=== PATIENT | female | born 2000 | race Caucasian/White ===

== ENCOUNTER 2024-08-27 19:47 | Emergency (ER) | payer BC, SELFPAY ==
[2024-08-27 19:48] VITALS: BP 118/74; PULSE 67; RESP 16; TEMP 36.6; O2SAT 98
--- NOTE | 2024-08-27 20:32 | EDS_ITS ---
HPI History of Present Illness Chief Complaint: Nausea/Vomiting PFSH PFSH Home Medications ?Medication ?Instructions ?Recorded ?Last Taken ?Type prochlorperazine maleate 10 mg 10 mg PO Q8H PRN nausea and 08/23/24 Unknown Rx tablet (Compazine) vomiting #90 tabs ondansetron 4 mg disintegrating 4 mg PO Q8H PRN PRN Nausea #10 tabs 08/27/24 Unknown Rx tablet Allergy/AdvReac Type Severity Reaction Status Date / Time No Known Allergies Allergy Verified 08/27/24 19:48 Social History Smoking Status: Never smoker EXAM Physical Exam Const Vital Signs: 08/27/24 19:48 08/27/24 23:41 Temperature 98 F 98 F Temperature Source Oral Pulse Rate 67 70 Respiratory Rate 16 16 Blood Pressure 118/74 125/77 H Blood Pressure Mean 88 93 Pulse Ox 98 99 Oxygen Delivery Method Room Air [facility] MDM Narrative Medical decision making narrative: HISTORY OF PRESENT ILLNESS: 24-year-old female presents with nausea vomiting for 3 weeks. The patient states she is 9 weeks . Notes she was told by her OB to present to the ED for IV fluids. Notes 4 episodes of non-bloody non-bilious vomitus today. No history abdominal surgeries. No she takes Phenergan at home but has not alleviated her symptoms. REVIEW OF SYSTEMS: Pertinent positives: Nausea vomiting Pertinent negatives: Vaginal bleeding, lower abdominal pain, vaginal discharge, passing tissue, PHYSICAL EXAM: Nursing triage notes reviewed, Vital signs reviewed Constitutional: please see mdm HENT: MMM Eyes: Pupils equal round and reactive to light, Extraocular muscles intact Neck: No stridor, no JVD, full neck ROM Lungs: Clear to auscultation, No wheezing or rales. No increased work of breathing, no conversational dyspnea, no accessory muscle use, no nasal flaring. No respiratory distress noted Heart: Regular rate and rhythm, No murmurs, No rubs and No gallops, 2+ distal pulses (radial, femoral, posterior tibial) in all extremities Abdomen: Soft, there is no tenderness, rigidity, rebound or guarding, no obvious peritoneal signs, no palpable pulsatile abdominal masses, no auscultated abdominal bruit : No CVAT Extremities: No edema Neuro: No new focal neurological deficits, cranial nerves II through XII intact, 5/5 strength in all present extremities. Intact sensation to light touch in all present extremities, 2+ reflexes bilateral patella tendons. Skin: No rash or lesions noted MEDICAL DECISION MAKING: Chief Complaint: Nausea vomiting External records reviewed: Reviewed prior imaging, problems, allergies, current medications Factors affecting care: first trimester Social determinants of health: History obtained from others: none Consults: none MDM Narrative: The patient was initially hemodynamically stable, afebrile and nontoxic- appearing. Abdominal exam is benign. I considered the following differential diagnosis: Ectopic , loss, dehydration, electrolyte disturbance I obtained a broad lab workup. I initially assessed the patient 1 L normal saline given 4 mg of Zofran. ALL IMAGES (IF OBTAINED) HAVE BEEN PERSONALLY REVIEWED AND INTERPRETED BY MYSELF. EKG with normal sinus rhythm at a rate of 65, normal axis, no intervals, QTc 438, no STEMI Urine without evidence of UTI or asymptomatic bacteria will send for culture to assure there is no sign of any symptomatic bacteria need for antibiotics. CMP without evidence of acute kidney injury, significant electrolyte abnormality, anion gap to suggest end organ hypo-perfusion, no evidence of metabolic acidosis with a normal bicarbonate, no evidence of hepatobiliary obstructive pathology. CBC without leukocytosis, severe anemia, no thrombocytopenia. Repeat abdominal exam remained benign. Given lack of abdominal pain, benign abdominal exam I do not suspect patient had ectopic . She had no vaginal bleeding discharge passage of tissue, leakage of fluid. Not suspect is having loss or miscarriage. There is no signs of significant dehydration or labs. Patient was able tolerate p.o. She is appropriate discharge home. The patient and/or family, caregivers express understanding. The patient and/or family, caregivers agrees with the plan. Shared decision making: I will have a discussion with the patient and or visitors regarding risk/benefi ts of further testing or admission. They will be made aware of of the risk/benefits inherent in this decision they will be given the opportunity to voice understanding. Total critical care time today provided was at least 0 minutes. This excludes separately billable procedures. Critical care time (if documented) is secondary to the patient having high probability of clinically significant/life threatening deterioration in the patient's condition which required my urgent intervention. Impression: 1. Nausea & vomiting 2. 1st trimester Dispo: Discharge home This note was generated with [employer] dictation software. It may contain incorrect words, spelling, and punctuation that were not noted in review of the chart prior to signing. Lab Data Labs: Laboratory Results - last 24 hr 08/27/24 08/27/24 20:43 21:23 WBC 9.6 RBC 4.10 L Hgb 12.1 Hct 35.8 L MCV 87.3 MCH 29.5 MCHC 33.8 RDW Std Deviation 39.5 RDW Coeff of Edilma 12.4 Plt Count 153 MPV 13.1 H Sodium 139 Potassium 3.6 Chloride 104 Carbon Dioxide 29.0 Anion Gap 6 BUN 9 Creatinine 0.52 L Est GFR (MDRD) Af Amer 186 Est GFR (MDRD) Non-Af 154 BUN/Creatinine Ratio 17.2 Glucose 91 Calcium 8.9 Total Bilirubin 0.30 AST 11 L ALT 16 Alkaline Phosphatase 60 Total Protein 7.0 Albumin 3.6 Globulin 3.4 Albumin/Globulin Ratio 1.1 Lipase 36 Urine Color Yellow Urine Clarity Sl. Cloudy Urine pH 7.0 Ur Specific [place] 1.010 Urine Protein 15 H Urine Glucose (UA) Normal Urine Ketones Negative Urine Occult Blood Negative Urine Nitrite Negative Urine Bilirubin Negative Urine Urobilinogen Normal Ur Leukocyte Esterase 25 H Urine RBC 0 SEEN Urine WBC 0-5 SEEN Ur Squamous Epith Cells 0-5 SEEN Amorphous Sediment 3+ Urine Bacteria 0 SEEN Urine Mucus 0 SEEN Discharge Plan Triage Chief Complaint: Nausea/Vomiting ED Provider: Ivan Abrams Dx/Rx/DC Orders Instructions: ED , ED Vomiting (Adult) Prescriptions: New ondansetron 4 mg tablet,disintegrating 4 mg PO Q8H PRN PRN (Reason: Nausea) Qty: 10 0RF No Action prochlorperazine maleate [Compazine] 10 mg tablet 10 mg PO Q8H PRN (Reason: nausea and vomiting) Qty: 90 3RF Primary Care Provider: Yuliana Loya Referrals: Yuliana Loya, [facility] [Primary Care Provider] - Activity Restrictions/Additional Instructions: Thank you for trusting us with your care today! Please take Tylenol (2 pills, 650 mg), ibuprofen (2 pills, 400 mg) every 6 hours as needed for pain and fever control. Please take Zofran as needed for nausea vomiting control. Zofran is safe to take with Zoloft as long as you are taking Zofran as prescribed at the appropriate doses and not for prolonged amount of time Please return to the emergency department if your symptoms change or worsen. Specifically develop vomiting that is not controlled by Zofran. Develop fever, elevated heart rate, muscle spasms. Please follow with your primary care physician for further outpatient evaluation and management. Print Language: Sammarinese Disposition Disposition: Home, Self Care Discharge Date/Time: 08/27/24 23:43
--- NOTE | 2024-08-27 21:10 | ED.RN ---
NO OLD EKG
[2024-08-27] MEDS: Ondansetron 4 MG/2 ML Vial IV (21:19)
[2024-08-27] MEDS: 0.9% Normal Saline (1000mL) 1,000 ML 1000 ML IV (21:19)
[2024-08-27 21:30] LABS: Bacteria 0 SEEN /hpf (None Seen); Color, Urine Yellow (Yellow); Glucose, Dipstick Normal (Normal); Ketone-Dipstick Negative (Negative); Leukocyte Esterase-Dipstick 25 /ul (Negative); Mucous, Urine 0 SEEN /hpf (<or=2+); Nitrite-Dipstick Negative (Negative); Occult Blood-Urine Negative /ul (Negative); Protein-Dipstick 15 mg/dl (Negative); Red Blood Cells-Urine 0 SEEN /hpf (0-5); Urine Bilirubin Dipstick Negative (Negative); Urine Clarity Sl. Cloudy (Clear); Urine Urobilinogen Normal (Normal)
[2024-08-27 21:33] LABS: Hematocrit 35.8 % (37-47); Hemoglobin 12.1 g/dL (12.0-15.0); Mean Corp Hgb Conc 33.8 g/dL (32-36); Mean Corpuscular Hgb 29.5 pg (27.0-32.0); Mean Corpuscular Volume 87.3 fL (81-99); Mean Platelet Vol. 13.1 fl (6.2-12.0); Platelet Count 153 K/mm3 (150-450); RBC Distribution Width CV 12.4 % (11.6-14.6); RBC Distribution Width SD 39.5 fl (35.1-43.9); White Blood Count 9.6 K/mm3 (4.4-11.0)
[2024-08-27 21:49] LABS: Amorphous Sediment 3+; Squamous Epithelial Cells - UA 0-5 SEEN /hpf (5-10); White Blood Cells 0-5 SEEN /hpf (0-5)
[2024-08-27 21:57] LABS: ALB/GLOB Ratio 1.1 RATIO (0.9-2.4); AST(SGOT) 11 U/L (15-37); Alanine Aminotransfer ALT/SGPT 16 U/L (13-56); Albumin, Serum 3.6 g/dL (3.2-5.0); Alkaline Phosphatase 60 U/L (45-117); Anion Gap 6 (5-15); BUN 9 mg/dL (7-18); BUN/Creat Ratio 17.2 RATIO (10-20); Calcium,Total 8.9 mg/dL (8.5-10.1); Chloride 104 mmol/L (98-107); Creatinine, Serum 0.52 mg/dL (0.55-1.02); EST Glomerular Filtration Rate 154 mL/min (>60); Est Glom Filt Rate - Afr Amer 186 mL/min (>60); Globulin 3.4 g/dL (2.2-4.2); Glucose 91 mg/dL (74-106); Lipase 36 U/L (13-75); Potassium 3.6 mmol/L (3.5-5.1); Sodium Level 139 mmol/L (136-145)
--- NOTE | 2024-08-27 22:31 | ED.RN ---
Patient given a cup of water to PO challenge.
[2024-08-27 23:41] VITALS: BP 125/77; PULSE 70; RESP 16; TEMP 36.6; O2SAT 99
== END 2024-08-27 23:43 | disposition home or self-care (01) ==
PROVIDERS: Emergency Provider Emergency Medicine; PCP Nurse Practitioner Family; Visit Provider Emergency Medicine
DX: O21.9 Vomiting of pregnancy, unspecified (principal); Z3A.00 Weeks of gestation of pregnancy not specified
CPT/HCPCS: 80053; 81001; 83690; 85027; 87086; 93005; 96361; 96374; 99283; A4216; J2405

== ENCOUNTER → 2024-09-09 | Outpatient (CLI) | payer BC, SELFPAY ==
[2024-09-09 11:16] LABS: Absolute Lymphocyte Count 1.49 X10^3/uL (0.83-4.51); Absolute Neutrophil Count 7.4 X10^3/uL (2.0-7.7); Basophil# 0.02 X10^3/uL; Basophil% 0.2 % (0-1); Eosinophil# 0.14 X10^3/uL; Eosinophils% 1.5 % (0-5); Hematocrit 40.7 % (37-47); Hemoglobin 13.3 g/dL (12.0-15.0); Lymphocyte # 1.49 X10^3/ul (0.83-4.51); Lymphocyte % 15.6 % (19-41); Mean Corp Hgb Conc 32.7 g/dL (32-36); Mean Corpuscular Hgb 28.8 pg (27.0-32.0); Mean Corpuscular Volume 88.1 fL (81-99); Mean Platelet Vol. 12.9 fl (6.2-12.0); Monocyte# 0.47 X10^3/uL; Monocyte% 4.9 % (0-10); NRBC Flagged by Analyzer 0 % (0-5); Neutrophil % 77.5 % (47-70); Platelet Count 183 K/mm3 (150-450); RBC Distribution Width CV 12.8 % (11.6-14.6); RBC Distribution Width SD 41.2 fl (35.1-43.9); Red Blood Count 4.62 M/mm3 (4.2-5.4); White Blood Count 9.6 K/mm3 (4.4-11.0)
[2024-09-09 11:59] LABS: Hepatitis B Surface Antigen Non-Reactive (Nonreactive); Hepatitis C Antibody Non-Reactive (Nonreactive); Rubella IgG Reactive (Nonreactive); Syphilis Antibodies Non-reactive
[2024-09-11 04:06] LABS: Chlamydia By Nucleic Acid AMP Negative (Negative); Gonococcus By Nucleic Acid AMP Negative (Negative)
[2024-09-14 13:49] LABS: HPV Reflexed? NOT INDICATED
[2024-09-14 22:08] LABS: HIV - WCH Non-Reactive (Nonreactive)
== END | disposition home or self-care (01) ==
LOC: BWCLAB 09:39
PROVIDERS: PCP Nurse Practitioner Family; Referring Provider Advanced Practice Midwife; Visit Provider Advanced Practice Midwife
DX: O09.90 Supervision of high risk pregnancy, unspecified, unspecified trimester (principal); Z3A.00 Weeks of gestation of pregnancy not specified
CPT/HCPCS: 36415; 85025; 86703; 86762; 86780; 86803; 86850; 86900; 86901; 87086; 87340; 87491; 87591; 88175; G0145

== ENCOUNTER → 2025-01-07 | Outpatient (CLI) | payer BC, SELFPAY ==
[2025-01-07 12:10] LABS: Absolute Lymphocyte Count 1.52 X10^3/uL (0.83-4.51); Absolute Neutrophil Count 9.6 X10^3/uL (2.0-7.7); Basophil# 0.04 X10^3/uL; Basophil% 0.3 % (0-1); Eosinophil# 0.18 X10^3/uL; Eosinophils% 1.5 % (0-5); Hematocrit 31.5 % (37-47); Hemoglobin 10.1 g/dL (12.0-15.0); Lymphocyte # 1.52 X10^3/ul (0.83-4.51); Lymphocyte % 12.4 % (19-41); Mean Corp Hgb Conc 32.1 g/dL (32-36); Mean Corpuscular Hgb 28.6 pg (27.0-32.0); Mean Corpuscular Volume 89.2 fL (81-99); Mean Platelet Vol. 12.1 fl (6.2-12.0); Monocyte# 0.66 X10^3/uL; Monocyte% 5.4 % (0-10); NRBC Flagged by Analyzer 0 % (0-5); Neutrophil # 9.57 X10^3/uL (2.7-7.7); Neutrophil % 78.3 % (47-70); Platelet Count 160 K/mm3 (150-450); RBC Distribution Width CV 12.7 % (11.6-14.6); RBC Distribution Width SD 40.6 fl (35.1-43.9); Red Blood Count 3.53 M/mm3 (4.2-5.4); White Blood Count 12.2 K/mm3 (4.4-11.0)
[2025-01-07 13:22] LABS: Glucose Challenge Gest 1H 50g 103 mg/dL (70-140); HIV Nonreactive (Nonreactive); Syphilis Antibodies Nonreactive (Nonreactive)
== END | disposition home or self-care (01) ==
PROVIDERS: Obstetrics & Gynecology; PCP Nurse Practitioner Family; Referring Provider Obstetrics & Gynecology; Visit Provider Obstetrics & Gynecology
DX: O09.90 Supervision of high risk pregnancy, unspecified, unspecified trimester (principal); Z13.1 Encounter for screening for diabetes mellitus; Z3A.00 Weeks of gestation of pregnancy not specified
CPT/HCPCS: 36415; 82950; 85025; 86703; 86780

== ENCOUNTER → 2025-02-11 | Outpatient (CLI) | payer BC, SELFPAY ==
--- NOTE | 2025-02-11 12:04 | US_ITS ---
PROCEDURE: OB LIMITED WITH BIOMETRICS 02/11/2025 REASON FOR EXAM: GROWTH AT 32 WEEKS TECHNIQUE: High resolution obstetric ultrasound performed using a 2D transducer. Standard views obtained, including biometry, anatomy survey, and Doppler studies. COMPARISON: None FINDINGS Number: 1 Position: Vertex Placental Position: Posterior Placental Abnormalities: No evidence of previa. DIMENSIONS: Biparietal Diameter: 8.6 cm: 34 weeks and 5 days: 91st percentile/ Head Circumference: 31.12 cm: 34 weeks and 6 days: 69 percentile/ Abdominal Circumference: 31.04 cm: 35 weeks and 0 days: 96 percentile/ Femur Length: 5.74 cm: 30 weeks and 1 day: 12th percentile/ ESTIMATED WEIGHT: 2245 g plus/-337 g ESTIMATED WEIGHT PERCENTILE (24+ weeks): 70 ESTIMATED GESTATIONAL AGE: Baseline: 32 weeks and 5 days By Ultrasound: 34 weeks and 0 days ESTIMATED DATE OF DELIVERY: Baseline: April 03, 2025 By Ultrasound: March 25, 2024 BIOPHYSICAL ASSESSMENT: Amniotic Fluid Volume: 6 cm Amniotic Fluid Index: 13.8 (8-24 cm normal range) Cardiac Motion: 171 beats per minute (average) Trunk and Limb Motion: Present. MATERNAL ANATOMY: Adnexa: Neither maternal ovary is successfully identified. US/OB Limited With Biometrics IMPRESSION: Single live intrauterine gestation with a mean gestational age of 34 weeks. Reading Location: [id number]
--- OUTSIDE RECORDS SUMMARY | 2025-02-11 19:10 | XMS RPT_ITS | CCD ---
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 History Migraine headache Surgical History [place] teeth extracted Family History Grandfather Diabetes Maternal Mother Cancer Basal cell skin cancer Father Cancer Basal cell Skin cancer Aunt Cancer Maternal- Skin Melanoma Social History adopted: No household members: spouse current occupational status: employed current occupation: [employer] pets and animals: Yes (Avoid Litterbox) pets and animals: cat(s) history of recent travel: No sexually active: Yes Smoking Status: Never smoker alcohol intake: current alcohol intake frequency: a few times a month details: Not while substance use type: does not use well-balanced diet: daily or most days caffeine: No eating out: 1-3 times/week during the past year weight has: remained stable what type of physical activity do you participate in: none osiris/anabaptist: Buddhist seatbelt use: always do you feel safe at home: Yes additional social history: Xavier History 1 Elective abortions Hx Para 0 Spontaneous abortions Hx # Term Pregnancies Ectopic pregnancies Hx # Pregnancies Multiple births # of living children HPI 27 wk ob/ glucose Details: GINO MICHELE is a 24 year old who presents for routine OB visit. OB Visit BLUE Calculator Estimated Delivery Date Method Current WG Current Estimate 04/03/25 LMP (Certain) 27w 5d Other Estimates 04/01/25 Ultrasound #1 28w 0d Expected Delivery Route/Plan Labor Preferences- CB/BF classes: [] labor support person: [] labor intervention preferences: [] pain management options preferred: [] cut cord/dad catch: [] : [] PP control planned: [] discussed possible routes of delivery and associated risks: [] special requests: [] Specific Issue/Plans Covid status: [] Flu vaccine: [] Tdap vaccine: [] Rhogam: [] LARC form signed: [] Problem list reviewed and updated with the most current plan of care details and appropriate orders placed. Relevant counseling for the gestational age provided. Continue routine care and follow up unless otherwise noted in visit notes/problem list details Initial Weight: 143 lb Date -???-???-???-???-?? ?-???-???-???-???-? ??-???-???- EGA Weight BP Urine Prot -???-???-???-???-?? ?-???-???-???-???-? ??-???-???- Glucose FHR FuHt Pres Dilation -???-???-???-???-?? ?-???-???-???-???-? ??-???-???- Effaced St Visit Note 09/09/24 -???-???-???-???-?? ?-???-???-???-???-? ??-???-???- 10w 4d 143 lb (+0 oz) 127/83 -???-???-???-???-?? ?-???-???-???-???-? ??-???-???- 169 -???-???-???-???-?? ?-???-???-???-???-? ??-???-???- KW- CRL cons with dates. declines NIPT. Anatomy US ordered 10/07/24 -???-???-???-???-?? ?-???-???-???-???-? ??-???-???- 14w 4d 153 lb 2 oz (+10 lb 2 oz) 120/73 Negative -???-???-???-???-?? ?-???-???-???-???-? ??-???-???- Negative 145 -???-???-???-???-?? ?-???-???-???-???-? ??-???-???- JV- still so me nausea. trying reglan. will also try buspar for anxiety. anatomy scan ordered. 11/05/24 -???-???-???-???-?? ?-???-???-???-???-? ??-???-???- 18w 5d 164 lb (+21 lb) 134/81 Negative -???-???-???-???-?? ?- (more content not included)... Normal [facility] Platelet countOrdered By: Khris Chaney on 01-07-2025 Platelets (Bld) [#/Vol] 160 10*3/uL 150-450 [facility] RBC Auto (Bld) [#/Vol]Ordere d By: Rufina Chaney on 01-07-2025 RBC (Bld) [#/Vol] 3.53 10*6/uL Low 4.2-5.4 [facility] Syphilis Antibodieson 2024 Syphilis Abs Non-Reactive Normal Nonreactive [facility] Comment on above: Performed By: #### M 100.2200 #### [facility] [place], [address] White blood cell (WBC) count Ordered By: Rufina Chaney on 01-07-2025 WBC (Bld) [#/Vol] 12.2 10*3/uL High 4.4-11.0 [facility] Laboratory - Chemistry and C hemistry - challengeOrdered By: Rufina Chaney on 12-03-2024 Glucose Ql (U) Negative [facility] - UrinalysisOrder ed By: Rufina Chaney on 12-03-2024 Protein Ql (U) Negative [facility] Boiler Tester Office Visit Reporton 12-03-2024 Boiler Tester Office Visit Report [facility] [address], [address] [place] [address] OFFICE VISIT Date of Service: 12/03/24 MR#: [id number] Acct: [id number] Name: GINO MICHELE Rep #: [id number] : 2000 Provider: Dr. Rufina Dowd DO Age/Sex: 24/F Location: [facility] [place] Status: Signed Intake Vital Signs 09/09/24 09:07 11/05/24 11:42 12/03/24 10:15 12/03/24 10:16 Height 5 ft 5 in 5 ft 5 in 5 ft 5 in 5 ft 5 in Weight: 171 lb 6 oz BMI 28.5 BP 120/77 Intake Visit Reasons: 22 wk ob Progress Man Required: No Is patient in pain?: No Allergies No Known Allergies Allergy (Verified 12/03/24 10:14) Medications ???Medication ???Instructions ???Recorded ???Confirmed ???Type multivitamin no.47-iron fum 27 cap PO 09/06/24 12/03/24 History mg-folate no.1 1 mg-dha 300 mg capsule (PNV-DHA) buspirone 15 mg tablet 15 mg PO TID PRN anxiety #30 tabs 10/07/24 12/03/24 Rx metoclopramide HCl 10 mg tablet 10 mg PO QAC #60 tabs 10/07/2412/24 Rx (Reglan) sertraline 50 mg tablet (Zoloft) 150 mg PO QDAY 10/07/24 12/03/24 H istory ondansetron 4 mg disintegrating 4 mg PO Q8H PRN PRN Nausea #30 tab s 10/15/24 12/03/24 Rx tablet ondansetron HCl 4 mg tablet 4 mg PO Q6H PRN nausea and 5 04/04/25 Rx vomiting #60 tabs Last Menstrual Period: 06/27/24 Zika: Zika virus screening: Negative : No PFSH PFSH Medical History Migraine headache Surgical History [place] teeth extracted Family History Grandfather Diabetes Maternal Mother Cancer Basal cell skin cancer Father Cancer Basal cell Skin cancer Aunt Cancer Maternal- Skin Melanoma Social History adopted: No household members: spouse current occupational status: employed current occupation: [employer] pets and animals: Yes (Avoid Litterbox) pets and animals: cat(s) history of recent travel: No sexually active: Yes Smoking Status: Never smoker alcohol intake: current alcohol intake frequency: a few times a month details: Not while substance use type: does not use well-balanced diet: daily or most days caffeine: No eating out: 1-3 times/week during the past year weight has: remained stable what type of physical activity do you participate in: none osiris/anabaptist: Buddhist seatbelt use: always do you feel safe at home: Yes additional social history: Xavier History 1 Elective abortions Hx Para 0 Spontaneous abortions Hx # Term Pregnancies Ectopic pregnancies Hx # Pregnancies Multiple births # of living children HPI 22 wk ob Details: GINO MICHELE is a 24 year old who presents for routine OB visit. OB Visit BLUE Calculator Estimated Delivery Date Method Current WG Current Estimate 04/03/25 LMP (Certain) 22w 5d Other Estimates 04/01/25 Ultrasound #1 23w 0d Expected Delivery Route/Plan Labor Preferences- CB/BF classes: [] labor support person: [] labor intervention preferences: [] pain management options preferred: [] cut cord/dad catch: [] : [] PP control planned: [] discussed possible routes of delivery and associated risks: [] special requests: [] Specific Issue/Plans Covid status: [] Flu vaccine: [] Tdap vaccine: [] Rhogam: [] LARC form signed: [] Problem list reviewed and updated with the most current plan of care details and appropriate orders placed. Relevant counseling for the gestational age provided. Continue routine care and follow up unless otherwise noted in visit notes/problem list details Initial Weight: 143 lb Date -???-???-???-???-?? ?-???-???-???-???-? ??-???-???- EGA Weight BP Urine Prot -???-???-???-???-?? ?-???-???-???-???-? ??-???-???- Glucose FHR FuHt Pres Dilation -???-???-???-???-?? ?-???-???-???-???-? ??-???-???- Effaced St Visit Note 09/09/24 -???-???-???-???-?? ?-???-???-???-???-? ??-???-???- 10w 4d 143 lb (+0 oz) 127/83 -???-???-???-???-?? ?-???-???-???-???-? ??-???-???- 169 -???-???-???-???-?? ?-???-???-???-???-? ??-???-???- KW- CRL cons with dates. declines NIPT. Anatomy US ordered 10/07/24 -???-???-???-???-?? ?-???-???-???-???-? ??-???-???- 14w 4d 153 lb 2 oz (+10 lb 2 oz) 120/73 Negative -???-???-???-???-?? ?-???-???-???-???-? ??-???-???- Negative 145 -???-???-???-???-?? ?-???-???-???-???-? ??-???-???- JV- still so me nausea. trying reglan. will also try buspar for anxiety. anatomy scan ordered. 11/05/24 -???-???-???-???-?? ?-???-???-???-???-? ??-???-???- 18w 5d 164 (more content not included)... Normal [facility] - Chemistry and C hemistry - challengeOrdered By: Autumn Jacome on 11-05-2024 Glucose Ql (U) Negative [facility] - UrinalysisOrder ed By: Autumn Jacome on 11-05-2024 Protein Ql (U) Negative [facility] Boiler Tester Office Visit Reporton 11-05-2024 Boiler Tester Office Visit Report [facility]'s [address], [address] [place] [address] OFFICE VISIT Date of Service: 11/05/24 MR#: [id number] Acct: [id number] Name: GINO MICHELE Rep #: [id number] : 2000 Provider: JOSE Santos ams Age/Sex: 24/F Location: [facility] [place] Status: Signed Intake Vital Signs 09/09/24 09:07 10/07/24 11:35 11/05/24 11:42 Height 5 ft 5 in 5 ft 5 in 5 ft 5 in Weight: 164 lb BMI 27.3 BP 134/81 H Intake Visit Reasons: 18 wk ob Chief Complaint: 18wk OB Is patient in pain?: No Allergies No Known Allergies Allergy (Verified 11/05/24 11:39) Medications ???Medication ???Instructions ???Recorded ???Confirmed ???Type multivitamin no.47-iron fum 27 cap PO 09/06/24 11/05/24 History mg-folate no.1 1 mg-dha 300 mg capsule (PNV-DHA) buspirone 15 mg tablet 15 mg PO TID PRN anxiety #30 tabs 10/07/24 11/05/24 Rx metoclopramide HCl 10 mg tablet 10 mg PO QAC #60 tabs 10/07/2403/25 Rx (Reglan) sertraline 50 mg tablet (Zoloft) 150 mg PO QDAY 10/07/24 11/05/24 H istory ondansetron 4 mg disintegrating 4 mg PO Q8H PRN PRN Nausea #30 tab s 10/15/24 11/05/24 Rx tablet ondansetron HCl 4 mg tablet 4 mg PO Q6H PRN nausea and 5 11/05/24 Rx vomiting #60 tabs Last Menstrual Period: 06/27/24 : No PFSH PFSH Medical History Migraine headache Surgical History [place] teeth extracted Family History Grandfather Diabetes Maternal Mother Cancer Basal cell skin cancer Father Cancer Basal cell Skin cancer Aunt Cancer Maternal- Skin Melanoma Social History adopted: No household members: spouse current occupational status: employed current occupation: [employer] pets and animals: Yes (Avoid Litterbox) pets and animals: cat(s) history of recent travel: No sexually active: Yes Smoking Status: Never smoker alcohol intake: current alcohol intake frequency: a few times a month details: Not while substance use type: does not use well-balanced diet: daily or most days caffeine: No eating out: 1-3 times/week during the past year weight has: remained stable what type of physical activity do you participate in: none osiris/anabaptist: Buddhist seatbelt use: always do you feel safe at home: Yes additional social history: Xavier History 1 Elective abortions Hx Para 0 Spontaneous abortions Hx # Term Pregnancies Ectopic pregnancies Hx # Pregnancies Multiple births # of living children HPI 18 wk ob Details: GINO MICHELE is a 24 year old who presents for routine OB visit. OB Visit BLUE Calculator Estimated Delivery Date Method Current WG Current Estimate 04/03/25 LMP (Certain) 18w 5d Other Estimates 04/01/25 Ultrasound #1 19w 0d Expected Delivery Route/Plan Labor Preferences- CB/BF classes: [] labor support person: [] labor intervention preferences: [] pain management options preferred: [] cut cord/dad catch: [] : [] PP control planned: [] discussed possible routes of delivery and associated risks: [] special requests: [] Specific Issue/Plans Covid status: [] Flu vaccine: [] Tdap vaccine: [] Rhogam: [] LARC form signed: [] Problem list reviewed and updated with the most current plan of care details and appropriate orders placed. Relevant counseling for the gestational age provided. Continue routine care and follow up unless otherwise noted in visit notes/problem list details Initial Weight: 143 lb Date -???-???-???-???-?? ?-???-???-???-???-? ??-???-???- EGA Weight BP Urine Prot -???-???-???-???-?? ?-???-???-???-???-? ??-???-???- Glucose FHR FuHt Pres Dilation -???-???-???-???-?? ?-???-???-???-???-? ??-???-???- Effaced St Visit Note 09/09/24 -???-???-???-???-?? ?-???-???-???-???-? ??-???-???- 10w 4d 143 lb (+0 oz) 127/83 -???-???-???-???-?? ?-???-???-???-???-? ??-???-???- 169 -???-???-???-???-?? ?-???-???-???-???-? ??-???-???- KW- CRL cons with dates. declines NIPT. Anatomy US ordered 10/07/24 -???-???-???-???-?? ?-???-???-???-???-? ??-???-???- 14w 4d 153 lb 2 oz (+10 lb 2 oz) 120/73 Negative -???-???-???-???-?? ?-???-???-???-???-? ??-???-???- Negative 145 -???-???-???-???-?? ?-???-???-???-???-? ??-???-???- JV- still so me nausea. trying reglan. will also try buspar for anxiety. anatomy scan ordered. 11/05/24 -???-???-???-???-?? ?-???-???-???-???-? ??-???-???- 18w 5d 164 lb (+21 lb) 134/81 Negative -???-???-???-???-?? ?-???-???-???-???-? ??-???-???- Negative 165 (more content not included)... Normal [facility] - Chemistry and C hemistry - challengeOrdered By: Rufina Chaney on 10-07-2024 Glucose Ql (U) Negative [facility] - UrinalysisOrder ed By: Rufina Chaney on 10-07-2024 Protein Ql (U) Negative [facility] Boiler Tester Office Visit Reporton 10-07-2024 Boiler Tester Office Visit Report [facility]'[address], [address] [place] [address] OFFICE VISIT Date of Service: 10/07/24 MR#: [id number] Acct: [id number] Name: GINO MICHELE Rep #: [id number] : 2000 Provider: Dr. Rufina Dowd, Age/Sex: 24/F Location[place] [facility] [place] Status: Signed Intake Vital Signs 08/27/24 19:48 09/09/24 09:07 10/07/24 11:33 10/07/24 11:35 Height 5 ft 5 in 5 ft 5 in 5 ft 5 in 5 ft 5 in Weight: 153 lb 2 oz BMI 25.4 BP 120/73 Intake Visit Reasons: 14 wk OB Progress Man Required: No Is patient in pain?: No Allergies No Known Allergies Allergy (Verified 10/07/24 11:33) Medications ???Medication ???Instructions ???Recorded ???Confirmed ???Type multivitamin no.47-iron fum 27 cap PO 09/06/24 10/07/24 History mg-folate no.1 1 mg-dha 300 mg capsule (PNV-DHA) ondansetron 4 mg disintegrating 4 mg PO Q8H PRN PRN Nausea #30 tab s 09/13/24 10/07/24 Rx tablet buspirone 15 mg tablet 15 mg PO TID PRN anxiety #30 tabs 10/07/24 10/07/24 Rx metoclopramide HCl 10 mg tablet 10 mg PO QAC #60 tabs 10/07/2402/23 Rx (Reglan) sertraline 50 mg tablet (Zoloft) 150 mg PO QDAY 10/07/24 10/07/24 H istory Last Menstrual Period: 06/27/24 Zika: Zika virus screening: Negative : No PFSH PFSH Medical History Migraine headache Surgical History [place] teeth extracted Family History Grandfather Diabetes Maternal Mother Cancer Basal cell skin cancer Father Cancer Basal cell Skin cancer Aunt Cancer Maternal- Skin Melanoma Social History adopted: No household members: spouse current occupational status: employed current occupation: [employer] pets and animals: Yes (Avoid Litterbox) pets and animals: cat(s) history of recent travel: No sexually active: Yes Smoking Status: Never smoker alcohol intake: current alcohol intake frequency: a few times a month details: Not while substance use type: does not use well-balanced diet: daily or most days caffeine: No eating out: 1-3 times/week during the past year weight has: remained stable what type of physical activity do you participate in: none osiris/anabaptist: Buddhist seatbelt use: always do you feel safe at home: Yes additional social history: Xavier History 1 Elective abortions Hx Para 0 Spontaneous abortions Hx # Term Pregnancies Ectopic pregnancies Hx # Pregnancies Multiple births # of living children HPI 14 wk OB Details: GINO MICHELE is a 24 year old who presents for routine OB visit. OB Visit BLUE Calculator Estimated Delivery Date Method Current WG Current Estimate 04/03/25 LMP (Certain) 14w 4d Other Estimates 04/01/25 Ultrasound #1 14w 6d Expected Delivery Route/Plan Labor Preferences- CB/BF classes: [] labor support person: [] labor intervention preferences: [] pain management options preferred: [] cut cord/dad catch: [] : [] PP control planned: [] discussed possible routes of delivery and associated risks: [] special requests: [] Specific Issue/Plans Covid status: [] Flu vaccine: [] Tdap vaccine: [] Rhogam: [] LARC form signed: [] Problem list reviewed and updated with the most current plan of care details and appropriate orders placed. Relevant counseling for the gestational age provided. Continue routine care and follow up unless otherwise noted in visit notes/problem list details Initial Weight: 143 lb Date -???-???-???-???-?? ?-???-???-???-???-? ??-???-???- EGA Weight BP Urine Prot -???-???-???-???-?? ?-???-???-???-???-? ??-???-???- Glucose FHR FuHt Pres Dilation -???-???-???-???-?? ?-???-???-???-???-? ??-???-???- Effaced St Visit Note 09/09/24 -???-???-???-???-?? ?-???-???-???-???-? ??-???-???- 10w 4d 143 lb (+0 oz) 127/83 -???-???-???-???-?? ?-???-???-???-???-? ??-???-???- 169 -???-???-???-???-?? ?-???-???-???-???-? ??-???-???- KW- CRL cons with dates. declines NIPT. Anatomy US ordered 10/07/24 -???-???-???-???-?? ?-???-???-???-???-? ??-???-???- 14w 4d 153 lb 2 oz (+10 lb 2 oz) 120/73 Negative -???-???-???-???-?? ?-???-???-???-???-? ??-???-???- Negative 145 -???-???-???-???-?? ?-???-???-???-???-? ??-???-???- JV- still so me nausea. trying reglan. will also try buspar for anxiety. anatomy scan ordered. ACOG First Trimester First Trimester: Discussed Second Trimester Second Trimester: Signs and Symptoms of Labor, Selecting a care provide (more content not included)... Normal [facility] HIV - WCHon 09-14-2024 HIV Non-Reactive Normal Nonreactive [facility] Comment on above: Order Comment: Reaso n for Exam: Performed By: #### M 100.2200 #### [facility] [address] [place], [address] PAP I-G w/rfx hrHPV-Aptimaon 09-14-2024 ADEQ Comment Normal . [facility] Comment on above: Order Comment: Speci men Comment: [id number] Specimen Comment: Source.............Cervix Specimen Comment: No. of containers..01 ThinPrep Vial Result Comment: Sati sfactory for evaluation. Endocervical and/or squamous metaplastic cells (endocervical component) are present. Performed By: #### M 100.2200, L7400.0353, L7000.1800 #### [facility] [address] [place], [place], [id number] COMM . Normal . [facility] Comment on above: Order Comment: Speci men Comment: [id number] Specimen Comment: Source.............Cervix Specimen Comment: No. of containers..01 ThinPrep Vial Performed By: #### M 100.2200, L7400.0353, L7000.1800 #### [facility] [address] [place], [place], [id number] COMMENT Comment Normal . [facility] Comment on above: Order Comment: Speci men Comment: [id number] Specimen Comment: Source.............Cervix Specimen Comment: No. of containers..01 ThinPrep Vial Result Comment: This liquid based ThinPrep(R) pap test was screened with the use of an image guided system. Performed By: #### M 100.2200, L7400.0353, L7000.1800 #### [facility] [address] [place], [place], [id number] DIAG Comment Normal . [facility] Comment on above: Order Comment: Speci men Comment: [id number] Specimen Comment: Source.............Cervix Specimen Comment: No. of containers..01 ThinPrep Vial Result Comment: NEGA TIVE FOR INTRAEPITHELIAL LESION OR MALIGNANCY. Performed By: #### M 100.2200, L7400.0353, L7000.1800 #### [facility] [address] [place], [place], [id number] HPV RFLX Comment Normal . [facility] Comment on above: Order Comment: Speci men Comment: [id number] Specimen Comment: Source.............Cervix Specimen Comment: No. of containers..01 ThinPrep Vial Result Comment: The HPV DNA reflex criteria were not met with this specimen result therefore, no HPV testing was performed. Performed at: [address] [id number] Marketing/Sales Person: Rachell Lowe MD, Phone: [phone] Performed By: #### M 100.2200, L7400.0353, L7000.1800 #### [facility] [address] [place], [place], [id number] PAPSMR Comment Normal . [facility] Comment on above: Order Comment: Speci men Comment: [id number] Specimen Comment: Source.............Cervix Specimen Comment: No. of containers..01 ThinPrep Vial Result Comment: The Pap smear is a screening test designed to aid in the detection of premalignant and malignant conditions of the uterine cervix. It is not a diagnostic procedure and should not be used as the sole means of detecting cervical cancer. Both false-positive and false-negative reports do occur. Performed By: #### M 100.2200, L7400.0353, L7000.1800 #### [facility] [address] [place], [place], [id number] PERFORM Comment Normal . [facility] Comment on above: Order Comment: Speci men Comment: [id number] Specimen Comment: Source.............Cervix Specimen Comment: No. of containers..01 ThinPrep Vial Result Comment: Bang Reese Spinning Lathe Operator Automatic (ASCP) Performed By: #### M 100.2200, L7400.0353, L7000.1800 #### [facility] [facility] [address] [place], [address] Chlamydia/GC MICKEY aptimaon CHLAMY,NUC ACID Negative Normal Negative [facility] Comment on above: Performed By: #### M 100.2200, L7400.0353, L7000.1800 #### [facility] [address] [place], [address] GC BY NUC ACID Negative Normal Negative [facility] Comment on above: Result Comment: Perf ormed at: =G - [facility] [address] [id number] Marketing/Sales Person: Rachell Lowe MD, Phone: [phone] Performed By: #### M 100.2200, L7400.0353, L7000.1800 #### [facility] [address] [place], [address] Urine Cultureon 09-10-2024 URC Culture exhibits no growth. Normal [facility] Comment on above: Performed By: #### M 100.2200, L7400.0353, L7000.1800 #### [facility] [address] [place], [address] CBC W/Diff, Automatedon Absolute Lymph 1.49 X10 3/uL Normal 0.83-4.51 [facility] Comment on above: Performed By: #### L 3890.6300, L509.4005, L509.8000, L3890.6100, L3890.6005, BTS, L100.0100 #### [facility] [address] [place], [address] Absolute Neut 7.4 X10 3/uL Normal 2.0-7.7 [facility] Comment on above: Performed By: #### L 3890.6300, L509.4005, L509.8000, L3890.6100, L3890.6005, BTS, L100.0100 #### [facility] [address] [place], [address] Basophils/100 WBC (Bld) 0.2 % Normal 0-1 [facility] Comment on above: Performed By: #### L 3890.6300, L509.4005, L509.8000, L3890.6100, L3890.6005, BTS, L100.0100 #### [facility] [address] [place], [address] Eosinophils/100 WBC (Bld) 1.5 % Normal 0-5 [facility] Comment on above: Performed By: #### L 3890.6300, L509.4005, L509.8000, L3890.6100, L3890.6005, BTS, L100.0100 #### [facility] [address] [place], [address] Erythrocyte distribution width (RBC) [Ratio] 12.8 % Normal 11.6-14.6 [facility] Comment on above: Performed By: #### L 3890.6300, L509.4005, L509.8000, L3890.6100, L3890.6005, BTS, L100.0100 #### [facility] [address] [place], [address] Hematocrit (Bld) [Volume fraction] 40.7 % Normal 37-47 [facility] Comment on above: Performed By: #### L 3890.6300, L509.4005, L509.8000, L3890.6100, L3890.6005, BTS, L100.0100 #### [facility] [address] [place], [address] Hemoglobin (Bld) [Mass/Vol] 13.3 g/dL Normal 12.0-15.0 [facility] Comment on above: Performed By: #### L 3890.6300, L509.4005, L509.8000, L3890.6100, L3890.6005, BTS, L100.0100 #### [facility] [address] [place], [address] IG% 0.300 Normal 0.0-0.9 [facility] Comment on above: Result Comment: IG% - Immature Granulocytes (promyelocytes, myelocytes and metamyelocytes) > 1% indicates that a LEFT SHIFT is Present. Performed By: #### L 3890.6300, L509.4005, L509.8000, L3890.6100, L3890.6005, BTS, L100.0100 #### [facility] [address] [place], [address] Lymphocytes/100 WBC (Bld) 15.6 % Low 19-41 [facility] Comment on above: Performed By: #### L 3890.6300, L509.4005, L509.8000, L3890.6100, L3890.6005, BTS, L100.0100 #### [facility] [address] [place], [address] MCH (RBC) [Entitic mass] 28.8 pg Normal 27.0-32.0 [facility] Comment on above: Performed By: #### L 3890.6300, L509.4005, L509.8000, L3890.6100, L3890.6005, BTS, L100.0100 #### [facility] [address] [place], [address] MCHC (RBC) [Mass/Vol] 32.7 g/dL Normal 32-36 [facility] Comment on above: Performed By: #### L 3890.6300, L509.4005, L509.8000, L3890.6100, L3890.6005, BTS, L100.0100 #### [facility] [address] [place], [address] MCV (RBC) [Entitic vol] 88.1 fL Normal 81-99 [facility] Comment on above: Performed By: #### L 3890.6300, L509.4005, L509.8000, L3890.6100, L3890.6005, BTS, L100.0100 #### [facility] [address] [place], [address] Monocytes/100 WBC (Bld) 4.9 % Normal 0-10 [facility] Comment on above: Performed By: #### L 3890.6300, L509.4005, L509.8000, L3890.6100, L3890.6005, BTS, L100.0100 #### [facility] [address] [place], [address] Neutrophils/100 WBC (Bld) 77.5 % High 47-70 [facility] Comment on above: Performed By: #### L 3890.6300, L509.4005, L509.8000, L3890.6100, L3890.6005, BTS, L100.0100 #### [facility] [address] [place], [address] Nucleated RBC (Bld) [#/Vol] 0 10*3/uL Normal 0-5 [facility] Comment on above: Performed By: #### L 3890.6300, L509.4005, L509.8000, L3890.6100, L3890.6005, BTS, L100.0100 #### [facility] [address] [place], [address] Platelet mean volume (Bld) [Entitic vol] 12.9 fL High 6.2-12.0 [facility] Comment on above: Performed By: #### L 3890.6300, L509.4005, L509.8000, L3890.6100, L3890.6005, BTS, L100.0100 #### [facility] [address] [place], [address] Platelets (Bld) [#/Vol] 183 10*3/uL Normal 150-450 [facility] Comment on above: Performed By: #### L 3890.6300, L509.4005, L509.8000, L3890.6100, L3890.6005, BTS, L100.0100 #### [facility] [address] [place], [address] RBC (Bld) [#/Vol] 4.62 10*6/uL Normal 4.2-5.4 [facility] Comment on above: Performed By: #### L 3890.6300, L509.4005, L509.8000, L3890.6100, L3890.6005, BTS, L100.0100 #### [facility] [address] [place], [address] RDW SD 41.2 fl Normal 35.1-43.9 [facility] Comment on above: Performed By: #### L 3890.6300, L509.4005, L509.8000, L3890.6100, L3890.6005, BTS, L100.0100 #### [facility] [address] [place], [address] WBC (Bld) [#/Vol] 9.6 10*3/uL Normal 4.4-11.0 [facility] Comment on above: Performed By: #### L 3890.6300, L509.4005, L509.8000, L3890.6100, L3890.6005, BTS, L100.0100 #### [facility] [address] [place], [address] Hepatitis B Surface Antigeno n 09-09-2024 HEP B Surf Ag Non-Reactive Normal Nonreactive [facility] Comment on above: Order Comment: Reaso n for Exam: Performed By: #### M 100.2200 #### [facility] [address] [place], [address] Hepatitis C Antibodyon 09-09 Hepatitis C AB Non-Reactive Normal Nonreactive [facility] Comment on above: Order Comment: Reaso n for Exam: Result Comment: Non Reactive: < 0.8 Equivocal: >/= 0.8 to < 1.0 Reactive: >/= 1.0 The [facility] requires that a reactive/equivocal HCV antibody result be sent out for confirmation. HCV Quant by PCR testing. Performed By: #### M 100.2200 #### [facility] [address] [place], [address] L509.8000on 09-09-2024 Syphilis Abs Non-Reactive Normal [facility] Comment on above: Order Comment: Reaso n for Exam: Performed By: #### M 100.2200 #### [facility] [address] [facility] [address] [place], [place], [address] Boiler Tester Office Visit Reporton 09-09-2024 Boiler Tester Office Visit Report [facility] [address], [address] [place] [address] OFFICE VISIT Date of Service: 09/09/24 MR#: [id number] Acct: [id number] Name: GINO BAE Rep #: [id number] : 2000 Provider: JOSE Santos ams Age/Sex: 24/F Location: [facility] Status: Signed Intake Vital Signs 08/27/24 19:48 09/09/24 09:00 09/09/24 09:07 Height 5 ft 5 in 5 ft 5 in 5 ft 5 in Weight: 143 lb BMI 23.8 BP 127/83 H Intake Visit Reasons: LMP:06/27 BLUE:04/03 Progress Man Required: No Is patient in pain?: No Allergies No Known Allergies Allergy (Verified 09/09/24 09:00) Medications ???Medication ???Instructions ???Recorded ???Confirmed ???Type ondansetron 4 mg disintegrating 4 mg PO Q8H PRN PRN Nausea #10 tabs 08/27/24 09/09/24 Rx tablet multivitamin no.47-iron fum 27 cap PO 09/06/24 09/06/24 History mg-folate no.1 1 mg-dha 300 mg capsule (PNV-DHA) sertraline 50 mg tablet (Zoloft) 50 mg PO QDAY 09/06/24 09/06/24 History Last Menstrual Period: 06/27/24 Zika: Zika virus screening: Negative : Yes Have you fallen in the past year?: No PFSH PFSH Medical History Migraine headache Surgical History [place] teeth extracted Family History Grandfather Diabetes Maternal Mother Cancer Basal cell skin cancer Father Cancer Basal cell Skin cancer Aunt Cancer Maternal- Skin Melanoma Social History adopted: No household members: spouse current occupational status: employed current occupation: [employer] pets and animals: Yes (Avoid Litterbox) pets and animals: cat(s) history of recent travel: No sexually active: Yes Smoking Status: Never smoker alcohol intake: current alcohol intake frequency: a few times a month details: Not while substance use type: does not use well-balanced diet: daily or most days caffeine: No eating out: 1-3 times/week during the past year weight has: remained stable what type of physical activity do you participate in: none osiris/anabaptist: Buddhist seatbelt use: always do you feel safe at home: Yes additional social history: Xavier History 1 Elective abortions Hx Para 0 Spontaneous abortions Hx # Term Pregnancies Ectopic pregnancies Hx # Pregnancies Multiple births # of living children HPI LMP:06/27 BLUE:04/03 Details: GINO BAE is a 24 year old who presents for New OB visit. OB Visit BLUE Calculator Estimated Delivery Date Method Current WG Current Estimate 04/03/25 LMP (Certain) 10w 4d Other Estimates 04/01/25 Ultrasound #1 10w 6d Comments: HIV: Urine Culture: Sequential Screen: NIPT Screen: Estimated Due Date: 04/03/25 Expected Delivery Route/Plan Labor Preferences- CB/BF classes: [] labor support person: [] labor intervention preferences: [] pain management options preferred: [] cut cord/dad catch: [] : [] PP control planned: [] discussed possible routes of delivery and associated risks: [] special requests: [] Specific Issue/Plans Covid status: [] Flu vaccine: [] Tdap vaccine: [] Rhogam: [] LARC form signed: [] Problem list reviewed and updated with the most current plan of care details and appropriate orders placed. Relevant counseling for the gestational age provided. Continue routine care and follow up unless otherwise noted in visit notes/problem list details Initial Weight: 143 lb Date -???-???-???-???-?? ?-???-???-???-???-? ??-???-???- EGA Weight BP Urine Prot -???-???-???-???-?? ?-???-???-???-???-? ??-???-???- Glucose FHR FuHt Pres Dilation -???-???-???-???-?? ?-???-???-???-???-? ??-???-???- Effaced St Visit Note 09/09/24 -???-???-???-???-?? ?-???-???-???-???-? ??-???-???- 10w 4d 143 lb (+0 oz) 127/83 -???-???-???-???-?? ?-???-???-???-???-? ??-???-???- 169 -???-???-???-???-?? ?-???-???-???-???-? ??-???-???- KW- CRL cons with dates. declines NIPT. Anatomy US ordered Menstrual History Last Menstrual Period: 06/27/24 Reported LMP: definite Normal amount/duration: Yes Frequency in days: 27 On hormonal BC at conception: No hCG+: 08/01/24 Antepartum Record Genetic Screening: Congenital Heart Defect: Other, Neural Tube Defect: Other, Hemoglobinopathy Or Carrier: Other, Cystic Fibrosis: Other, Chromosome Abnormality: Other, Kaushik-Sachs: Other, Hemophilia: Other, Intellectual Disability/Autism: Other, Recurrent Loss/Stillbirth: Other, Other Structural Defect: Other, Other Genetic Disease: Other a (more content not included)... Normal [facility] Rubella IgGon 09-09-2024 Rubella IgG Reactive Normal Nonreactive [facility] Comment on above: Order Comment: Reaso n for Exam: Result Comment: Anti body Results Interpretation of Immune Status Non Reactive Presumed Non-Immune Equivocal Equivocal Reactive Presumed Immune Performed By: #### L 3890.6300, L509.4005, L509.8000, L3890.6100, L3890.6005, BTS, L100.0100 #### [facility] [address] [place], [address] Type AND Screenon 09-09-2024 Ab SCREEN GEL Negative Normal [facility] Comment on above: Order Comment: PN Performed By: #### M 100.2200 #### [facility] [address] [place], [address] Urine Cultureon 08-29-2024 URC Culture exhibits no growth. Normal [facility] Comment on above: Performed By: #### M 100.2200 #### [facility] [address] [place], [address] CBC-Complete Blood Cnt No Di ffon 08-27-2024 Erythrocyte distribution width (RBC) [Ratio] 12.4 % Normal 11.6-14.6 [facility] Comment on above: Performed By: #### L 500.4050, L100.0500, L501.2450 #### [facility] [address] [place], [address] Hematocrit (Bld) [Volume fraction] 35.8 % Low 37-47 [facility] Comment on above: Performed By: #### L 500.4050, L100.0500, L501.2450 #### [facility] [address] [place], [address] Hemoglobin (Bld) [Mass/Vol] 12.1 g/dL Normal 12.0-15.0 [facility] Comment on above: Performed By: #### L 500.4050, L100.0500, L501.2450 #### [facility] [address] [place], [address] MCH (RBC) [Entitic mass] 29.5 pg Normal 27.0-32.0 [facility] Comment on above: Performed By: #### L 500.4050, L100.0500, L501.2450 #### [facility] [address] [place], [address] MCHC (RBC) [Mass/Vol] 33.8 g/dL Normal 32-36 [facility] Comment on above: Performed By: #### L 500.4050, L100.0500, L501.2450 #### [facility] [address] [place], [address] MCV (RBC) [Entitic vol] 87.3 fL Normal 81-99 [facility] Comment on above: Performed By: #### L 500.4050, L100.0500, L501.2450 #### [facility] [address] [place], [address] Platelet mean volume (Bld) [Entitic vol] 13.1 fL High 6.2-12.0 [facility] Comment on above: Performed By: #### L 500.4050, L100.0500, L501.2450 #### [facility] [address] [place], [address] Platelets (Bld) [#/Vol] 153 10*3/uL Normal 150-450 [facility] Comment on above: Performed By: #### L 500.4050, L100.0500, L501.2450 #### [facility] [address] [place], [address] RBC (Bld) [#/Vol] 4.10 10*6/uL Low 4.2-5.4 [facility] Comment on above: Performed By: #### L 500.4050, L100.0500, L501.2450 #### [facility] [address] [place], [address] RDW SD 39.5 fl Normal 35.1-43.9 [facility] Comment on above: Performed By: #### L 500.4050, L100.0500, L501.2450 #### [facility] [address] [place], [address] WBC (Bld) [#/Vol] 9.6 10*3/uL Normal 4.4-11.0 [facility] Comment on above: Performed By: #### L 500.4050, L100.0500, L501.2450 #### [facility] [address] [place], [address] Comprehensive Metabolic Prof [facility] 08-27-2024 Albumin [Mass/Vol] 3.6 g/dL Normal 3.2-5.0 [facility] Comment on above: Performed By: #### L 500.4050, L100.0500, L501.2450 #### [facility] [address] [place], [address] Albumin/Globulin [Mass ratio] 1.1 {ratio} Normal 0.9-2.4 [facility] Comment on above: Performed By: #### L 500.4050, L100.0500, L501.2450 #### [facility] [address] [place], [address] ALK P 60 U/L Normal 45-117 [facility] Comment on above: Performed By: #### L 500.4050, L100.0500, L501.2450 #### [facility] [address] [place], [address] ALT [Catalytic activity/Vol] 16 U/L Normal 13-56 [facility] Comment on above: Performed By: #### L 500.4050, L100.0500, L501.2450 #### [facility] [address] [place], [address] AST [Catalytic activity/Vol] 11 U/L Low 15-37 [facility] Comment on above: Performed By: #### L 500.4050, L100.0500, L501.2450 #### [facility] [address] [place], [address] Bilirubin [Mass/Vol] 0.30 mg/dL Normal 0.20-1.00 [facility] Comment on above: Result Comment: For patients on eltrombopag therapy, use of Dimension [place] TBIL is not recommended. Performed By: #### L 500.4050, L100.0500, L501.2450 #### [facility] [address] [place], [address] BUN/CRE 17.2 RATIO Normal 10-20 [facility] Comment on above: Performed By: #### L 500.4050, L100.0500, L501.2450 #### [facility] [address] [place], [address] CA,Total 8.9 mg/dL Normal 8.5-10.1 [facility] Comment on above: Performed By: #### L 500.4050, L100.0500, L501.2450 #### [facility] [address] [place], [address] Chloride [Moles/Vol] 104 mmol/L Normal 98-107 [facility] Comment on above: Performed By: #### L 500.4050, L100.0500, L501.2450 #### [facility] [address] [place], [address] CO2 [Moles/Vol] 29.0 mmol/L Normal 21.0-32.0 [facility] Comment on above: Performed By: #### L 500.4050, L100.0500, L501.2450 #### [facility] [address] [place], [address] Creatinine [Mass/Vol] 0.52 mg/dL Low 0.55-1.02 [facility] Comment on above: Result Comment: The validity of the calculated GFR GFRAA in patients over 70 years has not been determined. Clinical correlation is essential. Performed By: #### L 500.4050, L100.0500, L501.2450 #### [facility] [address] [place], [address] EST GFR - AA 186 mL/min Normal >60 [facility] Comment on above: Result Comment: Afri can [place] GFR Calc Performed By: #### L 500.4050, L100.0500, L501.2450 #### [facility] [address] [place], [address] GAP 6 Normal 5-15 [facility] Comment on above: Performed By: #### L 500.4050, L100.0500, L501.2450 #### [facility] [address] [place], [address] GFR/1.73 sq M.predicted among non-blacks MDRD (S/P/Bld) [Vol rate/Area] 154 mL/min/{1.73_m2} Normal >60 [facility] Comment on above: Result Comment: Non- GFR Calc Performed By: #### L 500.4050, L100.0500, L501.2450 #### [facility] [address] [place], [address] Globulin (S) [Mass/Vol] 3.4 g/dL Normal 2.2-4.2 [facility] Comment on above: Performed By: #### L 500.4050, L100.0500, L501.2450 #### [facility] [address] [place], [address] Glucose [Mass/Vol] 91 mg/dL Normal 74-106 [facility] Comment on above: Performed By: #### L 500.4050, L100.0500, L501.2450 #### [facility] [address] [place], [address] Potassium [Moles/Vol] 3.6 mmol/L Normal 3.5-5.1 [facility] Comment on above: Performed By: #### L 500.4050, L100.0500, L501.2450 #### [facility] [address] [place], [address] Sodium [Moles/Vol] 139 mmol/L Normal 136-145 [facility] Comment on above: Performed By: #### L 500.4050, L100.0500, L501.2450 #### [facility] [address] [place], [address] T PROT 7.0 g/dL Normal 6.4-8.2 [facility] Comment on above: Performed By: #### L 500.4050, L100.0500, L501.2450 #### [facility] [address] [place], [address] Urea nitrogen [Mass/Vol] 9 mg/dL Normal 7-18 [facility] Comment on above: Performed By: #### L 500.4050, L100.0500, L501.2450 #### [facility] [address] [place], [address] Emergency Department Summary on 08-27-2024 Emergency Department Summary [facility] Medical Records Department [address] [place] [address] Emergency Department Summary 08/27/24 MR#: [id number] Acct: [id number] Name: GINO BAE Rep #: [id number] : 2000 24 From: Ivan Abrams DO PCP: OLGA Montilla Status:DEP ER Location: ED HPI History of Present Illness Chief Complaint: Nausea/Vomiting PFSH PFSH Home Medications ???Medication ???Instructions ???Recorded ???Last Taken ???Type prochlorperazine maleate 10 mg 10 mg PO Q8H PRN nausea and 08/23/24 Unknown Rx tablet (Compazine) vomiting #90 tabs ondansetron 4 mg disintegrating 4 mg PO Q8H PRN PRN Nausea #10 tabs 08/27/24 Unknown Rx tablet Allergy/AdvReac Type Severity Reaction Status Date / Time No Known Allergies Allergy Verified 08/27/24 19:48 Social History Smoking Status: Never smoker EXAM Physical Exam Const Vital Signs: 08/27/24 19:48 08/27/24 23:41 Temperature 98 F 98 F Temperature Source Oral Pulse Rate 67 70 Respiratory Rate 16 16 Blood Pressure 118/74 125/77 H Blood Pressure Mean 88 93 Pulse Ox 98 99 Oxygen Delivery Method Room Air MDM MDM MDM Narrative Medical decision making narrative: HISTORY OF PRESENT ILLNESS: 24-year-old female presents with nausea vomiting for 3 weeks. The patient states she is 9 weeks . Notes she was told by her OB to present to the ED for IV fluids. Notes 4 episodes of non-bloody non-bilious vomitus today. No history abdominal surgeries. No she takes Phenergan at home but has not alleviated her symptoms. REVIEW OF SYSTEMS: Pertinent positives: Nausea vomiting Pertinent negatives: Vaginal bleeding, lower abdominal pain, vaginal discharge, passing tissue, PHYSICAL EXAM: Nursing triage notes reviewed, Vital signs reviewed Constitutional: please see mdm HENT: MMM Eyes: Pupils equal round and reactive to light, Extraocular muscles intact Neck: No stridor, no JVD, full neck ROM Lungs: Clear to auscultation, No wheezing or rales. No increased work of breathing, no conversational dyspnea, no accessory muscle use, no nasal flaring. No respiratory distress noted Heart: Regular rate and rhythm, No murmurs, No rubs and No gallops, 2+ distal pulses (radial, femoral, posterior tibial) in all extremities Abdomen: Soft, there is no tenderness, rigidity, rebound or guarding, no obvious peritoneal signs, no palpable pulsatile abdominal masses, no auscultated abdominal bruit : No CVAT Extremities: No edema Neuro: No new focal neurological deficits, cranial nerves II through XII intact, 5/5 strength in all present extremities. Intact sensation to light touch in all present extremities, 2+ reflexes bilateral patella tendons. Skin: No rash or lesions noted MEDICAL DECISION MAKING: Chief Complaint: Nausea vomiting External records reviewed: Reviewed prior imaging, problems, allergies, current medications Factors affecting care: first trimester Social determinants of health: History obtained from others: none Consults: none [facility] Narrative: The patient was initially hemodynamically stable, afebrile and nontoxic-appearing. Abdominal exam is benign. I considered the following differential diagnosis: Ectopic , loss, dehydration, electrolyte disturbance I obtained a broad lab workup. I initially assessed the patient 1 L normal saline given 4 mg of Zofran. ALL IMAGES (IF OBTAINED) HAVE BEEN PERSONALLY REVIEWED AND INTERPRETED BY MYSELF. EKG with normal sinus rhythm at a rate of 65, normal axis, no intervals, QTc 438, no STEMI Urine without evidence of UTI or asymptomatic bacteria will send for culture to assure there is no sign of any symptomatic bacteria need for antibiotics. CMP without evidence of acute kidney injury, significant electrolyte abnormality, anion gap to suggest end organ hypo-perfusion, no evidence of metabolic acidosis with a normal bicarbonate, no evidence of hepatobiliary obstructive pathology. CBC without leukocytosis, severe anemia, no thrombocytopenia. Repeat abdominal exam remained benign. Given lack of abdominal pain, benign abdominal exam I do not suspect patient had ectopic . She had no vaginal bleeding discharge passage of tissue, leakage of fluid. Not suspect is having loss or miscarriage. There is no signs of significant dehydration or labs. Patient was able tolerate p.o. She is appropriate discharge home. The patient and/or family, caregivers express understanding. The patient and/or family, caregivers agrees with the plan. Shared decision making: I will have a discussion with the patient and or visitors regarding risk/benefits of further testing or admission. They will be made aware of of the risk/benefits inherent in this decision they tawanda (more content not included)... Normal [facility] Lipaseon 08-27-2024 Lipase [Catalytic activity/Vol] 36 U/L Normal 13-75 [facility] Comment on above: Result Comment: Susan stock note: LIPASE revised reference range effective 22. New Lipase methodology. Expected to produce lower values than the previous assay method. NEW Reference Range: 13 - 75 U/L Performed By: #### L 500.4050, L100.0500, L501.2450 #### [facility] [address] [place], [address] Urinalysis, Completeon 08-27 AMORPHOUS 3+ Normal [facility] Comment on above: Order Comment: CLEAN CATCH Performed By: #### M 100.2200 #### [facility] [address] [place], [address] EPI,SQUAMOUS 0-5 SEEN Normal 5-10 [facility] Comment on above: Order Comment: CLEAN CATCH Performed By: #### M 100.2200 #### [facility] [address] [place], [address] WBC 0-5 SEEN Normal 0-5 [facility] Comment on above: Order Comment: CLEAN CATCH Performed By: #### M 100.2200 #### [facility] [address] [place], [address] BACTERIA 0 SEEN Normal None Seen [facility] Comment on above: Order Comment: CLEAN CATCH Performed By: #### M 100.2200 #### [facility] [address] [place], [address] Mucus Ql (Urine sed) 0 SEEN Normal [facility] Comment on above: Order Comment: CLEAN CATCH Performed By: #### M 100.2200 #### [facility] [address] [place], [address] RBC 0 SEEN Normal 0-5 [facility] Comment on above: Order Comment: CLEAN CATCH Performed By: #### M 100.2200 #### [facility] [address] [place], [address] POCT UA Automated manually r esultedon 07-13-2024 Appearance (U) Clear Clear [facility] Work Phone: [phone] Glucose Test strip (U) [Mass/Vol] Negative NEGATIVE mg/dl [facility] Work Phone: [phone] Hemoglobin Ql (U) Negative NEGATIVE [facility] Work Phone: [phone] Interpretation and review of laboratory results Normal [facility] Work Phone: [phone] Leukocyte esterase Test strip Ql (U) Negative NEGATIVE [facility] Work Phone: [phone] Nitrite Ql (U) Negative NEGATIVE [facility] Work Phone: [phone] pH (U) 7.0 [pH] No Reference Range Established [facility] Work Phone: [phone] POC Bilirubin, Urine Negative NEGATIVE Univ [facility] Work Phone: [phone] POC Color, Urine Yellow Straw, [place] ow, Light-Yellow [facility] Work Phone: [phone] POC Ketones, Urine Negative NEGATIVE mg/dl Un [facility] Work Phone: [phone] POC Protein, Urine Negative NEGATIVE, 30 (1+) mg/dl [facility] Work Phone: [phone] POC Specific [place], Urine 1.020 1.005 - 1.035 [facility] Work Phone: [phone] POC Urobilinogen, Urine 0.2 0.2, 1.0 EU/ DL [facility] Work Phone: [phone] [facility] Work Phone: CULTURE URINEon 01-03-2024 Bacteria identified Cx Nom (U) NO PATHOGENS GROWN AFTER 1 DAY NO PATHOGENS GROWN AFTER 2 DAYS Normal [facility] Comment on above: Performed By: #### 6 30-4, UAR #### [facility] [address] [place] [address] Director Occupational - [employer] [id number] CBC W Auto Differential pane l (Bld)on 01-01-2024 Basophils (Bld) [#/Vol] 0.05 10*3/uL Normal <=0.70 [facility] Comment on above: Performed By: #### 5 7021-8 #### [place] [address] [place] [address] Director Occupational - [employer] [id number] Basophils/100 WBC (Bld) 0.6 % Normal <=2.0 [facility] Comment on above: Performed By: #### 5 7021-8 #### [place] [address] [place] [address] Director Occupational - [employer] [id number] Eosinophils (Bld) [#/Vol] 0.51 10*3/uL Normal <=0.70 [facility] Comment on above: Performed By: #### 5 7021-8 #### [facility] [address] [place] [address] Director Occupational - [employer] [id number] Eosinophils/100 WBC (Bld) 6.2 % Normal <=10.0 [facility] Comment on above: Performed By: #### 5 7021-8 #### [facility] [address] [place] [address] Director Occupational - [employer] [id number] Erythrocyte distribution width (RBC) [Entitic vol] 38.9 fL Normal 36.4-46.3 [facility] Comment on above: Performed By: #### 5 7021-8 #### [place] [address] [place] [address] Director Occupational - [employer] [id number] Hematocrit (Bld) [Volume fraction] 39.2 % Normal 37.0-47.0 [facility] Comment on above: Performed By: #### 5 7021-8 #### [facility] [address] [place] [address] Director Occupational - [employer] [id number] Hemoglobin (Bld) [Mass/Vol] 13.6 g/dL Normal 12.0-16.0 [facility] Comment on above: Performed By: #### 5 7021-8 #### [place] [address] [place] [address] Director Occupational - [employer] [id number] Immature granulocytes (Bld) [#/Vol] 0.03 10*3/uL Normal <=0.10 [facility] Comment on above: Performed By: #### 5 7021-8 #### [place] [address] [place] [address] Director Occupational - [employer] [id number] Immature granulocytes/100 WBC (Bld) 0.40 % Normal <=1.50 [facility] Comment on above: Performed By: #### 5 7021-8 #### [place] [address] [place] [address] Director Occupational - [employer] [id number] Lymphocytes (Bld) [#/Vol] 2.48 10*3/uL Normal 1.20-3.40 [facility] Comment on above: Performed By: #### 5 7021-8 #### [place] [address] [place] [address] Director Occupational - [employer] [id number] Lymphocytes/100 WBC (Bld) 30.1 % Normal 20.0-40.0 [facility] Comment on above: Performed By: #### 5 7021-8 #### [place] [address] [place] [address] Director Occupational - [employer] [id number] MCH (RBC) [Entitic mass] 29.9 pg Normal 27.0-31.0 [facility] Comment on above: Performed By: #### 5 7021-8 #### [place] [address] [facility] [place] [address] Director Occupational - [employer] [id number] MCHC (RBC) [Mass/Vol] 34.7 g/dL Normal 32.0-36.0 [facility] Comment on above: Performed By: #### 5 7021-8 #### [address] [place] [address] Director Occupational - [employer] [id number] MCV (RBC) [Entitic vol] 86.2 fL Normal 80.0-100.0 [facility] Comment on above: Performed By: #### 5 7021-8 #### [address] [place] [address] Director Occupational - [employer] CLIA [id number] Monocytes (Bld) [#/Vol] 0.55 10*3/uL Normal 0.10-0.60 [facility] Comment on above: Performed By: #### 5 7021-8 #### [address] [place] [address] Director Occupational - [employer] CLIA [id number] Monocytes/100 WBC (Bld) 6.7 % Normal <=8.0 [facility] Comment on above: Performed By: #### 5 7021-8 #### [place] [address] Director Occupational - [employer] CLIA [id number] Neutrophils (Bld) [#/Vol] 4.62 10*3/uL Normal 1.40-6.50 [facility] Comment on above: Performed By: #### 5 7021-8 #### [address] [place] [address] Director Occupational - [employer] CLIA [id number] Neutrophils/100 WBC (Bld) 56.0 % Normal 50.0-70.0 [facility] Comment on above: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 pleased to do so. Sincerely, Juancarlos Wilkinson, DO Neurology Resident for Chanel Pradhan [facility] Staff, Pediatric Neurology [facility] STAFF PHYSICIAN NOTE OF PERSONAL INVOLVEMENT IN CARE I have reviewed and edited the consult note obtained and documented by the fellow and I personally participated in the tong components and examination of this patient. I have discussed the case and management of Gino' care with Gino, her mother, and the resident. Larry Tomlinson These final recommendations will be communicated back to the requesting physician by way of shared medical record or letter to the requesting physician by [place] mail. C: Family, PCP Normal [facility] Vital Signs Date Time Vital Sign Value Performing Clinician Adilia pacheco 02-10-2025 08:47-0400 Body height 165.1 cm Yuliana Gonzalez PYROGLAZER-C Work Phone: [facility] 02-10-2025 08:47-0400 Body mass index (BMI) [Ratio] 31.4 kg/m2 Yuliana Gonzalez PYROGLAZER-C Work Phone: [facility] 02-10-2025 08:47-0400 Body weight 85.78 kg Yuliana Gonzalez PYROGLAZER-C Work Phone: 7(218)491-367340 [place] [address] 02-10-2025 08:47-0400 Diastolic blood pressure 83 mm[Hg] Yuliana Gonzalez PYROGLAZER-C Work Phone: 3(438)707-024565 [place] [address] 02-10-2025 08:47-0400 Systolic blood pressure 115 mm[Hg] Yuliana Gonzalez PYROGLAZER-C Work Phone: 5(593)134-07[address] [place] [address] 01-26-2025 08:35-0400 Body height 165.1 cm Yuliana Gonzalez PYROGLAZER-C Work Phone: 3(521)378-488540 [place] [address] 01-26-2025 08:35-0400 Body mass index (BMI) [Ratio] 31.3 kg/m2 Yuliana Gonzalez PYROGLAZER-C Work Phone: 0(698)287-678640 [place] [address] 01-26-2025 08:35-0400 Body weight 85.38 kg Yuliana Gonzalez PYROGLAZER-C Work Phone: 8(021)387-160140 [place] [address] 01-26-2025 08:35-0400 Diastolic blood pressure 72 mm[Hg] Yuliana Gonzalez PYROGLAZER-C Work Phone: 8(413)643-981265 [place] [address] 01-26-2025 08:35-0400 Systolic blood pressure 126 mm[Hg] Yuliana Gonzalez PYROGLAZER-C Work Phone: 7(957)044-058540 [place] [address] 01-07-2025 10:18-0400 Body height 165.1 cm Yuliana Gonzalez PYROGLAZER-C Work Phone: 7(896)983-273865 [place] [address] 01-07-2025 10:18-0400 Body mass index (BMI) [Ratio] 30.2 kg/m2 Yuliana Gonzalez PYROGLAZER-C Work Phone: [facility] 01-07-2025 10:18-0400 Body weight 82.55 kg Yuliana Gonzalez PYROGLAZER-C Work Phone: [facility] 01-07-2025 10:18-0400 Diastolic blood pressure 81 mm[Hg] Yuliana Gonzalez PYROGLAZER-C Work Phone: [facility] 01-07-2025 10:18-0400 Systolic blood pressure 127 mm[Hg] Yuliana Gonzalez PYROGLAZER-C Work Phone: [facility] 12-03-2024 10:15-0400 Body mass index (BMI) [Ratio] 28.5 kg/m2 Yuliana Gonzalez PYROGLAZER-C Work Phone: [facility] 12-03-2024 10:15-0400 Body weight 77.73 kg Yuliana Gonzalez PYROGLAZER-C Work Phone: 2(351)184-247340 [place] [address] 12-03-2024 10:15-0400 Diastolic blood pressure 77 mm[Hg] Yuliana Gonzalez PYROGLAZER-C Work Phone: 2(274)407-165140 [place] [address] 12-03-2024 10:15-0400 Systolic blood pressure 120 mm[Hg] Yuliana Gonzalez PYROGLAZER-C Work Phone: [facility] 11-05-2024 11:42-0500 Body mass index (BMI) [Ratio] 27.3 kg/m2 Yuliana Gonzalez PYROGLAZER-C Work Phone: [facility] 11-05-2024 11:42-0500 Body weight 74.38 kg Yuliana Gonzalez PYROGLAZER-C Work Phone: 9(524)463-265640 [place] [address] 11-05-2024 11:42-0500 Diastolic blood pressure 81 mm[Hg] Yuliana Gonzalez PYROGLAZER-C Work Phone: [facility] 11-05-2024 11:42-0500 Systolic blood pressure 134 mm[Hg] Yuliana oGnzalez PYROGLAZER-C Work Phone: 1(151)450-074840 [place] [address] 10-07-2024 11:33-0500 Body mass index (BMI) [Ratio] 25.4 kg/m2 Yuliana Gonzalez PYROGLAZER-C Work Phone: 6(534)978-479765 [place] [address] 10-07-2024 11:33-0500 Body weight 69.45 kg Yuliana Gonzalez PYROGLAZER-C Work Phone: 4(649)142-239565 [place] [address] 10-07-2024 11:33-0500 Diastolic blood pressure 73 mm[Hg] Yuliana Gonzalez PYROGLAZER-C Work Phone: 4(849)040-821865 [place] [address] 10-07-2024 11:33-0500 Systolic blood pressure 120 mm[Hg] Yuliana Gonzalez PYROGLAZER-C Work Phone: 0(015)079-783565 [place] [address] 09-28-2024 07:45-0500 Body height 166.4 cm Yuliana Gonzalez DIGITAL PERFORMANCE ANALYST-EMAIL PRODUCER Work Phone: 7(471)116-477407 [place] [address] 09-28-2024 07:45-0500 Body mass index (BMI) [Ratio] 24.91 kg/m2 Yuliana Gonzalez DIGITAL PERFORMANCE ANALYST-EMAIL PRODUCER Work Phone: 6(051)773-844407 [place] [address] 09-28-2024 07:45-0500 Body weight 68.95 kg Yuliana Gonzalez DIGITAL PERFORMANCE ANALYST-EMAIL PRODUCER Work Phone: 2(864)903-595407 [place] [address] 09-28-2024 07:45-0500 Diastolic blood pressure 80 mm[Hg] Yuliana Gonzalez DIGITAL PERFORMANCE ANALYST-EMAIL PRODUCER Work Phone: 1(519)329-335907 [place] [address] 09-28-2024 07:45-0500 Heart rate 72 /min Yuliana Gonzalez DIGITAL PERFORMANCE ANALYST-EMAIL PRODUCER Work Phone: 6(356)924-200907 [place] [address] 09-28-2024 07:45-0500 Systolic blood pressure 138 mm[Hg] Yuliana Gonzalez DIGITAL PERFORMANCE ANALYST-EMAIL PRODUCER Work Phone: 4(866)369-948807 [place] [address] 07-13-2024 07:18-0500 Body height 166.4 cm Yuliana Gonzalez DIGITAL PERFORMANCE ANALYST-EMAIL PRODUCER Work Phone: 6(827)534-158607 [place] [address] 07-13-2024 07:18-0500 Body mass index (BMI) [Ratio] 23.02 kg/m2 Yuliana Gonzalez DIGITAL PERFORMANCE ANALYST-EMAIL PRODUCER Work Phone: [facility] 07-13-2024 07:18-0500 Body weight 63.73 kg Yulianaeber Gonzalez DIGITAL PERFORMANCE ANALYST-EMAIL PRODUCER Work Phone: [facility] 07-13-2024 07:18-0500 Diastolic blood pressure 80 mm[Hg] Yuliana Gonzalez DIGITAL PERFORMANCE ANALYST-EMAIL PRODUCER Work Phone: [facility] 07-13-2024 07:18-0500 Heart rate 82 /min Yuliana Gonzalez DIGITAL PERFORMANCE ANALYST-EMAIL PRODUCER Work Phone: [facility] 07-13-2024 07:18-0500 Systolic blood pressure 124 mm[Hg] Yuliana Vincenzo DIGITAL PERFORMANCE ANALYST-EMAIL PRODUCER Work Phone: [facility] Encounters Encounter Date Encounter Type Care Provider Facility Start: 02-10-2025 End: 02-10-2025 Patient encounter procedure Autumn MÁRQUEZ -[facility] Work Phone: Start: 02-10-2025 End: 02-10-2025 ambulatory Yuliana Gonzalez Facility:[facility] Start: 01-26-2025 End: 01-26-2025 Patient encounter procedure Kristen Parker PYROGLAZER-C -[facility] Work Phone: Start: 01-26-2025 End: 01-26-2025 ambulatory Yuliana Gonzalez PYROGLAZER-C Work Phone: [facility] Work Phone: Start: 01-07-2025 End: 01-07-2025 Patient encounter procedure Autumn Jacome CNM -[facility] Work Phone: Start: 01-07-2025 End: 01-07-2025 ambulatory Yuliana Gonzalez PYROGLAZER-C [facility] [place] Work Phone: Start: 01-07-2025 End: 01-07-2025 ambulatory Yuliana Gonzalez Facility:[facility] Start: 12-31-2024 ambulatory Yuliana Gonzalez Facility:[facility] Start: 12-03-2024 End: 12-03-[address] Rufina Weiss DO [facility] Work Phone: Start: 12-03-2024 End: 12-03-2024 ambulatory Yuliana Gonzalez Facility:[facility] Start: 11-09-2024 End: 11-09-2024 ambulatory JOSSELIN PETRA [facility] Start: 11-05-2024 End: 11-05-2024 Patient encounter procedure Autumn Jacome [facility] Work Phone: Start: 11-05-2024 End: 11-05-2024 ambulatory Yuliana Gonzalez Facility:[facility] Start: 10-07-2024 End: 10-07-[address] Rufina Weiss DO -[facility] Work Phone: Start: 10-07-2024 End: 10-07-2024 ambulatory Yuliana Gonzalez Facility:[facility] Start: 09-28-2024 End: 09-28-2024 Office outpatient visit 15 minutes Yuliana Gonzalez [employer]FORMANCE ANALYST-[employer]AIL [employer]UCER Work Phone: [facility] Comment on above: Persistent depressiv e disorder; Anxiety Start: 09-28-2024 End: 09-28-2024 ambulatory YULIANA Sophie [facility] Start: 09-09-2024 End: 09-09-2024 ambulatory Autumn Jacome Facility:[facility] Start: 09-09-2024 End: 09-09-2024 ambulatory Autumn Jacome Facility:[facility] [place] [facility] Start: 08-27-2024 End: 08-27-2024 Emergency department patient visit Yuliana Gonzalez Facility:[facility] [place] [facility] Start: 07-13-2024 End: 07-13-2024 Initial preventive medicine new pt age 18-39yrs Yuliana Gonzalez DIGITAL PERFORMANCE ANALYST-EMAIL PRODUCER Work Phone: [facility] Comment on above: Wellness examination (Primary Dx); Dysuria; Persistent depressive disorder; Migraine without aura and without status migrainosus, not intractable; Screening for lipid disorders; BMI 23.0-23.9, adult Start: 07-13-2024 End: 07-13-2024 Patient encounter status Yuliana Barrios Gonzalez D[employer]ITAL PERFORMANCE ANALYST-EMAIL PRODUCER Work Phone: [facility] Work Phone: Start: 07-13-2024 End: 07-13-2024 ambulatory YULIANA GONZALEZ [facility] Ambulatory Start: 07-13-2024 End: 07-13-2024 Encounter for general adult medical examination without abnormal findings YULIANA GONZALEZ [facility] Ambulatory Start: 01-01-2024 End: 01-01-2024 ambulatory BOAZ Abigail MARION HERNANDEZ Facility:[facility] Start: 02-13-2018 End: 02-14-2018 [facility] Procedures Date Procedure Procedure Detail Performing Clinician Start: 01-07-2025 Serologic test for syphilis Yuliana Gonzalez [employer] Work Phone: Start: 09-09-2024 Microscopic observat ion [Identifier] in Cervix by Cyto stain Yuliana Gonzalez D[employer]ITAL PERFORMANCE ANALYST-EMAIL PRODUCER Work Phone: Start: 07-13-2024 Urnls dip stick/tabl et rgnt auto w/o microscopy Yuliana Sophie Gonzalez DIGITAL PERFORMANCE ANALYST-EMAIL PRODUCER Work Phone: Plan of Treatment Date Care Activity Detail Author Start: 2076 RSV High Risk: (Elde rly (60+) or Population) (1 - 1-dose 75+ series) RSV High Risk: (Elderly (60+) or Population) (1 - 1-dose 75+ series) [facility] Start: 2051 Zoster Vaccines (1 of 2) Zoste r Vaccines (1 of 2) [facility] Start: 09-09-2027 Screening for malign ant neoplasm of cervix [facility] Start: 07-14-2025 Yearly Adult Physical Yearly Adult P hysical [facility] Start: 07-13-2024 End: 07-13-2025 CBC W Auto Differential panel - Blood CBC and Auto Differential Lab Routine Wellness examination Expected: 07/13/2024 (Approximate), Expires: 07/13/2025 [facility] Service Area Work Phone: Comment on above: Expected: 07/13/2024 (Approximate), Expires: 07/13/2025 Start: 07-13-2024 End: 07-13-2025 Comprehensive metabolic 2000 panel - Serum or Plasma Comprehensive Metabolic Panel Lab Routine Wellness examination Expected: 07/13/2024 (Approximate), Expires: 07/13/2025 [facility] Work Phone: Comment on above: Expected: 07/13/2024 (Approximate), Expires: 07/13/2025 Start: 07-13-2024 End: 07-13-2025 Lipid 1996 panel - Serum or Plasma Lipid Panel Lab Routine Screening for lipid disorders Wellness examination Expected: 07/13/2024 (Approximate), Expires: 07/13/2025 [facility] Work Phone: Comment on above: Expected: 07/13/2024 (Approximate), Expires: 07/13/2025 Start: 05-02-2024 COVID-19 Vaccine () COVID-19 Vaccine () [facility] Start: 05-02-2024 Influenza vaccination Influenza Vacc ine (#1) [facility] Start: 02-05-2024 DTaP/Tdap/Td Vaccine s (7 - Td or Tdap) DTaP/Tdap/Td Vaccines (7 - Td or Tdap) [facility] Start: 2022 Screening for malign ant neoplasm of cervix [facility] Start: 2019 Hepatitis C screening Hepatitis C [facility] Start: 2016 HPV Vaccines (1 - 3- dose series) HPV Vaccines (1 - 3-dose series) [facility] Start: 2001 HIV screening HIV Screening [facility] Start: 2001 Lipid panel Lipid Panel [facility] Ultrasound scan for growth [facility] [place] [facility] Immunizations Immunization Date Immunization Notes Care Provider Fa cility 02-10-2025 tetanus toxoid, redu gordon diphtheria toxoid, and acellular pertussis vaccine, adsorbed Yuliana Gonzalez P[employer]OG[employer]ER[employer]C Work Phone: [facility] [place] [facility] 01-14-2022 tuberculin skin test ; purified protein derivative solution, intradermal Yuliana Gonzalez DIGITAL PERFORMANCE ANALYST-EMAIL PRODUCER Work Phone: [facility] Work Phone: 05-31-2019 meningococcal B vacc ine, recombinant, OMV, adjuvanted Yulianaeber Gonzalez DIGITAL PERFORMANCE ANALYST-EMAIL PRODUCER Work Phone: [facility] Work Phone: 02-12-2019 meningococcal B vacc ine, recombinant, OMV, adjuvanted Yulianaeber Gonzalez DIGITAL PERFORMANCE ANALYST-EMAIL PRODUCER Work Phone: [facility] Work Phone: 02-12-2019 meningococcal polysaccharide (groups A, C, Y and W-135) diphtheria toxoid conjugate vaccine (MCV4P) Yuliana Gonzalez DIGITAL PERFORMANCE ANALYST-EMAIL PRODUCER Work Phone: [facility] Work Phone: 02-07-2017 hepatitis A vaccine, pediatric/adolescent dosage, 2 dose schedule Yuliana Gonzalez DIGITAL PERFORMANCE ANALYST-EMAIL PRODUCER Work Phone: [facility] Work Phone: 02-07-2017 typhoid capsular polysaccharide vaccine Yuliana Gonzalez DIGITAL PERFORMANCE ANALYST-EMAIL PRODUCER Work Phone: [facility] Work Phone: 03-01-2016 hepatitis A vaccine, pediatric/adolescent dosage, 2 dose schedule Yuliana Gonzalez DIGITAL PERFORMANCE ANALYST-EMAIL PRODUCER Work Phone: [facility] Work Phone: 03-01-2016 typhoid capsular polysaccharide vaccine Yuliana Gonzalez DIGITAL PERFORMANCE ANALYST-EMAIL PRODUCER Work Phone: [facility] Work Phone: 04-27-2015 pneumococcal polysaccharide vaccine, 23 valent Yulianaeber Gonzalez DIGITAL PERFORMANCE ANALYST-EMAIL PRODUCER Work Phone: [facility] Work Phone: 02-04-2014 meningococcal polysaccharide (groups A, C, Y and W-135) diphtheria toxoid conjugate vaccine (MCV4P) Yuliana Gonzalez [employer]MANCE [employer]NALY[employer] Work Phone: [facility] Work Phone: 02-04-2014 tetanus toxoid, redu gordon diphtheria toxoid, and acellular pertussis vaccine, adsorbed Yuliana Gonzalez DIGITAL PERFORMANCE ANALYST-EMAIL PRODUCER Work Phone: [facility] Work Phone: 08-31-2008 varicella virus vaccine Jamar Gonzalez DIGITAL PERFORMANCE ANALYST-EMAIL PRODUCER Work Phone: [facility] Work Phone: 11-01-2005 diphtheria, tetanus toxoids and acellular pertussis vaccine Yuliana Gonzalez DIGITAL PERFORMANCE ANALYST-EMAIL PRODUCER Work Phone: [facility] Work Phone: 11-01-2005 measles, mumps and rubella virus vaccine Yuliana Gonzalez DIGITAL PERFORMANCE ANALYST-EMAIL PRODUCER Work Phone: [facility] Work Phone: 11-01-2005 poliovirus vaccine, inactivated Yuliana Gonzalez DIGITAL PERFORMANCE ANALYST-EMAIL PRODUCER Work Phone: [facility] Work Phone: 11-19-2002 diphtheria, tetanus toxoids and acellular pertussis vaccine Yuliana Gonzalez DIGITAL PERFORMANCE ANALYST-EMAIL PRODUCER Work Phone: [facility] Work Phone: 08-23-2002 measles, mumps and rubella virus vaccine Yuliana Gonzalez DIGITAL PERFORMANCE ANALYST-EMAIL PRODUCER Work Phone: [facility] Work Phone: 05-24-2002 haemophilus influenz ae type b vaccine, PRP-T conjugate Yuliana Gonzalez DIGITAL PERFORMANCE ANALYST-EMAIL PRODUCER Work Phone: [facility] Work Phone: 05-24-2002 hepatitis B vaccine, pediatric or pediatric/adolescent dosage Yuliana Gonzalez DIGITAL PERFORMANCE ANALYST-EMAIL PRODUCER Work Phone: [facility] Work Phone: 05-24-2002 varicella virus vaccine Jamar Gonzalez DIGITAL PERFORMANCE ANALYST-EMAIL PRODUCER Work Phone: [facility] Work Phone: 03-01-2002 haemophilus influenz ae type b vaccine, PRP-T conjugate Yuliana Gonzalez DIGITAL PERFORMANCE ANALYST-EMAIL PRODUCER Work Phone: [facility] Work Phone: 03-01-2002 poliovirus vaccine, inactivated Yuliana Gonzalez DIGITAL PERFORMANCE ANALYST-EMAIL PRODUCER Work Phone: [facility] Work Phone: 2001 diphtheria, tetanus toxoids and acellular pertussis vaccine Yuliana Gonzalez DIGITAL PERFORMANCE ANALYST-EMAIL PRODUCER Work Phone: [facility] Work Phone: 2001 pneumococcal conjuga te vaccine, 7 valent Yuliana Gonzalez DIGITAL PERFORMANCE ANALYST-EMAIL PRODUCER Work Phone: [facility] Work Phone: 2001 diphtheria, tetanus toxoids and acellular pertussis vaccine Yuliana Gonzalez DIGITAL PERFORMANCE ANALYST-EMAIL PRODUCER Work Phone: [facility] Work Phone: 2001 haemophilus influenz ae type b vaccine, PRP-T conjugate Yuliana Goznalez DIGITAL PERFORMANCE ANALYST-EMAIL PRODUCER Work Phone: [facility] Work Phone: 2001 pneumococcal conjuga te vaccine, 7 valent Yuliana Gonzalez DIGITAL PERFORMANCE ANALYST-EMAIL PRODUCER Work Phone: [facility] Work Phone: 2001 poliovirus vaccine, inactivated Yuliana Gonzalez DIGITAL PERFORMANCE ANALYST-EMAIL PRODUCER Work Phone: [facility] Work Phone: 2001 diphtheria, tetanus toxoids and acellular pertussis vaccine Yuliana Gonzalez DIGITAL PERFORMANCE ANALYST-EMAIL PRODUCER Work Phone: [facility] Work Phone: 2001 haemophilus influenz ae type b vaccine, PRP-T conjugate Yuliana Gonzalez DIGITAL PERFORMANCE ANALYST-EMAIL PRODUCER Work Phone: [facility] Work Phone: 2001 hepatitis B vaccine, pediatric or pediatric/adolescent dosage Yuliana Gonzalez DIGITAL PERFORMANCE ANALYST-EMAIL PRODUCER Work Phone: [facility] Work Phone: 2001 pneumococcal conjuga te vaccine, 7 valent Yuliana Gonzalez DIGITAL PERFORMANCE ANALYST-EMAIL PRODUCER Work Phone: [facility] Work Phone: 2001 poliovirus vaccine, inactivated Yuliana Gonzalez DIGITAL PERFORMANCE ANALYST-EMAIL PRODUCER Work Phone: [facility] Work Phone: 2001 hepatitis B vaccine, pediatric or pediatric/adolescent dosage Yuliana Gonzalez DIGITAL PERFORMANCE ANALYST-EMAIL PRODUCER Work Phone: [facility] Work Phone: Payers Date Payer Category Payer Self-pay 2023 [facility] [id number] 2001 Unknown [id number] 2001 Unknown [id number] 2001 Unknown [id number] 2001 Unknown [id number] 1959 Unknown [id number] 1959 Unknown [id number] Unknown [id number] Unknown [id number] Unknown [id number] Unknown [id number] Unknown [id number] Unknown [id number] Unknown [id number] Unknown [id number] Unknown [id number] Unknown [id number] Unknown [id number] Social History Date Type Detail Facility Start: 07-13-2024 End: 09-06-2024 Tobacco smoking status NHIS Never smoked tobacco [facility] Work Phone: Start: 07-13-2024 Tobacco use and exposure Smokeless tobacco non-user [facility] Work Phone: Start: 07-13-2024 End: 09-28-2024 Alcoholic beverage intake Current drinker of alcohol (finding) [facility] Work Phone: Start: 07-13-2024 End: 09-28-2024 History of Social function [facility] Work Phone: Start: 07-13-2024 End: 09-28-2024 Tobacco use panel [facility] Work Phone: Start: 07-13-2024 Alcohol Comment social [facility] Work Phone: Start: 2001 Sex assigned at Not on file [facility] Work Phone: Start: 07-03-2024 End: 09-28-2024 Exposure to SARS-CoV-2 (event) Not sure [facility] Start: 2001 Sex Assigned At Female W [facility] Clinical Notes 07-13-2024 to 02-10-2025 Note Date & Type Note Facility 02-10-2025 Progress note [facility] 11-05-2024 Evaluation note Diagnosis Onset Date Resolution Anxiety acute November 05 11:39am Depression acute November 05 11:39am acute November 05 11:39am Supervision of high-risk acute November 05, 2024 11:39am Anxiety acute December 03 10:11am Circumvallate placenta acute Ap 2024 10:11am Depression acute December 03 10:11am acute December 03 10:11am Supervision of high-risk acute December 03, 2024 10:11am Anxiety acute January 07, 2025 10:04am Circumvallate placenta acute Ma y 2024 10:04am Depression acute January 07, 2025 10:04am acute January 07, 2025 10:04am Supervision of high-risk acute January 07, 2025 10:04am [facility] [place] [facility] Work Phone: 1([phone] 873-604603-07-2025 Evaluation note* Diagnosis Onset Date Resolution Status Admit Date Anxiety acute November 05 11:39am Depression acute November 05 11:39am acute November 05 11:39am Supervision of high-risk acute November 05, 2024 11:39am Anxiety acute December 03 10:11am Circumvallate placenta acute Ap ril 2024 10:11am Depression acute December 03 10:11am acute December 03 10:11am Supervision of high-risk acute December 03, 2024 10:11am Anxiety acute January 07, 2025 10:04am Circumvallate placenta acute Ma y 2024 10:04am Depression acute January 07, 2025 10:04am acute January 07, 2025 10:04am Supervision of high-risk acute January 07, 2025 10 :04am Anemia in preg-unspec acute January 26, 2025 8:33am Anxiety acute January 26, 2025 8:33am Circumvallate placenta acute Ma y 2024 8:33am Depression acute January 26, 2025 8:33am acute January 26, 2025 8:33am Supervision of high-risk acute January 26, 2025 8 :33am [facility] Work Phone: 1(349) 336-735703-07-2025 Evaluation note* Diagnosis Onset Date Resolution Status Admit Date Anxiety acute November 05 11:39am Depression acute November 05 11:39am acute November 05 11:39am Supervision of high-risk acute November 05, 2024 11:39am Anxiety acute December 03 10:11am Circumvallate placenta acute Ap 2024 10:11am Depression acute December 03 10:11am acute December 03 10:11am Supervision of high-risk acute December 03, 2024 10:11am Anxiety acute January 07, 2025 10:04am Circumvallate placenta acute Ma y 2024 10:04am Depression acute January 07, 2025 10:04am acute January 07, 2025 10:04am Supervision of high-risk acute January 07, 2025 10 :04am Anemia in preg-unspec acute January 26, 2025 8:33am Anxiety acute January 26, 2025 8:33am Circumvallate placenta acute Ma y 2024 8:33am Depression acute January 26, 2025 8:33am acute January 26, 2025 8:33am Supervision of high-risk acute January 26, 2025 8 :33am Anemia in preg-unspec acute Jan 8:46am Anxiety acute February 10 8:46am Circumvallate placenta acute Ju 2024 8:46am Depression acute February 10 8:46am acute February 10 8:46am Supervision of high-risk acute February 10, 2025 8:46am [facility] Work Phone: 1([phone] 325-605801-28-2025 Evaluation + Plan note* Assessment & Plan Note - KAREL Phillips - 09/28/2024 7:59 AM ESTAssociated Problem(s): Persistent depressive disorder Increase zoloft 150 mg daily [facility] Work Phone: 1([phone]) 438-649101-28-2025 Evaluation + Plan note* Assessment & Plan Note - KAREL Phillips - 09/28/2024 7:59 AM ESTAssociated Problem(s): Anxiety Increase zoloft 150 mg daily [facility] Work Phone: 1(145) 722-724101-28-2025 Miscellaneous Notes* Assessment & Plan Note - KAREL Phillips - 09/28/2024 7:59 AM ESTAssociated Problem(s): Persistent depressive disorder Increase zoloft 150 mg daily * Assessment & Plan Note - KAREL Phillips - 09/28/2024 7:59 AM EST Associated Problem(s): Anxiety Increase zoloft 150 mg daily [facility]: 1(732) 832-249601-28-2025 History of Present illness Narrative* Jojo Vela CMA - 09/28/2024 7:40 AM EST 13 weeks * KAREL Phillips - 09/28/2024 7:40 AM EST Subjective Patient ID: Gino Michele is a 24 y.o. female who presents for Medication Problem. HPI Gino returns to discuss increasing her zoloft. She is currently 13 weeks . Sees [facility] in [place]. Anxiety/depression: has been on zoloft and was working well, but feels that she is having a hard time right now and would like to increase her dose. Review of Systems Constitutional: Negative for fatigue. Respiratory: Negative for chest tightness and shortness of breath. Cardiovascular: Negative for chest pain, palpitations and leg swelling. Gastrointestinal: Positive for nausea (due to ). Negative for abdominal pain, blood in stool, constipation, diarrhea and vomiting. Genitourinary: Negative for dysuria. Musculoskeletal: Negative for arthralgias and myalgias. Skin: Negative for color change. Neurological: Negative for dizziness, light-headedness and headaches. Psychiatric/Behavioral: Positive for dysphoric mood. The patient is nervous/anxious. Objective BP 138/80 Pulse 72 Ht 1.664 m (5' 5.5) Wt 68.9 kg (152 lb) BMI 24.91 kg/m Physical Exam Vitals and nursing note reviewed. Constitutional: Appearance: Normal appearance. HENT: Head: Normocephalic and atraumatic. Cardiovascular: Rate and Rhythm: Normal rate. Pulses: Normal pulses. Pulmonary: Effort: Pulmonary effort is normal. Skin: General: Skin is warm and dry. Neurological: General: No focal deficit present. Mental Status: She is alert and oriented to person, place, and time. Psychiatric: Mood and Affect: Mood normal. Behavior: Behavior normal. Thought Content: Thought content normal. Judgment: Judgment normal. Assessment/Plan Problem List Items Addressed This Visit ICD-10-CM Anxiety F41.9 Increase zoloft 150 mg daily Relevant Medications sertraline (Zoloft) 100 mg tablet Persistent depressive disorder F34.1 Increase zoloft 150 mg daily Relevant Medications sertraline (Zoloft) 100 mg tablet Follow up as needed. We discussed talking to her OB regarding starting buspirone for anxiety as needed. She has an appt next week with them, so she will talk to them and let us know if they are okay with this medication. For any new medications that were prescribed today, the patient was educated about their indications for use, administration, frequency and potential side effects of the medication. [facility] Work Phone: 1(464) 708-897311-12-2024 Evaluation + Plan note* Assessment & Plan Note - KAREL Phillips - 07/13/2024 8:05 AM ESTAssociated Problem(s): Migraine without aura and without status migrainosus, not intractable Rizatriptan 10 mg as needed for migraine stable [facility] Work Phone: 1([phone]) 104-496211-12-2024 Miscellaneous Notes* Assessment & Plan Note - KAREL Phillips - 07/13/2024 8:05 AM ESTAssociated Problem(s): Migraine without aura and without status migrainosus, not intractable Rizatriptan 10 mg as needed for migraine stable * Assessment & Plan Note - KAREL Phillips - 07/13/2024 8:04 AM EST Associated Problem(s): Anxiety Doing well on sertraline 100 mg daily * Assessment & Plan Note - KAREL Phillips - 07/13/2024 8:04 AM EST Associated Problem(s): Persistent depressive disorder Currently on sertraline 100 mg daily stable * Result Encounter Note - KAREL Phillips - 07/13/2024 7:20 AM EST Let her know her urine did not show any signs of an infection and did not have any blood in it thistime. [facility] Work Phone: 1([phone]) 665-688811-12-2024 Evaluation + Plan note* Assessment & Plan Note - KAREL Phillips - 07/13/2024 8:04 AM ESTAssociated Problem(s): Anxiety Doing well on sertraline 100 mg daily [facility] Work Phone: 1([phone]) 148-167711-12-2024 Evaluation + Plan note* Assessment & Plan Note - KAREL Phillips - 07/13/2024 8:04 AM ESTAssociated Problem(s): Persistent depressive disorder Currently on sertraline 100 mg daily stable [facility] Work Phone: 1([phone]) 966-773511-12-2024 History of Present illness Narrative* Jojo Vela CMA - 07/13/2024 7:20 AM EST Est Care with problems with ? Kidney stone * KAREL Phillips - 07/13/2024 7:20 AM EST Subjective Patient ID: Gino Bae is a 24 y.o. female who presents for Establish Care. HPI NPV Gino here to establish care/well visit. Has history of migraines, depression/anxiety, kidney stones. 2 weeks ago, bloody urine, hard to urinate, back pain. [facility]. Was treated for LUTS (Macrobid). Has history of kidney stones. Left side flank pain. Previous a year or two ago. Is still having some symptoms, with one night last week-feeling like she still had to urinate but then went away by morning. Migraines: gets them once a week, rizatriptan usually will help with them. Has tried daily medication but she states, knows my triggers and is trying to avoid coffee. Depression/Anxiety: doing well on sertraline. Review of Systems Constitutional: Negative for fatigue. HENT: Negative. Respiratory: Negative for chest tightness and shortness of breath. Cardiovascular: Negative for chest pain, palpitations and leg swelling. Gastrointestinal: Negative for abdominal pain, blood in stool, constipation, diarrhea, nausea and vomiting. Genitourinary: Positive for dysuria. Negative for difficulty urinating, flank pain, frequency, hematuria and urgency. Musculoskeletal: Negative for arthralgias and myalgias. Skin: Negative for color change. Neurological: Negative for dizziness, light-headedness and headaches. Hematological: Negative. Psychiatric/Behavioral: Negative. Objective BP 124/80 Pulse 82 Ht 1.664 m (5' 5.5) Wt 63.7 kg (140 lb 8 oz) BMI 23.02 kg/m Physical Exam Vitals and nursing note reviewed. Constitutional: Appearance: Normal appearance. HENT: Head: Normocephalic and atraumatic. Cardiovascular: Rate and Rhythm: Normal rate and regular rhythm. Pulses: Normal pulses. Heart sounds: Normal heart sounds. Pulmonary: Effort: Pulmonary effort is normal. Breath sounds: Normal breath sounds. Abdominal: General: Bowel sounds are normal. Palpations: Abdomen is soft. Skin: General: Skin is warm and dry. Neurological: General: No focal deficit present. Mental Status: She is alert and oriented to person, place, and time. Psychiatric: Mood and Affect: Mood normal. Behavior: Behavior normal. Thought Content: Thought content normal. Judgment: Judgment normal. Assessment/Plan Problem List Items Addressed This Visit ICD-10-CM Migraine without aura and without status migrainosus, not intractable G43.009 Rizatriptan 10 mg as needed for migraine stable Persistent depressive disorder F34.1 Currently on sertraline 100 mg daily stable BMI 23.0-23.9, adult Z68.23 Other Visit Diagnoses Codes Wellness examination - Primary Z00.00 Relevant Orders CBC and Auto Differential Comprehensive Metabolic Panel Lipid Panel Dysuria R30.0 POCT ua may consider KUB-if hematuria present Relevant Orders POCT UA Automated manually resulted (Completed) Screening for lipid disorders Z13.220 Relevant Orders Lipid Panel Will check for urine today. Follow up in 1 year for wellness exam. For any new medications that were prescribed today, the patient was educated about their indications for use, administration, frequency and potential side effects of the medication. [facility] Phone: 1(424) 869-996511-12-2024 Progress note* Result Encounter Note - KAREL Phillips - 07/13/2024 7:20 AM EST Let her know her urine did not show any signs of an infection and did not have any blood in it thistime. [facility] Work Phone: Evaluation note* Diagnosis Wellness examination- Primary Dysuria Persistent depressive disorder Migraine without aura and without status migrainosus, not intractable Screening for lipid disorders BMI 23.0-23.9, adult documented in this encounter [facility] Work Phone: Evaluation note* Diagnosis Wellness examination- Primary Dysuria Persistent depressive disorder Migraine without aura and without status migrainosus, not intractable Screening for lipid disorders BMI 23.0-23.9, adult Persistent depressive disorder Anxiety Anxiety state, unspecified documented in this encounter [facility] Work Phone: Progress note Author Autumn Jacome [facility] Note Date/Time February 10, 2025 9:11 am [facility] [address], [address] [place] [address] OFFICE VISIT Date of Service: 02/10/25 MR#: [id number] Acct: [id number] Name: GINO MICHELE Rep #: [id number] : 2000 Provider: JOSE Jacome Age/Sex: 24/F Location: [facility] Status: Signed Intake Vital Signs 09/09/24 09:07 01/26/25 08:35 02/10/25 08:47 Height 5 ft 5 in 5 ft 5 in 5 ft 5 in Weight: 189 lb 2 oz BMI 31.4 BP 115/83 H Intake Visit Reasons: 32 wk ob Progress Man Required: No Is patient in pain?: No Allergies No Known Allergies Allergy (Verified 02/10/25 08:48) Medications ?Medication ?Instructions ?Recorded ?Confirmed ?Type multivitamin no.47-iron fum 27 cap PO 09/06/24 5 History mg-folate no.1 1 mg-dha 300 mg capsule (PNV-DHA) buspirone 15 mg tablet 15 mg PO TID PRN anxiety #30 tabs 10/07/24 02/10/25 Rx metoclopramide HCl 10 mg tablet 10 mg PO QAC #60 tabs 10/07/24 02/10/25 Rx (Reglan) sertraline 50 mg tablet (Zoloft) 150 mg PO QDAY 02/10/25 History ondansetron 4 mg disintegrating 4 mg PO Q8H PRN PRN Na usea #30 tabs 10/15/24 02/10/25 Rx tablet ondansetron HCl 4 mg tablet 4 mg PO Q6H PRN nausea and 10/28/24 02/10/25 Rx vomiting #60 tabs ferrous gluconate 240 mg (27 mg 240 mg PO QDAY #30 tab s 01/07/25 02/10/25 Rx iron) tablet Last Menstrual Period: 06/27/24 Zika: Zika virus screening: Negative : No PFSH PFSH Medical History Migraine headache Surgical History [place] teeth extracted Family History Grandfather Diabetes Maternal Mother Cancer Basal cell skin cancer Father Cancer Basal cell Skin cancer Aunt Cancer Maternal- Skin Melanoma Social History adopted: No household members: spouse current occupational status: employed current occupation: [employer] pets and animals: Yes (Avoid Litterbox) pets and animals: cat(s) history of recent travel: No sexually active: Yes Smoking Status: Never smoker alcohol intake: current alcohol intake frequency: a few times a month details: Not while substance use type: does not use well-balanced diet: daily or most days caffeine: No eating out: 1-3 times/week during the past year weight has: remained stable what type of physical activity do you participate in: none osiris/anabaptist: Buddhist seatbelt use: always do you feel safe at home: Yes additional social history: Xavier History 1 Elective abortions Hx Para 0 Spontaneous abortions Hx # Term Pregnancies Ectopic pregnancies Hx # Pregnancies Multiple births # of living children HPI 32 wk ob Details: GINO MICHELE is a 24 year old who presents for routine OB visit. OB Visit BLUE Calculator Estimated Delivery Date Method Current WG Current Estimate 04/03/25 LMP (Certain) 32w 4d Other Estimates 04/01/25 Ultrasound #1 32w 6d Expected Delivery Route/Plan Labor Preferences- CB/BF classes: yes labor support person: Alice labor intervention preferences: [] pain management options preferred: epidural cut cord/dad catch: no : yes PP control planned: discussed discussed possible routes of delivery and associated risks: [] special requests: [] Specific Issue/Plans Covid status: [] Flu vaccine: [] Tdap vaccine: Rhogam: NA LARC form signed: yes Problem list reviewed and updated with the most current plan of care details and appropriate orders placed. Relevant counseling for the gestational age provided. Continue routine care and follow up unless otherwise noted in visit notes/problem list details Initial Weight: 143 lb Date -?-?-?-?-?-?-?-?-?-?-?-?- EGA Weight BP Urine Prot -?-?-?-?-?-?-?-?-?-?-?-?- Glucose FHR FuHt Pres Dilation -?-?-?-?-?-?-?-?-?-?-?-?- Effaced St Visit Note 09/09/24 -?-?-?-?-?-?-?-?-?-?-?-?- 10w 4d 143 lb (+0 oz) 127/83 -?-?-?-?-?-?-?-?-?-?-?-?- 169 -?-?-?-?-?-?-?-?-?-?-?-?- KW- CRL cons wit h dates. declines NIPT. Anatomy US ordered 10/07/24 -?-?-?-?-?-?--?-?-?-?-?-?- 14w 4d 153 lb 2 oz (+10 lb 2 oz) 120/73 Negative -?-?-?-?-?-?-?-?-?-?-?-?- Negative 145 -?-?-?-?-?-?-?-?-?-?-?-?- JV- still some n ausea. trying reglan. will also try buspar for anxiety. anatomy scan ordered. 11/05/24 -?-?-?-?-?-?-?-?-?-?-?-?- 18w 5d 164 lb (+21 lb) 134/81 Negative -?-?-?-?-?-?-?-?-?-?-?-?- Negative 165 -?-?-?-?-?-?-?-?-?-?-?-?- KW- no vb/crampi ng. +flutters. Having a BOY! nausea is getting better. 11/09 US scheduled. magnesium for restless legs. 12/03/24 -?-?-?-?-?-?-?-?-?-?-?-?- 22w 5d 171 lb 6 oz (+28 lb 6 oz) 120/77 Negative -?-?-?-?-?-?-?-?-?-?-?-?- Negative 164 -?-?-?-?-?-?-?-?-?-?-?-?- JV- discussed ci rcumvellate placenta. no other complaints. RTO in 4 weeks. 01/07/25 -?-?-?-?-?-?-?-?-?-?-?-?- 27w 5d 182 lb (+39 lb) 127/81 Negative -?-?-?-?-?-?-?-?-?-?-?-?- Negative 155 28 -?-?-?-?-?-?-?-?-?-?-?-?- KW- no vb/lof/ct x. good fm. good fm. signed up for CBE classes-28 week labs today-chiropractor for low back pain. LARC today. possible tdap next week. 01/26/25 -?-?-?-?-?-?-?-?-?-?-?-?- 30w 3d 188 lb 4 oz (+45 lb 4 oz) 126/72 Negative -?-?-?-?-?-?-?-?-?-?-?-?- Negative 145 31 -?-?-?-?-?-?-?-?-?-?-?-?- MH-No Vb, LOF. G ood FM. Resp congestion, meds reviewed. Wants tdap next visit. 02/10/25 -?-?-?-?-?-?-?-?-?-?-?-?- 32w 4d 189 lb 2 oz (+46 lb 2 oz) 115/83 Negative -?-?-?-?-?-?-?-?-?-?-?-?- Negative 160 33 -?-?-?-?-?-?-?-?-?-?-?-?- KW- no vb/lof/ct x. good fm. restless leg sx- starting magnesium and discussed compression hose. growth scan tomorrow. Baby shower this weekend. ACOG First Trimester First Trimester: Discussed Second Trimester Second Trimester: Signs and Symptoms of Labor, Selecting a care provider, Reproductive Life Planning & Contreception, Care Planning and Depression/Anxiety; Discussed Tobacco Cessation and Discussed Intimate Partner Violence Third Trimester Third Trimester: Pain Management Plans, Labor support person(s), Immediate Larc, Circumcision preference, Signs and Symptoms of Preeclampsia, Feeding No , Education and Family Medical Leave or Disability Forms; Discussed Tobacco Cessation and Discussed Intimate Partner Violence ROS Const Reports system reviewed and no additional complaints, except as documented Eyes Reports system reviewed and no additional complaints, except as documented ENT Reports system reviewed and no additional complaints, except as documented Card Reports system reviewed and no additional complaints, except as documented Resp Reports system reviewed and no additional complaints, except as documented GI Reports system reviewed and no additional complaints, except as documented, Denies nausea and Denies vomiting Reports system reviewed and no additional complaints, except as documented Musc Reports system reviewed and no additional complaints, except as documented Skin/Breast Reports system reviewed and no additional complaints, except as documented Neuro Yes system reviewed and no additional complaints, except as documented Psych Reports system reviewed and no additional complaints, except as documented Endo Reports system reviewed and no additional complaints, except as documented [place]/Lymph Reports system reviewed and no additional complaints, except as documented Aller/Immun Reports system reviewed and no additional complaints, except as documented Exam Const General: cooperative, healthy appearing and no acute distress Orientation: alert, awake and oriented x3 Neck Neck: normal visual inspection and full ROM Resp Effort & Inspection: normal respiratory effort, able to speak in complete sentences and symmetric chest movement GI Inspection: normal to inspection Palpation: soft and other Other: gravid Skin General: no rashes or lesions noted Neuro General: patient alert, patient awake and patient oriented x3 Cognition: normal cognition Speech: speech normal Gait: normal gait Motor: muscle tone normal throughout Extrem General: normal to inspection and full ROM Psych Appearance: grossly normal Mental Status: mental status grossly normal Mood: congruent mood Affect: normal affect Speech and Movement: speech and movement normal Attitude: cooperative Thought Process: normal Thought Content: normal Judgment: judgment good Results POC Urinalysis 2 Dip (Clinic) Office Urine Glucose Negative Last Edit by Kristen Quiros on 02/10/25 08:56 Office Urine Protein Negative Last Edit by Kristen Quiros on 02/10/25 08:56 Immunizations Boostrix Tdap 2.5 Lf unit-8 mcg-5 Lf/0.5 mL intramuscular syringe Performing Provider: Autumn Jacome CNM Performing Location: [facility] Administered by: Kristen Quiros on 02/10/25 08:57 Dose Route Admin Location Dispensed Lot Number Expiration Date NDC Box Brander 0.5 mL IM Right Deltoid 0.5 mL [id number] 01/29/26 [id number] [employer] VIS Given Date VIS Provided VIS Publication Date 02/10/25 Single Vaccine 24 Eligibility Eligibility Date Funding Source Not Applicable Coding Level of Care Code OB Routine Diagnoses Anemia during in third trimester O99.013 Trimester: third trimester Circumvallate placenta in third trimester O43.113 Trimester: third trimester Supervision of high risk in third trimester O09.93 Trimester: third trimester 32 weeks gestation of Z3A.32 Weeks of gestation: 32 weeks Depression, unspecified depression type F32.A Depression Type: unspecified Anxiety F41.9 Assessment and Plan Assessment and Plan (1) Anemia in preg-unspec: Status: Acute Qualifiers: Trimester: third trimester Qualified Code(s): O99.013 - Anemia complicating , third trimester Comment: FE (2) Circumvallate placenta: Status: Acute Qualifiers: Trimester: third trimester Qualified Code(s): O43.113 - Circumvallate placenta, third trimester Comment: growth at 32 weeks: 02/11: (3) Supervision of high-risk : Status: Acute Qualifiers: Trimester: third trimester Qualified Code(s): O09.93 - Supervision of high risk , unspecified, third trimester Comment: PRR, , BLUE 04/03/25 Robinson George, Xavier (4) : Status: Acute Qualifiers: Weeks of gestation: 32 weeks Qualified Code(s): Z3A.32 - 32 weeks gestation of Comment: undecided about NIPT, nl anatomy (5) Depression: Status: Acute Qualifiers: Depression Type: unspecified Qualified Code(s): F32.A - Depression, unspecified Comment: sertraline/stable (6) Anxiety: Status: Acute Comment: stable Orders: Orders POC Urinalysis 2 Dip (Clinic) Today Tdap Immunization Today Z23 - Encounter for immunization Plan Details Additional Comments: ACOG trimester education reviewed and updated. see problem list details for updated plan management information and see below for orders placed at this visit. GA appropriate handout given. 02/10/25 0900 <Electronically signed by Autumn fernandez CNM> Date _ Autumn Jacome CNM Cosigner Signature: Date (if applicable) CC: ~ [facility] Work Phone: Reason for referral (narrative)No reason for referral information [facility] Work Phone: Summary Purpose Family History Relationship Condition Age at Onset Recorded Date/T adrian grandfather Diabetes mellitus Unknown mother Malignant neoplasm Unknown father Malignant neoplasm Unknown aunt Malignant neoplasm Unknown Advance Directives No Advanced Directives Records FoundNo Advanced Directives Records FoundNo Advanced Directives Records FoundNo Advanced Directives Records FoundNo Advanced Directives Records FoundNo Advanced Directives Records FoundNo Advanced Directives Records Found Chief Complaint and Reason for Visit Chief Complaint Admit Date 14 wk OB October 07, 2024 1 1:31am 18 wk ob November 05, 2024 11:3 9am 22 wk ob December 03, 2024 10:1 1am 27 wk ob/ glucose January 07, 2025 10:04a m Reason for Visit Admit Date Anxiety November 05, 2024 11:3 9am Depression November 05, 2024 11:3 9am November 05, 2024 11:3 9am Supervision of high-risk November 05, 2024 11:39am Anxiety December 03, 2024 10:1 1am Circumvallate placenta December 03, 2024 1 0:11am Depression December 03, 2024 10:1 1am December 03, 2024 10:1 1am Supervision of high-risk December 03, 2024 10:11am Anxiety January 07, 2025 10:04a m Circumvallate placenta January 07, 2025 10: 04am Depression January 07, 2025 10:04a m January 07, 2025 10:04a m Supervision of high-risk January 072024 10:04am Chief Complaint Admit Date 14 wk OB October 07, 2024 1 1:31am 18 wk ob November 05, 2024 11:3 9am 22 wk ob December 03, 2024 10:1 1am 27 wk ob/ glucose January 07, 2025 10:04a m 30 wk ob January 26, 2025 8:33a m Reason for Visit Admit Date Anxiety November 05, 2024 11:3 9am Depression November 05, 2024 11:3 9am November 05, 2024 11:3 9am Supervision of high-risk November 05, 2024 11:39am Anxiety December 03, 2024 10:1 1am Circumvallate placenta December 03, 2024 1 0:11am Depression December 03, 2024 10:1 1am December 03, 2024 10:1 1am Supervision of high-risk December 03, 2024 10:11am Anxiety January 07, 2025 10:04a m Circumvallate placenta January 07, 2025 10: 04am Depression January 07, 2025 10:04a m January 07, 2025 10:04a m Supervision of high-risk January 072024 10:04am Anemia in preg-unspec January 26, 2025 8:3 3am Anxiety January 26, 2025 8:33a m Circumvallate placenta January 26, 2025 8: 33am Depression January 26, 2025 8:33a m January 26, 2025 8:33a m Supervision of high-risk December [id number] 8:33am Chief Complaint Admit Date 18 wk ob November 05, 2024 11:3 9am 22 wk ob December 03, 2024 10:1 1am 27 wk ob/ glucose January 07, 2025 10:04a m 30 wk ob January 26, 2025 8:33a m 32 wk ob February 10, 2025 8:46 am Reason for Visit Admit Date Anxiety November 05, 2024 11:3 9am Depression November 05, 2024 11:3 9am November 05, 2024 11:3 9am Supervision of high-risk November 05, 2024 11:39am Anxiety December 03, 2024 10:1 1am Circumvallate placenta December 03, 2024 1 0:11am Depression December 03, 2024 10:1 1am December 03, 2024 10:1 1am Supervision of high-risk December 03, 2024 10:11am Anxiety January 07, 2025 10:04a m Circumvallate placenta January 07, 2025 10: 04am Depression January 07, 2025 10:04a m January 07, 2025 10:04a m Supervision of high-risk January 072024 10:04am Anemia in preg-unspec January 26, 2025 8:3 3am Anxiety January 26, 2025 8:33a m Circumvallate placenta January 26, 2025 8: 33am Depression January 26, 2025 8:33a m January 26, 2025 8:33a m Supervision of high-risk December [id number] 8:33am Anemia in preg-unspec February 10, 2025 8: 46am Anxiety February 10, 2025 8:46 am Circumvallate placenta February 10, 2025 8 :46am Depression February 10, 2025 8:46 am February 10, 2025 8:46 am Supervision of high-risk February 10, 2025 8:46am Additional Source Comments INFORMATION SOURCE (unrecogn ized section and content) DATE CREATED AUTHOR 03/09/2018 [facility] DATE CREATED AUTHOR AUTHOR'S ORGANIZ ATION 10/20/2019 [facility] DATE CREATED AUTHOR AUTHOR'S ORGANIZ ATION 09/01/2020 [facility] DATE CREATED AUTHOR AUTHOR'S ORGANIZ ATION 01/30/2024 [facility] DATE CREATED AUTHOR AUTHOR'S ORGANIZ ATION 11/12/2024 [facility] DATE CREATED AUTHOR AUTHOR'S ORGANIZ ATION 12/13/2024 [facility] DATE CREATED AUTHOR AUTHOR'S ORGANIZ ATION 02/03/2025 [facility] Reason for Visit (unrecogniz ed section and content) Reason Comments Establish Care Reason Comments Medication Problem Care Teams (unrecognized sec tion and content) Facility Maintenance Worker Relationship Specialty Start Date End Date Yuliana Gonzalez APRN-EMAIL PRODUCER [address] [facility] [place] [address] PCP - General Family Medicine 07/13/24 Facility Maintenance Worker Relationship Specialty Start Date End Date Yuliana Gonzalez APRN-EMAIL PRODUCER [address] [place] [address] PCP - General Family Medicine 07/13/24 Team Status: Active Member Role Status Dates OLGA Montilla Primary Care Provider Active Team Status: Inactive Member Role Status Dates OLGA Montilla Primary Care Provider Active Start: October 07, 2024 End: October 07, 2024 OLGA Montilla Referring Provider Active Sta rt: October 07, 2024 End: October 07, 2024 Dr. Rufina Weiss DO Attending Provider Activ e Start: October 07, 2024 End: October 07, 2024 Team Status: Inactive Member Role Status Rodrigo Gonzalez PYROGLAZER-C Primary Care Provider Active Start: November 05, 2024 End: November 05, 2024 Yuliana Gonzalez PYROGLAZER-C Referring Provider Active Sta rt: November 05, 2024 End: November 05, 2024 Autumn Jacome CNM Attending Provider Active S tart: November 05, 2024 End: November 05, 2024 Team Status: Inactive Member Role Status Rodrigo Gonzalez PYROGLAZER-C Primary Care Provider Active Start: December 03, 2024 End: December 03, 2024 Yuliana Gonzalez PYROGLAZER-C Referring Provider Active Sta rt: December 03, 2024 End: December 03, 2024 Dr. Rufina Weiss DO Attending Provider Activ e Start: December 03, 2024 End: December 03, 2024 Team Status: Inactive Member Role Status Rodrigo Gonzalez PYROGLAZER-C Primary Care Provider Active Start: January 07, 2025 End: January 07, 2025 Yuliana Gonzalez PYROGLAZER-C Referring Provider Active Sta rt: January 07, 2025 End: January 07, 2025 Autumn Jacome CNM Attending Provider Active S tart: January 07, 2025 End: January 07, 2025 Team Status: Inactive Member Role Status Rodrigo Gonzalez PYROGLAZER-C Primary Care Provider Active Start: January 07, 2025 End: January 07, 2025 Dr. Marissa Aquino MD Attending Provider Active Start: January 07, 2025 End: January 07, 2025 Dr. Marissa Aquino MD Referring Provider Active Start: January 07, 2025 End: January 07, 2025 Team Status: Inactive Member Role Status Rodrigo Gonzalez PYROGLAZER-C Primary Care Provider Active Start: January 26, 2025 End: January 26, 2025 Yuliana Gonzalez PYROGLAZER-C Referring Provider Active Sta rt: January 26, 2025 End: January 26, 2025 Kristen Parker NP, PYROGLAZER-C Attending Provider Active Start: January 26, 2025 End: January 26, 2025 Team Status: Inactive Member Role Status Rodrigo Gonzalez PYROGLAZER-C Primary Care Provider Active Start: February 10, 2025 End: February 10, 2025 OLGA Montilla Referring Provider Active Sta rt: February 10, 2025 End: February 10, 2025 Autumn Jacome CNM Attending Provider Active S tart: February 10, 2025 End: February 10, 2025 Goals (unrecognized section and content) Goals may be documented in a n alternate sectionGoals may be documented in an alternate sectionGoals may be documented in an alternate section FOR RECORDS PERTAINING TO PATIENTS WHO ARE OR HAVE BEEN ENROLLED IN A CHEMICAL DEPENDENCY/SUBSTANCEABUSE PROGRAM, SOME INFORMATION MAY BE OMITTED. This clinical summary was aggregated from multiple sources. Caution should be exercised in using it in the provision of clinical care. This summary normalizes information from multiple sources, and as a consequence, information in this document may materially change the coding, format and clinical context of patient data. In addition, data may be omitted in some cases. CLINICAL DECISIONS SHOULD BE BASED ON THE PRIMARY CLINICAL RECORDS. [facility] [employer] [facility]. provides no warranty or guarantee of the accuracy or completeness of information in this document.
== END | disposition home or self-care (01) ==
PROVIDERS: PCP Nurse Practitioner Family; Referring Provider Advanced Practice Midwife; Visit Provider Advanced Practice Midwife
DX: O43.113 Circumvallate placenta, third trimester (principal); Z3A.32 32 weeks gestation of pregnancy
CPT/HCPCS: 76816

== ENCOUNTER → 2025-02-15 | Outpatient (CLI) | payer BC, SELFPAY ==
[2025-02-15 12:24] LABS: Glucose Challenge Gest 1H 50g 110 mg/dL (70-140)
== END | disposition home or self-care (01) ==
LOC: BWCLAB 09:33
PROVIDERS: PCP Nurse Practitioner Family; Referring Provider Advanced Practice Midwife; Visit Provider Advanced Practice Midwife
DX: O09.93 Supervision of high risk pregnancy, unspecified, third trimester (principal); Z3A.00 Weeks of gestation of pregnancy not specified
CPT/HCPCS: 36415; 82950

== ENCOUNTER → 2025-03-10 | Outpatient (CLI) | payer BC, SELFPAY | END | disposition home or self-care (01) | LOC: LABSPEC 16:40 | PROVIDERS: PCP Nurse Practitioner Family; Visit Provider Obstetrics & Gynecology | DX: O09.93 Supervision of high risk pregnancy, unspecified, third trimester (principal); Z3A.00 Weeks of gestation of pregnancy not specified | CPT/HCPCS: 87081 ==

== ENCOUNTER → 2025-03-22 | Outpatient (CLI) | payer BC, SELFPAY ==
--- NOTE | 2025-03-22 15:39 | US_ITS ---
PROCEDURE: OB LIMITED WITH BIOMETRICS 03/22/2025 REASON FOR EXAM: UTERINE SIZE DATE DISCREPANCY TECHNIQUE: OB LIMITED WITH BIOMETRICS COMPARISON: 02/11/2025. FINDINGS Single live intrauterine . Cephalic presentation. 160 beats per minute. Amniotic fluid index of 12.0. Posterior located placenta without evidence of previa. Placental grade 3. BPD: 37 weeks 1 day. 44%. OFD: 12.0 cm. 97%. HC: 40 weeks 2 days. 79%. AC: 40 weeks 2 days. 98% FL: 35 weeks 5 days. 5%. Estimated weight of 3603 g +/-540 g. 76%. Estimated age by ultrasound: 38 weeks 3 days. age by LMP: 38 weeks 2 days. No visualized adnexal abnormalities. US/OB Limited With Biometrics IMPRESSION: Single live intrauterine . See biometry above. Reading Location: [id number]
== END | disposition home or self-care (01) ==
LOC: US 15:38
PROVIDERS: PCP Nurse Practitioner Family; Referring Provider Obstetrics & Gynecology; Visit Provider Obstetrics & Gynecology
DX: O26.843 Uterine size-date discrepancy, third trimester (principal); Z3A.00 Weeks of gestation of pregnancy not specified
CPT/HCPCS: 76816

== ENCOUNTER 2025-03-27 13:33 | Inpatient (IN) | payer BC, SELFPAY ==
[2025-03-27] VITALS (48 sets, daily range): BP systolic 104–162; BP diastolic 56–82; PULSE 70–125; RESP 16–18; TEMP 36.1–37.2; O2SAT 90–99; BMI 32.6
--- OUTSIDE RECORDS SUMMARY | 2025-03-27 08:52 | XMS RPT_ITS | CCD ---
Author Organization [facility] CliniSyut Care Team Providers Care [employer] Supervisor Name Role Phone FERNANDO BELTRAN Unavailable Unavailabl FERNANDO Heath Unavailable Unavailabl e AA NO PCP, NO PCP Unavailable Unavailable BOAZ SCHULTZ DO Consulting Unavailable LUIS CAMEJO, [phone] THUAN Granados Admitting Unavailable LUIS CAMEJO, [phone] THUAN Granados Attending Unavailable RON PALAFOX Primary Care Unavailable BOAZ SCHULTZ DO Consulting Unavailable MARYANN CAMEJO, NATHEN Padilla Consulting Unavaila kory WOLF MD, NATHEN Padilla Consulting Unavaila RON Oliver Consulting Unavailable LUIS CAMEJO, DR THUAN Granados Consulting Unavaila kory SMITH MD, DR THUAN Granados Consulting Unavaila kory Gonzalez RAILWAY TRACTION LINE WORKER-KAREL, Yuliana Brarios Primary Care Provider [phone] Vincenzo RAILWAY TRACTION LINE WORKER-BELLOWS FILLER, Yuliana Barrios Primary Care Provider JOSSELIN LAMBERT Primary Care Unavailable CLEO GUZMAN Attending Unavailable AUTUMN JACOME Referring Unavailable YULIANA GONZALEZ Attending Unavailable YULIANA GONZALEZ Primary Care Unavailable YULIANA GONZALEZ Attending Unavailable YULIANA GONZALEZ Primary Care Unavailable Vincenzo SEAT BUILDER-C, Yuliana Primary Care Provider Vincenzo SEAT BUILDER-CYuliana Referring Provider Dr. Rufina Weiss DO Attending Provider Autumn Jacome CNM Attending Provider Dr. Marissa Aquino MD Attending Provider Dr. Marissa Aquino MD Referring Provider Keith SEAT BUILDER-CKristen Attending Provider Vincenzo SEAT BUILDER-CYuliana Primary Care Provider Gonzalez SEAT BUILDER-C, Yuliana Referring Provider [phone] Rufina Weiss DO Attending Provider Autumn Jacome CNM Referring Provider [phone] Gonzalez SEAT BUILDER-C, Yuliana Primary Care Provider Gonzalez SEAT BUILDER-C, Yuliana Referring Provider Autumn Jacome CNM Attending Provider Rufina Weiss Attending Unavailabl e Gonzalez, Yuliana Primary Care Unavailable Gonzalez, Yuliana Referring Unavailable Vande VeldeRufina Attending Unavailabl e Gonzalez, Yuliana Primary Care Unavailable Gonzalez, Yuliana Referring Unavailable Vande VeldeRufina Attending Unavailabl e Gonzalez, Yuliana Primary Care Unavailable Gonzalez, Yuliana Referring Unavailable Gonzalez, Yuliana Primary Care Unavailable Gonzalez, Yuliana Referring Unavailable Autumn Jacome Attending Unavailable Gonzalez, Yuliana Referring Unavailable Autumn Jacome Attending Unavailable Gonzalez, Yuliana Primary Care Unavailable Marissa Aquino Attending Unavailable Gonzalez, Yuliana Referring Unavailable Gonzalez, Yuliana Primary Care Unavailable Gonzalez, Yuliana Primary Care Unavailable Gonzalez, Yuliana Referring Unavailable Autumn Jacome Attending Unavailable Lore Portillo Attending Unavailable Gonzalez, Yuliana Referring Unavailable Gonzalez, Yuliana Primary Care Unavailable Gonzalez, Yuliana Primary Care Unavailable Autumn Jacome Referring Unavailable Autumn Jacome Attending Unavailable Autumn Jacome Attending Unavailable Autumn Jacome Referring Unavailable Gonzalez, Yuliana Primary Care Unavailable Vande VelRufina wu Attending Unavailabl e Gonzalez, Yuliana Primary Care Unavailable Vande Velde, Rufina Attending Unavailabl e Gnozalez, Yuliana Primary Care Unavailable Gonzalez, Yuliana Referring Unavailable Marissa Aquino Referring Unavailable Gonzalez, Yuliana Primary Care Unavailable Marissa Aquino Attending Unavailable Ivan Abrams Attending Unavailable Gonzalez, Yuliana Primary Care Unavailable Gonzalez, Yuliana Primary Care Unavailable Marissa Aquino Referring Unavailable Marissa Aquino Attending Unavailable Autumn Jacome Attending Unavailable Autumn Jacome Referring Unavailable Gonzalez, Yuliana Primary Care Unavailable Autumn Jacome Attending Unavailable Gonzalez, Yuliana Referring Unavailable Gonzalez, Yuliana Primary Care Unavailable Gonzalez, Yuliana Referring Unavailable Gonzalez, Yuliana Primary Care Unavailable Kristen Parker Attending Unavailable Autumn Jacome Attending Unavailable Gonzalez, Yuliana Referring Unavailable Gonzalez, Yuliana Primary Care Unavailable Gonzalez, Yuliana Primary Care Unavailable Gonzalez, Yuliana Referring Unavailable Marcanthony, Marissa Attending Unavailable Medications Current Medications Medication Drug Class(es) Dates Sig (Normalized) Sig (Original) busPIRone hydrochloride 15 mg oral tablet (10 sources) Start: 10-07-2024 take 1 tablet by mouth three times daily as needed for anxiety Buspirone 15 mg tablet Active 15 mg PO THREE TIMES A DAY as needed for anxiety 30 October 07, 2024 1:00am ferrous gluconate 240 mg oral tablet (10 sources) Start: 01-07-2025 take 1 tablet by mouth once daily Ferrous Gluconate 240 mg (27 mg iron) tablet Active 240 mg PO daily 30 January 07, 2025 12:00am metoclopramide 10 mg oral tablet (10 sources) Dopamine-2 Receptor Antagonist Start: 10-07-2024 take 1 tablet by mouth 30 minutes before mealtime Metoclopramide Hcl (Reglan) 10 mg tablet Active 10 mg PO before meals 60 October 07, 2024 1:00am administer 30 minutes before meals Multivit 28-Jvyb-Drqcys 1-Dha (Pnv-Dha) 27 mg iron-1 mg -300 mg capsule (10 sources) Start: 09-06-2024 Multivit 53-Ajgn-Fjkwfa 1-Dha (Pnv-Dha) 27 mg iron-1 mg -300 mg capsule Active NMA PO September 06, 2024 1:00am ondansetron 4 mg oral tablet (20 sources) Serotonin-3 Receptor Antagonist Start: 10-28-2024 take 1 tablet by mouth every six hours as needed for nausea and vomiting Ondansetron Hcl 4 mg tablet Active 4 mg PO EVERY 6 HOURS as needed for nausea and vomiting 60 October 28, 2024 1:00am Start: 08-27-2024 End: 10-15-2024 take 1 tablet by mouth every eight hours as needed for nausea Ondansetron 4 mg tablet,disintegrating Discontinued 4 mg PO EVERY 8 HOURS NEEDED as needed for Nausea 30 September 13, 2024 11:26am October 15, 2024 [...] daily. Active sertraline 50 mg oral tablet (20 sources) Serotonin Reuptake Inhibitor Start: take 3 [...] Sig (Original) prochlorperazine 10 mg oral tablet (10 sources) Phenothiazine Start: 08-23-2024 End: 09-06-2024 take 1 tablet by mouth every eight hours as needed for nausea and vomiting Prochlorperazine Maleate (Compazine) 10 mg tablet Discontinued 10 mg PO Q8H as needed for nausea and vomiting 90 3 August 23, 2024 1:00am September 06, 2024 [...] without status migrainosus] Onset: 02-03-2018 07-13-2024 Chronic Immunizations and screening for infectious disease (1 source) Encounter for immunization; Translations: [Encounter for immunization] Onset: 02-10-2025 Episodic Mood disorders (20 sources) Dysthymic disorder; Translations: [Dysthymic disorder] Onset: 07-13-2024 07-13-2024 Chronic Comment on above: sertraline sertraline/stable Mood disorders (1 source) Mood disorders; Translations: [Depression, unspecified] Onset: 03-25-2025 Open wounds of extremities (2 sources) Laceration without foreign body of right index finger without damage to nail, initial encounter; Translations: [LAC W/O FB RT IF W/O DMG NAIL INIT] Onset: 03-05-2018 Episodic Other complications of (20 sources) Anemia of ; Translations: [Anemia complicating , unspecified trimester] 01-26-2025 Chronic Comment on above: FE Other complications of (1 source) Anemia complicating , third trimester; Translations: [Anemia complicating , third trimester] Onset: 03-25-2025 Chronic Other complications of (20 sources) High risk ; Translations: [Supervision of high risk , unspecified, unspecified trimester] 09-15-2024 Episodic Comment on above: PRR, , BULE 5, Xavier PRR, , BLUE 04/03/ 5 Boy Doris, Xavier Other complications of (20 sources) Placenta circumvallata; Translations: [Circumvallate placenta, unspecified trimester] 11-10-2024 Episodic Comment on above: growth at 32 weeks growth at 32 weeks: 02/11: Other complications of (5 sources) Uterine size for dates discrepancy; Translations: [Uterine size-date discrepancy, third trimester] 03-18-2025 Episodic Other complications of (1 source) Circumvallate placenta, third trimester; Translations: [Circumvallate placenta, third trimester] Onset: 03-25-2025 Episodic Other complications of (1 source) Supervision of high risk , unspecified, third trimester; Translations: [Supervision of high risk , unspecified, third trimester] Onset: 03-25-2025 Episodic Other complications of (2 sources) Uterine size-date discrepancy, third trimester; Translations: [Uterine size-date discrepancy, third trimester] Onset: 03-22-2025 Episodic Other complications of (1 source) Supervision of high risk , unspecified, unspecified trimester; Translations: [Supervision of high risk , unspecified, unspecified trimester] Onset: 01-11-2025 Episodic Other complications of (1 source) Circumvallate placenta, unspecified trimester; Translations: [Circumvallate placenta, unspecified trimester] Onset: 01-07-2025 Episodic Residual codes; unclassified (3 sources) Body mass index 20-24 - normal; Translations: [Body mass index (BMI) 23.0-23.9, adult] Onset: 07-13-2024 07-13-2024 Episodic Residual codes; unclassified (1 source) 38 weeks gestation of ; Translations: [38 weeks gestation of ] Onset: 03-25-2025 Episodic Residual codes; unclassified (1 source) 37 weeks gestation of ; Translations: [37 weeks gestation of ] Onset: 03-18-2025 Episodic Residual codes; unclassified (1 source) 36 weeks gestation of ; Translations: [36 weeks gestation of ] Onset: 03-10-2025 Episodic Residual codes; unclassified (1 source) 34 weeks gestation of ; Translations: [34 weeks gestation of ] Onset: 02-24-2025 Episodic Residual codes; unclassified (1 source) 32 weeks gestation of ; Translations: [32 weeks gestation of ] Onset: 02-10-2025 Episodic Residual codes; unclassified (1 source) 27 weeks gestation of ; Translations: [27 weeks gestation of ] Onset: 01-07-2025 Episodic Past or Other Problems Problem Classification [...] with vomiting, unspecified] Onset: 09-22-2024 Episodic Other and delivery including normal (20 sources) ; Translations: [Encounter for supervision of normal , unspecified, unspecified trimester] Onset: 09-09-2024 01-07-2025 Episodic Comment on above: undecided about NIPT , nl anatomy Neg GBS. undecided a bout NIPT, nl anatomy Other screening for suspected conditions (not mental [...] index (BMI) 23.0-23.9, adult] Onset: 07-13-2024 Episodic Residual codes; unclassified (1 source) 18 weeks gestation of ; Translations: [18 weeks gestation of ] Onset: 11-05-2024 Episodic Unclassified (2 sources) Onset: 07-13-2024 Resolved: 09-28-2024 07-13-2024 Results Test Name Value Interpretation Reference Range Facility Scraper Loader Operator Office Visit Reporton 03-25-2025 Scraper Loader Operator Office Visit Report [facility] [address], [address] [place] [address] OFFICE VISIT Date of Service: 03/25/25 MR#: [id number] Acct: [id number] Name: GINO MICHELE Rep #: [id number] : 2000 Provider: JOSE Santos ams Age/Sex: 24/F Location: [facility] Status: Signed Intake Vital Signs 02/10/25 08:47 03/18/25 09:31 03/25/25 10:08 Height 5 ft 5 in 5 ft 5 in 5 ft 5 in Weight: 196 lb 8 oz BMI 32.7 BP 123/67 H Intake Visit Reasons: 38 wk ob Chief Complaint: 38 Week OB Environmental Consultant Required: No Is patient in pain?: No Allergies No Known Allergies Allergy (Verified 03/25/25 10:10) Medications ???Medication ???Instructions ???Recorded ???Confirmed ???Type multivitamin no.47-iron fum 27 cap PO 09/06/24 03/25/25 History mg-folate no.1 1 mg-dha 300 mg capsule (PNV-DHA) buspirone 15 mg tablet 15 mg PO TID PRN anxiety #30 tabs 10/07/24 03/25/25 Rx metoclopramide HCl 10 mg tablet 10 mg PO QAC #60 tabs 10/07/24 Rx (Reglan) sertraline 50 mg tablet (Zoloft) 150 mg PO QDAY 10/07/24 03/25/25 H istory ondansetron 4 mg disintegrating 4 mg PO Q8H PRN PRN Nausea #30 tab s 10/15/24 03/25/25 Rx tablet ondansetron HCl 4 mg tablet 4 mg PO Q6H PRN nausea and 5 03/25/25 Rx vomiting #60 tabs ferrous gluconate 240 mg (27 mg 240 mg PO QDAY #30 tabs 01/07/25 0 03/25/25 Rx iron) tablet Last Menstrual Period: 06/27/24 Zika: Zika virus screening: Negative : No PFSH PFSH Medical History Migraine headache Surgical History Ethel teeth extracted Family History Grandfather Diabetes Maternal Mother Cancer Basal cell skin cancer Father Cancer Basal cell Skin cancer Aunt Cancer Maternal- Skin Melanoma Social History adopted: No household members: spouse current occupational status: employed 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 OB Visit BLUE Calculator Estimated Delivery Date Method Current WG Current Estimate 04/03/25 LMP (Certain) 38w 5d Other Estimates 04/01/25 Ultrasound #1 39w 0d Expected Delivery Route/Plan Labor Preferences- CB/BF classes: yes labor support person: Alice labor intervention preferences: [] pain management options preferred: epidural cut cord/dad catch: no : yes PP control planned: discussed discussed possible routes of delivery and associated risks: [] special requests: [] Specific Issue/Plans Covid status: [] Flu vaccine: [] Tdap vaccine: Rhogam: NA LARC form signed: yes movement and labor precautions reviewed. Problem list reviewed and updated with the [...] ??-???-???- Negative 145 -???-???-???-???-?? ?-???-???-???-???-? ??-???-???- JV- stil (more content not included)... Normal [facility] OB Limited With Biometricson 03-22-2025 OB Limited With Biometrics [facility] [address] [place], [place] [address] OB Limited With Biometrics MR#: [id number] Acct: [id number] Name: GINO MICHELE Rep #: [id number] : 2000 F 24 From: Boaz Blackwood MD PCP: OLGA Montilla Status: REG CLI Study: OB Limited With Biometrics Date of Exam: 03/22 Exam# [id number] Ordering Dr: Marissa Aquino PROCEDURE: OB LIMITED WITH BIOMETRICS 03/22/2025 REASON FOR EXAM: UTERINE SIZE DATE DISCREPANCY TECHNIQUE: OB LIMITED WITH BIOMETRICS COMPARISON: 02/11/2025. FINDINGS Single live intrauterine . Cephalic presentation. 160 beats per minute. Amniotic fluid index of 12.0. Posterior located placenta without evidence of previa. Placental grade 3. BPD: 37 weeks 1 day. 44%. OFD: 12.0 cm. 97%. HC: 40 weeks 2 days. 79%. AC: 40 weeks 2 days. 98% FL: 35 weeks 5 days. 5%. Estimated weight of 3603 g +/-540 g. 76%. Estimated age by ultrasound: 38 weeks 3 days. age by LMP: 38 weeks 2 days. No visualized adnexal abnormalities. US/OB Limited With Biometrics IMPRESSION: Single live intrauterine . See biometry above. Reading Location: [id number] CC: SEAT BUILDER-C Yuliana Gonzalez; Dr. Marissa Aquino MD Second Grade Teacher: Signed Normal [facility] Scraper Loader Operator Office Visit Reporton 03-18-2025 Scraper Loader Operator Office Visit Report [facility]'s [address], [address] [place] [id number] OFFICE VISIT Date of Service: 03/18/25 MR#: [id number] Acct: [id number] Name: GINO MICHELE Rep #: [id number] : 2000 Provider: Dr. Marissa mendenhall MD Age/Sex: 24/F Location: [facility] Status: Signed Intake Vital Signs 02/10/25 08:47 03/10/25 15:34 03/18/25 09:31 Height 5 ft 5 in 5 ft 5 in 5 ft 5 in Weight: 195 lb BMI 32.4 BP 139/83 H Intake Visit Reasons: 37 wk ob Environmental Consultant Required: No Is patient in pain?: No Allergies No Known Allergies Allergy (Verified 03/18/25 09:32) Medications ???Medication ???Instructions ???Recorded ???Confirmed ???Type multivitamin no.47-iron fum 27 cap PO 09/06/24 03/18/25 History mg-folate no.1 1 mg-dha 300 mg capsule (PNV-DHA) buspirone 15 mg tablet 15 mg PO TID PRN anxiety #30 tabs 10/07/24 03/18/25 Rx metoclopramide HCl 10 mg tablet 10 mg PO QAC #60 tabs 10/07/24 Rx (Reglan) sertraline 50 mg tablet (Zoloft) 150 mg PO QDAY 10/07/24 03/18/25 H istory ondansetron 4 mg disintegrating 4 mg PO Q8H PRN PRN Nausea #30 tab s 10/15/24 03/18/25 Rx tablet ondansetron HCl 4 mg tablet 4 mg PO Q6H PRN nausea and 5 03/18/25 Rx vomiting #60 tabs ferrous gluconate 240 mg (27 mg 240 mg PO QDAY #30 tabs 01/07/25 0 03/18/25 Rx iron) tablet Last Menstrual Period: 06/27/24 Zika: Zika virus screening: Negative : No PFSH PFSH Medical History Migraine headache Surgical History Ethel teeth extracted Family History Grandfather Diabetes Maternal Mother Cancer Basal cell skin cancer Father Cancer Basal cell Skin cancer Aunt Cancer Maternal- Skin Melanoma Social History adopted: No household members: spouse current occupational status: employed 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 OB Visit BLUE Calculator Estimated Delivery Date Method Current WG Current Estimate 04/03/25 LMP (Certain) 37w 5d Other Estimates 04/01/25 Ultrasound #1 38w 0d Expected Delivery Route/Plan Labor Preferences- CB/BF classes: yes labor support person: Alice labor intervention preferences: [] pain management options preferred: epidural cut cord/dad catch: no : yes PP control planned: discussed discussed possible routes of delivery and associated risks: [] special requests: [] Specific Issue/Plans Covid status: [] Flu vaccine: [] Tdap vaccine: Rhogam: NA LARC form signed: yes movement and labor precautions reviewed. Problem list reviewed and updated with the [...] still so me nausea. trying reglan. will a (more content not included)... Normal [facility] Rule out Beta Strep (Grp. B) on 03-14-2025 LAILA Group B Beta Streptococcus is not isolated. Normal [facility] Comment on above: Performed By: #### M [phone] ####[facility] [id number] [place], [address] Laboratory - Chemistry and C hemistry - challengeOrdered By: Rufina Chaney on 03-10-2025 Glucose Ql (U) Negative [facility] Laboratory - UrinalysisOrder ed By: Rufina Chaney on 03-10-2025 Protein Ql (U) Negative [facility] Scraper Loader Operator Office Visit Reporton 03-10-2025 Scraper Loader Operator Office Visit Report [facility]'s [address], [address] [place] [address] OFFICE VISIT Date of Service: 03/10/25 MR#: [id number] Acct: [id number] Name: LENYGINOBERNY ESPITIA Rep #: [id number] : 2000 Provider: Dr. Rufina Dowd DO Age/Sex: 24/F Location: [facility] Status: Signed Intake Vital Signs 01/07/25 10:18 02/24/25 08:59 03/10/25 15:34 Height 5 ft 5 in 5 ft 5 in 5 ft 5 in Weight: 195 lb 4 oz BMI 32.5 BP 138/82 H Intake Visit Reasons: 36 wk ob Environmental Consultant Required: No Is patient in pain?: No Allergies No Known Allergies Allergy (Verified 03/10/25 15:33) Medications ???Medication ???Instructions ???Recorded ???Confirmed ???Type multivitamin no.47-iron fum 27 cap PO 09/06/24 03/10/25 History mg-folate no.1 1 mg-dha 300 mg capsule (PNV-DHA) buspirone 15 mg tablet 15 mg PO TID PRN anxiety #30 tabs 10/07/24 03/10/25 Rx metoclopramide HCl 10 mg tablet 10 mg PO QAC #60 tabs 10/07/2406/25 Rx (Reglan) sertraline 50 mg tablet (Zoloft) 150 mg PO QDAY 10/07/24 03/10/25 H istory ondansetron 4 mg disintegrating 4 mg PO Q8H PRN PRN Nausea #30 tab s 10/15/24 03/10/25 Rx tablet ondansetron HCl 4 mg tablet 4 mg PO Q6H PRN nausea and 5 03/10/25 Rx vomiting #60 tabs ferrous gluconate 240 mg (27 mg 240 mg PO QDAY #30 tabs 01/07/25 0 03/10/25 Rx iron) tablet Last Menstrual Period: 06/27/24 Zika: Zika virus screening: Negative : No PFSH PFSH Medical History Migraine headache Surgical History Ethel teeth extracted Family History Grandfather Diabetes Maternal Mother Cancer Basal cell skin cancer Father Cancer Basal cell Skin cancer Aunt Cancer Maternal- Skin Melanoma Social History adopted: No household members: spouse current occupational status: employed 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 OB Visit BLUE Calculator Estimated Delivery Date Method Current WG Current Estimate 04/03/25 LMP (Certain) 36w 4d Other Estimates 04/01/25 Ultrasound #1 36w 6d Expected Delivery Route/Plan Labor Preferences- CB/BF [...] also try buspar for anxiety. anatomy scan o (more content not included)... Normal [facility] Screening beta-hemolytic Str eptococcus cultureOrdered By: Rufina Chaney on 03-10-2025 Beta-hemolytic Streptococcus culture Group B Beta Streptococcus is not isolated. [facility] Laboratory - Chemistry and C hemistry - challengeOrdered By: Marissa Aquino on 02-24-2025 Glucose Ql (U) Negative [facility] Laboratory - UrinalysisOrder ed By: Marissa Aquino on 02-24-2025 Protein Ql (U) Negative [facility] Scraper Loader Operator Office Visit Reporton 02-24-2025 Scraper Loader Operator Office Visit Report [facility] [address], [address] [place] [address] OFFICE VISIT Date of Service: 02/24/25 MR#: [id number] Acct: [id number] Name: GINO MICHELE Rep #: [id number] : 2000 Provider: Dr. Marissa mendenhall MD Age/Sex: 24/F Location: [facility] Status: Signed Intake Vital Signs 09/09/24 09:07 02/10/25 08:47 02/24/25 08:59 02/24/25 08:59 Height 5 ft 5 in 5 ft 5 in 5 ft 5 in 5 ft 5 in Weight: 189 lb 4 oz BMI 31.4 BP 103/69 Intake Visit Reasons: 34 wk ob Environmental Consultant Required: No Is patient in pain?: No Allergies No Known Allergies Allergy (Verified 02/24/25 08:59) Medications ???Medication ???Instructions ???Recorded ???Confirmed ???Type multivitamin no.47-iron fum 27 cap PO 09/06/24 02/24/25 History mg-folate no.1 1 mg-dha 300 mg capsule (PNV-DHA) buspirone 15 mg tablet 15 mg PO TID PRN anxiety #30 tabs 10/07/24 02/24/25 Rx metoclopramide HCl 10 mg tablet 10 mg PO QAC #60 tabs 10/07/24 Rx (Reglan) sertraline 50 mg tablet (Zoloft) 150 mg PO QDAY 10/07/24 02/24/25 H istory ondansetron 4 mg disintegrating 4 mg PO Q8H PRN PRN Nausea #30 tab s 10/15/24 02/24/25 Rx tablet ondansetron HCl 4 mg tablet 4 mg PO Q6H PRN nausea and 5 02/24/25 Rx vomiting #60 tabs ferrous gluconate 240 mg (27 mg 240 mg PO QDAY #30 tabs 01/07/25 0 02/24/25 Rx iron) tablet Last Menstrual Period: 06/27/24 Zika: Zika virus screening: Negative : No PFSH PFSH Medical History Migraine headache Surgical History Ethel teeth extracted Family History Grandfather Diabetes Maternal Mother Cancer Basal cell skin cancer Father Cancer Basal cell Skin cancer Aunt Cancer Maternal- Skin Melanoma Social History adopted: No household members: spouse current occupational status: employed 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 OB Visit BLUE Calculator Estimated Delivery Date Method Current WG Current Estimate 04/03/25 LMP (Certain) 34w 4d Other Estimates 04/01/25 Ultrasound #1 34w 6d Expected Delivery Route/Plan Labor Preferences- CB/BF [...] me nausea. trying reglan. will also try bus (more content not included)... Normal [facility] Glucose Challenge Gest 1H 50 shayy 02-15-2025 GLU GEST 50g 1H 110 mg/dL Normal 70-140 [facility] Comment on above: Performed By: #### L 501.0250 #### [facility] [address] [place], [address] Glucose measurement at 2 larry rs post-dose gestational glucose tolerance testOrdered By: Autumn Jacome on 02-15-2025 Glucose [Mass/Vol] 110 mg/dL 70-140 [facility] OB Limited With Biometricson 02-11-2025 OB Limited With Biometrics [facility] Services [address] [place], [place] [address] OB Limited With Biometrics MR#: [id number] Acct: [id number] Name: GINO MICHELE Rep #: [id number] : 2000 F 24 From: David del rio MD PCP: GILLIAN MontillaC Status: REG CLI Study: OB Limited With Biometrics Date of Exam: 02/11 Exam# [id number] Ordering Dr: Autumn Jacome CNM PROCEDURE: OB LIMITED WITH BIOMETRICS 02/11/2025 REASON FOR EXAM: GROWTH AT 32 WEEKS TECHNIQUE: High resolution obstetric ultrasound performed using a 2D transducer. Standard views obtained, including biometry, anatomy survey, and Doppler studies. COMPARISON: None FINDINGS Number: 1 Position: Vertex Placental Position: Posterior Placental Abnormalities: No evidence of previa. DIMENSIONS: Biparietal Diameter: 8.6 cm: 34 weeks and 5 days: 91st percentile/ Head Circumference: 31.12 cm: 34 weeks and 6 days: 69 percentile/ Abdominal Circumference: 31.04 cm: 35 weeks and 0 days: 96 percentile/ Femur Length: 5.74 cm: 30 weeks and 1 day: 12th percentile/ ESTIMATED WEIGHT: 2245 g plus/-337 g ESTIMATED WEIGHT PERCENTILE (24+ weeks): 70 ESTIMATED GESTATIONAL AGE: Baseline: 32 weeks and 5 days By Ultrasound: 34 weeks and 0 days ESTIMATED DATE OF DELIVERY: Baseline: April 03, 2025 By Ultrasound: March 25, 2024 BIOPHYSICAL ASSESSMENT: Amniotic Fluid Volume: 6 cm Amniotic Fluid Index: 13.8 (8-24 cm normal range) Cardiac Motion: 171 beats per minute (average) Trunk and Limb Motion: Present. MATERNAL ANATOMY: Adnexa: Neither maternal ovary is successfully identified. US/OB Limited With Biometrics IMPRESSION: Single live intrauterine gestation with a mean gestational age of 34 weeks. 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: Signed Normal [facility] - Chemistry and C hemistry - challengeOrdered By: Autumn Jacome on 02-10-2025 Glucose Ql (U) Negative [facility] - UrinalysisOrder ed By: Autumn Jacome on 02-10-2025 Protein Ql (U) Negative [facility] Scraper Loader Operator Office Visit Reporton 02-10-2025 Scraper Loader Operator Office Visit Report [facility]'s [address], [address] [place] [address] OFFICE VISIT Date of Service: 02/10/25 MR#: [id number] Acct: [id number] Name: GINO MICHELE Rep #: [id number] : 2000 Provider: JOSE Santos ams Age/Sex: 24/F Location: [facility] Status: Signed Intake Vital Signs 09/09/24 09:07 01/26/25 08:35 02/10/25 08:47 Height 5 ft 5 in 5 ft 5 in 5 ft 5 in Weight: 189 lb 2 oz BMI 31.4 BP 115/83 H Intake Visit Reasons: 32 wk ob Environmental Consultant Required: No Is patient in pain?: No Allergies No Known Allergies Allergy (Verified 02/10/25 08:48) Medications ???Medication ???Instructions ???Recorded ???Confirmed ???Type multivitamin no.47-iron fum 27 cap PO 09/06/24 02/10/25 History mg-folate no.1 1 mg-dha 300 mg capsule (PNV-DHA) buspirone 15 mg tablet 15 mg PO TID PRN anxiety #30 tabs 10/07/24 02/10/25 Rx metoclopramide HCl 10 mg tablet 10 mg PO QAC #60 tabs 10/07/2408/25 Rx (Reglan) sertraline 50 mg tablet (Zoloft) 150 mg PO QDAY 10/07/24 02/10/25 H istory ondansetron 4 mg disintegrating 4 mg PO Q8H PRN PRN Nausea #30 tab s 10/15/24 02/10/25 Rx tablet ondansetron HCl 4 mg tablet 4 mg PO Q6H PRN nausea and 5 02/10/25 Rx vomiting #60 tabs ferrous gluconate 240 mg (27 mg 240 mg PO QDAY #30 tabs 01/07/25 0 02/10/25 Rx iron) tablet Last Menstrual Period: 06/27/24 Zika: Zika virus screening: Negative : No PFSH PFSH Medical History Migraine headache Surgical History Ethel teeth extracted Family History Grandfather Diabetes Maternal Mother Cancer Basal cell skin cancer Father Cancer Basal cell Skin cancer Aunt Cancer Maternal- Skin Melanoma Social History adopted: No household members: spouse current occupational status: employed 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 anatomy scan ordered. (more content not included)... Normal [facility] - Chemistry and C hemistry - challengeOrdered By: Kristen Parker on 01-26-2025 Glucose Ql (U) Negative [facility] - UrinalysisOrder ed By: Kristen Parker on 01-26-2025 Protein Ql (U) Negative [facility] Scraper Loader Operator Office Visit Reporton 01-26-2025 Scraper Loader Operator Office Visit Report [facility]'s [address], [address] [place] [address] OFFICE VISIT Date of Service: 01/26/25 MR#: [id number] Acct: [id number] Name: GINO MICHELE Rep #: [id number] : 2000 Provider: OLGA rodriguez Age/Sex: 24/F Location: [facility] Status: Signed Intake Vital Signs 09/09/24 09:07 01/07/25 10:18 01/26/25 08:35 Height 5 ft 5 in 5 ft 5 in 5 ft 5 in Weight: 188 lb 4 oz BMI 31.3 BP 126/72 H Intake Visit Reasons: 30 wk ob Chief Complaint: 30 Week OB Environmental Consultant Required: No Is patient in pain?: No [...] mg tablet (Zoloft) 150 mg PO QDAY 02/06/25 05/28/25 H istory ondansetron 4 mg disintegrating 4 [...] PFSH Medical History Migraine headache Surgical History Ethel teeth extracted Family History Grandfather Diabetes Maternal Mother Cancer Basal cell skin cancer Father Cancer Basal cell Skin cancer Aunt Cancer Maternal- Skin Melanoma Social History adopted: No household members: spouse current occupational status: employed 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 Normal [facility] Absolute lymphocyte countOrd ered By: Rufina Ritu on 01-07-2025 Lymphocytes Auto (Unsp spec) [#/Vol] 1.52 10*3/uL 0.83-4.51 [facility] Absolute neutrophil countOrd ered By: Rufina Chaney on 01-07-2025 Neutrophils (Bld) [#/Vol] 9.6 10*3/uL High 2.0-7.7 [facility] Automated lymphocyte count a s percentage of total leukocytesOrdered By: Rufina Chaney on 01-07-2025 Lymphocytes/100 WBC Auto (Unsp spec) 12.4 % Low 19-41 [facility] Basophil percentageOrdered B y: Rufina Ritu on 01-07-2025 Basophils/100 WBC (Bld) 0.3 % 0-1 [facility] CBC W/Diff, Automatedon Absolute Lymph 1.52 X10 3/uL Normal 0.83-4.51 [facility] Comment on above: Performed By: #### L 100.0100, L509.8002, L501.0250, L3890.6006 ####[facility] [address] [place], [address] Absolute Neut 9.6 X10 3/uL High 2.0-7.7 [facility] Comment on above: Performed By: #### L 100.0100, L509.8002, L501.0250, L3890.6006 ####[facility] [address] [place], [address] Basophils/100 WBC (Bld) 0.3 % Normal 0-1 [facility] Comment on above: Performed By: #### L 100.0100, L509.8002, L501.0250, L3890.6006 ####[facility] [address] [place], [address] Eosinophils/100 WBC (Bld) 1.5 % Normal 0-5 [facility] Comment on above: Performed By: #### L 100.0100, L509.8002, L501.0250, L3890.6006 ####[facility] [address] [place], [address] Erythrocyte distribution width (RBC) [Ratio] 12.7 % Normal 11.6-14.6 [facility] Comment on above: Performed By: #### L 100.0100, L509.8002, L501.0250, L3890.6006 ####[facility] [address] [place], [address] Hematocrit (Bld) [Volume fraction] 31.5 % Low 37-47 [facility] Comment on above: Performed By: #### L 100.0100, L509.8002, L501.0250, L3890.6006 ####[facility] [address] [place], [address] Hemoglobin (Bld) [Mass/Vol] 10.1 g/dL Low 12.0-15.0 [facility] Comment on above: Performed By: #### L 100.0100, L509.8002, L501.0250, L3890.6006 ####[facility] [address] [place], [address] IG% 2.100 High 0.0-0.9 [facility] Comment on above: Result Comment: IG% - Immature Granulocytes (promyelocytes, myelocytes and metamyelocytes) > 1% indicates that a LEFT SHIFT is Present. Performed By: #### L 100.0100, L509.8002, L501.0250, L3890.6006 ####[facility] [address] [place], [address] Lymphocytes/100 WBC (Bld) 12.4 % Low 19-41 [facility] Comment on above: Performed By: #### L 100.0100, L509.8002, L501.0250, L3890.6006 ####[facility] [address] [place], [address] MCH (RBC) [Entitic mass] 28.6 pg Normal 27.0-32.0 [facility] Comment on above: Performed By: #### L 100.0100, L509.8002, L501.0250, L3890.6006 ####[facility] [address] [place], [address] MCHC (RBC) [Mass/Vol] 32.1 g/dL Normal 32-36 [facility] Comment on above: Performed By: #### L 100.0100, L509.8002, L501.0250, L3890.6006 ####[facility] [address] [place], [address] MCV (RBC) [Entitic vol] 89.2 fL Normal 81-99 [facility] Comment on above: Performed By: #### L 100.0100, L509.8002, L501.0250, L3890.6006 ####[facility] [address] [place], [address] Monocytes/100 WBC (Bld) 5.4 % Normal 0-10 [facility] Comment on above: Performed By: #### L 100.0100, L509.8002, L501.0250, L3890.6006 ####[facility] [address] [place], [address] Neutrophils/100 WBC (Bld) 78.3 % High 47-70 [facility] Comment on above: Performed By: #### L 100.0100, L509.8002, L501.0250, L3890.6006 ####[facility] [address] [place], [address] Nucleated RBC (Bld) [#/Vol] 0 10*3/uL Normal 0-5 [facility] Comment on above: Performed By: #### L 100.0100, L509.8002, L501.0250, L3890.6006 ####[facility] [address] [place], [address] Platelet mean volume (Bld) [Entitic vol] 12.1 fL High 6.2-12.0 [facility] Comment on above: Performed By: #### L 100.0100, L509.8002, L501.0250, L3890.6006 ####[facility] [address] [place], [address] Platelets (Bld) [#/Vol] 160 10*3/uL Normal 150-450 [facility] Comment on above: Performed By: #### L 100.0100, L509.8002, L501.0250, L3890.6006 ####[facility] [address] [place], [address] RBC (Bld) [#/Vol] 3.53 10*6/uL Low 4.2-5.4 [facility] Comment on above: Performed By: #### L 100.0100, L509.8002, L501.0250, L3890.6006 ####[facility] [address] [place], [address] RDW SD 40.6 fl Normal 35.1-43.9 [facility] Comment on above: Performed By: #### L 100.0100, L509.8002, L501.0250, L3890.6006 ####[facility] [address] [place], [address] WBC (Bld) [#/Vol] 12.2 10*3/uL High 4.4-11.0 [facility] Comment on above: Performed By: #### L 100.0100, L509.8002, L501.0250, L3890.6006 ####[facility] [address] [place], [address] Eosinophil percentageOrdered By: Rufina Chaney on 01-07-2025 Eosinophils/100 WBC (Bld) 1.5 % 0-5 [facility] Erythrocyte distribution wid th ratioOrdered By: Rufina Chaney on 01-07-2025 Erythrocyte distribution width (RBC) [Ratio] 12.7 % 11.6-14.6 [facility] Erythrocyte distribution wid th standard deviationOrdered By: Rufina Chaney on 01-07-2025 Erythrocyte distribution width (RBC) [Ratio] 40.6 fl 35.1-43.9 [facility] Glucose Challenge Gest 1H 50 shayy 01-07-2025 GLU GEST 50g 1H 103 mg/dL Normal 70-140 [facility] Comment on above: Performed By: #### L 100.0100, L509.8002, L501.0250, L3890.6006 ####[facility] [address] [place], [address] Glucose measurement at 2 larry rs post-dose gestational glucose tolerance testOrdered By: Rufina Chaney on 01-07-2025 Glucose [Mass/Vol] 103 mg/dL 70-140 [facility] HIVon 01-07-2025 HIV Non-Reactive Normal Nonreactive [facility] Comment on above: Result Comment: Non- Reactive Reactive Repeatedly reactive samples must be confirmed according to CDC recommended confirmatory algorithms. The subresults for either HIVAG or AHIV can be used as an aid in the selection of the confirmation algorithm for reactive samples. Send out specimens with Reactive results to [facility] for confirmation. Order the HIV antibody detection and differentiation: lc#[id number] Performed By: #### L 100.0100, L509.8002, L501.0250, L3890.6006 ####[facility] [address] [place], [address] Hematocrit Auto (Bld) [Volum e fraction]Ordered By: Rufina Chaney on 01-07-2025 Hematocrit (Bld) [Volume fraction] 31.5 % Low 37-47 [facility] Hemoglobin measurementOrdere d By: Rufina Chaney on 01-07-2025 Hemoglobin (Bld) [Mass/Vol] 10.1 g/dL Low 12.0-15.0 [facility] Immature granulocytes/100 WB C Auto (Bld)Ordered By: Rufina Chaney on 01-07-2025 Immature granulocytes/100 WBC (Bld) 2.100 % High 0.0-0.9 [facility] Comment on above: IG% - Immature Granu locytes (promyelocytes, myelocytes and metamyelocytes) > 1% indicates that a LEFT SHIFT is Present. Laboratory - Chemistry and C hemistry - challengeOrdered By: Autumn Jacome on 01-07-2025 Glucose Ql (U) Negative [facility] - UrinalysisOrder ed By: Autumn Jacome on 01-07-2025 Protein Ql (U) Negative [facility] MCV (mean corpuscular volume ) determinationOrdered By: Rufina Chaney on 01-07-2025 MCV (RBC) [Entitic vol] 89.2 fL 81-99 [facility] Mean corpuscular hemoglobin (MCH) determinationOrdered By: Rufina Chaney on 01-07-2025 MCH (RBC) [Entitic mass] 28.6 pg 27.0-32.0 [facility] Mean corpuscular hemoglobin concentration (MCHC) determinationOrdered By: Rufina Chaney on 01-07-2025 MCHC (RBC) [Mass/Vol] 32.1 g/dL 32-36 [facility] Mean platelet volume determi nationOrdered By: Rufina Ritu on 01-07-2025 Platelet mean volume (Bld) [Entitic vol] 12.1 fL High 6.2-12.0 [facility] Monocyte percentageOrdered B y: Rufina Ritu on 01-07-2025 Monocytes/100 WBC (Bld) 5.4 % 0-10 [facility] Neutrophil percentageOrdered By: Rufina Ritu on 01-07-2025 Neutrophils/100 WBC (Bld) 78.3 % High 47-70 [facility] No Panel InformationOrdered By: Rufina Ritu on 01-07-2025 HIV (1&2) Antibody Non-Reactive Nonreactive [facility] Comment on above: Non-ReactiveReactive Repeatedly reactive samples must be confirmed according to CDC recommended confirmatory algorithms. The subresults for either HIVAG or AHIV can be used as an aid in the selection of the confirmation algorithm for reactive samples.Send out specimens with Reactive results to [facility] for confirmation.Order the HIV antibody detection and differentiation: #[id number] Nucleated red blood cell per centageOrdered By: Rufina Ritu on 01-07-2025 Nucleated RBC/100 WBC (Bld) [Ratio] 0 % 0-5 [facility] Scraper Loader Operator Office Visit Reporton 01-07-2025 Scraper Loader Operator Office Visit Report [facility] [address], [address] [place] [address] OFFICE VISIT Date of Service: 01/07/25 MR#: [id number] Acct: [id number] Name: GINO MICHELE Rep #: [id number] : 2000 Provider: JOSE Santos ams Age/Sex: 24/F Location: [facility] Status: Signed Intake Vital Signs 12/03/24 10:16 01/07/25 10:18 01/07/25 10:18 Height 5 ft 5 in 5 ft 5 in 5 ft 5 in Weight: 182 lb BMI 30.2 BP 127/81 H Intake Visit Reasons: 27 wk ob/ glucose Chief Complaint: 27wk OB Environmental Consultant Required: No Is patient in pain?: No [...] PFSH Medical History Migraine headache Surgical History Ethel teeth extracted Family History Grandfather Diabetes Maternal Mother Cancer Basal cell skin cancer Father Cancer Basal cell Skin cancer Aunt Cancer Maternal- Skin Melanoma Social History adopted: No household members: spouse current occupational status: employed 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 ?- (more content not included)... Normal [facility] Platelet countOrdered By: Khris Chaney on 01-07-2025 Platelets (Bld) [#/Vol] 160 10*3/uL 150-450 [facility] RBC Auto (Bld) [#/Vol]Ordere d By: Rufina Chaney on 01-07-2025 RBC (Bld) [#/Vol] 3.53 10*6/uL Low 4.2-5.4 [facility] Syphilis Antibodieson 2024 Syphilis Abs Non-Reactive Normal Nonreactive [facility] Comment on above: Performed By: #### L 100.0100, L509.8002, L501.0250, L3890.6006 ####[facility] [address] [place], [address] White blood cell (WBC) count Ordered By: Rufina Chaney on 01-07-2025 WBC (Bld) [#/Vol] 12.2 10*3/uL High 4.4-11.0 [facility] Laboratory - Chemistry and C hemistry - challengeOrdered By: Rufina Chaney on 12-03-2024 Glucose Ql (U) Negative [facility] - UrinalysisOrder ed By: Rufina Chaney on 12-03-2024 Protein Ql (U) Negative [facility] Scraper Loader Operator Office Visit Reporton 12-03-2024 Scraper Loader Operator Office Visit Report [facility]'s [address], [address] [place] [address] OFFICE VISIT Date of Service: 12/03/24 MR#: [id number] Acct: [id number] Name: GINO MICHELE Rep #: [id number] : 2000 Provider: Dr. Rufina Dowd DO Age/Sex: 24/F Location: [facility] Status: Signed Intake Vital Signs 09/09/24 09:07 11/05/24 11:42 12/03/24 10:15 12/03/24 10:16 Height 5 ft 5 in 5 ft 5 in 5 ft 5 in 5 ft 5 in Weight: 171 lb 6 oz BMI 28.5 BP 120/77 Intake Visit Reasons: 22 wk ob Environmental Consultant Required: No Is patient in pain?: No [...] mg PO Q6H PRN nausea and 5 12/03/24 Rx vomiting #60 tabs Last Menstrual Period: 06/27/24 Zika: Zika virus screening: Negative : No PFSH PFSH Medical History Migraine headache Surgical History Ethel teeth extracted Family History Grandfather Diabetes Maternal Mother Cancer Basal cell skin cancer Father Cancer Basal cell Skin cancer Aunt Cancer Maternal- Skin Melanoma Social History adopted: No household members: spouse current occupational status: employed 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 Normal [facility] - Chemistry and C hemistry - challengeOrdered By: Autumn Jacome on 11-05-2024 Glucose Ql (U) Negative [facility] - UrinalysisOrder ed By: Autumn Jacome on 11-05-2024 Protein Ql (U) Negative [facility] Scraper Loader Operator Office Visit Reporton 11-05-2024 Scraper Loader Operator Office Visit Report [facility]'s [address], [address] [place] [address] OFFICE VISIT Date of Service: 11/05/24 MR#: [id number] Acct: [id number] Name: GINO MICHELE Rep #: [id number] : 2000 Provider: JOSE Santos ams Age/Sex: 24/F [place] 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 Normal [facility] - Chemistry and C hemistry - challengeOrdered By: Rufina Chaney on 10-07-2024 Glucose Ql (U) Negative [facility] - UrinalysisOrder ed By: Rufina Chaney on 10-07-2024 Protein Ql (U) Negative [facility] Scraper Loader Operator Office Visit Reporton 10-07-2024 Scraper Loader Operator Office Visit Report [facility]'s [address], [address] [place] [address] OFFICE VISIT Date of Service: 10/07/24 MR#: [id number] Acct: [id number] Name: GINO MICHELE Rep #: [id number] : 2000 Provider: Dr. Rufina Dowd DO Age/Sex: 24/F Location: [facility] Status: Signed Intake Vital Signs 08/27/24 19:48 09/09/24 09:07 10/07/24 11:33 10/07/24 11:35 Height 5 ft 5 in 5 ft 5 in 5 ft 5 in 5 ft 5 in Weight: 153 lb 2 oz BMI 25.4 BP 120/73 Intake Visit Reasons: 14 wk OB Environmental Consultant Required: No Is patient in pain?: No [...] PFSH Medical History Migraine headache Surgical History Ethel teeth extracted Family History Grandfather Diabetes Maternal Mother Cancer Basal cell skin cancer Father Cancer Basal cell Skin cancer Aunt Cancer Maternal- Skin Melanoma Social History adopted: No household members: spouse current occupational status: employed 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 trying reglan. will also try lit for anxiety. anatomy scan ordered. ACOG First Trimester First Trimester: Discussed Second Trimester Second Trimester: Signs and Symptoms of Labor, Selecting a care provide (more content not included)... Normal [facility] HIV - WCHon 09-14-2024 HIV Non-Reactive Normal Nonreactive [facility] Comment on above: Order Comment: Reaso n for Exam: Performed By: #### L 3890.6300, L509.4005, L509.8000, L3890.6100, L3890.6005, BTS, L100.0100 ####[facility] [address] [place], [place], [id number] PAP I-G w/rfx hrHPV-Aptimaon 09-14-2024 ADEQ Comment Normal . [facility] Comment on above: Order Comment: Speci men Comment: [id number] Specimen Comment: Source.............Cervix Specimen Comment: No. of containers..01 ThinPrep Vial Result Comment: Sati sfactory for evaluation. Endocervical and/or squamous metaplastic cells (endocervical component) are present. Performed By: #### M 100.2200, L7400.0353, L7000.1800 #### [facility] [address] [place], [place], [id number] COMM . Normal . [facility] Comment on above: Order Comment: Speci men Comment: [id number] Specimen Comment: Source.............Cervix Specimen Comment: No. of containers..01 ThinPrep Vial Performed By: #### M 100.2200, L7400.0353, L7000.1800 #### [facility] [address] [place], [address] COMMENT Comment Normal . [facility] Comment on above: Order Comment: Speci men Comment: [id number] Specimen Comment: Source.............Cervix Specimen Comment: No. of containers..01 ThinPrep Vial Result Comment: This liquid based ThinPrep(R) pap test was screened with the use of an image guided system. Performed By: #### M 100.2200, L7400.0353, L7000.1800 #### [facility] [address] [place], [place], [address] DIAG Comment Normal . [facility] Comment on above: Order Comment: Speci men Comment: [id number] Specimen Comment: Source.............Cervix Specimen Comment: No. of containers..01 ThinPrep Vial Result Comment: NEGA TIVE FOR INTRAEPITHELIAL LESION OR MALIGNANCY. Performed By: #### M 100.2200, L7400.0353, L7000.1800 #### [facility] [address] [place], [place], [address] HPV RFLX Comment Normal . [facility] Comment on above: Order Comment: Speci men Comment: [id number] Specimen Comment: Source.............Cervix Specimen Comment: No. of containers..01 ThinPrep Vial Result Comment: The HPV DNA reflex criteria were not met with this specimen result therefore, no HPV testing was performed. Performed at: [address] [id number] Software Quality Tester: Rachell Lowe MD, Phone: [phone] Performed By: #### M 100.2200, L7400.0353, L7000.1800 #### [facility] [address] [place], [place], [address] PAPSMR Comment Normal . [facility] Comment on above: Order Comment: Speci men Comment: [id number] Specimen Comment: Source.............Cervix Specimen Comment: No. of [...] By: #### M 100.2200, L7400.0353, L7000.1800 #### [facility] [address] [place], [address] PERFORM Comment Normal . [facility] Comment on above: Order Comment: Speci men Comment: [id number] Specimen Comment: Source.............Cervix Specimen Comment: No. of containers..01 ThinPrep Vial Result Comment: Bang Reese, Glove Wrapper (ASCP) Performed By: #### M 100.2200, L7400.0353, L7000.1800 #### [facility] [address] [place], [address] Chlamydia/GC MICKEY aptimaon CHLAMY,NUC ACID Negative Normal Negative [facility] Comment on above: Performed By: #### M 100.2200, L7400.0353, L7000.1800 #### [facility] [address] [place], [address] GC BY NUC ACID Negative Normal Negative [facility] Comment on above: Result Comment: Perf ormed at: =G - [facility] [address] [id number] Software Quality Tester: Rachell Lowe MD, Phone: [phone] Performed By: #### M 100.2200, L7400.0353, L7000.1800 #### [facility] [address] [place], [address] Urine Cultureon 09-10-2024 URC Culture exhibits no growth. Normal [facility] Comment on above: Performed By: #### M 100.2200, L7400.0353, L7000.1800 #### [facility] [address] [place], [address] CBC W/Diff, Automatedon 01-0 9-2025 Absolute Lymph 1.49 X10 3/uL Normal 0.83-4.51 [facility] Comment on above: Performed By: #### L 3890.6300, L509.4005, L509.8000, L3890.6100, L3890.6005, BTS, L100.0100 ####[facility] [address] [place], [address] Absolute Neut 7.4 X10 3/uL Normal 2.0-7.7 [facility] Comment on above: Performed By: #### L 3890.6300, L509.4005, L509.8000, L3890.6100, L3890.6005, BTS, L100.0100 ####[facility] [address] [place], [address] Basophils/100 WBC (Bld) 0.2 % Normal 0-1 [facility] Comment on above: Performed By: #### L 3890.6300, L509.4005, L509.8000, L3890.6100, L3890.6005, BTS, L100.0100 ####[facility] [address] [place], [address] Eosinophils/100 WBC (Bld) 1.5 % Normal 0-5 [facility] Comment on above: Performed By: #### L 3890.6300, L509.4005, L509.8000, L3890.6100, L3890.6005, BTS, L100.0100 ####[facility] [address] [place], [address] Erythrocyte distribution width (RBC) [Ratio] 12.8 % Normal 11.6-14.6 [facility] Comment on above: Performed By: #### L 3890.6300, L509.4005, L509.8000, L3890.6100, L3890.6005, BTS, L100.0100 ####[facility] [address] [place], [address] Hematocrit (Bld) [Volume fraction] 40.7 % Normal 37-47 [facility] Comment on above: Performed By: #### L 3890.6300, L509.4005, L509.8000, L3890.6100, L3890.6005, BTS, L100.0100 ####[facility] [address] [place], [address] Hemoglobin (Bld) [Mass/Vol] 13.3 g/dL Normal 12.0-15.0 [facility] Comment on above: Performed By: #### L 3890.6300, L509.4005, L509.8000, L3890.6100, L3890.6005, BTS, L100.0100 ####[facility] [address] [place], [address] IG% 0.300 Normal 0.0-0.9 [facility] Comment on above: Result Comment: IG% - Immature Granulocytes (promyelocytes, myelocytes and metamyelocytes) > 1% indicates that a LEFT SHIFT is Present. Performed By: #### L 3890.6300, L509.4005, L509.8000, L3890.6100, L3890.6005, BTS, L100.0100 ####[facility] [address] [place], [address] Lymphocytes/100 WBC (Bld) 15.6 % Low 19-41 [facility] Comment on above: Performed By: #### L 3890.6300, L509.4005, L509.8000, L3890.6100, L3890.6005, BTS, L100.0100 ####[facility] [address] [place], [address] MCH (RBC) [Entitic mass] 28.8 pg Normal 27.0-32.0 [facility] Comment on above: Performed By: #### L 3890.6300, L509.4005, L509.8000, L3890.6100, L3890.6005, BTS, L100.0100 ####[facility] [address] [place], [address] MCHC (RBC) [Mass/Vol] 32.7 g/dL Normal 32-36 [facility] Comment on above: Performed By: #### L 3890.6300, L509.4005, L509.8000, L3890.6100, L3890.6005, BTS, L100.0100 ####[facility] [address] [place], [address] MCV (RBC) [Entitic vol] 88.1 fL Normal 81-99 [facility] Comment on above: Performed By: #### L 3890.6300, L509.4005, L509.8000, L3890.6100, L3890.6005, BTS, L100.0100 ####[facility] [address] [place], [address] Monocytes/100 WBC (Bld) 4.9 % Normal 0-10 [facility] Comment on above: Performed By: #### L 3890.6300, L509.4005, L509.8000, L3890.6100, L3890.6005, BTS, L100.0100 ####[facility] [address] [place], [address] Neutrophils/100 WBC (Bld) 77.5 % High 47-70 [facility] Comment on above: Performed By: #### L 3890.6300, L509.4005, L509.8000, L3890.6100, L3890.6005, BTS, L100.0100 ####[facility] [address] [place], [address] Nucleated RBC (Bld) [#/Vol] 0 10*3/uL Normal 0-5 [facility] Comment on above: Performed By: #### L 3890.6300, L509.4005, L509.8000, L3890.6100, L3890.6005, BTS, L100.0100 ####[facility] [address] [place], [address] Platelet mean volume (Bld) [Entitic vol] 12.9 fL High 6.2-12.0 [facility] Comment on above: Performed By: #### L 3890.6300, L509.4005, L509.8000, L3890.6100, L3890.6005, BTS, L100.0100 ####[facility] [address] [place], [address] Platelets (Bld) [#/Vol] 183 10*3/uL Normal 150-450 [facility] Comment on above: Performed By: #### L 3890.6300, L509.4005, L509.8000, L3890.6100, L3890.6005, BTS, L100.0100 ####[facility] [address] [place], [address] RBC (Bld) [#/Vol] 4.62 10*6/uL Normal 4.2-5.4 [facility] Comment on above: Performed By: #### L 3890.6300, L509.4005, L509.8000, L3890.6100, L3890.6005, BTS, L100.0100 ####[facility] [address] [place], [address] RDW SD 41.2 fl Normal 35.1-43.9 [facility] Comment on above: Performed By: #### L 3890.6300, L509.4005, L509.8000, L3890.6100, L3890.6005, BTS, L100.0100 ####[facility] [address] [place], [place], [address] WBC (Bld) [#/Vol] 9.6 10*3/uL Normal 4.4-11.0 [facility] Comment on above: Performed By: #### L 3890.6300, L509.4005, L509.8000, L3890.6100, L3890.6005, BTS, L100.0100 ####[facility] [address] [place], [place], [address] Hepatitis B Surface Antigeno n 09-09-2024 HEP B Surf Ag Non-Reactive Normal Nonreactive [facility] Comment on above: Order Comment: Reaso n for Exam: Performed By: #### L 3890.6300, L509.4005, L509.8000, L3890.6100, L3890.6005, BTS, L100.0100 ####[facility] [address] [place], [place], [address] Hepatitis C Antibodyon 09-09 Hepatitis C AB Non-Reactive Normal Nonreactive [facility] Comment on above: Order Comment: Reaso n for Exam: Result Comment: Non Reactive: < 0.8 Equivocal: >/= 0.8 to < 1.0 Reactive: >/= 1.0 The CDC requires that a reactive/equivocal HCV antibody result be sent out for confirmation. HCV Quant by PCR testing. Performed By: #### L 3890.6300, L509.4005, L509.8000, L3890.6100, L3890.6005, BTS, L100.0100 ####[facility] [address] 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 [facility] [address], [address] [place] [address] OFFICE VISIT Date of Service: 09/09/24 MR#: [id number] Acct: [id number] Name: GINO BAE Rep #: [id number] : 2000 Provider: JOSE Santos ams Age/Sex: 24/F Location: [facility] Status: Signed Intake Vital Signs 08/27/24 19:48 09/09/24 09:00 09/09/24 09:07 Height 5 ft 5 in 5 ft 5 in 5 ft 5 in Weight: 143 lb BMI 23.8 BP 127/83 H Intake Visit Reasons: LMP:06/27 BLUE:04/03 Environmental Consultant Required: No Is patient in pain?: No [...] PFSH Medical History Migraine headache Surgical History Ethel teeth extracted Family History Grandfather Diabetes Maternal Mother Cancer Basal cell skin cancer Father Cancer Basal cell Skin cancer Aunt Cancer Maternal- Skin Melanoma Social History adopted: No household members: spouse current occupational status: employed 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 Normal [facility] Rubella IgGon 09-09-2024 Rubella IgG Reactive Normal Nonreactive [facility] Comment on above: Order Comment: Reaso n for Exam: Result Comment: Anti body Results Interpretation of Immune Status Non Reactive Presumed Non-Immune Equivocal Equivocal Reactive Presumed Immune Performed By: #### L 8790.4460, L509.4005, L509.8000, L3890.6100, L3890.6005, BTS, L100.0100 ####[facility] [address] [place], [address] Type AND Screenon 09-09-2024 Ab SCREEN GEL Negative Normal [facility] Comment on above: Order Comment: PN Performed By: #### L 3890.6300, L509.4005, L509.8000, L3890.6100, L3890.6005, BTS, L100.0100 ####[facility] [address] [place], [address] Urine Cultureon 08-29-2024 URC Culture exhibits no growth. Normal [facility] Comment on above: Performed By: #### M 100.2200 #### [facility] [address] [place], [address] CBC-Complete Blood Cnt No Di ffon 08-27-2024 Erythrocyte distribution width (RBC) [Ratio] 12.4 % Normal 11.6-14.6 [facility] Comment on above: Performed By: #### L 500.4050, L100.0500, L501.2450 ####[facility] [address] [place], [address] Hematocrit (Bld) [Volume fraction] 35.8 % Low 37-47 [facility] Comment on above: Performed By: #### L 500.4050, L100.0500, L501.2450 ####[facility] [address] [place], [address] Hemoglobin (Bld) [Mass/Vol] 12.1 g/dL Normal 12.0-15.0 [facility] Comment on above: Performed By: #### L 500.4050, L100.0500, L501.2450 ####[facility] [address] [place], [address] MCH (RBC) [Entitic mass] 29.5 pg Normal 27.0-32.0 [facility] Comment on above: Performed By: #### L 500.4050, L100.0500, L501.2450 ####[facility] [address] [place], [address] MCHC (RBC) [Mass/Vol] 33.8 g/dL Normal 32-36 [facility] Comment on above: Performed By: #### L 500.4050, L100.0500, L501.2450 ####[facility] [address] [place], [address] MCV (RBC) [Entitic vol] 87.3 fL Normal 81-99 [facility] Comment on above: Performed By: #### L 500.4050, L100.0500, L501.2450 ####[facility] [address] [place], [address] Platelet mean volume (Bld) [Entitic vol] 13.1 fL High 6.2-12.0 [facility] Comment on above: Performed By: #### L 500.4050, L100.0500, L501.2450 ####[facility] [address] [place], [address] Platelets (Bld) [#/Vol] 153 10*3/uL Normal 150-450 [facility] Comment on above: Performed By: #### L 500.4050, L100.0500, L501.2450 ####[facility] [address] [place], [address] RBC (Bld) [#/Vol] 4.10 10*6/uL Low 4.2-5.4 [facility] Comment on above: Performed By: #### L 500.4050, L100.0500, L501.2450 ####[facility] [address] [place], [address] RDW SD 39.5 fl Normal 35.1-43.9 [facility] Comment on above: Performed By: #### L 500.4050, L100.0500, L501.2450 ####[facility] [address] [place], [address] WBC (Bld) [#/Vol] 9.6 10*3/uL Normal 4.4-11.0 [facility] Comment on above: Performed By: #### L 500.4050, L100.0500, L501.2450 ####[facility] [address] [place], [address] Comprehensive Metabolic [facility] 08-27-2024 Albumin [Mass/Vol] 3.6 g/dL Normal 3.2-5.0 [facility] Comment on above: Performed By: #### L 500.4050, L100.0500, L501.2450 ####[facility] [address] [place], [address] Albumin/Globulin [Mass ratio] 1.1 {ratio} Normal 0.9-2.4 [facility] Comment on above: Performed By: #### L 500.4050, L100.0500, L501.2450 ####[facility] [address] [place], [address] ALK P 60 U/L Normal 45-117 [facility] Comment on above: Performed By: #### L 500.4050, L100.0500, L501.2450 ####[facility] [address] [place], [address] ALT [Catalytic activity/Vol] 16 U/L Normal 13-56 [facility] Comment on above: Performed By: #### L 500.4050, L100.0500, L501.2450 ####[facility] [address], [address] AST [Catalytic activity/Vol] 11 U/L Low 15-37 [facility] Comment on above: Performed By: #### L 500.4050, L100.0500, L501.2450 ####[facility] [address] [place], [address] Bilirubin [Mass/Vol] 0.30 mg/dL Normal 0.20-1.00 [facility] Comment on above: Result Comment: For patients on eltrombopag therapy, use of Dimension [place] TBIL is not recommended. Performed By: #### L 500.4050, L100.0500, L501.2450 ####[facility] [address] [place], [address] BUN/CRE 17.2 RATIO Normal 10-20 [facility] Comment on above: Performed By: #### L 500.4050, L100.0500, L501.2450 ####[facility] [address] [place], [address] CA,Total 8.9 mg/dL Normal 8.5-10.1 [facility] Comment on above: Performed By: #### L 500.4050, L100.0500, L501.2450 ####[facility] [address] [place], [address] Chloride [Moles/Vol] 104 mmol/L Normal 98-107 [facility] Comment on above: Performed By: #### L 500.4050, L100.0500, L501.2450 ####[facility] [address] [place], [address] CO2 [Moles/Vol] 29.0 mmol/L Normal 21.0-32.0 [facility] Comment on above: Performed By: #### L 500.4050, L100.0500, L501.2450 ####[facility] [address] [place], [address] Creatinine [Mass/Vol] 0.52 mg/dL Low 0.55-1.02 [facility] Comment on above: Result Comment: The validity of the calculated GFR GFRAA in patients over 70 years has not been determined. Clinical correlation is essential. Performed By: #### L 500.4050, L100.0500, L501.2450 ####[facility] [address] [place], [address] EST GFR - AA 186 mL/min Normal >60 [facility] Comment on above: Result Comment: Afri can Irish GFR Calc Performed By: #### L 500.4050, L100.0500, L501.2450 ####[facility] [address] [place], [address] GAP 6 Normal 5-15 [facility] Comment on above: Performed By: #### L 500.4050, L100.0500, L501.2450 ####[facility] [address] [place], [address] GFR/1.73 sq M.predicted among non-blacks MDRD (S/P/Bld) [Vol rate/Area] 154 mL/min/{1.73_m2} Normal >60 [facility] Comment on above: Result Comment: Non- GFR Calc Performed By: #### L 500.4050, L100.0500, L501.2450 ####[facility] [address] [place], [address] Globulin (S) [Mass/Vol] 3.4 g/dL Normal 2.2-4.2 [facility] Comment on above: Performed By: #### L 500.4050, L100.0500, L501.2450 ####[facility] [address] [place], [address] Glucose [Mass/Vol] 91 mg/dL Normal 74-106 [facility] Comment on above: Performed By: #### L 500.4050, L100.0500, L501.2450 ####[facility] [address] [place], [address] Potassium [Moles/Vol] 3.6 mmol/L Normal 3.5-5.1 [facility] Comment on above: Performed By: #### L 500.4050, L100.0500, L501.2450 ####[facility] [address] [place], [address] Sodium [Moles/Vol] 139 mmol/L Normal 136-145 [facility] Comment on above: Performed By: #### L 500.4050, L100.0500, L501.2450 ####[facility] [address] [place], [address] T PROT 7.0 g/dL Normal 6.4-8.2 [facility] Comment on above: Performed By: #### L 500.4050, L100.0500, L501.2450 ####[facility] [address] [place], [address] Urea nitrogen [Mass/Vol] 9 mg/dL Normal 7-18 [facility] Comment on above: Performed By: #### L 500.4050, L100.0500, L501.2450 ####[facility] [address] [place], [address] Emergency Department Summary on 08-27-2024 Emergency Department Summary [facility] Medical Records Department [address] [place] [address] Emergency Department Summary 08/27/24 MR#: [id number] Acct: [id number] Name: GINO BAE Rep #: [id number] : 2000 24 From: Ivan Abrams DO [...] History obtained from others: none Consults: none [facility] Narrative: The patient was initially hemodynamically [...] they tawanda (more content not included)... Normal [facility] Lipaseon 08-27-2024 Lipase [Catalytic activity/Vol] 36 U/L Normal 13-75 [facility] Comment on above: Result Comment: Susan stock note: LIPASE revised reference range effective 22. New Lipase methodology. Expected to produce lower values than the previous assay method. NEW Reference Range: 13 - 75 U/L Performed By: #### L 500.4050, L100.0500, L501.2450 ####[facility] [address] [place], [address] Urinalysis, Completeon 08-27 AMORPHOUS 3+ Normal [facility] Comment on above: Order Comment: CLEAN CATCH Performed By: #### L 400.0001 #### [facility] [address] [place], [address] EPI,SQUAMOUS 0-5 SEEN Normal 5-10 [facility] Comment on above: Order Comment: CLEAN CATCH Performed By: #### L 400.0001 #### [facility] [address] [place], [address] WBC 0-5 SEEN Normal 0-5 [facility] Comment on above: Order Comment: CLEAN CATCH Performed By: #### L 400.0001 #### [facility] [address] [place], [address] BACTERIA 0 SEEN Normal None Seen [facility] Comment on above: Order Comment: CLEAN CATCH Performed By: #### L 400.0001 #### [facility] [address] [place], [address] Mucus Ql (Urine sed) 0 SEEN Normal [facility] Comment on above: Order Comment: CLEAN CATCH Performed By: #### L 400.0001 #### [facility] [address] [place], [address] RBC 0 SEEN Normal 0-5 [facility] Comment on above: Order Comment: CLEAN CATCH Performed By: #### L 400.0001 #### [facility] [address] [place], [address] POCT UA Automated manually r esultedon 07-13-2024 Appearance (U) Clear Clear [facility] Work Phone: Glucose Test strip (U) [Mass/Vol] Negative NEGATIVE mg/dl [facility] Work Phone: Hemoglobin Ql (U) Negative NEGATIVE [facility] Work Phone: [phone] Interpretation and review of laboratory results Normal [facility] Work Phone: [phone] Leukocyte esterase Test strip Ql (U) Negative NEGATIVE [facility] Work Phone: [phone] Nitrite Ql (U) Negative NEGATIVE [facility] Work Phone: [phone] pH (U) 7.0 [pH] No Reference Range Established [facility] Work Phone: [phone] POC Bilirubin, Urine Negative NEGATIVE [facility] Work Phone: [phone] POC Color, Urine Yellow Straw, [place] ow, Light-Yellow [facility] Work Phone: [phone] POC Ketones, Urine Negative NEGATIVE mg/dl [facility] Work Phone: [phone] POC Protein, Urine Negative NEGATIVE, 30 (1+) mg/dl [facility] Work Phone: [phone] POC Specific [place], Urine 1.020 1.005 - 1.035 [facility] Work Phone: [phone] POC Urobilinogen, Urine 0.2 0.2, 1.0 EU/ DL [facility] Work Phone: [phone] [facility] Work Phone: [phone] CULTURE URINEon 01-03-2024 Bacteria identified Cx Nom (U) NO PATHOGENS GROWN AFTER 1 DAY NO PATHOGENS GROWN AFTER 2 DAYS Normal [facility] Comment on above: Performed By: #### 6 30-4, UAR #### [facility] [address] [place] [address] Academic Interventionist - Pippa BRANDT [id number] CBC W Auto Differential pane l (Bld)on 01-01-2024 Basophils (Bld) [#/Vol] 0.05 10*3/uL Normal <=0.70 [facility] Comment on above: Performed By: #### 5 7021-8 #### [facility] [address] [place] [address] Academic Interventionist - Pippa QUIÑONESIA [id number] Basophils/100 WBC (Bld) 0.6 % Normal <=2.0 [facility] Comment on above: Performed By: #### 5 7021-8 #### [place] [address] [place] [address] Academic Interventionist - Pippa QUIÑONESIA [id number] Eosinophils (Bld) [#/Vol] 0.51 10*3/uL Normal <=0.70 [facility] Comment on above: Performed By: #### 5 7021-8 #### [place] [address] [place] [address] Academic Interventionist - Pippa QUIÑONESIA [id number] Eosinophils/100 WBC (Bld) 6.2 % Normal <=10.0 [facility] Comment on above: Performed By: #### 5 7021-8 #### [address] [place] [address] Academic Interventionist - Pippa Nowak CLIA [id number] Erythrocyte distribution width (RBC) [Entitic vol] 38.9 fL Normal 36.4-46.3 [facility] Comment on above: Performed By: #### 5 7021-8 #### [address] [facility] [place] [address] Academic Interventionist - Pippa QUIÑONESIA [id number] Hematocrit (Bld) [Volume fraction] 39.2 % Normal 37.0-47.0 [facility] Comment on above: Performed By: #### 5 7021-8 #### [address] [place] [address] Academic Interventionist - Pippa QUIÑONESIA [id number] Hemoglobin (Bld) [Mass/Vol] 13.6 g/dL Normal 12.0-16.0 [facility] Comment on above: Performed By: #### 5 7021-8 #### [address] [place] [address] Academic Interventionist - Pippa Nowak CLIA [id number] Immature granulocytes (Bld) [#/Vol] 0.03 10*3/uL Normal <=0.10 [facility] Comment on above: Performed By: #### 5 7021-8 #### [address] [place] [address] Academic Interventionist - Pippa QUIÑONESIA [id number] Immature granulocytes/100 WBC (Bld) 0.40 % Normal <=1.50 [facility] Comment on above: Performed By: #### 5 7021-8 #### [address] [place] [address] Academic Interventionist - Pippa QUIÑONESIA [id number] Lymphocytes (Bld) [#/Vol] 2.48 10*3/uL Normal 1.20-3.40 [facility] Comment on above: Performed By: #### 5 7021-8 #### [address] [place] [address] Academic Interventionist - Pippa Nowak CLIA [id number] Lymphocytes/100 WBC (Bld) 30.1 % Normal 20.0-40.0 [facility] Comment on above: Performed By: #### 5 7021-8 #### [address] [place] [address] Academic Interventionist - Pippa QUIÑONESIA [id number] MCH (RBC) [Entitic mass] 29.9 pg Normal 27.0-31.0 [facility] Comment on above: Performed By: #### 5 7021-8 #### [address] [place] [address] Academic Interventionist - Pippa Nowak CLIA [id number] MCHC (RBC) [Mass/Vol] 34.7 g/dL Normal 32.0-36.0 [facility] Comment on above: Performed By: #### 5 7021-8 #### [address] [place] [address] Academic Interventionist - Pippa Nowak CLIA [id number] MCV (RBC) [Entitic vol] 86.2 fL Normal 80.0-100.0 [facility] Comment on above: Performed By: #### 5 7021-8 #### [place] [address] [place] [address] Academic Interventionist - Pippa Nowak CLIA [id number] Monocytes (Bld) [#/Vol] 0.55 10*3/uL Normal 0.10-0.60 [facility] Comment on above: Performed By: #### 5 7021-8 #### [place] [address] [place] [address] Academic Interventionist - Pippa Nowak CLIA [id number] Monocytes/100 WBC (Bld) 6.7 % Normal <=8.0 [facility] Comment on above: Performed By: #### 5 7021-8 #### [place] [address] [place] [address] Academic Interventionist - Pippa Nowak CLIA [id number] Neutrophils (Bld) [#/Vol] 4.62 10*3/uL Normal 1.40-6.50 [facility] Comment on above: Performed By: #### 5 7021-8 #### [place] [address] [place] [address] Academic Interventionist - Pippa QUIÑONESIA [id number] Neutrophils/100 WBC (Bld) 56.0 % Normal 50.0-70.0 [facility] Comment on above: Performed By: #### 5 7021-8 #### [address] [place] [address] Academic Interventionist - Pippa Nowak CLIA [id number] Nucleated RBC (Bld) [#/Vol] 0.00 10*3/uL Normal <=0.10 [facility] Comment on above: Performed By: #### 5 7021-8 #### [address] Director - Pippa Nowak CLIA [id number] Platelet mean volume (Bld) [Entitic vol] 12.9 fL Normal 9.0-13.0 [facility] Comment on above: Performed By: #### 5 7021-8 #### [place] [place] [address] Academic Interventionist - Pippa QUIÑONESIA [id number] Platelets (Bld) [#/Vol] 169 10*3/uL Normal 130-400 [facility] Comment on above: Performed By: #### 5 7021-8 #### [address] [place] [address] Academic Interventionist - Pippa QUIÑONESIA [id number] RBC (Bld) [#/Vol] 4.55 10*6/uL Normal 4.00-6.30 [facility] Comment on above: Performed By: #### 5 7021-8 #### [address] [place] [address] Academic Interventionist - Pippa Rickettsrell ISHMAELIA [id number] WBC (Bld) [#/Vol] 8.24 10*3/uL Normal 4.80-10.80 [facility] Comment on above: Performed By: #### 5 7021-8 #### [address] [place] [address] Academic Interventionist - Pippa Rickettsrell ISHMAELIA [id number] CT ABDOMEN AND PELVIS WITH C [facility] 01-01-2024 CT ABDOMEN AND PELVIS WITH CONTRAST [...] just above the left ureterovesical junction. Normal [facility] Comprehensive metabolic 2000 panelon 01-01-2024 Albumin [Mass/Vol] 4.1 g/dL Normal 3.4-5.0 [facility] Comment on above: Performed By: #### L IPASE, , #### [facility] [address] [place] [address] Academic Interventionist - Pippa Nowakaarti BRANDT [id number] ALP [Catalytic activity/Vol] 82 U/L Normal 50-136 [facility] Comment on above: Performed By: #### L IPASE, , #### [facility] [address] [place] [address] Academic Interventionist - Pippa BRANDT [id number] ALT [Catalytic activity/Vol] 17 U/L Normal 14-59 [facility] Comment on above: Performed By: #### L IPASE, , #### [facility] [address] [place] [address] Academic Interventionist - Pippa BRANDT [id number] Anion gap [Moles/Vol] 4.0 mmol/L Normal <=15.0 [facility] Comment on above: Performed By: #### L IPASE, , #### [facility] [address] [place] [address] Academic Interventionist - Pippa BRANDT [id number] AST [Catalytic activity/Vol] 12 U/L Low 15-37 [facility] Comment on above: Performed By: #### L IPASE, , #### [facility] [address] [place] [address] Academic Interventionist - Pippa BRANDT [id number] Bilirubin [Mass/Vol] 0.4 mg/dL Normal 0.2-1.0 [facility] Comment on above: Performed By: #### L IPASE, , #### [place] [address] [facility]. [place] [address] Academic Interventionist - Pippa BRANDT [id number] Calcium [Mass/Vol] 9.3 mg/dL Normal 8.5-10.1 [facility] Comment on above: Performed By: #### L IPA, , #### [facility] [address] [place] [address] Academic Interventionist - Pippa BRANDT [id number] Chloride [Moles/Vol] 108 mmol/L High 98-107 [facility] Comment on above: Performed By: #### L IPASE, , #### [facility] [address] [place] [address] Academic Interventionist - Pippa BRANDT [id number] CO2 [Moles/Vol] 28 mmol/L Normal 21-32 [facility] Comment on above: Performed By: #### L IPASE, , #### [facility] [address] [place] [address] Academic Interventionist - Pippa BRANDT [id number] Creatinine [Mass/Vol] 0.82 mg/dL Normal 0.51-0.95 [facility] Comment on above: Performed By: #### L AYAN, , #### [facility] [address] [place] [address] Academic Interventionist - Pippa BRANDT [id number] GFR/1.73 sq M.predicted MDRD (S/P/Bld) [Vol rate/Area] mL/min/{1.73_m2} Normal >=59 [facility] Comment on above: Performed By: #### L AYAN, , #### [facility] [address] [place] [address] Academic Interventionist - Pippa BRANDT [id number] Glucose [Mass/Vol] 121 mg/dL High 74-106 [facility] Comment on above: Performed By: #### L AYAN, , #### [facility] [address] [place] [address] Academic Interventionist - Pippa BRANDT [id number] HGFR GLOMERULAR FILTRATION RATE INTERPRETATION~The eGFR is [...] months, with or without kidney damage.~ Normal [facility] Comment on above: Performed By: #### L AYAN, , #### [facility] [address] [place] [address] Academic Interventionist - Pippa BRANDT [id number] Potassium [Moles/Vol] 4.3 mmol/L Normal 3.5-5.1 [facility] Comment on above: Performed By: #### L IPASE, , #### [facility] [address] [place] [address] Academic Interventionist - Pippa QUIÑONESIA [id number] Protein [Mass/Vol] 7.0 g/dL Normal 6.4-8.2 [facility] Comment on above: Performed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 15:34-0400 Body height 165.1 cm Yuliana Gonzalez SEAT BUILDER-C Work Phone: 6(584)875-720471 [place] [address] 03-10-2025 15:34-0400 Body mass index (BMI) [Ratio] 32.5 kg/m2 Yuliana Gonzalez SEAT BUILDER-C Work Phone: 8(407)387-525971 [place] [address] 03-10-2025 15:34-0400 Body weight 88.56 kg Yuliana Gonzalez SEAT BUILDER-C Work Phone: 6(605)978-348271 [place] [address] 03-10-2025 15:34-0400 Diastolic blood pressure 82 mm[Hg] Yuliana Gonzalez SEAT BUILDER-C Work Phone: 1(695)785-470271 [place] [address] 03-10-2025 15:34-0400 Systolic blood pressure 138 mm[Hg] Yuliana Gonzalez SEAT BUILDER-C Work Phone: 5(160)863-449671 [place] [address] 02-24-2025 08:59-0400 Body height 165.1 cm Yuliana Gonzalez SEAT BUILDER-C Work Phone: 7(103)400-975271 [place] [address] 02-24-2025 08:59-0400 Body mass index (BMI) [Ratio] 31.4 kg/m2 Yuliana Gonzalez SEAT BUILDER-C Work Phone: [facility] 02-24-2025 08:59-0400 Body weight 85.84 kg Yuliana Gonzalez SEAT BUILDER-C Work Phone: [facility] 02-24-2025 08:59-0400 Diastolic blood pressure 69 mm[Hg] Yuliana Gonzalez SEAT BUILDER-C Work Phone: [facility] 02-24-2025 08:59-0400 Systolic blood pressure 103 mm[Hg] Yuliana Gonzalez SEAT BUILDER-C Work Phone: [facility] 02-10-2025 08:47-0400 Body height 165.1 cm Yuliana Gonzalez SEAT BUILDER-C Work Phone: 9(099)581-972171 [place] [address] 02-10-2025 08:47-0400 Body mass index (BMI) [Ratio] 31.4 kg/m2 Yuliana Gonzalez SEAT BUILDER-C Work Phone: 6(543)956-518871 [place] [address] 02-10-2025 08:47-0400 Body weight 85.78 kg Yuliana Gonzalez SEAT BUILDER-C Work Phone: [facility] 02-10-2025 08:47-0400 Diastolic blood pressure 83 mm[Hg] Yuliana Gonzalez SEAT BUILDER-C Work Phone: [facility] 02-10-2025 08:47-0400 Systolic blood pressure 115 mm[Hg] Yuliana Gonzalez SEAT BUILDER-C Work Phone: [facility] 01-26-2025 08:35-0400 Body height 165.1 cm Yuliana Gonzalez SEAT BUILDER-C Work Phone: [facility] 01-26-2025 08:35-0400 Body mass index (BMI) [Ratio] 31.3 kg/m2 Yuliana Gonzalez SEAT BUILDER-C Work Phone: [facility] 01-26-2025 08:35-0400 Body weight 85.38 kg Yuliana Gonzalez SEAT BUILDER-C Work Phone: [facility] 01-26-2025 08:35-0400 Diastolic blood pressure 72 mm[Hg] Yuliana Gonzalez SEAT BUILDER-C Work Phone: [facility] 01-26-2025 08:35-0400 Systolic blood pressure 126 mm[Hg] Yuliana Gonzalez SEAT BUILDER-C Work Phone: 8(250)799-925371 [place] [address] 01-07-2025 10:18-0400 Body height 165.1 cm Yuliana Gonzalez SEAT BUILDER-C Work Phone: 4(355)003-079371 [place] [address] 01-07-2025 10:18-0400 Body mass index (BMI) [Ratio] 30.2 kg/m2 Yuliana Gonzalez SEAT BUILDER-C Work Phone: 8(226)663-723546 [place] [address] 01-07-2025 10:18-0400 Body weight 82.55 kg Yuliana Gonzalez SEAT BUILDER-C Work Phone: 4(975)906-877971 [place] [address] 01-07-2025 10:18-0400 Diastolic blood pressure 81 mm[Hg] Yuliana Gonzalez SEAT BUILDER-C Work Phone: 7(542)666-326671 [place] [address] 01-07-2025 10:18-0400 Systolic blood pressure 127 mm[Hg] Yuliana Gonzalez SEAT BUILDER-C Work Phone: 5(807)634-202971 [place] [address] 12-03-2024 10:15-0400 Body mass index (BMI) [Ratio] 28.5 kg/m2 Yuliana Gonzalez SEAT BUILDER-C Work Phone: 3(228)074-769771 [place] [address] 12-03-2024 10:15-0400 Body weight 77.73 kg Yuliana Gonzalez SEAT BUILDER-C Work Phone: 4(487)015-658671 [place] [address] 12-03-2024 10:15-0400 Diastolic blood pressure 77 mm[Hg] Yuliana Gonzalez SEAT BUILDER-C Work Phone: 1(664)336-894671 [place] [address] 12-03-2024 10:15-0400 Systolic blood pressure 120 mm[Hg] Yuliana Gonzalez SEAT BUILDER-C Work Phone: 3(698)689-163571 [place] [address] 11-05-2024 11:42-0500 Body mass index (BMI) [Ratio] 27.3 kg/m2 Yuliana Gonzalez SEAT BUILDER-C Work Phone: 4(672)833-892871 [place] [address] 11-05-2024 11:42-0500 Body weight 74.38 kg Yuliana Gonzalez SEAT BUILDER-C Work Phone: 2(569)692-506171 [place] [address] 11-05-2024 11:42-0500 Diastolic blood pressure 81 mm[Hg] Yuliana Gonzalez SEAT BUILDER-C Work Phone: 7(412)850-492346 [place] [address] 11-05-2024 11:42-0500 Systolic blood pressure 134 mm[Hg] Yuliana Gonzalez SEAT BUILDER-C Work Phone: 3(015)847-734346 [place] [address] 10-07-2024 11:33-0500 Body mass index (BMI) [Ratio] 25.4 kg/m2 Yuliana Gonzalez SEAT BUILDER-C Work Phone: 5(235)144-147246 [place] [address] 10-07-2024 11:33-0500 Body weight 69.45 kg Yuliana Gonzalez SEAT BUILDER-C Work Phone: 6(797)332-078846 [place] [address] 10-07-2024 11:33-0500 Diastolic blood pressure 73 mm[Hg] Yuliana Gonzalez SEAT BUILDER-C Work Phone: 1(785)311-661646 [place] [address] 10-07-2024 11:33-0500 Systolic blood pressure 120 mm[Hg] Yuliana Gonzalez SEAT BUILDER-C Work Phone: 7(618)475-890346 [place] [address] 09-28-2024 07:45-0500 Body height 166.4 cm Yuliana Gonzalez [employer] WORKER-BELLOWS FILLER Work Phone: 9(594)621-834007 [place] [address] 09-28-2024 07:45-0500 Body mass index (BMI) [Ratio] 24.91 kg/m2 Yuliana Gonzalez [employer] TRA[employer] WORKER-BELLOWS FILLER Work Phone: 3(793)364-692607 [place] [address] 09-28-2024 07:45-0500 Body weight 68.95 kg Yuliana Gonzalez [employer] TRACTION LINE WORKER-BELLOWS FILLER Work Phone: 6(008)948-465107 [place] [address] 09-28-2024 07:45-0500 Diastolic blood pressure 80 mm[Hg] Yuliana Gonzalez [employer] TRACTION LINE WORKER-BELLOWS FILLER Work Phone: [facility] 09-28-2024 07:45-0500 Heart rate 72 /min Yuliana Gonzalez [employer] TRA[employer] WORKER-BELLOWS FILLER Work Phone: [facility] 09-28-2024 07:45-0500 Systolic blood pressure 138 mm[Hg] Yuliana Gonzalez [employer] TRACTION LINE WORKER-BELLOWS FILLER Work Phone: [facility] 07-13-2024 07:18-0500 Body height 166.4 cm Yuliana Gonzalez [employer] TRA[employer] LINE WORKER-BELLOWS FILLER Work Phone: [facility] 07-13-2024 07:18-0500 Body mass index (BMI) [Ratio] 23.02 kg/m2 Yuliana Gonzalez [employer] WORKER-BELLOWS FILLER Work Phone: [facility] 07-13-2024 07:18-0500 Body weight 63.73 kg Yuliana Gonzalez [employer] TRA[employer] WORKER-BELLOWS FILLER Work Phone: [facility] 07-13-2024 07:18-0500 Diastolic blood pressure 80 mm[Hg] Yuliana Gonzalez [employer] TRA[employer] LINE WORKER-BELLOWS FILLER Work Phone: [facility] 07-13-2024 07:18-0500 Heart rate 82 /min Yuliana Gonzalez [employer] TRA[employer] LINE WORKER-BELLOWS FILLER Work Phone: [facility] 07-13-2024 07:18-0500 Systolic blood pressure 124 mm[Hg] Yuliana Gonzalez RA[employer] TRA[employer] LINE WORKER-BELLOWS FILLER Work Phone: [facility] Encounters Encounter Date Encounter Type Care Provider Facility Start: 04-01-2025 ambulatory Rufina Weiss Fa cility:[facility] Start: 03-25-2025 End: 03-25-2025 Patient encounter procedure Autumn MÁRQUEZ -[facility] Work Phone: Start: 03-25-2025 End: 03-25-2025 ambulatory Yuliana Gonzalez SEAT BUILDER-C Work Phone: -[facility] Start: 03-22-[address] Marissa Aquino MD -Ultrasound [facility] Work Phone: Start: 03-22-2025 ambulatory Yuliana Gonzalez Facility:[facility] Start: 03-18-2025 End: 03-18-[address] Marissa Aquino MD -[facility] Work Phone: Start: 03-18-2025 End: 03-18-2025 ambulatory Yuliana Gonzalez SEAT BUILDER-C Work Phone: [facility] Start: 03-10-2025 End: 03-10-2025 ambulatory Yuliana Gonzalez SEAT BUILDER-C Work Phone: -Laboratory Specimen Start: 03-10-2025 End: 03-10-[address] Rufina Weiss DO -Laboratory Specimen Work Phone: Start: 03-10-2025 End: 03-10-[address] Rufina Weiss DO -[facility] Work Phone: Start: 03-10-2025 End: 03-10-2025 ambulatory Yuliana Gonzalez SEAT BUILDER-C Work Phone: [facility] Start: 03-10-2025 End: 03-10-2025 ambulatory Rufina Weiss Facility:[facility] Start: 02-24-2025 End: 02-24-[address] Marissa Aquino MD -[facility] Work Phone: Start: 02-24-2025 End: 02-24-2025 ambulatory Yuliana Gonzalez SEAT BUILDER-C Work Phone: [facility] Work Phone: Start: 02-15-2025 End: 02-15-2025 ambulatory Yuliana Gonzalez SEAT BUILDER-C Work Phone: [facility] Work Phone: Start: 02-15-2025 End: 02-15-2025 Patient encounter procedure Autumn Jacome CNM -Lab [facility] Start: 02-15-2025 End: 02-15-2025 ambulatory Autumn Jacome Facility:[facility] Start: 02-11-2025 End: 02-11-2025 ambulatory Yuliana Gonzalez SEAT BUILDER-C Work Phone: [facility] Work Phone: Start: 02-11-2025 End: 02-11-2025 Patient encounter procedure Autumn Jacome CNM -[facility] Work Phone: Start: 02-10-2025 End: 02-11-2025 ambulatory Yuliana Gonzalez SEAT BUILDER-C Work Phone: [facility] Work Phone: Start: 02-10-2025 End: 02-10-2025 Patient encounter procedure Autumn Jacome CN -[facility] Work Phone: Start: 01-26-2025 End: 01-26-2025 Patient encounter procedure Kristen Parker SEAT BUILDER-C -[facility] Work Phone: Start: 01-26-2025 End: 01-26-2025 ambulatory Yuliana Gonzalez SEAT BUILDER-C Work Phone: [facility] Work Phone: Start: 01-07-2025 End: 01-07-2025 Patient encounter procedure Autumn Jacome CN -[facility] Work Phone: Start: 01-07-2025 End: 01-07-2025 ambulatory Yuliana Gonzalez SEAT BUILDER-C Work Phone: [facility] Work Phone: Start: 01-07-2025 End: 01-07-2025 ambulatory Marissa Kenia Facility:[facility] Start: 12-31-2024 ambulatory Lore Staley y:[facility] Start: 12-03-2024 End: 12-03-[address] Rufina Weiss DO -[facility] Work Phone: Start: 12-03-2024 End: 12-03-2024 ambulatory Rufina Weiss Facility:[facility] Start: 11-09-2024 End: 11-09-2024 ambulatory JOSSELIN LAMBERT [facility] Start: 11-05-2024 End: 11-05-2024 Patient encounter procedure Autumn Jacome CNM -[facility] Work Phone: Start: 11-05-2024 End: 11-05-2024 ambulatory Yuliana Gonzalez Facility:[facility] Start: 10-07-2024 End: 10-07-[address] Rufina Weiss DO -[facility] Work Phone: Start: 10-07-2024 End: 10-07-2024 ambulatory Rufina Weiss Facility:[facility] Start: 09-28-2024 End: 09-28-2024 Office outpatient visit 15 minutes Yuliana Sophie Vincenzo RAILWAY TRACTION LINE WORKER-BELLOWS FILLER Work Phone: [facility] Comment on above: Persistent depressiv e disorder; Anxiety Start: 09-28-2024 End: 09-28-2024 ambulatory [facility] Ambulatory Start: 09-09-2024 End: 09-09-2024 ambulatory Yuliana Smyrna Facility:[facility] Start: 09-09-2024 End: 09-09-2024 ambulatory [facility] Facility:[facility] Start: 08-27-2024 End: 08-27-2024 Emergency department patient visit Ivan Abrams Facility:[facility] Start: 07-13-2024 End: 07-13-2024 Initial preventive medicine new pt age 18-39yrs Yuliana Gonzalez RAILWAY TRACTION LINE WORKER-BELLOWS FILLER Work Phone: [facility] Comment on above: Wellness examination (Primary Dx); Dysuria; Persistent depressive disorder; Migraine without aura and without status migrainosus, not intractable; Screening for lipid disorders; BMI 23.0-23.9, adult Start: 07-13-2024 End: 07-13-2024 Patient encounter status Yuliana Sophie Vincenzo RAILWAY TRACTION LINE WORKER-BELLOWS FILLER Work Phone: [facility] Work Phone: Start: 07-13-2024 End: 07-13-2024 ambulatory [facility] Ambulatory Start: 07-13-2024 End: 07-13-2024 Encounter for general adult medical examination without abnormal findings YULIANA GONZALEZ [facility] Ambulatory Start: 01-01-2024 End: 01-01-2024 ambulatory BOAZ SCHULTZ Facility:[facility] Start: 02-13-2018 End: 02-14-2018 [facility] Procedures Date Procedure Procedure Detail Performing Clinician Start: 03-22-2025 Ultrasound scan for growth Yuliana Gonzalez SEAT BUILDER-C Work Phone: Start: 03-10-2025 Beta-hemolytic Streptococcus culture Yuliana Gonzalez SEAT BUILDER-C Work Phone: Start: 02-11-2025 Ultrasound scan for growth Yuliana Gonzalez SEAT BUILDER-C Work Phone: Start: 01-07-2025 Serologic test for syphilis Yuliana Gonzalez SEAT BUILDER-C Work Phone: Start: 09-09-2024 Microscopic observat ion [Identifier] in Cervix by Cyto stain Yuliana Gonzalez RAILWAY TRACTION LINE WORKER-BELLOWS FILLER Work Phone: Start: 07-13-2024 Urnls dip stick/tabl et rgnt auto w/o microscopy Yuliana Gonzalez RAILWAY TRACTION LINE WORKER-BELLOWS FILLER Work Phone: Plan of Treatment Date Care Activity Detail Author Start: 2076 RSV High Risk: (Elde rly (60+) or Population) (1 - 1-dose 75+ series) RSV High Risk: (Elderly (60+) or Population) (1 - 1-dose 75+ series) [facility] Start: 2051 Zoster Vaccines (1 of 2) Zoste r Vaccines (1 of 2) [facility] Start: 09-09-2027 Screening for malign ant neoplasm of cervix [facility] Start: 07-14-2025 Yearly Adult Physical Yearly Adult P hysical [facility] Start: 07-13-2024 End: 07-13-2025 CBC W Auto Differential panel - Blood CBC and Auto Differential Lab Routine Wellness examination Expected: 07/13/2024 (Approximate), Expires: 07/13/2025 [facility] Service Area Work Phone: Comment on above: Expected: 07/13/2024 (Approximate), Expires: 07/13/2025 Start: 07-13-2024 End: 07-13-2025 Comprehensive metabolic 2000 panel - Serum or Plasma Comprehensive Metabolic Panel Lab Routine Wellness examination Expected: 07/13/2024 (Approximate), Expires: 07/13/2025 [facility] Work Phone: Comment on above: Expected: 07/13/2024 (Approximate), Expires: 07/13/2025 Start: 07-13-2024 End: 07-13-2025 Lipid 1996 panel - Serum or Plasma Lipid Panel Lab Routine Screening for lipid disorders Wellness examination Expected: 07/13/2024 (Approximate), Expires: 07/13/2025 [facility] Work Phone: Comment on above: Expected: 07/13/2024 (Approximate), Expires: 07/13/2025 Start: 05-02-2024 COVID-19 Vaccine ( season) COVID-19 Vaccine ( season) [facility] Start: 05-02-2024 Influenza vaccination Influenza Vacc ine (#1) [facility] Start: 02-05-2024 DTaP/Tdap/Td Vaccine s (7 - Td or Tdap) DTaP/Tdap/Td Vaccines (7 - Td or Tdap) [facility] Start: 2022 Screening for malign ant neoplasm of cervix [facility] Start: 2019 Hepatitis C screening Hepatitis C [facility] Start: 2016 HPV Vaccines (1 - 3- dose series) HPV Vaccines (1 - 3-dose series) [facility] Start: 2001 HIV screening HIV Screening [facility] Start: 2001 Lipid panel Lipid Panel [facility] Streptococcus agalac tiae [Presence] in Unspecified specimen by Organism specific culture [facility] Ultrasound scan for growth [facility] Ultrasound scan for growth [facility] Immunizations Immunization Date Immunization Notes Care Provider Abilio lira 02-10-2025 tetanus toxoid, redu gordon diphtheria toxoid, and acellular pertussis vaccine, adsorbed Yuliana Gonzalez SEAT BUILDER-C Work Phone: [facility] 01-14-2022 tuberculin skin test ; purified protein derivative solution, intradermal Yuliana Gonzalez RAILWAY TRACTION LINE WORKER-BELLOWS FILLER Work Phone: [facility] Work Phone: 05-31-2019 meningococcal B vacc ine, recombinant, OMV, adjuvanted Yuliana Gonzalez RAILWAY TRACTION LINE WORKER-BELLOWS FILLER Work Phone: [facility] Work Phone: 02-12-2019 meningococcal B vacc ine, recombinant, OMV, adjuvanted Yuliana Gonzalez RAILWAY TRACTION LINE WORKER-BELLOWS FILLER Work Phone: [facility] Work Phone: 02-12-2019 meningococcal polysaccharide (groups A, C, Y and W-135) diphtheria toxoid conjugate vaccine (MCV4P) Yuliana Gonzalez RAILWAY TRACTION LINE WORKER-BELLOWS FILLER Work Phone: [facility] Work Phone: 02-07-2017 hepatitis A vaccine, pediatric/adolescent dosage, 2 dose schedule Yuliana Gonzalez APRN-BELLOWS FILLER Work Phone: [facility] Work Phone: 02-07-2017 typhoid capsular polysaccharide vaccine Yuliana Gonzalez RAILWAY TRACTION LINE WORKER-BELLOWS FILLER Work Phone: [facility] Work Phone: 03-01-2016 hepatitis A vaccine, pediatric/adolescent dosage, 2 dose schedule Yuliana Gonzalez RAILWAY TRACTION LINE WORKER-BELLOWS FILLER Work Phone: [facility] Work Phone: 03-01-2016 typhoid capsular polysaccharide vaccine Yuliana Gonzalez RAILWAY TRACTION LINE WORKER-BELLOWS FILLER Work Phone: [facility] Work Phone: 04-27-2015 pneumococcal polysaccharide vaccine, 23 valent Yuliana Gonzalez RAILWAY TRACTION LINE WORKER-BELLOWS FILLER Work Phone: [facility] Work Phone: 02-04-2014 meningococcal polysaccharide (groups A, C, Y and W-135) diphtheria toxoid conjugate vaccine (MCV4P) Yuliana Gonzalez RAILWAY TRACTION LINE WORKER-[facility] Work Phone: [facility] Work Phone: 02-04-2014 tetanus toxoid, redu gordon diphtheria toxoid, and acellular pertussis vaccine, adsorbed Yuliana Gonzalez RAILWAY TRACTION LINE WORKER-[facility] Work Phone: [facility] Work Phone: 08-31-2008 varicella virus vaccine Jamar villar Gonzalez RAILWAY TRACTION LINE WORKER-[facility] Work Phone: [facility] Work Phone: 11-01-2005 diphtheria, tetanus toxoids and acellular pertussis vaccine Yuliana Gonzlaez RAILWAY TRACTION LINE WORKER-[facility] Work Phone: [facility] Work Phone: 11-01-2005 measles, mumps and rubella virus vaccine Yuliana Gonzalez RAILWAY TRACTION LINE WORKER-[facility] Work Phone: [facility] Work Phone: 11-01-2005 poliovirus vaccine, inactivated Yuliana Gonzalez RAILWAY TRACTION LINE WORKER-[facility] Work Phone: [facility] Work Phone: 11-19-2002 diphtheria, tetanus toxoids and acellular pertussis vaccine Yuliana Gonzalez RAILWAY TRACTION LINE WORKER-[facility] Work Phone: [facility] Work Phone: 08-23-2002 measles, mumps and rubella virus vaccine Yuliana Gonzalez RAILWAY TRACTION LINE WORKER-[facility] Work Phone: [facility] Work Phone: 05-24-2002 haemophilus influenz ae type b vaccine, PRP-T conjugate Yuliana Gonzalez RAILWAY TRACTION LINE WORKER-[facility] Work Phone: [facility] Work Phone: 05-24-2002 hepatitis B vaccine, pediatric or pediatric/adolescent dosage Yuliana Gonzalez RAILWAY TRACTION LINE WORKER-[employer]LLOWS FILLER Work Phone: [facility] Work Phone: 05-24-2002 varicella virus vaccine Jamar Gonzalez RAILWAY TRACTION LINE WORKER-[employer]LL[employer] FILLER Work Phone: [facility] Work Phone: 03-01-2002 haemophilus influenz ae type b vaccine, PRP-T conjugate Yuliana Gonzalez RAILWAY TRACTION LINE WORKER-[employer]LL[employer] F[employer]ER Work Phone: [facility] Work Phone: 03-01-2002 poliovirus vaccine, inactivated Yuliana Gonzalez RAILWAY TRACTION LINE WORKER-[employer]LL[employer] F[employer]ER Work Phone: [facility] Work Phone: 2001 diphtheria, tetanus toxoids and acellular pertussis vaccine Yuliana Gonzalez RAILWAY TRACTION LINE WORKER-[employer]LL[employer] F[employer]ER Work Phone: [facility] Work Phone: 2001 pneumococcal conjuga te vaccine, 7 valent Yuliana Gonzalez RAILWAY TRACTION LINE WORKER-[employer]LL[employer] FILLER Work Phone: [facility] Work Phone: 2001 diphtheria, tetanus toxoids and acellular pertussis vaccine Yuliana Gonzalez RAILWAY TRACTION LINE WORKER-[employer]LL[employer] F[employer]ER Work Phone: [facility] Work Phone: 2001 haemophilus influenz ae type b vaccine, PRP-T conjugate Yuliana Gonzalez RAILWAY TRACTION LINE WORKER-BELLOWS FILLER Work Phone: [facility] Work Phone: 2001 pneumococcal conjuga te vaccine, 7 valent Yuliana Gonzalez RAILWAY TRACTION LINE WORKER-BELLOWS FILLER Work Phone: [facility] Work Phone: 2001 poliovirus vaccine, inactivated Yuliana Gonzalez RAILWAY TRACTION LINE WORKER-[employer]LLOWS FILLER Work Phone: [facility] Work Phone: 2001 diphtheria, tetanus toxoids and acellular pertussis vaccine Yuliana Gonzalez RAILWAY TRACTION LINE WORKER-BELLOWS FILLER Work Phone: [facility] Work Phone: 2001 haemophilus influenz ae type b vaccine, PRP-T conjugate Yuliana Gonzalez RAILWAY TRACTION LINE WORKER-BELLOWS FILLER Work Phone: [facility] Work Phone: 2001 hepatitis B vaccine, pediatric or pediatric/adolescent dosage Yuliana Gonzalez RAILWAY TRACTION LINE WORKER-BELLOWS FILLER Work Phone: [facility] Work Phone: 2001 pneumococcal conjuga te vaccine, 7 valent Yuliana Gonzalez RAILWAY TRACTION LINE WORKER-BELLOWS FILLER Work Phone: [facility] Work Phone: 2001 poliovirus vaccine, inactivated Yuliana Gonzalez RAILWAY TRACTION LINE WORKER-BELLOWS FILLER Work Phone: [facility] Work Phone: 2001 hepatitis B vaccine, pediatric or pediatric/adolescent dosage Yuliana Gonzalez RAILWAY TRACTION LINE WORKER-BELLOWS FILLER Work Phone: [facility] Work Phone: Payers Date Payer Category Payer Self-pay 2023 [facility] [id number] 2001 Unknown [id number] 2001 Unknown [id number] 2001 Unknown [id number] 2001 Unknown [id number] 1959 Unknown [id number] 1959 Unknown [id number] Unknown [id number] Unknown [id number] Unknown [id number] 2..[id number] Unknown [id number] .[id number] Unknown [id number] .840.1.403942.3.579.2.462 Unknown [id number] 2.840.1.164950.3.579.2.462 Unknown [id number] 2.840.1.675064.3.579.2.462 Unknown [id number] 2.840.1.040368.3.579.2.462 Unknown [id number] .840.1.156205.3.579.2.462 Unknown [id number] .840.1.652497.3.579.2.462 Unknown [id number] .840.1.611346.3.579.2.462 Unknown [id number] .840.1.356876.3.579.2.462 Unknown [id number] Unknown [id number] .840.1.828320.3.579.2.462 Unknown [id number] .840.1.030948.3.579.2.462 Unknown [id number] 2.840.1.887619.3.579.2.462 Unknown [id number] 2.840.1.693384.3.579.2.462 Unknown [id number] 2.840.1.012119.3.579.2.462 Unknown [id number] [id number] Unknown [id number] [id number] Social History Date Type Detail Facility Start: 07-13-2024 End: 09-06-2024 Tobacco smoking status NHIS Never smoked tobacco [facility] Work Phone: Start: 07-13-2024 Tobacco use and exposure Smokeless tobacco non-user [facility] Work Phone: Start: 07-13-2024 End: 09-28-2024 Alcoholic beverage intake Current drinker of alcohol (finding) [facility] Work Phone: Start: 07-13-2024 End: 09-28-2024 History of Social function [facility] Work Phone: Start: 07-13-2024 End: 09-28-2024 Tobacco use panel [facility] Work Phone: Start: 07-13-2024 Alcohol Comment social [facility] Work Phone: Start: 2001 Sex assigned at Not on file [facility] Work Phone: Start: 07-03-2024 End: 09-28-2024 Exposure to SARS-CoV-2 (event) Not sure [facility] Start: 2001 Sex Assigned At Female W [facility] Clinical Notes 07-13-2024 to 03-25-2025 Note Date & Type Note Facility 03-25-2025 Progress note [facility] 03-18-2025 Progress note [facility] 03-10-2025 Progress note [facility] 03-10-2025 Progress note Note Date/Time March 10, 2025 3:51pm [facility] [address] [place] [address], [address] [place] [address] OFFICE VISIT Date of Service: 03/10/25 MR#: [id number] Acct: [id number] Name: GINO MICHELE Rep #: [id number] : 2000 Provider: Dr. Rosalva Weiss DO Age/Sex: 24/F Location[place] [facility] Status: Signed Intake Vital Signs 01/07/25 10:18 02/24/25 08:59 03/10/25 15:34 Height 5 ft 5 in 5 ft 5 in 5 ft 5 in Weight: 195 lb 4 oz BMI 32.5 BP 138/82 H Intake Visit Reasons: 36 wk ob Environmental Consultant Required: No Is patient in pain?: No Allergies No Known Allergies Allergy (Verified 03/10/25 15:33) Medications ?Medication ?Instructions ?Recorded ?Confirmed ?Type multivitamin no.47-iron fum 27 cap PO 09/06/24 5 History mg-folate no.1 1 mg-dha 300 mg capsule (PNV-DHA) buspirone 15 mg tablet 15 mg PO TID PRN anxiety #30 tabs 10/07/24 03/10/25 Rx metoclopramide HCl 10 mg tablet 10 mg PO QAC #60 tabs 10/07/24 03/10/25 Rx (Reglan) sertraline 50 mg tablet (Zoloft) 150 mg PO QDAY 03/10/25 History ondansetron 4 mg disintegrating 4 mg PO Q8H PRN PRN Na usea #30 tabs 10/15/24 03/10/25 Rx tablet ondansetron HCl 4 mg tablet 4 mg PO Q6H PRN nausea and 10/28/24 03/10/25 Rx vomiting #60 tabs ferrous gluconate 240 mg (27 mg 240 mg PO QDAY #30 tab s 01/07/25 03/10/25 Rx iron) tablet Last Menstrual Period: 06/27/24 Zika: Zika virus screening: Negative : No PFSH PFSH Medical History Migraine headache Surgical History Ethel teeth extracted Family History Grandfather Diabetes Maternal Mother Cancer Basal cell skin cancer Father Cancer Basal cell Skin cancer Aunt Cancer Maternal- Skin Melanoma Social History adopted: No household members: spouse current occupational status: employed 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 OB Visit BLUE Calculator Estimated Delivery Date Method Current WG Current Estimate 04/03/25 LMP (Certain) 36w 4d Other Estimates 04/01/25 Ultrasound #1 36w 6d Expected Delivery Route/Plan Labor Preferences- CB/BF [...] dates. declines NIPT. Anatomy US ordered 10/07/24 -?-?-?-?-?-?-?-?-?-?-?-?- 14w 4d 153 lb 2 oz (+10 lb 2 oz) 120/73 Negative -?-?-?-?-?-?-?-?-?-?-?-?- Negative 145 -?-?-?-?-?-?-?-?-?--?-?-?- JV- still some n ausea. trying reglan. [...] growth scan tomorrow. Baby shower this weekend. 02/24/25 -?-?-?-?-?-?-?-?-?-?-?-?- 34w 4d 189 lb 4 oz (+46 lb 4 oz) 103/69 Negative -?-?-?-?-?-?-?-?-?-?-?-?- Negative 145 35 -?-?-?-?-?-?-?-?-?-?-?-?- SM- no vb lof go od fm n oreuglar ctx 03/10/25 -?-?-?-?-?-?-?-?-?-?-?-?- 36w 4d 195 lb 4 oz (+52 lb 4 oz) 138/82 Negative -?-?-?-?-?-?-?-?-?-?-?-?- Negative 168 37 Cephalic 1 -?-?-?-?-?-?-?-?-?-?-?-?- 30 -3 JV- gbs co llected, no lof ,vaginal bleeding, or dec fm. ACOG First Trimester First Trimester: Discussed Second Trimester Second Trimester: Signs and Symptoms of Labor, Selecting a care provider, Reproductive Life Planning & Contreception, Care Planning and Depression/Anxiety; Discussed Tobacco Cessation and Discussed Intimate Partner Violence Third Trimester Third Trimester: Pain Management Plans, Labor support person(s), Immediate Larc, Circumcision preference, Signs and Symptoms of Preeclampsia, Feeding No , [place] Education and Family Medical Leave or Disability Forms; Discussed Tobacco Cessation and Discussed Intimate Partner Violence Results POC Urinalysis 2 Dip (Clinic) Office Urine Glucose Negative Last Edit by Kristen Quiros on 03/10/25 15:40 Office Urine Protein Negative Last Edit by Kristen Quiros on 03/10/25 15:40 Coding Level of Care Code OB Routine Diagnoses Anemia during in third trimester O99.013 Trimester: third trimester Circumvallate placenta in third trimester O43.113 Trimester: third trimester Supervision of high risk in third trimester O09.93 Trimester: third trimester 36 weeks gestation of Z3A.36 Weeks of gestation: 36 weeks Depression, unspecified depression type F32.A Depression [...] third trimester Comment: PRR, , BLUE 04/03/25 Boy Doris, Xavier (4) : Status: Acute Qualifiers: Weeks of gestation: 36 weeks Qualified Code(s): Z3A.36 - 36 weeks gestation of Comment: undecided about NIPT, nl anatomy (5) Depression: Status: Acute Qualifiers: Depression Type: unspecified Qualified Code(s): F32.A - Depression, unspecified Comment: sertraline/stable (6) Anxiety: Status: Acute Comment: stable Orders: Orders POC Urinalysis 2 Dip (Clinic) Today Culture, Group B Streptococcus Today O09.93 - Supervision of high risk , unspecified, third trimester 03/10/25 7999 <Electronically signed by Rufina Watkins DO> Date _ Rufina Weiss DO [facility] Signature: Date (if applicable) CC: ~ [facility] Work Phone: 1(503) 413-432106-26-2025 Progress [facility] [address] [place] [address], [place] [phone] OFFICE VISIT Date of Service: 02/24/25 MR#: [id number] Acct: [id number] Name: GINO MICHELE Rep #: [id number] : 2000 Provider: Dr. Arias Aquino MD Age/Sex: 24/F Location: [facility] [place] Status: Signed Intake Vital Signs 09/09/24 09:07 02/10/25 08:47 02/24/25 08:59 02/24/25 08:59 Height 5 ft 5 in 5 ft 5 in 5 ft 5 in 5 ft 5 in Weight: 189 lb 4 oz BMI 31.4 BP 103/69 Intake Visit Reasons: 34 wk ob Environmental Consultant Required: No Is patient in pain?: No Allergies No Known Allergies Allergy (Verified 02/24/25 08:59) Medications ?Medication ?Instructions ?Recorded ?Confirmed ?Type multivitamin no.47-iron fum 27 cap PO 09/06/24 5 History mg-folate no.1 1 mg-dha 300 mg capsule (PNV-DHA) buspirone 15 mg tablet 15 mg PO TID PRN anxiety #30 tabs 10/07/24 02/24/25 Rx metoclopramide HCl 10 mg tablet 10 mg PO QAC #60 tabs 10/07/24 02/24/25 Rx (Reglan) sertraline 50 mg tablet (Zoloft) 150 mg PO QDAY 02/24/25 History ondansetron 4 mg disintegrating 4 mg PO Q8H PRN PRN Na usea #30 tabs 10/15/24 02/24/25 Rx tablet ondansetron HCl 4 mg tablet 4 mg PO Q6H PRN nausea and 10/28/24 02/24/25 Rx vomiting #60 tabs ferrous gluconate 240 mg (27 mg 240 mg PO QDAY #30 tab s 01/07/25 02/24/25 Rx iron) tablet Last Menstrual Period: 06/27/24 Zika: Zika virus screening: Negative : No PFSH PFSH Medical History Migraine headache Surgical History Ethel teeth extracted Family History Grandfather Diabetes Maternal Mother Cancer Basal cell skin cancer Father Cancer Basal cell Skin cancer Aunt Cancer Maternal- Skin Melanoma Social History adopted: No household members: spouse current occupational status: employed 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 OB Visit BLUE Calculator Estimated Delivery Date Method Current WG Current Estimate 04/03/25 LMP (Certain) 34w 4d Other Estimates 04/01/25 Ultrasound #1 34w 6d Expected Delivery Route/Plan Labor Preferences- CB/BF [...] current plan of care details and appropriate ordersplaced. Relevant counseling for the gestational age provided. [...] dates. declines NIPT. Anatomy US ordered 10/07/24 -?-?-?-?-?-?-?-?-?-?-?-?- 14w 4d 153 lb 2 oz (+10 lb 2 oz) 120/73 Negative -?-?-?-?-?-?-?-?-?-?-?-?- Negative 145 -?-?-?-?-?-?-?-?-?-?-?-?- JV- still some n ausea. trying reglan. will also try buspar for anxiety. anatomy scan ordered. 11/05/24 -?-?-?-?-?--?-?-?-?-?-?-?- 18w 5d 164 lb (+21 lb) 134/81 [...] 5d 182 lb (+39 lb) 127/81 Negative -?-?-?-?-?-?-?-?-?--?-?-?- Negative 155 28 -?-?-?-?-?-?-?-?-?-?-?-?- KW- no vb/lof/ct x. good fm. good fm. signed up for CBE classes-28 week labs today-chiropractor for low back pain. LARC today. possible tdap next week. 01/26/25 -?-?-?-?-?-?-?-?-?-?-?-?- 30w 3d 188 lb 4 oz (+45 lb 4 oz) 126/72 Negative -?-?-?-?-?--?-?-?-?-?-?-?- Negative 145 31 -?-?-?-?-?-?-?-?-?-?-?-?- MH-No Vb, LOF. G ood FM. Resp congestion, meds reviewed. Wants tdap next visit. 02/10/25 -?-?-?-?-?-?-?-?-?-?-?-?- 32w 4d 189 lb 2 oz (+46 lb 2 oz) 115/83 Negative -?-?-?-?-?-?-?-?-?-?-?-?- Negative 160 33 -?-?-?--?-?-?-?-?-?-?-?-?- KW- no vb/lof/ct x. good fm. restless leg sx- starting magnesium and discussed compression hose. growth scan tomorrow. Baby shower this weekend. 02/24/25 -?-?-?-?-?-?-?-?-?-?-?-?- 34w 4d 189 lb 4 oz (+46 lb 4 oz) 103/69 Negative -?-?-?-?-?-?-?-?-?-?-?-?- Negative 145 35 -?-?-?-?-?-?--?-?-?-?-?-?- SM- no vb lof go od fm n oreuglar ctx ACOG First Trimester First Trimester: Discussed Second Trimester Second Trimester: Signs and Symptoms of Labor, Selecting a care provider, Reproductive Life Planning & Contreception, Care Planning and Depression/Anxiety; Discussed Tobacco Cessation and Discussed Intimate Partner Violence Third Trimester Third Trimester: Pain Management Plans, Labor support person(s), Immediate Larc, Circumcision preference, Signs and Symptoms of Preeclampsia, Infant Feeding No , [place] Education and Family Medical Leave or Disability Forms; Discussed Tobacco Cessation and Discussed Intimate Partner Violence Results POC Urinalysis 2 Dip (Clinic) Office Urine Glucose Negative Last Edit by Mare Dowd on 02/24/25 09: 17 Office Urine Protein Negative Last Edit by Mare Dowd on 02/24/25 09: 17 Coding Level of Care Code OB Routine Diagnoses Anemia during in third trimester O99.013 Trimester: third trimester Circumvallate placenta in third trimester O43.113 Trimester: third trimester Supervision of high risk in third trimester O09.93 Trimester: third trimester 34 weeks gestation of Z3A.34 Weeks of gestation: 34 weeks Depression, unspecified depression type F32.A Depression [...] : Status: Acute Qualifiers: Weeks of gestation: 34 weeks Qualified Code(s): Z3A.34 - 34 weeks gestation of Comment: undecided about NIPT, nl anatomy (5) Depression: Status: Acute Qualifiers: Depression Type: unspecified Qualified Code(s): F32.A - Depression, unspecified Comment: sertraline/stable (6) Anxiety: Status: Acute Comment: stable Orders: Orders POC Urinalysis 2 Dip (Clinic) Today 02/24/25 0922 gita CAMEJO> Date _ Marissa Aquino MD Cosigner Signature: Date (if applicable) CC: ~ [facility]06-13-2025 Radiology Diagnostic study note [facility] Imaging Services [address] [place] [address] OB Limited With Biometrics MR#: [id number] Acct: [id number] Name: GINO MICHELE Rep #: [id number] : 2000 F 24 From: Joshua Astorga MD PCP: OLGA Montilla Status: REG CLI Study:OB Limited With Biometrics Date of Exam : 02/11/25 Exam# [id number] Ordering Dr: Autumn Jacome CNM PROCEDURE: OB LIMITED WITH BIOMETRICS 02/11/2025 REASON FOR EXAM: GROWTH AT 32 WEEKS TECHNIQUE: High resolution obstetric ultrasound performed using a 2D transducer. Standard views obtained, including biometry, anatomy survey, and Doppler studies. COMPARISON: None FINDINGS Number: 1 Position: Vertex Placental Position: Posterior Placental Abnormalities: No evidence of previa. DIMENSIONS: Biparietal Diameter: 8.6 cm: 34 weeks and 5 days: 91st percentile/ Head Circumference: 31.12 cm: 34 weeks and 6 days: 69 percentile/ Abdominal Circumference: 31.04 cm: 35 weeks and 0 days: 96 percentile/ Femur Length: 5.74 cm: 30 weeks and 1 day: 12th percentile/ ESTIMATED WEIGHT: 2245 g plus/-337 g ESTIMATED WEIGHT PERCENTILE (24+ weeks): 70 ESTIMATED GESTATIONAL AGE: Baseline: 32 weeks and 5 days By Ultrasound: 34 weeks and 0 days ESTIMATED DATE OF DELIVERY: Baseline: April 03, 2025 By Ultrasound: March 25, 2024 BIOPHYSICAL ASSESSMENT: Amniotic Fluid Volume: 6 cm Amniotic Fluid Index: 13.8 (8-24 cm normal range) Cardiac Motion: 171 beats per minute (average) Trunk and Limb Motion: Present. MATERNAL ANATOMY: Adnexa: Neither maternal ovary is successfully identified. US/OB Limited With Biometrics IMPRESSION: Single live intrauterine gestation with a mean gestational age of 34 weeks. 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 [facility]06-12-2025 Progress [facility]'s [address], [address] [place] [address] OFFICE VISIT Date of Service: 02/10/25 MR#: [id number] Acct: [id number] Name: GINO MICHELE Rep #: [id number] : 2000 Provider: JOSE Jacome Age/Sex: 24/F Location: [facility] Status: Signed Intake Vital Signs 09/09/24 09:07 01/26/25 08:35 02/10/25 08:47 Height 5 ft 5 in 5 ft 5 in 5 ft 5 in Weight: 189 lb 2 oz BMI 31.4 BP 115/83 H Intake Visit Reasons: 32 wk ob Environmental Consultant Required: No Is patient in pain?: No [...] PFSH Medical History Migraine headache Surgical History Ethel teeth extracted Family History Grandfather Diabetes Maternal Mother Cancer Basal cell skin cancer Father Cancer Basal cell Skin cancer Aunt Cancer Maternal- Skin Melanoma Social History adopted: No household members: spouse current occupational status: employed 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 Relevant counseling for the gestational age provided. [...] Circumcision preference, Signs and Symptoms of Preeclampsia, Infant Feeding No , Education and Family Medical [...] Performing Provider: Autumn Jacome CNM Performing Location: [facility] Administered by: Kristen Quiros on 02/10/25 08:57 Dose Route Admin Location Dispensed Lot Number Expiration Date NDC Play Reader 0.5 mL IM Right Deltoid 0.5 mL [id number] 01/29/26 35130-882-95 [employer]PA[employer]UR VIS Given Date VIS Provided VIS [...] information and see below for orders placed atthis visit. [place] appropriate handout given. 02/10/25 0911 s CNM> Date _ Autumn Jacome CNM Cosigner Signature: Date (if applicable) CC: ~ [facility]04-04-2025 Evaluation note* Diagnosis Onset Date Resolution Status Admit Date Anxiety acute December 03 10:11am Circumvallate placenta acute Ap 2024 10:11am Depression acute December 03 10:11am acute December 03 10:11am Supervision of high-risk acute December 03, 2024 10:11am Anxiety acute January 07, 2025 10:04am Circumvallate placenta acute Ma 2024 10:04am Depression acute January 07, 2025 [...] February 10 8:46am Circumvallate placenta acute Ju ne 2024 8:46am Depression acute February 10 8:46am acute February 10 8:46am Supervision of high-risk acute February 10, 2025 8:46am Anemia in preg-unspec acute Jan 8:56am Anxiety acute February 24 8:56am Circumvallate placenta acute Ju ne 2024 8:56am Depression acute February 24 8:56am acute February 24 8:56am Supervision of high-risk acute February 24, 2025 8:56am Anemia in preg-unspec acute Mar y 2024 3:30pm Anxiety acute March 10 3:30pm Circumvallate placenta acute Ju ly 2024 3:30pm Depression acute March 10 3:30pm acute March 10 3:30pm Supervision of high-risk acute March 10, 2025 3:30pm [facility] Work Phone: 1(628) 324-756404-04-2025 Evaluation note* Diagnosis Onset Date Resolution Status Admit Date Anxiety acute December 03 10:11am Circumvallate placenta acute Ap 2024 10:11am Depression acute December 03 10:11am acute December 03 10:11am Supervision of high-risk acute December 03, 2024 10:11am Anxiety acute January 07, 2025 10:04am Circumvallate placenta acute Ma 2024 10:04am Depression acute January 07, 2025 [...] of high-risk acute February 10, 2025 8:46am Anemia in preg-unspec acute Jan 8:56am Anxiety acute February 24 8:56am Circumvallate placenta acute Ju ne 2024 8:56am Depression acute February 24 8:56am acute February 24 8:56am Supervision of high-risk acute February 24, 2025 8:56am Anemia in preg-unspec acute Mar 3:30pm Anxiety acute March 10 3:30pm Circumvallate placenta acute Ju ly 2024 3:30pm Depression acute March 10 3:30pm acute March 10 3:30pm Supervision of high-risk acute March 10, 2025 3:30pm Anemia in preg-unspec acute Mar 9:29am Anxiety acute March 18 9:29am Circumvallate placenta acute Ju ly 2024 9:29am Depression acute March 18 9:29am acute March 18 9:29am Supervision of high-risk acute March 18, 2025 9:29am Uterine size-date discrepanc y, third trimester acute March 18, 2025 9:29am [facility] Work Phone: 1(143) 646-504404-04-2025 Evaluation note* Diagnosis Onset Date Resolution Status Admit Date Anxiety acute December 03 10:11am Circumvallate placenta [...] of high-risk acute February 10, 2025 8:46am Anemia in preg-unspec acute Jan e 2024 8:56am Anxiety acute February 24 8:56am Circumvallate placenta acute Ju ne 2024 8:56am Depression acute February 24 8:56am acute February 24 8:56am Supervision of high-risk acute February 24, 2025 8:56am Anemia in preg-unspec acute Mar 3:30pm Anxiety acute March 10 3:30pm Circumvallate placenta acute 2024 3:30pm Depression acute March 10 3:30pm acute March 10 3:30pm Supervision of high-risk acute March 10, 2025 3:30pm Anemia in preg-unspec acute Mar 9:29am Anxiety acute March 18 9:29am Circumvallate placenta acute Ju ly 2024 9:29am Depression acute March 18 9:29am acute March 18 9:29am Supervision of high-risk acute March 18, 2025 9:29am Uterine size-date discrepanc y, third trimester acute March 18, 2025 9:29am Anemia in preg-unspec acute Mar 9:59am Anxiety acute March 25 9:59am Circumvallate placenta acute Ju ly 2024 9:59am Depression acute March 25 9:59am acute March 25 9:59am Supervision of high-risk acute March 25, 2025 9:59am Uterine size-date discrepanc y, third trimester acute March 25, 2025 9:59am [facility] Work Phone: 1([phone]) 298-146303-07-2025 Evaluation note* Diagnosis Onset Date Resolution Status [...] high-risk acute January 07, 2025 10 :04am [facility] Work Phone: 1(155) 537-446603-07-2025 Evaluation note* Diagnosis Onset Date Resolution Status [...] high-risk acute January 26, 2025 8 :33am [facility] Work Phone: 1(192) 445-714903-07-2025 Evaluation note* Diagnosis Onset Date Resolution Status [...] of high-risk acute February 10, 2025 8:[address]am [facility] Work Phone: 1(406) 487-170003-07-2025 Evaluation note* Diagnosis Onset Date Resolution Status [...] of high-risk acute February 10, 2025 8:46am Anemia in preg-unspec acute Jan 8:56am Anxiety acute February 24 8:56am Circumvallate placenta acute Ju ne 2024 8:56am Depression acute February 24 8:56am acute February 24 8:56am Supervision of high-risk acute February 24, 2025 8:56am [facility] Work Phone: 1(957) 475-873001-28-2025 Evaluation + Plan note* Assessment & Plan Note - KAREL Phililps - 09/28/2024 7:59 AM ESTAssociated Problem(s): Persistent depressive disorder Increase zoloft 150 mg daily [facility] Work Phone: 1([phone]) 628-773701-28-2025 Evaluation + Plan note* Assessment & Plan Note - KAREL Phillips - 09/28/2024 7:59 AM ESTAssociated Problem(s): Anxiety Increase zoloft 150 mg daily [facility] Work Phone: 1([phone] 345-161701-28-2025 Miscellaneous Notes* Assessment & Plan Note - KAREL Phillips - 09/28/2024 7:59 AM ESTAssociated Problem(s): Persistent depressive disorder Increase zoloft 150 mg daily * Assessment & Plan Note - KAREL Phillips - 09/28/2024 7:59 AM EST Associated Problem(s): Anxiety Increase zoloft 150 mg daily [facility] Phone: 1([phone] 170-504601-28-2025 History of Present illness Narrative* Jojo Vela CMA - 09/28/2024 7:40 AM EST 13 weeks * KAREL Phillips - 09/28/2024 7:40 AM EST Subjective Patient ID: Gino Michele is a 24 y.o. female who presents for Medication Problem. HPI Gino returns to discuss increasing her zoloft. She is currently 13 weeks . Sees howe in [place]. Anxiety/depression: has been on zoloft and was [...] effects of the medication. documented in this [facility] Work Phone: 1(138) 713-888211-12-2024 Evaluation + Plan note* Assessment & Plan Note - KAREL Phillips - 07/13/2024 8:05 AM ESTAssociated Problem(s): Migraine without aura and without status migrainosus, not intractable Rizatriptan 10 mg as needed for migraine stable [facility] Work Phone: 1([phone] 375-344811-12-2024 Miscellaneous Notes* Assessment & Plan Note - [...] blood in it thistime. [facility] Work Phone: 1([phone]) 106-216811-12-2024 Evaluation + Plan note* Assessment & Plan Note - KAREL Phillips - 07/13/2024 8:04 AM ESTAssociated Problem(s): Anxiety Doing well on sertraline 100 mg daily [facility] Work Phone: 1([phone]) 540-456711-12-2024 Evaluation + Plan note* Assessment & Plan Note - KAREL Phillips - 07/13/2024 8:04 AM ESTAssociated Problem(s): Persistent depressive disorder Currently on sertraline 100 mg daily stable [facility] Work Phone: 1([phone]) 957-189811-12-2024 History of Present illness Narrative* Jojo Vela [...] hard to urinate, back pain. Went to [facility] clinic. Was treated for LUTS (Macrobid). Has [...] effects of the medication. [facility] Work Phone: 1([phone]) 512-431511-12-2024 Progress note* Result Encounter Note - KAREL Phillips - 07/13/2024 7:20 AM EST Let her know her urine did not show any signs of an infection and did not have any blood in it thistime. [facility] Work Phone: Evaluation note* Diagnosis Wellness examination- Primary Dysuria Persistent depressive disorder Migraine without aura and without status migrainosus, not intractable Screening for lipid disorders BMI 23.0-23.9, adult documented in this encounter [facility] Work Phone: Evaluation note* Diagnosis Wellness examination- Primary Dysuria Persistent depressive disorder Migraine without aura and without status migrainosus, not intractable Screening for lipid disorders BMI 23.0-23.9, adult Persistent depressive disorder Anxiety Anxiety state, unspecified documented in this encounter [facility] Work Phone: Progress note Author Autumn Jacome [facility] Note Date/Time February 10, 2025 9:11 am [facility] [address], [address] [place] [address] OFFICE VISIT Date of Service: 02/10/25 MR#: [id number] Acct: [id number] Name: GINO MICHELE Rep #: [id number] : 2000 Provider: JOSE Jacome Age/Sex: 24/F Location: [facility] Status: Signed Intake Vital Signs 09/09/24 09:07 01/26/25 08:35 02/10/25 08:47 Height 5 ft 5 in 5 ft 5 in 5 ft 5 in Weight: 189 lb 2 oz BMI 31.4 BP 115/83 H Intake Visit Reasons: 32 wk ob Environmental Consultant Required: No Is patient in pain?: No [...] PFSH Medical History Migraine headache Surgical History Ethel teeth extracted Family History Grandfather Diabetes Maternal Mother Cancer Basal cell skin cancer Father Cancer Basal cell Skin cancer Aunt Cancer Maternal- Skin Melanoma Social History adopted: No household members: spouse current occupational status: employed 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 and animals: Yes (Avoid Litterbox) pets [...] physical activity do you participate in: none osiris/cheondoism: Mandaeism seatbelt use: always do you feel safe [...] Circumcision preference, Signs and Symptoms of Preeclampsia, Infant Feeding No , [place] Education and Family Medical Leave or Disability [...] Performing Provider: Autumn Jacome CNM Performing Location: [facility] Administered by: Kristen Quiros on 02/10/25 08:57 Dose Route Admin Location Dispensed Lot Number Expiration Date NDC Play Reader 0.5 mL IM Right Deltoid 0.5 mL [id number] 01/29/26 60128-254-87 [employer] VIS Given Date VIS Provided [...] at this visit. [place] appropriate handout given. 02/10/25910 <Electronically signed by Autumn fernandez CNM> Date _ Autumn Jacome CNM Cosigner Signature: Date (if applicable) CC: ~ [facility] Work Phone: Progress note Author Marissa Aquino [facility] Note Date/Time February 24, 2025 9:22 am [facility] [address] [place] [address], [address] [place] [address] OFFICE VISIT Date of Service: 02/24/25 MR#: [id number] Acct: [id number] Name: GINO MICHELE Rep #: [id number] : 2000 Provider: Dr. Arias Aquino MD Age/Sex: 24/F Location: [facility] Status: Signed Intake Vital Signs 09/09/24 09:07 02/10/25 08:47 02/24/25 08:59 02/24/25 08:59 Height 5 ft 5 in 5 ft 5 in 5 ft 5 in 5 ft 5 in Weight: 189 lb 4 oz BMI 31.4 BP 103/69 Intake Visit Reasons: 34 wk ob Environmental Consultant Required: No Is patient in pain?: No Allergies No Known Allergies Allergy (Verified 02/24/25 08:59) Medications ?Medication ?Instructions ?Recorded ?Confirmed ?Type multivitamin no.47-iron fum 27 cap PO 09/06/24 5 History mg-folate no.1 1 mg-dha 300 mg capsule (PNV-DHA) buspirone 15 mg tablet 15 mg PO TID PRN anxiety #30 tabs 10/07/24 02/24/25 Rx metoclopramide HCl 10 mg tablet 10 mg PO QAC #60 tabs 10/07/24 02/24/25 Rx (Reglan) sertraline 50 mg tablet (Zoloft) 150 mg PO QDAY 02/24/25 History ondansetron 4 mg disintegrating 4 mg PO Q8H PRN PRN Na usea #30 tabs 10/15/24 02/24/25 Rx tablet ondansetron HCl 4 mg tablet 4 mg PO Q6H PRN nausea and 10/28/24 02/24/25 Rx vomiting #60 tabs ferrous gluconate 240 mg (27 mg 240 mg PO QDAY #30 tab s 01/07/25 02/24/25 Rx iron) tablet Last Menstrual Period: 06/27/24 Zika: Zika virus screening: Negative : No PFSH PFSH Medical History Migraine headache Surgical History Ethel teeth extracted Family History Grandfather Diabetes Maternal Mother Cancer Basal cell skin cancer Father Cancer Basal cell Skin cancer Aunt Cancer Maternal- Skin Melanoma Social History adopted: No household members: spouse current occupational status: employed 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 OB Visit BLUE Calculator Estimated Delivery Date Method Current WG Current Estimate 04/03/25 LMP (Certain) 34w 4d Other Estimates 04/01/25 Ultrasound #1 34w 6d Expected Delivery Route/Plan Labor Preferences- CB/BF [...] dates. declines NIPT. Anatomy US ordered 10/07/24 -?-?-?-?-?-?-?-?-?-?-?-?- 14w 4d 153 lb 2 oz (+10 lb 2 oz) 120/73 Negative -?-?-?-?-?-?-?-?-?-?-?-?- Negative 145 -?-?-?-?-?-?-?-?-?-?-?-?- JV- still some n ausea. trying reglan. will also try buspar for anxiety. anatomy scan ordered. 11/05/24 -?-?-?-?-?--?-?-?-?-?-?-?- 18w 5d 164 lb (+21 lb) 134/81 [...] 5d 182 lb (+39 lb) 127/81 Negative -?-?-?-?-?-?-?-?-?--?-?-?- Negative 155 28 -?-?-?-?-?-?-?-?-?-?-?-?- KW- no vb/lof/ct x. good fm. good fm. signed up for CBE classes-28 week labs today-chiropractor for low back pain. LARC today. possible tdap next week. 01/26/25 -?-?-?-?-?-?-?-?-?-?-?-?- 30w 3d 188 lb 4 oz (+45 lb 4 oz) 126/72 Negative -?-?-?-?-?--?-?-?-?-?-?-?- Negative 145 31 -?-?-?-?-?-?-?-?-?-?-?-?- MH-No Vb, LOF. G ood FM. Resp congestion, meds reviewed. Wants tdap next visit. 02/10/25 -?-?-?-?-?-?-?-?-?-?-?-?- 32w 4d 189 lb 2 oz (+46 lb 2 oz) 115/83 Negative -?-?-?-?-?-?-?-?-?-?-?-?- Negative 160 33 -?-?-?--?-?-?-?-?-?-?-?-?- KW- no vb/lof/ct x. good fm. restless leg sx- starting magnesium and discussed compression hose. growth scan tomorrow. Baby shower this weekend. 02/24/25 -?-?-?-?-?-?-?-?-?-?-?-?- 34w 4d 189 lb 4 oz (+46 lb 4 oz) 103/69 Negative -?-?-?-?-?-?-?-?-?-?-?-?- Negative 145 35 -?-?-?-?-?-?--?-?-?-?-?-?- SM- no vb lof go od fm n oreuglar ctx ACOG First Trimester First Trimester: Discussed Second Trimester Second Trimester: Signs and Symptoms of Labor, Selecting a care provider, Reproductive Life Planning & Contreception, Care Planning and Depression/Anxiety; Discussed Tobacco Cessation and Discussed Intimate Partner Violence Third Trimester Third Trimester: Pain Management Plans, Labor support person(s), Immediate Larc, Circumcision preference, Signs and Symptoms of Preeclampsia, Feeding No , [place] Education and Family Medical Leave or Disability Forms; Discussed Tobacco Cessation and Discussed Intimate Partner Violence Results POC Urinalysis 2 Dip (Clinic) Office Urine Glucose Negative Last Edit by Mare Dowd on 02/24/25 09: 17 Office Urine Protein Negative Last Edit by Mare Dowd on 02/24/25 09: 17 Coding Level of Care Code OB Routine Diagnoses Anemia during in third trimester O99.013 Trimester: third trimester Circumvallate placenta in third trimester O43.113 Trimester: third trimester Supervision of high risk in third trimester O09.93 Trimester: third trimester 34 weeks gestation of Z3A.34 Weeks of gestation: 34 weeks Depression, unspecified depression type F32.A Depression [...] : Status: Acute Qualifiers: Weeks of gestation: 34 weeks Qualified Code(s): Z3A.34 - 34 weeks gestation of Comment: undecided about NIPT, nl anatomy (5) Depression: Status: Acute Qualifiers: Depression Type: unspecified Qualified Code(s): F32.A - Depression, unspecified Comment: sertraline/stable (6) Anxiety: Status: Acute Comment: stable Orders: Orders POC Urinalysis 2 Dip (Clinic) Today 06/26/25 0922 <Electronically signed by Marissa pelayo MD> Date _ Mraissa Aquino MD Cosigner Signature: Date (if applicable) CC: ~ [facility] Work Phone: Progress note Author Marissa Aquino [facility] Note Date/Time March 18, 2025 9:59 am [facility] [address], [address] [place] [address] OFFICE VISIT Date of Service: 03/18/25 MR#: [id number] Acct: [id number] Name: GINO MICHELE Rep #: [id number] : 2000 Provider: Dr. Arias Aquino MD Age/Sex: 24/F Location: [facility] Status: Signed Intake Vital Signs 02/10/25 08:47 03/10/25 15:34 03/18/25 09:31 Height 5 ft 5 in 5 ft 5 in 5 ft 5 in Weight: 195 lb BMI 32.4 BP 139/83 H Intake Visit Reasons: 37 wk ob Environmental Consultant Required: No Is patient in pain?: No Allergies No Known Allergies Allergy (Verified 03/18/25 09:32) Medications ?Medication ?Instructions ?Recorded ?Confirmed ?Type multivitamin no.47-iron fum 27 cap PO 09/06/24 5 History mg-folate no.1 1 mg-dha 300 mg capsule (PNV-DHA) buspirone 15 mg tablet 15 mg PO TID PRN anxiety #30 tabs 10/07/24 03/18/25 Rx metoclopramide HCl 10 mg tablet 10 mg PO QAC #60 tabs 10/07/24 03/18/25 Rx (Reglan) sertraline 50 mg tablet (Zoloft) 150 mg PO QDAY 03/18/25 History ondansetron 4 mg disintegrating 4 mg PO Q8H PRN PRN Na usea #30 tabs 10/15/24 03/18/25 Rx tablet ondansetron HCl 4 mg tablet 4 mg PO Q6H PRN nausea and 10/28/24 03/18/25 Rx vomiting #60 tabs ferrous gluconate 240 mg (27 mg 240 mg PO QDAY #30 tab s 01/07/25 03/18/25 Rx iron) tablet Last Menstrual Period: 06/27/24 Zika: Zika virus screening: Negative : No PFSH PFSH Medical History Migraine headache Surgical History Ethel teeth extracted Family History Grandfather Diabetes Maternal Mother Cancer Basal cell skin cancer Father Cancer Basal cell Skin cancer Aunt Cancer Maternal- Skin Melanoma Social History adopted: No household members: spouse current occupational status: employed 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 OB Visit BLUE Calculator Estimated Delivery Date Method Current WG Current Estimate 04/03/25 LMP (Certain) 37w 5d Other Estimates 04/01/25 Ultrasound #1 38w 0d Expected Delivery Route/Plan Labor Preferences- CB/BF classes: yes labor support person: Alice labor intervention preferences: [] pain management options preferred: epidural cut cord/dad catch: no : yes PP control planned: discussed discussed possible routes of delivery and associated risks: [] special requests: [] Specific Issue/Plans Covid status: [] Flu vaccine: [] Tdap vaccine: Rhogam: NA LARC form signed: yes movement and labor precautions reviewed. Problem list reviewed and updated with the [...] dates. declines NIPT. Anatomy US ordered 10/07/24 -?-?-?-?-?-?-?-?-?-?-?-?- 14w 4d 153 lb 2 oz (+10 [...] meds reviewed. Wants tdap next visit. 02/10/25 -?-?--?-?-?-?-?-?-?-?-?-?- 32w 4d 189 lb 2 oz (+46 lb 2 oz) 115/83 Negative -?-?-?-?-?-?-?-?-?-?-?-?- Negative 160 33 -?-?-?-?-?-?-?-?-?-?-?--?- KW- no vb/lof/ct x. good fm. restless leg sx- starting magnesium and discussed compression hose. growth scan tomorrow. Baby shower this weekend. 02/24/25 -?-?-?-?-?--?-?-?-?-?-?-?- 34w 4d 189 lb 4 oz (+46 lb 4 oz) 103/69 Negative -?-?-?-?-?-?-?-?-?-?-?-?- Negative 145 35 -?-?-?-?-?-?-?-?-?-?-?-?- SM- no vb lof go od fm n oreuglar ctx 03/10/25 -?-?-?-?-?-?-?-?-?-?-?-?- 36w 4d 195 lb 4 oz (+52 lb 4 oz) 138/82 Negative -?-?-?-?-?-?-?-?-?-?-?-?- Negative 168 37 Cephalic 1 -?-?-?-?-?-?-?-?-?-?-?-?- 30 -3 JV- gbs co llected, no lof ,vaginal bleeding, or dec fm. 03/18/25 -?-?-?-?-?-?-?-?-?-?-?-?- 37w 5d 195 lb (+52 lb) 139/83 -?-?-?-?-?-?-?-?-?-?-?-?- 150 41 Cephalic 1 -?-?-?-?-?-?-?-?-?-?-?-?- SM- no vb lof go od fm no regular ctx, occasional hilario and spots in vision but they always resolve ACOG First Trimester First Trimester: Discussed Second Trimester Second Trimester: Signs and Symptoms of Labor, Selecting a care provider, Reproductive Life Planning & Contreception, Care Planning and Depression/Anxiety; Discussed Tobacco Cessation and Discussed Intimate Partner Violence Third Trimester Third Trimester: Pain Management Plans, Labor support person(s), Immediate Larc, Circumcision preference, Signs and Symptoms of Preeclampsia, Infant Feeding No , [place] Education and Family Medical Leave or Disability Forms; Discussed Tobacco Cessation and Discussed Intimate Partner Violence Coding Level of Care Code OB Routine Diagnoses Anemia during in third trimester O99.013 Trimester: third trimester Circumvallate placenta in third trimester O43.113 Trimester: third trimester Supervision of high risk in third trimester O09.93 Trimester: third trimester 37 weeks gestation of Z3A.37 Weeks of gestation: 37 weeks Depression, unspecified depression type F32.A Depression Type: unspecified Anxiety F41.9 Uterine size-date discrepancy, third trimester O26.843 Assessment and Plan Assessment and Plan (1) [...] third trimester Comment: PRR, , BLUE 04/03/25 Boy Doris, Xavier (4) : Status: Acute Qualifiers: Weeks of gestation: 37 weeks Qualified Code(s): Z3A.37 - 37 weeks gestation of Comment: Neg GBS. undecided about NIPT, nl anatomy (5) Depression: Status: Acute Qualifiers: Depression Type: unspecified Qualified Code(s): F32.A - Depression, unspecified Comment: sertraline/stable (6) Anxiety: Status: Acute Comment: stable (7) Uterine size-date discrepancy, third trimester: Status: Acute Orders: Orders POC Urinalysis 2 Dip (Clinic) Today 03/18/25 0959 <Electronically signed by Marissa pelayo MD> Date _ aMrissa Banegasignmaxine Signature: Date (if applicable) CC: ~ [facility] Work Phone: Progress note Author Autumn Jacome [facility] Note Date/Time March 25, 2025 10:3 6am [facility]'[address], [address] [place] [address] OFFICE VISIT Date of Service: 03/25/25 MR#: [id number] Acct: [id number] Name: LENYGINOBERNY ESPITIA Rep #: [id number] : 2000 Provider: JOSE Jacome Age/Sex: 24/F Location: [facility] Status: Signed Intake Vital Signs 02/10/25 08:47 03/18/25 09:31 03/25/25 10:08 Height 5 ft 5 in 5 ft 5 in 5 ft 5 in Weight: 196 lb 8 oz BMI 32.7 BP 123/67 H Intake Visit Reasons: 38 wk ob Chief Complaint: 38 Week OB Environmental Consultant Required: No Is patient in pain?: No Allergies No Known Allergies Allergy (Verified 03/25/25 10:10) Medications ?Medication ?Instructions ?Recorded ?Confirmed ?Type multivitamin no.47-iron fum 27 cap PO 09/06/24 5 History mg-folate no.1 1 mg-dha 300 mg capsule (PNV-DHA) buspirone 15 mg tablet 15 mg PO TID PRN anxiety #30 tabs 10/07/24 03/25/25 Rx metoclopramide HCl 10 mg tablet 10 mg PO QAC #60 tabs 10/07/24 03/25/25 Rx (Reglan) sertraline 50 mg tablet (Zoloft) 150 mg PO QDAY 03/25/25 History ondansetron 4 mg disintegrating 4 mg PO Q8H PRN PRN Na usea #30 tabs 10/15/24 03/25/25 Rx tablet ondansetron HCl 4 mg tablet 4 mg PO Q6H PRN nausea and 10/28/24 03/25/25 Rx vomiting #60 tabs ferrous gluconate 240 mg (27 mg 240 mg PO QDAY #30 tab s 01/07/25 03/25/25 Rx iron) tablet Last Menstrual Period: 06/27/24 Zika: Zika virus screening: Negative : No PFSH PFSH Medical History Migraine headache Surgical History Ethel teeth extracted Family History Grandfather Diabetes Maternal Mother Cancer Basal cell skin cancer Father Cancer Basal cell Skin cancer Aunt Cancer Maternal- Skin Melanoma Social History adopted: No household members: spouse current occupational status: employed 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 OB Visit BLUE Calculator Estimated Delivery Date Method Current WG Current Estimate 04/03/25 LMP (Certain) 38w 5d Other Estimates 04/01/25 Ultrasound #1 39w 0d Expected Delivery Route/Plan Labor Preferences- CB/BF classes: yes labor support person: Alice labor intervention preferences: [] pain management options preferred: epidural cut cord/dad catch: no : yes PP control planned: discussed discussed possible routes of delivery and associated risks: [] special requests: [] Specific Issue/Plans Covid status: [] Flu vaccine: [] Tdap vaccine: Rhogam: NA LARC form signed: yes movement and labor precautions reviewed. Problem list reviewed and updated with the [...] dates. declines NIPT. Anatomy US ordered 10/07/24 -?-?-?-?-?-?-?-?-?-?-?-?- 14w 4d 153 lb 2 oz (+10 [...] 6 oz) 120/77 Negative -?-?-?-?-?-?-?-?-?-?-?-?- Negative 164 -?-?-?-?--?-?-?-?-?-?-?-?- JV- discussed ci rcumvellate placenta. no other [...] growth scan tomorrow. Baby shower this weekend. 02/24/25 -?-?-?-?-?-?-?-?-?-?-?-?- 34w 4d 189 lb 4 oz (+46 lb 4 oz) 103/69 Negative -?-?-?-?-?-?-?-?-?-?-?-?- Negative 145 35 -?-?-?-?-?-?-?-?-?-?-?-?- SM- no vb lof go od fm n oreuglar ctx 03/10/25 -?-?-?-?-?-?-?-?-?-?-?-?- 36w 4d 195 lb 4 oz (+52 lb 4 oz) 138/82 Negative -?-?-?-?-?-?-?-?-?-?-?-?- Negative 168 37 Cephalic 1 -?-?-?-?-?-?-?-?-?-?-?-?- 30 -3 JV- gbs co llected, no lof ,vaginal bleeding, or dec fm. 03/18/25 -?-?-?-?-?-?-?-?-?-?-?-?- 37w 5d 195 lb (+52 lb) 139/83 -?-?-?-?-?-?-?-?-?-?-?-?- 150 41 Cephalic 1 -?-?-?-?-?-?-?-?-?-?-?-?- SM- no vb lof go od fm no regular ctx, occasional hilario and spots in vision but they always resolve 03/25/25 -?-?-?-?-?-?-?-?-?-?-?-?- 38w 5d 196 lb 8 oz (+53 lb 8 oz) 123/67 Negative -?-?-?-?-?-?-?-?-?-?-?-?- Negative 140 41 Cephalic 2 -?-?-?-?-?-?-?-?-?-?-?-?- 70 -2 KW- no vb/ lof. no regular ctx. good fm. US reviewed. labor precautions. ACOG First Trimester First Trimester: Discussed Second Trimester Second Trimester: Signs and Symptoms of Labor, Selecting a care provider, Reproductive Life Planning & Contreception, Care Planning and Depression/Anxiety; Discussed Tobacco Cessation and Discussed Intimate Partner Violence Third Trimester Third Trimester: Pain Management Plans, Labor support person(s), Immediate Larc, Circumcision preference, Signs and Symptoms of Preeclampsia, Infant Feeding No , [place] Education and Family Medical Leave or Disability [...] Office Urine Glucose Negative Last Edit by Tia Vasquez on 03/25/25 10 :16 Office Urine Protein Negative Last Edit by Tia Vasquez on 03/25/25 10 :16 Coding Level of Care Code OB Routine Diagnoses 38 weeks gestation of Z3A.38 Weeks of gestation: 38 weeks Supervision of high risk in third trimester O09.93 Trimester: third trimester Anemia during in third trimester O99.013 Trimester: third trimester Uterine size-date discrepancy, third trimester O26.843 Depression, unspecified depression type F32.A Depression Type: unspecified Circumvallate placenta in third trimester O43.113 Trimester: third trimester Anxiety F41.9 Assessment and Plan Assessment and Plan (1) : Status: Acute Qualifiers: Weeks of gestation: 38 weeks Qualified Code(s): Z3A.38 - 38 weeks gestation of Comment: Neg GBS. undecided about NIPT, nl anatomy (2) Supervision of high-risk : Status: Acute Qualifiers: Trimester: third trimester Qualified Code(s): O09.93 - Supervision of high risk , unspecified, third trimester Comment: PRR, , BLUE 04/03/25 Robinson George, Xavier (3) Anemia in preg-unspec: Status: Acute Qualifiers: Trimester: third trimester Qualified Code(s): O99.013 - Anemia complicating , third trimester Comment: FE (4) Uterine size-date discrepancy, third trimester: Status: Acute (5) Depression: Status: Acute Qualifiers: Depression Type: unspecified Qualified Code(s): F32.A - Depression, unspecified Comment: sertraline/stable (6) Circumvallate placenta: Status: Acute Qualifiers: Trimester: third trimester Qualified Code(s): O43.113 - Circumvallate placenta, third trimester Comment: growth at 32 weeks: 02/11: (7) Anxiety: Status: Acute Comment: stable Orders: Orders POC Urinalysis 2 Dip (Clinic) Today Plan Details Additional Comments: ACOG trimester education reviewed and updated. see problem list details for updated plan management information and see below for orders placed at this visit. GA appropriate handout given. 03/25/25 1036 <Electronically signed by Autumn fernandez CNM> Date _ Autumn Jacome CNM Cosigner Signature: Date (if applicable) CC: ~ [facility] Work Phone: Reason for referral (narrative)No reason for referral information availableWPremier Health [facility] Work Phone: Summary Purpose Family History No Family History Records Found Relationship Condition Age at Onset Recorded Date/T [...] Supervision of high-risk February 10, 2025 8:46am Chief Complaint Admit Date 18 wk ob November 05, 2024 11:3 9am 22 wk ob December 03, 2024 10:1 1am 27 wk ob/ glucose January 07, 2025 10:04a m 30 wk ob January 26, 2025 8:33a m 32 wk ob February 10, 2025 8:46 am 32 WEEKS GROWTH February 11, 2025 11:5 9am Chief Complaint Admit Date 18 wk ob November 05, 2024 11:3 9am 22 wk ob December 03, 2024 10:1 1am 27 wk ob/ glucose January 07, 2025 10:04a m 30 wk ob January 26, 2025 8:33a m 32 wk ob February 10, 2025 8:46 am 32 WEEKS GROWTH February 11, 2025 11:5 9am 34 wk ob February 24, 2025 8:56 am Reason for Visit Admit Date Anxiety [...] Supervision of high-risk February 10, 2025 8:46am Anemia in preg-unspec February 24, 2025 8: 56am Anxiety February 24, 2025 8:56 am Circumvallate placenta February 24, 2025 8 :56am Depression February 24, 2025 8:56 am February 24, 2025 8:56 am Supervision of high-risk February 24, 2025 8:56am Chief Complaint Admit Date 22 wk ob December 03, 2024 10:1 1am 27 wk ob/ glucose January 07, 2025 10:04a m 30 wk ob January 26, 2025 8:33a m 32 wk ob February 10, 2025 8:46 am 32 WEEKS GROWTH February 11, 2025 11:5 9am 34 wk ob February 24, 2025 8:56 am 36 wk ob March 10, 2025 3:30 pm Reason for Visit Admit Date Anxiety December 03, 2024 10:1 1am Circumvallate [...] Supervision of high-risk February 10, 2025 8:46am Anemia in preg-unspec February 24, 2025 8: 56am Anxiety February 24, 2025 8:56 am Circumvallate placenta February 24, 2025 8 :56am Depression February 24, 2025 8:56 am February 24, 2025 8:56 am Supervision of high-risk February 24, 2025 8:56am Anemia in preg-unspec March 10, 2025 3: 30pm Anxiety March 10, 2025 3:30 pm Circumvallate placenta March 10, 2025 3 :30pm Depression March 10, 2025 3:30 pm March 10, 2025 3:30 pm Supervision of high-risk March 10, 2025 3:30pm Chief Complaint Admit Date 22 wk ob December 03, 2024 10:1 1am 27 wk ob/ glucose January 07, 2025 10:04a m 30 wk ob January 26, 2025 8:33a m 32 wk ob February 10, 2025 8:46 am 32 WEEKS GROWTH February 11, 2025 11:5 9am 34 wk ob February 24, 2025 8:56 am 36 wk ob March 10, 2025 3:30 pm 37 wk ob March 18, 2025 9:29 am Reason for Visit Admit Date Anxiety December 03, 2024 10:1 1am Circumvallate [...] Supervision of high-risk February 10, 2025 8:46am Anemia in preg-unspec February 24, 2025 8: 56am Anxiety February 24, 2025 8:56 am Circumvallate placenta February 24, 2025 8 :56am Depression February 24, 2025 8:56 am February 24, 2025 8:56 am Supervision of high-risk February 24, 2025 8:56am Anemia in preg-unspec March 10, 2025 3: 30pm Anxiety March 10, 2025 3:30 pm Circumvallate placenta March 10, 2025 3 :30pm Depression March 10, 2025 3:30 pm March 10, 2025 3:30 pm Supervision of high-risk March 10, 2025 3:30pm Anemia in preg-unspec March 18, 2025 9: 29am Anxiety March 18, 2025 9:29 am Circumvallate placenta March 18, 2025 9 :29am Depression March 18, 2025 9:29 am March 18, 2025 9:29 am Supervision of high-risk March 18, 2025 9:29am Uterine size-date discrepancy, third tri mester March 18, 2025 9:29am Chief Complaint Admit Date 22 wk ob December 03, 2024 10:1 1am 27 wk ob/ glucose January 07, 2025 10:04a m 30 wk ob January 26, 2025 8:33a m 32 wk ob February 10, 2025 8:46 am 32 WEEKS GROWTH February 11, 2025 11:5 9am 34 wk ob February 24, 2025 8:56 am 36 wk ob March 10, 2025 3:30 pm 37 wk ob March 18, 2025 9:29 am Uterine size-date discrepancy, third tri mester March 22, 2025 3:36pm 38 wk ob March 25, 2025 9:59 am Reason for Visit Admit Date Anxiety December 03, 2024 10:1 1am Circumvallate [...] Supervision of high-risk February 10, 2025 8:46am Anemia in preg-unspec February 24, 2025 8: 56am Anxiety February 24, 2025 8:56 am Circumvallate placenta February 24, 2025 8 :56am Depression February 24, 2025 8:56 am February 24, 2025 8:56 am Supervision of high-risk February 24, 2025 8:56am Anemia in preg-unspec March 10, 2025 3: 30pm Anxiety March 10, 2025 3:30 pm Circumvallate placenta March 10, 2025 3 :30pm Depression March 10, 2025 3:30 pm March 10, 2025 3:30 pm Supervision of high-risk March 10, 2025 3:30pm Anemia in preg-unspec March 18, 2025 9: 29am Anxiety March 18, 2025 9:29 am Circumvallate placenta March 18, 2025 9 :29am Depression March 18, 2025 9:29 am March 18, 2025 9:29 am Supervision of high-risk March 18, 2025 9:29am Uterine size-date discrepancy, third tri mester March 18, 2025 9:29am Anemia in preg-unspec March 25, 2025 9: 59am Anxiety March 25, 2025 9:59 am Circumvallate placenta March 25, 2025 9 :59am Depression March 25, 2025 9:59 am March 25, 2025 9:59 am Supervision of high-risk March 25, 2025 9:59am Uterine size-date discrepancy, third tri mester March 25, 2025 9:59am Additional Source Comments INFORMATION SOURCE (unrecogn ized section and content) DATE CREATED AUTHOR 03/09/2018 [facility] DATE CREATED AUTHOR AUTHOR'S ORGANIZ ATION 10/20/2019 [facility] DATE CREATED AUTHOR AUTHOR'S ORGANIZ ATION 09/01/2020 [facility] DATE CREATED AUTHOR AUTHOR'S ORGANIZ ATION 01/30/2024 [facility] DATE CREATED AUTHOR AUTHOR'S ORGANIZ ATION 11/12/2024 [facility] DATE CREATED AUTHOR AUTHOR'S ORGANIZ ATION 12/13/2024 [facility] DATE CREATED AUTHOR AUTHOR'S ORGANIZ ATION 03/26/2025 [facility] Reason for Visit (unrecogniz ed section and content) Reason Comments Establish Care Reason Comments Medication Problem Care Teams (unrecognized sec tion and content) [employer] Supervisor Relationship Specialty Start Date End Date Yuliana Gonzalez APRN-BELLOWS FILLER [address] 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 Rufina Weiss , Attending Provider Activ e Start: October 07, 2024 End: October 07, 2024 Team Status: Inactive Member Role Status OLGA Vela Primary Care Provider Active Start: November 05, 2024 End: November 05, 2024 OLGA Montilla Referring Provider Active Sta rt: November 05, 2024 End: November 05, 2024 Autumn Jacome CNM Attending Provider Active S tart: November 05, 2024 End: November 05, 2024 Team Status: Inactive Member Role Status OLGA Vela Primary Care Provider Active Start: December 03, 2024 End: December 03, 2024 OLGA Montilla Referring Provider Active Sta rt: December 03, 2024 End: December 03, 2024 Dr. Rufina Weiss , Attending Provider Activ e Start: December 03, 2024 End: December 03, 2024 Team Status: Inactive Member Role Status OLGA Vela Primary Care Provider Active Start: January 07, 2025 End: January 07, 2025 Yuliana Gonzalez NP-C Referring Provider Active Sta rt: January 07, 2025 End: January 07, 2025 Autumn Jacome CNM Attending Provider Active S tart: January 07, 2025 End: January 07, 2025 Team Status: Inactive Member Role Status Rodrigo Gonzalez SEAT BUILDER-C Primary Care Provider Active Start: January 07, 2025 End: January 07, 2025 Dr. Marissa Aquino MD Attending Provider Active Start: January 07, 2025 End: January 07, 2025 Dr. Marissa Aquino MD Referring Provider Active Start: January 07, 2025 End: January 07, 2025 Team Status: Inactive Member Role Status Rodrigo Gonzalez NP-C Primary Care Provider Active Start: January 26, 2025 End: January 26, 2025 Yuliana Gonzalez NP-C Referring Provider Active Sta rt: January 26, 2025 End: January 26, 2025 Kristen Parker NP SEAT BUILDER-C Attending Provider Active Start: January 26, 2025 End: January 26, 2025 Team Status: Inactive Member Role Status Rodrigo Gonzalez NP-C Primary Care Provider Active Start: February 10, 2025 End: February 10, 2025 GILLIAN MontillaC Referring Provider Active Sta rt: February 10, 2025 End: February 10, 2025 Autumn Jacome CNM Attending Provider Active S tart: February 10, 2025 End: February 10, 2025 Team Status: Inactive Member Role Status OLGA Vela Primary Care Provider Active Start: February 11, 2025 End: February 11, 2025 Autumn Jacome CNM Attending Provider Active S tart: February 11, 2025 End: February 11, 2025 Autumn Jacome CNM Referring Provider Active S tart: February 11, 2025 End: February 11, 2025 Team Status: Active Member Role Status GILLIAN VelaC Primary Care Provider Active Start: February 15, 2025 Autumn Jacome CNM Attending Provider Active S tart: February 15, 2025 Autumn Jacome CNM Referring Provider Active S tart: February 15, 2025 Team Status: Inactive Member Role Status GILLIAN VelaC Primary Care Provider Active Start: February 15, 2025 End: February 15, 2025 Autumn Jacome CNM Attending Provider Active S tart: February 15, 2025 End: February 15, 2025 Autumn Jacome CNM Referring Provider Active S tart: February 15, 2025 End: February 15, 2025 Team Status: Inactive Member Role Status Dates Yuliana Gonzalez NP-C Primary Care Provider Active Start: February 24, 2025 End: February 24, 2025 Yuliana Gonzalez NP-C Referring Provider Active Sta rt: February 24, 2025 End: February 24, 2025 Dr. Marissa Aquino MD Attending Provider Active Start: February 24, 2025 End: February 24, 2025 Team Status: Active Member Role/Relationship Status Dates GILLIAN MontillaC Primary Care Provider Active Team Status: Inactive Member Role/Relationship Status Rodrigo Gonzalez NP-C Primary Care Provider Active Start: December 03, 2024 End: December 03, 2024 GILLIAN MontillaC Referring Provider Active Sta rt: December 03, 2024 End: December 03, 2024 Dr. Rufina Weiss DO Attending Provider Activ e Start: December 03, 2024 End: December 03, 2024 Team Status: Inactive Member Role/Relationship Status Dates Yuliana Gonzalez NP-C Primary Care Provider Active Start: January 07, 2025 End: January 07, 2025 GILLIAN MontillaC Referring Provider Active Sta rt: January 07, 2025 End: January 07, 2025 Autumn Jacome CNM Attending Provider Active S tart: January 07, 2025 End: January 07, 2025 Team Status: Inactive Member Role/Relationship Status Rodrigo Gonzalez NP-C Primary Care Provider Active Start: January 07, 2025 End: January 07, 2025 Dr. Marissa Aquino MD Attending Provider Active Start: January 07, 2025 End: January 07, 2025 Dr. Marissa Aquino MD Referring Provider Active Start: January 07, 2025 End: January 07, 2025 Team Status: Inactive Member Role/Relationship Status GILLIAN VelaC Primary Care Provider Active Start: January 26, 2025 End: January 26, 2025 GILLIAN MontillaC Referring Provider Active Sta rt: January 26, 2025 End: January 26, 2025 Kristen Parker NP, SEAT BUILDER-C Attending Provider Active Start: January 26, 2025 End: January 26, 2025 Team Status: Inactive Member Role/Relationship Status Dates GILLIAN MontillaC Primary Care Provider Active Start: February 10, 2025 End: February 10, 2025 GILLIAN MontillaC Referring Provider Active Sta rt: February 10, 2025 End: February 10, 2025 Autumn Jacome CNM Attending Provider Active S tart: February 10, 2025 End: February 10, 2025 Team Status: Inactive Member Role/Relationship Status Dates GILLIAN MontillaC Primary Care Provider Active Start: February 11, 2025 End: February 11, 2025 Autumn Jacome CNM Attending Provider Active S tart: February 11, 2025 End: February 11, 2025 Autumn Jacome CNM Referring Provider Active S tart: February 11, 2025 End: February 11, 2025 Team Status: Inactive Member Role/Relationship Status Dates GILLIAN MontillaC Primary Care Provider Active Start: February 15, 2025 End: February 15, 2025 Autumn Jacome CNM Attending Provider Active S tart: February 15, 2025 End: February 15, 2025 Autumn Jacome CNM Referring Provider Active S tart: February 15, 2025 End: February 15, 2025 Team Status: Inactive Member Role/Relationship Status GILLIAN VelaC Primary Care Provider Active Start: February 24, 2025 End: February 24, 2025 GILLIAN MontillaC Referring Provider Active Sta rt: February 24, 2025 End: February 24, 2025 Dr. Marissa Aquino MD Attending Provider Active Start: February 24, 2025 End: February 24, 2025 Team Status: Inactive Member Role/Relationship Status Dates OLGA Montilla Primary Care Provider Active Start: March 10, 2025 End: March 10, 2025 GILLIAN MontillaC Referring Provider Active Sta rt: March 10, 2025 End: March 10, 2025 Dr. Rufina Weiss DO Attending Provider Activ e Start: March 10, 2025 End: March 10, 2025 Team Status: Inactive Member Role/Relationship Status OLGA Vela Primary Care Provider Active Start: March 10, 2025 End: March 10, 2025 Dr. Rufina Weiss DO Attending Provider Activ e Start: March 10, 2025 End: March 10, 2025 Team Status: Inactive Member Role/Relationship Status Dates OLGA Montilla Primary Care Provider Active Start: March 18, 2025 End: March 18, 2025 OLGA Montilla Referring Provider Active Sta rt: March 18, 2025 End: March 18, 2025 Dr. Marissa Aquino MD Attending Provider Active Start: March 18, 2025 End: March 18, 2025 Team Status: Active Member Role/Relationship Status Dates OLGA Montilla Primary Care Provider Active Start: March 22, 2025 Dr. Marissa Aquino MD Attending Provider Active Start: March 22, 2025 Dr. Marissa Aquino MD Referring Provider Active Start: March 22, 2025 Team Status: Inactive Member Role/Relationship Status Dates OLGA Montilla Primary Care Provider Active Start: March 25, 2025 End: March 25, 2025 OLGA Montilla Referring Provider Active Sta rt: March 25, 2025 End: March 25, 2025 Autumn Jacome CNM Attending Provider Active S tart: March 25, 2025 End: March 25, 2025 Goals (unrecognized section and content) Goals [...] BE BASED ON THE PRIMARY CLINICAL RECORDS. [facility] [employer] [facility]. provides no warranty or guarantee of the accuracy or completeness of information in this document.
--- OUTSIDE RECORDS SUMMARY | 2025-03-27 13:54 | XMS RPT_ITS | CCD ---
Author Organization [facility] CliniSyvt Care Team Providers Care Laser Beam Color Scanner Operator Name Role Phone FERNANDO BELTRAN Unavailable Unavailabl FERNANDO Heath Unavailable Unavailabl e AA NO PCP, NO PCP Unavailable Unavailable BOAZ SCHULTZ DO Consulting Unavailable LUIS CAMEJO, [phone] THUAN Granados Admitting Unavailable LUIS CAMEJO, ~[phone] THUAN Granados Attending Unavailable RON PALAFOX Primary Care Unavailable BOAZ SCHULTZ DO Consulting Unavailable MARYANN CAMEJO, NATHEN Padilla Consulting Unavaila kory WOLF MD, NATHEN Padilla Consulting Unavaila RON Oliver Consulting Unavailable LUIS CAMEJO, DR THUAN Granados Consulting Unavaila kory SMITH MD, DR THUAN Granados Consulting Unavaila kory Gonzalez CHROME POLISHER-KAREL, Yuliana Barrios Primary Care Provider Vincenzo CHROME POLISHER-STABLE CLEANER, Yuliana Barrios Primary Care Provider [phone] JOSSELIN LAMBERT Primary Care Unavailable CLEO GUZMAN Attending Unavailable AUTUMN JACOME Referring Unavailable YULIANA GONZALEZ Attending Unavailable YULIANA GONZALEZ Primary Care Unavailable YULIANA GONZALEZ Attending Unavailable YULIANA GONZALEZ Primary Care Unavailable Vincenzo HEARING THERAPY DIRECTOR-C, Yuliana Primary Care Provider [phone] Vincenzo HEARING THERAPY DIRECTOR-CYuliana Referring Provider Dr. Rufina Weiss DO Attending Provider Autumn Jacome CNM Attending Provider [phone] Dr. Marissa Aquino MD Attending Provider Dr. Marissa Aquino MD Referring Provider Keith HEARING THERAPY DIRECTOR-CKristen Attending Provider [phone] Vincenzo HEARING THERAPY DIRECTOR-CYuliana Primary Care Provider Gonzalez HEARING THERAPY DIRECTOR-C, Yuliana Referring Provider Dr. Rufina Weiss DO Attending Provider Autumn Jacome CNM Referring Provider Gonzalez HEARING THERAPY DIRECTOR-C, Yuliana Primary Care Provider Gonzalez HEARING THERAPY DIRECTOR-C, Yuliana Referring Provider [phone] Simone CNAkbar, Autumn Attending Provider Autumn Jacome [...] Attending Unavailable Gonzalez, Yuliana Referring Unavailable Gonzalez, Yluiana Primary Care Unavailable Gonzalez, Yuliana Primary Care [...] PO DAILY March 27, 2025 12:00am Multivit 00-Mtsx-Iottui 1-Dha (Pnv-Dha) 27 mg iron-1 mg -300 mg capsule (11 sources) Start: 09-06-2024 Multivit 01-Jkeg-Ghrqle 1-Dha (Pnv-Dha) 27 mg iron-1 mg -300 [...] Comment on above: PRR, , BLUE 5, aXvier PRR, , BLUE 5 Boy Doris, Xavier [...] Test Name Value Interpretation Reference Range Facility Specialist Wound Care Office Visit Reporton 03-25-2025 Specialist Wound Care Office Visit Report [facility] [address], [address] [place] [address] OFFICE VISIT Date of Service: 03/25/25 MR#: [id number] Acct: [id number] Name: GINO MICHELE Rep #: [id number] : 2000 Provider: JOSE Santos ams Age/Sex: 24/F [place] [facility] [place]: [place] Intake Vital Signs 02/10/25 08:47 03/18/25 09:31 03/25/25 10:08 Height 5 ft 5 in 5 ft 5 in 5 ft 5 in Weight: 196 lb 8 oz BMI 32.7 BP 123/67 H Intake Visit Reasons: 38 wk ob Chief Complaint: 38 Week OB Information Services Assistant Required: No Is patient in pain?: No [...] PFSH Medical History Migraine headache Surgical History [place] teeth extracted Family History Grandfather Diabetes Maternal Mother Cancer Basal cell skin cancer Father Cancer Basal cell Skin cancer Aunt Cancer Maternal- Skin Melanoma Social History adopted: No household members: spouse current occupational status: employed 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[facility] [employer] pets and animals: Yes (Avoid Litterbox) pets [...] physical activity do you participate in: none osiris/voodoo: Adventist seatbelt use: always do you feel safe [...] JV- stil (more content not included)... Normal [facility] OB Limited With Biometricson 03-22-2025 OB Limited With Biometrics [facility] Imaging Services [address] [place] [address] OB Limited With Biometrics MR#: [id number] Acct: [id number] Name: GINO MICHELE Rep #: [id number] : 2000 F 24 From: Boaz Blackwood MD PCP: OLGA Montilla Status: [facility] Study: OB Limited With Biometrics Date of Exam: 03/22 Exam# [id number] Ordering Dr: Marissa Aquino PROCEDURE: OB LIMITED [...] intrauterine . See biometry above. Reading Location: [id number] CC: OLGA Gonzalez; Dr. Marissa Aquino MD Sail Repair Person: Signed Normal [facility] Specialist Wound Care Office Visit Reporton 03-18-2025 Specialist Wound Care Office Visit Report [facility] [address], [address] [place] [address] OFFICE VISIT Date of Service: 03/18/25 MR#: [id number] Acct: [id number] Name: GINO MICHELE Rep #: [id number] : 2000 Provider: Dr. Marissa mendenhall MD Age/Sex: 24/F [place] [facility] [place]: Signed Intake Vital Signs 02/10/25 08:47 03/10/25 15:34 03/18/25 09:31 Height 5 ft 5 in 5 ft 5 in 5 ft 5 in Weight: 195 lb BMI 32.4 BP 139/83 H Intake Visit Reasons: 37 wk ob Information Services Assistant Required: No Is patient in pain?: No [...] PFSH Medical History Migraine headache Surgical History [place] teeth extracted Family History Grandfather Diabetes Maternal Mother Cancer Basal cell skin cancer Father Cancer Basal cell Skin cancer Aunt Cancer Maternal- Skin Melanoma Social History adopted: No household members: spouse current occupational status: employed 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 Normal [facility] Rule out Beta Strep (Grp. B) on 03-14-2025 LAILA Group B Beta Streptococcus is not isolated. Normal [facility] Comment on above: Performed By: #### M 100.3400 ####[facility] [address] [place], [address] Laboratory - Chemistry and C hemistry - challengeOrdered By: Rufina Chaney on 03-10-2025 Glucose Ql (U) Negative [facility] Laboratory - UrinalysisOrder ed By: Rufina Chaney on 03-10-2025 Protein Ql (U) Negative [facility] Specialist Wound Care Office Visit Reporton 03-10-2025 Specialist Wound Care Office Visit Report [facility], [address] [place] [address] OFFICE VISIT Date of Service: 03/10/25 MR#: [id number] Acct: [id number] Name: GINO MICHELE Rep #: [id number] : 2000 Provider: Dr. Rufina Dowd DO Age/Sex: 24/F [place] [facility] [place]: Signed Intake Vital Signs 01/07/25 10:18 02/24/25 08:59 03/10/25 15:34 Height 5 ft 5 in 5 ft 5 in 5 ft 5 in Weight: 195 lb 4 oz BMI 32.5 BP 138/82 H Intake Visit Reasons: 36 wk ob Information Services Assistant Required: No Is patient in pain?: No [...] PFSH Medical History Migraine headache Surgical History [place] teeth extracted Family History Grandfather Diabetes Maternal Mother Cancer Basal cell skin cancer Father Cancer Basal cell Skin cancer Aunt Cancer Maternal- Skin Melanoma Social History adopted: No household members: spouse current occupational status: employed 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 Normal [facility] Screening beta-hemolytic Str eptococcus cultureOrdered By: Rufina Chaney on 03-10-2025 Beta-hemolytic Streptococcus culture Group B Beta Streptococcus is not isolated. [facility] Laboratory - Chemistry and C hemistry - challengeOrdered By: Marissa Aquino on 02-24-2025 Glucose Ql (U) Negative [facility] Laboratory - UrinalysisOrder ed By: Marissa Aquino on 02-24-2025 Protein Ql (U) Negative [facility] Specialist Wound Care Office Visit Reporton 02-24-2025 Specialist Wound Care Office Visit Report [facility] [address], [address] [place] [address] OFFICE VISIT Date of Service: 02/24/25 MR#: [id number] Acct: [id number] Name: GINO MICHELE Rep #: [id number] : 2000 Provider: Dr. Marissa mendenhall MD Age/Sex: 24/F [place] [facility] [place]: Signed Intake Vital Signs 09/09/24 09:07 02/10/25 08:47 02/24/25 08:59 02/24/25 08:59 Height 5 ft 5 in 5 ft 5 in 5 ft 5 in 5 ft 5 in Weight: 189 lb 4 oz BMI 31.4 BP 103/69 Intake Visit Reasons: 34 wk ob Information Services Assistant Required: No Is patient in pain?: No [...] PFSH Medical History Migraine headache Surgical History [place] teeth extracted Family History Grandfather Diabetes Maternal Mother Cancer Basal cell skin cancer Father Cancer Basal cell Skin cancer Aunt Cancer Maternal- Skin Melanoma Social History adopted: No household members: spouse current occupational status: employed 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[facility] [employer] pets and animals: Yes (Avoid Litterbox) pets [...] physical activity do you participate in: none osiris/voodoo: Adventist seatbelt use: always do you feel safe [...] try bus (more content not included)... Normal [facility] Glucose Challenge Gest 1H 50 shayy 02-15-2025 GLU GEST 50g 1H 110 mg/dL Normal 70-140 [facility] Comment on above: Performed By: #### L 501.0250 #### [facility] Laboratory [address] [place], [place], [address] Glucose measurement at 2 larry rs post-dose gestational glucose tolerance testOrdered By: Autumn Jacome on 02-15-2025 Glucose [Mass/Vol] 110 mg/dL 70-140 [facility] OB Limited With Biometricson 02-11-2025 OB Limited With Biometrics [facility] Imaging Services [address] [place] [address] OB Limited With Biometrics MR#: [id number] Acct: [id number] Name: GINO MICHELE Rep #: [id number] : 2000 F 24 From: David del rio MD PCP: OLGA Montilla Status: REG CLI Study: OB Limited With Biometrics Date of Exam: 02/11 Exam# [id number] Ordering Dr: Autumn Jacome M PROCEDURE: OB [...] gestational age of 34 weeks. Reading Location: [id number] CC: JOSE Jacome; OLGA Gonzalez Sail Repair Person: Signed Normal [facility] Laboratory - Chemistry and C hemistry - challengeOrdered By: Autumn Jacome on 02-10-2025 Glucose Ql (U) Negative [facility] Laboratory - UrinalysisOrder ed By: Autumn Jacome on 02-10-2025 Protein Ql (U) Negative [facility] Specialist Wound Care Office Visit Reporton 02-10-2025 Specialist Wound Care Office Visit Report [facility] [address], [address] [place] [address] OFFICE VISIT Date of Service: 02/10/25 MR#: [id number] Acct: [id number] Name: GINO MICHELE Rep #: [id number] : 2000 Provider: JOSE Santos [facility] Age/Sex: 24/F [place] [facility] [place]: Signed Intake Vital Signs 09/09/24 09:07 01/26/25 08:35 02/10/25 08:47 Height 5 ft 5 in 5 ft 5 in 5 ft 5 in Weight: 189 lb 2 oz BMI 31.4 BP 115/83 H Intake Visit Reasons: 32 wk ob Information Services Assistant Required: No Is patient in pain?: No [...] PFSH Medical History Migraine headache Surgical History [place] teeth extracted Family History Grandfather Diabetes Maternal Mother Cancer Basal cell skin cancer Father Cancer Basal cell Skin cancer Aunt Cancer Maternal- Skin Melanoma Social History adopted: No household members: spouse current occupational status: employed 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 (more content not included)... Normal [facility] Laboratory - Chemistry and C hemistry - challengeOrdered By: Kristen Parker on 01-26-2025 Glucose Ql (U) Negative [facility] Laboratory - UrinalysisOrder ed By: Kristen Parker on 01-26-2025 Protein Ql (U) Negative [facility] Specialist Wound Care Office Visit Reporton 01-26-2025 Specialist Wound Care Office Visit Report [facility], [address] [place] [address] OFFICE VISIT Date of Service: 01/26/25 MR#: [id number] Acct: [id number] Name: GINO MICHELE Rep #: [id number] : 2000 Provider: OLGA rodriguez Age/Sex: 24/F [place] [facility] [place]: Signed Intake Vital Signs 09/09/24 09:07 01/07/25 10:18 01/26/25 08:35 Height 5 ft 5 in 5 ft 5 in 5 ft 5 in Weight: 188 lb 4 oz BMI 31.3 BP 126/72 H Intake Visit Reasons: 30 wk ob Chief Complaint: 30 Week OB Information Services Assistant Required: No Is patient in pain?: No [...] PFSH Medical History Migraine headache Surgical History [place] teeth extracted Family History Grandfather Diabetes Maternal Mother Cancer Basal cell skin cancer Father Cancer Basal cell Skin cancer Aunt Cancer Maternal- Skin Melanoma Social History adopted: No household members: spouse current occupational status: employed 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 Normal [facility] Absolute lymphocyte countOrd ered By: Rufina Ritu on 01-07-2025 Lymphocytes Auto (Unsp spec) [#/Vol] 1.52 10*3/uL 0.83-4.51 [facility] Absolute neutrophil countOrd ered By: Rufina Ritu on 01-07-2025 Neutrophils (Bld) [#/Vol] 9.6 10*3/uL High 2.0-7.7 [facility] Automated lymphocyte count a s percentage of total leukocytesOrdered By: Rufina Ritu on 01-07-2025 Lymphocytes/100 WBC Auto (Unsp spec) 12.4 % Low 19-41 [facility] Basophil percentageOrdered B y: Rufina Chaney on 01-07-2025 Basophils/100 WBC (Bld) 0.3 % 0-1 [facility] CBC W/Diff, Automatedon 05-0 Absolute Lymph 1.52 X10 3/uL Normal 0.83-4.51 [facility] Comment on above: Performed By: #### L 100.0100, L509.8002, L501.0250, L3890.6006 ####[facility] [address] [place], [address] Absolute Neut 9.6 X10 3/uL High 2.0-7.7 [facility] Comment on above: Performed By: #### L 100.0100, L509.8002, L501.0250, L3890.6006 ####[facility] [address] [place], [address] Basophils/100 WBC (Bld) 0.3 % Normal 0-1 [facility] Comment on above: Performed By: #### L 100.0100, L509.8002, L501.0250, L3890.6006 ####[facility] [address] [place], [address] Eosinophils/100 WBC (Bld) 1.5 % Normal 0-5 [facility] Comment on above: Performed By: #### L 100.0100, L509.8002, L501.0250, L3890.6006 ####[facility] [address] [place], [address] Erythrocyte distribution width (RBC) [Ratio] 12.7 % Normal 11.6-14.6 [facility] Comment on above: Performed By: #### L 100.0100, L509.8002, L501.0250, L3890.6006 ####[facility] [address] [place], [address] Hematocrit (Bld) [Volume fraction] 31.5 % Low 37-47 [facility] Comment on above: Performed By: #### L 100.0100, L509.8002, L501.0250, L3890.6006 ####[facility] [address] [place], [address] Hemoglobin (Bld) [Mass/Vol] 10.1 g/dL Low 12.0-15.0 [facility] Comment on above: Performed By: #### L 100.0100, L509.8002, L501.0250, L3890.6006 ####[facility] [address] [place], [address] IG% 2.100 High 0.0-0.9 [facility] Comment on above: Result Comment: IG% - Immature Granulocytes (promyelocytes, myelocytes and metamyelocytes) > 1% indicates that a LEFT SHIFT is Present. Performed By: #### L 100.0100, L509.8002, L501.0250, L3890.6006 ####[facility] [address] [place], [address] Lymphocytes/100 WBC (Bld) 12.4 % Low 19-41 [facility] Comment on above: Performed By: #### L 100.0100, L509.8002, L501.0250, L3890.6006 ####[facility] [address] [place], [address] MCH (RBC) [Entitic mass] 28.6 pg Normal 27.0-32.0 [facility] Comment on above: Performed By: #### L 100.0100, L509.8002, L501.0250, L3890.6006 ####[facility] [address] [place], [address] MCHC (RBC) [Mass/Vol] 32.1 g/dL Normal 32-36 [facility] Comment on above: Performed By: #### L 100.0100, L509.8002, L501.0250, L3890.6006 ####[facility] [address] [place], [address] MCV (RBC) [Entitic vol] 89.2 fL Normal 81-99 [facility] Comment on above: Performed By: #### L 100.0100, L509.8002, L501.0250, L3890.6006 ####[facility] [address] [place], [address] Monocytes/100 WBC (Bld) 5.4 % Normal 0-10 [facility] Comment on above: Performed By: #### L 100.0100, L509.8002, L501.0250, L3890.6006 ####[facility] [address] [place], [address] Neutrophils/100 WBC (Bld) 78.3 % High 47-70 [facility] Comment on above: Performed By: #### L 100.0100, L509.8002, L501.0250, L3890.6006 ####[facility] [address] [place], [address] Nucleated RBC (Bld) [#/Vol] 0 10*3/uL Normal 0-5 [facility] Comment on above: Performed By: #### L 100.0100, L509.8002, L501.0250, L3890.6006 ####[facility] [address] [place], [address] Platelet mean volume (Bld) [Entitic vol] 12.1 fL High 6.2-12.0 [facility] Comment on above: Performed By: #### L 100.0100, L509.8002, L501.0250, L3890.6006 ####[facility] [address] [place], [address] Platelets (Bld) [#/Vol] 160 10*3/uL Normal 150-450 [facility] Comment on above: Performed By: #### L 100.0100, L509.8002, L501.0250, L3890.6006 ####[facility] [address] [place], [address] RBC (Bld) [#/Vol] 3.53 10*6/uL Low 4.2-5.4 [facility] Comment on above: Performed By: #### L 100.0100, L509.8002, L501.0250, L3890.6006 ####[facility] [address] [place], [address] RDW SD 40.6 fl Normal 35.1-43.9 [facility] Comment on above: Performed By: #### L 100.0100, L509.8002, L501.0250, L3890.6006 ####[facility] [address] [place], [address] WBC (Bld) [#/Vol] 12.2 10*3/uL High 4.4-11.0 [facility] Comment on above: Performed By: #### L 100.0100, L509.8002, L501.0250, L3890.6006 ####[facility] [address] [place], [address] Eosinophil percentageOrdered By: Rufina Chaney on 01-07-2025 Eosinophils/100 WBC (Bld) 1.5 % 0-5 [facility] Erythrocyte distribution wid th ratioOrdered By: Rufina Chaney on 01-07-2025 Erythrocyte distribution width (RBC) [Ratio] 12.7 % 11.6-14.6 [facility] Erythrocyte distribution wid th standard deviationOrdered By: Rufina Chaney on 01-07-2025 Erythrocyte distribution width (RBC) [Ratio] 40.6 fl 35.1-43.9 [facility] Glucose Challenge Gest 1H 50 shayy 01-07-2025 GLU GEST 50g 1H 103 mg/dL Normal 70-140 [facility] Comment on above: Performed By: #### L 100.0100, L509.8002, L501.0250, L3890.6006 ####[facility] [address] [place], [place], [address] Glucose measurement at 2 larry rs post-dose gestational glucose tolerance testOrdered By: Rufina Chaney on 01-07-2025 Glucose [Mass/Vol] 103 mg/dL 70-140 [facility] HIVon 01-07-2025 HIV Non-Reactive Normal Nonreactive [facility] Comment on above: Result Comment: Non- Reactive Reactive Repeatedly reactive samples must be confirmed according to CDC recommended confirmatory algorithms. The subresults for either HIVAG or AHIV can be used as an aid in the selection of the confirmation algorithm for reactive samples. Send out specimens with Reactive results to [facility] for confirmation. Order the HIV antibody detection and differentiation: lc#[id number] Performed By: #### L 100.0100, L509.8002, L501.0250, L3890.6006 ####[facility] [address] [place], [place], [address] Hematocrit Auto (Bld) [Volum e fraction]Ordered By: Rufina Chaney on 01-07-2025 Hematocrit (Bld) [Volume fraction] 31.5 % Low 37-47 [facility] Hemoglobin measurementOrdere d By: Rufina Chaney on 01-07-2025 Hemoglobin (Bld) [Mass/Vol] 10.1 g/dL Low 12.0-15.0 [facility] Immature granulocytes/100 WB C Auto (Bld)Ordered By: Rufina Chaney on 01-07-2025 Immature granulocytes/100 WBC (Bld) 2.100 % High 0.0-0.9 [facility] Comment on above: IG% - Immature Granu locytes (promyelocytes, myelocytes and metamyelocytes) > 1% indicates that a LEFT SHIFT is Present. Laboratory - Chemistry and C hemistry - challengeOrdered By: Autumn Jacome on 01-07-2025 Glucose Ql (U) Negative [facility] Laboratory - UrinalysisOrder ed By: Autumn Jacome on 01-07-2025 Protein Ql (U) Negative [facility] MCV (mean corpuscular volume ) determinationOrdered By: Rufina Chaney on 01-07-2025 MCV (RBC) [Entitic vol] 89.2 fL 81-99 [facility] Mean corpuscular hemoglobin (MCH) determinationOrdered By: Rufina Chaney on 01-07-2025 MCH (RBC) [Entitic mass] 28.6 pg 27.0-32.0 [facility] Mean corpuscular hemoglobin concentration (MCHC) determinationOrdered By: Rufina Chaney on 01-07-2025 MCHC (RBC) [Mass/Vol] 32.1 g/dL 32-36 [facility] Mean platelet volume determi nationOrdered By: Rufina Chaney on 01-07-2025 Platelet mean volume (Bld) [Entitic vol] 12.1 fL High 6.2-12.0 [facility] Monocyte percentageOrdered B y: Rufina Chaney on 01-07-2025 Monocytes/100 WBC (Bld) 5.4 % 0-10 [facility] Neutrophil percentageOrdered By: Rufina Chaney on 01-07-2025 Neutrophils/100 WBC (Bld) 78.3 % High 47-70 [facility] No Panel InformationOrdered By: Rufina Chaney on 01-07-2025 HIV (1&2) Antibody Non-Reactive Nonreactive [facility] Comment on above: Non-ReactiveReactive Repeatedly reactive samples must be confirmed according to CDC recommended confirmatory algorithms. The subresults for either HIVAG or AHIV can be used as an aid in the selection of the confirmation algorithm for reactive samples.Send out specimens with Reactive results to [facility] for confirmation.Order the HIV antibody detection and differentiation: #[id number] Nucleated red blood cell per centageOrdered By: Rufina Chaney on 01-07-2025 Nucleated RBC/100 WBC (Bld) [Ratio] 0 % 0-5 [facility] Specialist Wound Care Office Visit Reporton 01-07-2025 Specialist Wound Care Office Visit Report [facility]'[address], [address] [place] [address] OFFICE VISIT Date of Service: 01/07/25 MR#: [id number] Acct: [id number] Name: GINO MICHELE Rep #: [id number] : 2000 Provider: JOSE Santos ams Age/Sex: 24/F Location[place] [facility] [place] Status: Signed Intake Vital Signs 12/03/24 10:16 01/07/25 10:18 01/07/25 10:18 Height 5 ft 5 in 5 ft 5 in 5 ft 5 in Weight: 182 lb BMI 30.2 BP 127/81 H Intake Visit Reasons: 27 wk ob/ glucose Chief Complaint: 27wk OB Information Services Assistant Required: No Is patient in pain?: No [...] PFSH Medical History Migraine headache Surgical History [place] teeth extracted Family History Grandfather Diabetes Maternal Mother Cancer Basal cell skin cancer Father Cancer Basal cell Skin cancer Aunt Cancer Maternal- Skin Melanoma Social History adopted: No household members: spouse current occupational status: employed 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 ?- (more content not included)... Normal [facility] Platelet countOrdered By: Khris Chaney on 01-07-2025 Platelets (Bld) [#/Vol] 160 10*3/uL 150-450 [facility] RBC Auto (Bld) [#/Vol]Ordere d By: Rufina Chaney on 01-07-2025 RBC (Bld) [#/Vol] 3.53 10*6/uL Low 4.2-5.4 [facility] Syphilis Antibodieson 2024 Syphilis Abs Non-Reactive Normal Nonreactive [facility] Comment on above: Performed By: #### L 100.0100, L509.8002, L501.0250, L3890.6006 ####[facility] [address] [place], [address] White blood cell (WBC) count Ordered By: Rufina Chaney on 01-07-2025 WBC (Bld) [#/Vol] 12.2 10*3/uL High 4.4-11.0 [facility] Laboratory - Chemistry and C hemistry - challengeOrdered By: Rufina Chaney on 12-03-2024 Glucose Ql (U) Negative [facility] - UrinalysisOrder ed By: Rufina Chaney on 12-03-2024 Protein Ql (U) Negative [facility] Specialist Wound Care Office Visit Reporton 12-03-2024 Specialist Wound Care Office Visit Report [facility]'[address], [address] [place] [address] OFFICE VISIT Date of Service: 12/03/24 MR#: [id number] Acct: [id number] Name: GINO MICHELE Rep #: [id number] : 2000 Provider: Dr. Rufina Dowd DO Age/Sex: 24/F [place] [facility] [place]: S[place] Intake Vital Signs 09/09/24 09:07 11/05/24 11:42 12/03/24 10:15 12/03/24 10:16 Height 5 ft 5 in 5 ft 5 in 5 ft 5 in 5 ft 5 in Weight: 171 lb 6 oz BMI 28.5 BP 120/77 Intake Visit Reasons: 22 wk ob Information Services Assistant Required: No Is patient in pain?: No [...] PFSH Medical History Migraine headache Surgical History [place] teeth extracted Family History Grandfather Diabetes Maternal Mother Cancer Basal cell skin cancer Father Cancer Basal cell Skin cancer Aunt Cancer Maternal- Skin Melanoma Social History adopted: No household members: spouse current occupational status: employed 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 Normal [facility] Laboratory - Chemistry and C hemistry - challengeOrdered By: Autumn Jacome on 11-05-2024 Glucose Ql (U) Negative [facility] - UrinalysisOrder ed By: Autumn Jacome on 11-05-2024 Protein Ql (U) Negative [facility] Specialist Wound Care Office Visit Reporton 11-05-2024 Specialist Wound Care Office Visit Report [facility] [address] [place] [address], [address] [place] [address] OFFICE VISIT Date of Service: 11/05/24 MR#: [id number] Acct: [id number] Name: GINO MICHELE Rep #: [id number] : 2000 Provider: JOSE Santos ams Age/Sex: 24/F [place] [facility] [place] Status: Signed Intake Vital Signs 09/09/24 09:07 [...] PFSH Medical History Migraine headache Surgical History [place] teeth extracted Family History Grandfather Diabetes Maternal Mother Cancer Basal cell skin cancer Father Cancer Basal cell Skin cancer Aunt Cancer Maternal- Skin Melanoma Social History adopted: No household members: spouse current occupational status: employed 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 Normal [facility] - Chemistry and C hemistry - challengeOrdered By: Rufina Chaney on 10-07-2024 Glucose Ql (U) Negative [facility] - UrinalysisOrder ed By: Rufina Chaney on 10-07-2024 Protein Ql (U) Negative [facility] Specialist Wound Care Office Visit Reporton 10-07-2024 Specialist Wound Care Office Visit Report [facility] [address], [address] [place] [address] OFFICE VISIT Date of Service: 10/07/24 MR#: [id number] Acct: [id number] Name: GINO MICHELE Rep #: [id number] : 2000 Provider: Dr. Rufina Dowd DO Age/Sex: 24/F [place] [facility] [place]: Signed Intake Vital Signs 08/27/24 19:48 09/09/24 09:07 10/07/24 11:33 10/07/24 11:35 Height 5 ft 5 in 5 ft 5 in 5 ft 5 in 5 ft 5 in Weight: 153 lb 2 oz BMI 25.4 BP 120/73 Intake Visit Reasons: 14 wk OB Information Services Assistant Required: No Is patient in pain?: No [...] PFSH Medical History Migraine headache Surgical History [place] teeth extracted Family History Grandfather Diabetes Maternal Mother Cancer Basal cell skin cancer Father Cancer Basal cell Skin cancer Aunt Cancer Maternal- Skin Melanoma Social History adopted: No household members: spouse current occupational status: employed 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 Normal [facility] HIV - WCHon 09-14-2024 HIV Non-Reactive Normal Nonreactive [facility] Comment on above: Order Comment: Reaso n for Exam: Performed By: #### L 3890.6300, L509.4005, L509.8000, L3890.6100, L3890.6005, BTS, L100.0100 ####[facility] [address] [place], [place], [id number] PAP I-G w/rfx hrHPV-Aptimaon 09-14-2024 ADEQ Comment Normal . [facility] Comment on above: Order Comment: Cecil leblanc Comment: [id number] Specimen Comment: Source.............Cervix Specimen Comment: No. of containers..01 ThinPrep Vial Result Comment: Sati sfactory for evaluation. Endocervical and/or squamous metaplastic cells (endocervical component) are present. Performed By: #### M 100.2200, L7400.0353, L7000.1800 #### [facility] [address] [place], [place], [address] COMM . Normal . [facility] Comment on above: Order Comment: Speci deana Comment: [id number] Specimen Comment: Source.............Cervix Specimen Comment: No. of containers..01 ThinPrep Vial Performed By: #### M 100.2200, L7400.0353, L7000.1800 #### [facility] [address] [place], [place], [address] COMMENT Comment Normal . [facility] Comment on above: Order Comment: Speci men Comment: [id number] Specimen Comment: Source.............Cervix Specimen Comment: No. of containers..01 ThinPrep Vial Result Comment: This liquid based ThinPrep(R) pap test was screened with the use of an image guided system. Performed By: #### M 100.2200, L7400.0353, L7000.1800 #### [facility] [address] [place], [place], [id number] DIAG Comment Normal . [facility] Comment on above: Order Comment: Speci men Comment: [id number] Specimen Comment: Source.............Cervix Specimen Comment: No. of containers..01 ThinPrep Vial Result Comment: NEGA TIVE FOR INTRAEPITHELIAL LESION OR MALIGNANCY. Performed By: #### M 100.2200, L7400.0353, L7000.1800 #### [facility] [address] [place], [place], [address] HPV RFLX Comment Normal . [facility] Comment on above: Order Comment: Speci men Comment: [id number] Specimen Comment: Source.............Cervix Specimen Comment: No. of containers..01 ThinPrep Vial Result Comment: The HPV DNA reflex criteria were not met with this specimen result therefore, no HPV testing was performed. Performed at: [address] [id number] Metal Cut Off Saw Operator: Rachell Lowe MD, Phone: [phone] Performed By: #### M 100.2200, L7400.0353, L7000.1800 #### [facility] [address] [place], [address] PAPSMR Comment Normal . [facility] Comment on above: Order Comment: Speci men Comment: [id number] Specimen Comment: Source.............Cervix Specimen Comment: No. of [...] By: #### M 100.2200, L7400.0353, L7000.1800 #### [facility] [address] [place], [address] PERFORM Comment Normal . [facility] Comment on above: Order Comment: Speci men Comment: [id number] Specimen Comment: Source.............Cervix Specimen Comment: No. of containers..01 ThinPrep Vial Result Comment: Bang Reese, Project Portfolio Analyst (ASCP) Performed By: #### M 100.2200, L7400.0353, L7000.1800 #### [facility] [address] [place], [address] Chlamydia/GC MICKEY aptimaon CHLAMY,NUC ACID Negative Normal Negative [facility] Comment on above: Performed By: #### M 100.2200, L7400.0353, L7000.1800 #### [facility] [address] [place], [address] GC BY NUC ACID Negative Normal Negative [facility] Comment on above: Result Comment: Perf ormed at: =G - [facility] [id number] Metal Cut Off Saw Operator: Rachell Lowe MD, Phone: [phone] Performed By: #### M 100.2200, L7400.0353, L7000.1800 #### [facility] [address] [place], [address] Urine Cultureon 09-10-2024 URC Culture exhibits no growth. Normal [facility] Comment on above: Performed By: #### M 100.2200, L7400.0353, L7000.1800 #### [facility] [address] [place], [address] CBC W/Diff, Automatedon Absolute Lymph 1.49 X10 3/uL Normal 0.83-4.51 [facility] Comment on above: Performed By: #### L 3890.6300, L509.4005, L509.8000, L3890.6100, L3890.6005, BTS, L100.0100 ####[facility] [address] [place], [address] Absolute Neut 7.4 X10 3/uL Normal 2.0-7.7 [facility] Comment on above: Performed By: #### L 3890.6300, L509.4005, L509.8000, L3890.6100, L3890.6005, BTS, L100.0100 ####[facility] [address] [place], [address] Basophils/100 WBC (Bld) 0.2 % Normal 0-1 [facility] Comment on above: Performed By: #### L 3890.6300, L509.4005, L509.8000, L3890.6100, L3890.6005, BTS, L100.0100 ####[facility] [address] [place], [address] Eosinophils/100 WBC (Bld) 1.5 % Normal 0-5 [facility] Comment on above: Performed By: #### L 3890.6300, L509.4005, L509.8000, L3890.6100, L3890.6005, BTS, L100.0100 ####[facility] [address] [place], [address] Erythrocyte distribution width (RBC) [Ratio] 12.8 % Normal 11.6-14.6 [facility] Comment on above: Performed By: #### L 3890.6300, L509.4005, L509.8000, L3890.6100, L3890.6005, BTS, L100.0100 ####[facility] [address] [place], [address] Hematocrit (Bld) [Volume fraction] 40.7 % Normal 37-47 [facility] Comment on above: Performed By: #### L 3890.6300, L509.4005, L509.8000, L3890.6100, L3890.6005, BTS, L100.0100 ####[facility] [address] [place], [address] Hemoglobin (Bld) [Mass/Vol] 13.3 g/dL Normal 12.0-15.0 [facility] Comment on above: Performed By: #### L 3890.6300, L509.4005, L509.8000, L3890.6100, L3890.6005, BTS, L100.0100 ####[facility] [address] [place], [address] IG% 0.300 Normal 0.0-0.9 [facility] Comment on above: Result Comment: IG% - Immature Granulocytes (promyelocytes, myelocytes and metamyelocytes) > 1% indicates that a LEFT SHIFT is Present. Performed By: #### L 3890.6300, L509.4005, L509.8000, L3890.6100, L3890.6005, BTS, L100.0100 ####[facility] [address] [place], [address] Lymphocytes/100 WBC (Bld) 15.6 % Low 19-41 [facility] Comment on above: Performed By: #### L 3890.6300, L509.4005, L509.8000, L3890.6100, L3890.6005, BTS, L100.0100 ####[facility] [address] [place], [address] MCH (RBC) [Entitic mass] 28.8 pg Normal 27.0-32.0 [facility] Comment on above: Performed By: #### L 3890.6300, L509.4005, L509.8000, L3890.6100, L3890.6005, BTS, L100.0100 ####[facility] [address] [place], [address] MCHC (RBC) [Mass/Vol] 32.7 g/dL Normal 32-36 [facility] Comment on above: Performed By: #### L 3890.6300, L509.4005, L509.8000, L3890.6100, L3890.6005, BTS, L100.0100 ####[facility] [address] [place], [address] MCV (RBC) [Entitic vol] 88.1 fL Normal 81-99 [facility] Comment on above: Performed By: #### L 3890.6300, L509.4005, L509.8000, L3890.6100, L3890.6005, BTS, L100.0100 ####[facility] [address] [place], [address] Monocytes/100 WBC (Bld) 4.9 % Normal 0-10 [facility] Comment on above: Performed By: #### L 3890.6300, L509.4005, L509.8000, L3890.6100, L3890.6005, BTS, L100.0100 ####[facility] [address] [place], [address] Neutrophils/100 WBC (Bld) 77.5 % High 47-70 [facility] Comment on above: Performed By: #### L 3890.6300, L509.4005, L509.8000, L3890.6100, L3890.6005, BTS, L100.0100 ####[facility] [address] [place], [address] Nucleated RBC (Bld) [#/Vol] 0 10*3/uL Normal 0-5 [facility] Comment on above: Performed By: #### L 3890.6300, L509.4005, L509.8000, L3890.6100, L3890.6005, BTS, L100.0100 ####[facility] [address] [place], [address] Platelet mean volume (Bld) [Entitic vol] 12.9 fL High 6.2-12.0 [facility] Comment on above: Performed By: #### L 3890.6300, L509.4005, L509.8000, L3890.6100, L3890.6005, BTS, L100.0100 ####[facility] [address] [place], [address] Platelets (Bld) [#/Vol] 183 10*3/uL Normal 150-450 [facility] Comment on above: Performed By: #### L 3890.6300, L509.4005, L509.8000, L3890.6100, L3890.6005, BTS, L100.0100 ####[facility] [address] [place], [address] RBC (Bld) [#/Vol] 4.62 10*6/uL Normal 4.2-5.4 [facility] Comment on above: Performed By: #### L 3890.6300, L509.4005, L509.8000, L3890.6100, L3890.6005, BTS, L100.0100 ####[facility] [address] [place], [address] RDW SD 41.2 fl Normal 35.1-43.9 [facility] Comment on above: Performed By: #### L 3890.6300, L509.4005, L509.8000, L3890.6100, L3890.6005, BTS, L100.0100 ####[facility] [address] [place], [place], [phone] WBC (Bld) [#/Vol] 9.6 10*3/uL Normal 4.4-11.0 [facility] Comment on above: Performed By: #### L 3890.6300, L509.4005, L509.8000, L3890.6100, L3890.6005, BTS, L100.0100 ####[facility] [address] [place], [address] Hepatitis B Surface Antigeno n 09-09-2024 HEP B Surf Ag Non-Reactive Normal Nonreactive [facility] Comment on above: Order Comment: Reaso n for Exam: Performed By: #### L 3890.6300, L509.4005, L509.8000, L3890.6100, L3890.6005, BTS, L100.0100 ####[facility] [address] [place], [place], [phone] Hepatitis C Antibodyon 09-09 Hepatitis C AB Non-Reactive Normal Nonreactive [facility] Comment on above: Order Comment: Reaso n for Exam: Result Comment: Non Reactive: < 0.8 Equivocal: >/= 0.8 to < 1.0 Reactive: >/= 1.0 The CDC requires that a reactive/equivocal HCV antibody result be sent out for confirmation. HCV Quant by PCR testing. Performed By: #### L 3890.6300, L509.4005, L509.8000, L3890.6100, L3890.6005, BTS, L100.0100 ####[facility] [address] [place], [address] L509.8000on 09-09-2024 Syphilis Abs Non-Reactive Normal [facility] Comment on above: Order Comment: Reaso n for Exam: Performed By: #### L 3890.6300, L509.4005, L509.8000, L3890.6100, L3890.6005, BTS, L100.0100 ####[facility] [address] [place], [place], [address] Specialist Wound Care Office Visit Reporton 09-09-2024 Specialist Wound Care Office Visit Report [facility] [address], [address] [place] [address] OFFICE VISIT Date of Service: 09/09/24 MR#: [id number] Acct: [id number] Name: GINO BAE Rep #: [id number] : 2000 Provider: JOSE Santos ams Age/Sex: 24/F [place] [facility] [place]: Signed Intake Vital Signs 08/27/24 19:48 09/09/24 09:00 09/09/24 09:07 Height 5 ft 5 in 5 ft 5 in 5 ft 5 in Weight: 143 lb BMI 23.8 BP 127/83 H Intake Visit Reasons: LMP:06/27 BLUE:04/03 Information Services Assistant Required: No Is patient in pain?: No [...] PFSH Medical History Migraine headache Surgical History [place] teeth extracted Family History Grandfather Diabetes Maternal Mother Cancer Basal cell skin cancer Father Cancer Basal cell Skin cancer Aunt Cancer Maternal- Skin Melanoma Social History adopted: No household members: spouse current occupational status: employed 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 Normal [facility] Rubella IgGon 09-09-2024 Rubella IgG Reactive Normal Nonreactive [facility] Comment on above: Order Comment: Reaso n for Exam: Result Comment: Anti body Results Interpretation of Immune Status Non Reactive Presumed Non-Immune Equivocal Equivocal Reactive Presumed Immune Performed By: #### L 3890.6300, L509.4005, L509.8000, L3890.6100, L3890.6005, BTS, L100.0100 ####[facility] [address] [place], [address] Type AND Screenon 09-09-2024 Ab SCREEN GEL Negative Normal [facility] Comment on above: Order Comment: PN Performed By: #### L 3890.6300, L509.4005, L509.8000, L3890.6100, L3890.6005, BTS, L100.0100 ####[facility] [address] [place], [address] Urine Cultureon 08-29-2024 URC Culture exhibits no growth. Normal [facility] Comment on above: Performed By: #### M 100.2200 #### [facility] [address] [place], [address] CBC-Complete Blood Cnt No Di ffon 08-27-2024 Erythrocyte distribution width (RBC) [Ratio] 12.4 % Normal 11.6-14.6 [facility] Comment on above: Performed By: #### L 500.4050, L100.0500, L501.2450 ####[facility] [address] [place], [address] Hematocrit (Bld) [Volume fraction] 35.8 % Low 37-47 [facility] Comment on above: Performed By: #### L 500.4050, L100.0500, L501.2450 ####[facility] [address] [place], [address] Hemoglobin (Bld) [Mass/Vol] 12.1 g/dL Normal 12.0-15.0 [facility] Comment on above: Performed By: #### L 500.4050, L100.0500, L501.2450 ####[facility] [address] [place], [address] MCH (RBC) [Entitic mass] 29.5 pg Normal 27.0-32.0 [facility] Comment on above: Performed By: #### L 500.4050, L100.0500, L501.2450 ####[facility] [address] [place], [address] MCHC (RBC) [Mass/Vol] 33.8 g/dL Normal 32-36 [facility] Comment on above: Performed By: #### L 500.4050, L100.0500, L501.2450 ####[facility] [address] [place], [address] MCV (RBC) [Entitic vol] 87.3 fL Normal 81-99 [facility] Comment on above: Performed By: #### L 500.4050, L100.0500, L501.2450 ####[facility] [address] [place], [address] Platelet mean volume (Bld) [Entitic vol] 13.1 fL High 6.2-12.0 [facility] Comment on above: Performed By: #### L 500.4050, L100.0500, L501.2450 ####[facility] [address] [place], [address] Platelets (Bld) [#/Vol] 153 10*3/uL Normal 150-450 [facility] Comment on above: Performed By: #### L 500.4050, L100.0500, L501.2450 ####[facility] [address] [place], [address] RBC (Bld) [#/Vol] 4.10 10*6/uL Low 4.2-5.4 [facility] Comment on above: Performed By: #### L 500.4050, L100.0500, L501.2450 ####[facility] [address] [place], [address] RDW SD 39.5 fl Normal 35.1-43.9 [facility] Comment on above: Performed By: #### L 500.4050, L100.0500, L501.2450 ####[facility] [address] [place], [address] WBC (Bld) [#/Vol] 9.6 10*3/uL Normal 4.4-11.0 [facility] Comment on above: Performed By: #### L 500.4050, L100.0500, L501.2450 ####[facility] [address] [place], [address] Comprehensive Metabolic Prof [facility] 08-27-2024 Albumin [Mass/Vol] 3.6 g/dL Normal 3.2-5.0 [facility] Comment on above: Performed By: #### L 500.4050, L100.0500, L501.2450 ####[facility] [address] [place], [address] Albumin/Globulin [Mass ratio] 1.1 {ratio} Normal 0.9-2.4 [facility] Comment on above: Performed By: #### L 500.4050, L100.0500, L501.2450 ####[facility] [address] [place], [address] ALK P 60 U/L Normal 45-117 [facility] Comment on above: Performed By: #### L 500.4050, L100.0500, L501.2450 ####[facility] [address] [place], [address] ALT [Catalytic activity/Vol] 16 U/L Normal 13-56 [facility] Comment on above: Performed By: #### L 500.4050, L100.0500, L501.2450 ####[facility] [address] [place], [address] AST [Catalytic activity/Vol] 11 U/L Low 15-37 [facility] Comment on above: Performed By: #### L 500.4050, L100.0500, L501.2450 ####[facility] [address] [place], [address] Bilirubin [Mass/Vol] 0.30 mg/dL Normal 0.20-1.00 [facility] Comment on above: Result Comment: For patients on eltrombopag therapy, use of Dimension Grassflat TBIL is not recommended. Performed By: #### L 500.4050, L100.0500, L501.2450 ####[facility] [address] [place], [address] BUN/CRE 17.2 RATIO Normal 10-20 [facility] Comment on above: Performed By: #### L 500.4050, L100.0500, L501.2450 ####[facility] [address] [place], [address] CA,Total 8.9 mg/dL Normal 8.5-10.1 [facility] Comment on above: Performed By: #### L 500.4050, L100.0500, L501.2450 ####[facility] [address] [place], [address] Chloride [Moles/Vol] 104 mmol/L Normal 98-107 [facility] Comment on above: Performed By: #### L 500.4050, L100.0500, L501.2450 ####[facility] [address] [place], [address] CO2 [Moles/Vol] 29.0 mmol/L Normal 21.0-32.0 [facility] Comment on above: Performed By: #### L 500.4050, L100.0500, L501.2450 ####[facility] [address] [place], [address] Creatinine [Mass/Vol] 0.52 mg/dL Low 0.55-1.02 [facility] Comment on above: Result Comment: The validity of the calculated GFR GFRAA in patients over 70 years has not been determined. Clinical correlation is essential. Performed By: #### L 500.4050, L100.0500, L501.2450 ####[facility] [address] [place], [address] EST GFR - AA 186 mL/min Normal >60 [facility] Comment on above: Result Comment: Afri can Vietnamese GFR Calc Performed By: #### L 500.4050, L100.0500, L501.2450 ####[facility] [address] [place], [address] GAP 6 Normal 5-15 [facility] Comment on above: Performed By: #### L 500.4050, L100.0500, L501.2450 ####[facility] [address] [place], [address] GFR/1.73 sq M.predicted among non-blacks MDRD (S/P/Bld) [Vol rate/Area] 154 mL/min/{1.73_m2} Normal >60 [facility] Comment on above: Result Comment: Non- GFR Calc Performed By: #### L 500.4050, L100.0500, L501.2450 ####[facility] [address] [place], [address] Globulin (S) [Mass/Vol] 3.4 g/dL Normal 2.2-4.2 [facility] Comment on above: Performed By: #### L 500.4050, L100.0500, L501.2450 ####[facility] [address] [place], [address] Glucose [Mass/Vol] 91 mg/dL Normal 74-106 [facility] Comment on above: Performed By: #### L 500.4050, L100.0500, L501.2450 ####[facility] [address] [place], [address] Potassium [Moles/Vol] 3.6 mmol/L Normal 3.5-5.1 [facility] Comment on above: Performed By: #### L 500.4050, L100.0500, L501.2450 ####[facility] [address] [place], [address] Sodium [Moles/Vol] 139 mmol/L Normal 136-145 [facility] Comment on above: Performed By: #### L 500.4050, L100.0500, L501.2450 ####[facility] [address] [place], [address] T PROT 7.0 g/dL Normal 6.4-8.2 [facility] Comment on above: Performed By: #### L 500.4050, L100.0500, L501.2450 ####[facility] [address] [place], [address] Urea nitrogen [Mass/Vol] 9 mg/dL Normal 7-18 [facility] Comment on above: Performed By: #### L 500.4050, L100.0500, L501.2450 ####[facility] [address] [place], [address] Emergency Department Summary on 08-27-2024 Emergency Department Summary [facility] Medical Records Department [address] [place] [address] Emergency Department Summary 08/27/24 MR#: [id number] Acct: [id number] Name: GINO BAE Rep #: [id number] : 2000 24 From: Ivan Abrams DO [...] they tawanda (more content not included)... Normal [facility] Lipaseon 08-27-2024 Lipase [Catalytic activity/Vol] 36 U/L Normal 13-75 [facility] Comment on above: Result Comment: Susan stock note: LIPASE revised reference range effective 22. New Lipase methodology. Expected to produce lower values than the previous assay method. NEW Reference Range: 13 - 75 U/L Performed By: #### L 500.4050, L100.0500, L501.2450 ####[facility] [address] [place], [address] Urinalysis, Completeon 08-27 AMORPHOUS 3+ Normal [facility] Comment on above: Order Comment: CLEAN CATCH Performed By: #### L 400.0001 #### [facility] [address] [place], [address] EPI,SQUAMOUS 0-5 SEEN Normal 5-10 [facility] Comment on above: Order Comment: CLEAN CATCH Performed By: #### L 400.0001 #### [facility] [address] [place], [address] WBC 0-5 SEEN Normal 0-5 [facility] Comment on above: Order Comment: CLEAN CATCH Performed By: #### L 400.0001 #### [facility] [address] [place], [address] BACTERIA 0 SEEN Normal None Seen [facility] Comment on above: Order Comment: CLEAN CATCH Performed By: #### L 400.0001 #### [facility] [address] [place], [address] Mucus Ql (Urine sed) 0 SEEN Normal [facility] Comment on above: Order Comment: CLEAN CATCH Performed By: #### L 400.0001 #### [facility] [address] [place], [address] RBC 0 SEEN Normal 0-5 [facility] Comment on above: Order Comment: CLEAN CATCH Performed By: #### L 400.0001 #### [facility] [address] [place], [address] POCT UA Automated manually r esultedon 07-13-2024 Appearance (U) Clear Clear [facility] Work Phone: Glucose Test strip (U) [Mass/Vol] Negative NEGATIVE mg/dl [facility] Work Phone: [phone] Hemoglobin Ql (U) Negative NEGATIVE [facility] Work Phone: [phone] Interpretation and review of laboratory results Normal [facility] Work Phone: [phone] Leukocyte esterase Test strip Ql (U) Negative NEGATIVE [facility] Work Phone: [phone] Nitrite Ql (U) Negative NEGATIVE [facility] Work Phone: [phone] pH (U) 7.0 [pH] No Reference Range Established [facility] Work Phone: [phone] POC Bilirubin, Urine Negative NEGATIVE [facility] Work Phone: [phone] POC Color, Urine Yellow Straw, Saunders ow, Light-Yellow [facility] Work Phone: [phone] POC Ketones, Urine Negative NEGATIVE mg/dl [facility] Work Phone: [phone] POC Protein, Urine Negative NEGATIVE, 30 (1+) mg/dl [facility] Work Phone: POC Specific [place], Urine 1.020 1.005 - 1.035 [facility] Work Phone: POC Urobilinogen, Urine 0.2 0.2, 1.0 EU/ DL [facility] Work Phone: [facility] Work Phone: CULTURE URINEon 01-03-2024 Bacteria identified Cx Nom (U) NO PATHOGENS GROWN AFTER 1 DAY NO PATHOGENS GROWN AFTER 2 DAYS Normal [facility] Comment on above: Performed By: #### 6 30-4, UAR #### [facility] [address] [place] [address] [employer] - Pippa QUIÑONESIA [id number] CBC W Auto Differential pane l (Bld)on 01-01-2024 Basophils (Bld) [#/Vol] 0.05 10*3/uL Normal <=0.70 [facility] Comment on above: Performed By: #### 5 7021-8 #### [address] [place] [address] [employer] - [employer] QUIÑONESIA [id number] Basophils/100 WBC (Bld) 0.6 % Normal <=2.0 [facility] Comment on above: Performed By: #### 5 7021-8 #### [address] [place] [address] [employer] - [employer] Nowak CLIA [id number] Eosinophils (Bld) [#/Vol] 0.51 10*3/uL Normal <=0.70 [facility] Comment on above: Performed By: #### 5 7021-8 #### [address] [facility] [address] [place] [address] [employer] - [employer] Nowak CLIA [id number] Eosinophils/100 WBC (Bld) 6.2 % Normal <=10.0 [facility] Comment on above: Performed By: #### 5 7021-8 #### [address] [facility] [place] [place] [address] [employer] - [employer] QUIÑONESIA [id number] Erythrocyte distribution width (RBC) [Entitic vol] 38.9 fL Normal 36.4-46.3 [facility] Comment on above: Performed By: #### 5 7021-8 #### [address] [facility] [place] [place] [address] [employer] - [employer] QUIÑONESIA [id number] Hematocrit (Bld)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 I have discussed the case and management of Gino' care with Gino, her mother, and the resident. Chanel Pradhan, [facility] These final recommendations will be communicated [...] attacks [F41.0] Anxiety [F41.9] Order(s):EPIL EEG ROUTINE [[id number]] Order #: [id number]: 1 FUTURE cloNIDine HCl (CATAPRES) 0.1 mg [...] [facility] on 04[facility]19 [facility] PROGRESSon 04-08-2019 PROGRESS HNO ID: [id number] Author: Juancarlos Wilkinson Service: ? Author Type: Resident Type: Progress Notes Filed: 04/11/2019 9:12 AM Note Text: Jess Hagan MD? [address], [place] [place] [address]? Dear Dr[address] Hagan: Thank you for your [...] upper extremity. She was previously evaluated at [facility] and the movements were felt to be functional in nature. The movements have, however, persisted and she now presents to follow up after a recent ED visit as she was unable to get a sooner appointment at [facility] Neu[facility]. Gino has a history of migraines and has been followed for this by Dr. Mat Patel in pediatric neurology at [facility]. She last saw Dr. Patel on [...] The symptoms lasted 20 minutes. During a [place] mission trip March,, Gino again had recurrent [...] 2019 the day after she arrived in [facility] for another mission trip. It is unclear [...] poor living conditions noted on arrival to [facility] including cockroaches in food, moldy paul, small/cramped [...] women were taken to a clinic in [facility] where they were given Valium to calm them. Blood and urine testing was reportedly normal. The three young women who were having symptoms [place]. The other two young women are now symptom-free and the symptoms were felt to be related to anxiety/panic attacks as opposed to seizure. On March 18, 2019, Gino was seen in [facility] ED for ongoing abnormal movements and concerns for seizure-like activity. Vital signs were stable and work up, including anti-streptolysin titer, urine HCG, CBC. CK, UA. and CMP were normal, except for a slightly elevated total bilirubin of 1.2 (0.0-1.0) with normal AST/ALT. Urine toxicology screen was only positive for benzodiazepines (which she had been given in [facility]). She was treated with Benadryl [...] well (mother describes episode early-on while at tenriism when her right upper extremity had drastic [...] scapula: this began at symptom onset in [facility]. Gino feels it is getting better. She [...] by pediatric cardiology (Dr. Emily Garcia) at [facility] on February 18, 2019 for an asymptomatic murmur; and had a normal examination (no murmur heard) and echocardiogram. 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 She does very well at school with a 4.0 GPA. She is active and involved with [employer], [employer] (no longer doing), [employer], and tenriism leadership team. 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 + Recent stress during trip to [facility]. Hematology/Lympholo gy: Negative for prolonged [...] There is no motor impersistence on hand freight brakeman or minimyoclonus of the fingers when arms [...] young women on her recent trip to [facility]) it is difficult to exclude [...] Resident for LARRY Woodall Staff, Pediatric Neurology [facility] STAFF PHYSICIAN NOTE OF PERSONAL INVOLVEMENT IN [...] by US mail. C: Family, PCP Normal [facility] Vital Signs Date Time Vital Sign Value Performing Clinician Facility 03-27-2025 11:04040 Heart rate 87 /min Yuliana ESPINOZA Work Phone: [facility] 03-27-2025 11:04-0400 SaO2% (BldA) [Mass fraction] 92 % Yuliana Gonzalez HEARING THERAPY DIRECTOR-C Work Phone: 9(856)[phone] [place] [address] 03-27-2025 09:54-0400 Respiratory rate 16 /min Yuliana Gonzalez HEARING THERAPY DIRECTOR-C Work Phone: 7(732)787-850499 [place] [address] 03-27-2025 09:11-0400 Body temperature 97.5 [degF] Yuliana Gonzalez HEARING THERAPY DIRECTOR-C Work Phone: 1(357)511-365999 [place] [address] 03-27-2025 09:11-0400 Diastolic blood pressure 68 mm[Hg] Yuliana Gonzalez HEARING THERAPY DIRECTOR-C Work Phone: 0(466)947-899499 [place] [address] 03-27-2025 09:11-0400 Systolic blood pressure 128 mm[Hg] Yuliana Gonzalez HEARING THERAPY DIRECTOR-C Work Phone: 2(157)122-756299 [place] [address] 03-27-2025 08:59-0400 Body height 165.1 cm Yuliana Gonzalez HEARING THERAPY DIRECTOR-C Work Phone: 1(603)809-643999 [place] [address] 03-27-2025 08:59-0400 Body mass index (BMI) [Ratio] 32.6 kg/m2 Yuliana Gonzalez HEARING THERAPY DIRECTOR-C Work Phone: 2(862)878-243599 [place] [address] 03-27-2025 08:59-0400 Body weight 88.99 kg Yuliana Gonzalez HEARING THERAPY DIRECTOR-C Work Phone: 7(399)965-781052 [place] [address] 03-25-2025 10:08-0400 Body height 165.1 cm Yuliana Gonzalez HEARING THERAPY DIRECTOR-C Work Phone: 4(800)282-641552 [place] [address] 03-25-2025 10:08-0400 Body mass index (BMI) [Ratio] 32.7 kg/m2 Yuliana Gonzalez HEARING THERAPY DIRECTOR-C Work Phone: 1(114)429-134652 [place] [address] 03-25-2025 10:08-0400 Body weight 89.13 kg Yuliana Gonzalez HEARING THERAPY DIRECTOR-C Work Phone: 9(417)984-580052 [place] [address] 03-25-2025 10:08-0400 Diastolic blood pressure 67 mm[Hg] Yuliana Gonzalez HEARING THERAPY DIRECTOR-C Work Phone: [facility] 03-25-2025 10:08-0400 Systolic blood pressure 123 mm[Hg] Yuliana Gonzalez HEARING THERAPY DIRECTOR-C Work Phone: 4(881)529-839152 [place] [address] 03-18-2025 09:31-0400 Body height 165.1 cm Yuliana Gonzalez HEARING THERAPY DIRECTOR-C Work Phone: 4(200)446-409999 [place] [address] 03-18-2025 09:31-0400 Body mass index (BMI) [Ratio] 32.4 kg/m2 Yuliana Gonzalez HEARING THERAPY DIRECTOR-C Work Phone: 5(216)687-611899 [place] [address] 03-18-2025 09:31-0400 Body weight 88.45 kg Yuliana Gonzalez HEARING THERAPY DIRECTOR-C Work Phone: 5(344)342-206899 [place] [address] 03-18-2025 09:31-0400 Diastolic blood pressure 83 mm[Hg] Yuliana Gonzalez HEARING THERAPY DIRECTOR-C Work Phone: 7(891)256-300699 [place] [address] 03-18-2025 09:31-0400 Systolic blood pressure 139 mm[Hg] Yuliana Gonzalez HEARING THERAPY DIRECTOR-C Work Phone: 4(110)714-765799 [place] [address] 03-10-2025 15:34-0400 Body height 165.1 cm Yuliana Gonzalez HEARING THERAPY DIRECTOR-C Work Phone: 9(559)544-259599 [place] [address] 03-10-2025 15:34-0400 Body mass index (BMI) [Ratio] 32.5 kg/m2 Yuliana Gonzalez HEARING THERAPY DIRECTOR-C Work Phone: 4(884)790-566299 [place] [address] 03-10-2025 15:34-0400 Body weight 88.56 kg Yuliana Gonzalez HEARING THERAPY DIRECTOR-C Work Phone: 7(718)856-929199 [place] [address] 03-10-2025 15:34-0400 Diastolic blood pressure 82 mm[Hg] Yuliana Gonzalez HEARING THERAPY DIRECTOR-C Work Phone: 9(129)790-163099 [place] [address] 03-10-2025 15:34-0400 Systolic blood pressure 138 mm[Hg] Yuliana Gonzalez HEARING THERAPY DIRECTOR-C Work Phone: 5(238)387-453899 [place] [address] 02-24-2025 08:59-0400 Body height 165.1 cm Yuliana Gonzalez HEARING THERAPY DIRECTOR-C Work Phone: [facility] 02-24-2025 08:59-0400 Body mass index (BMI) [Ratio] 31.4 kg/m2 Yuliana Gonzalez HEARING THERAPY DIRECTOR-C Work Phone: [facility] 02-24-2025 08:59-0400 Body weight 85.84 kg Yuliana Gonzalez HEARING THERAPY DIRECTOR-C Work Phone: 1(421)123-415152 [place] [address] 02-24-2025 08:59-0400 Diastolic blood pressure 69 mm[Hg] Yuliana Gonzalez HEARING THERAPY DIRECTOR-C Work Phone: 2(924)070-448099 [place] [address] 02-24-2025 08:59-0400 Systolic blood pressure 103 mm[Hg] Yuliana Gonzalez HEARING THERAPY DIRECTOR-C Work Phone: 3(327)467-021899 [place] [address] 02-10-2025 08:47-0400 Body height 165.1 cm Yuliana Goznalez HEARING THERAPY DIRECTOR-C Work Phone: 5(666)109-920099 [place] [address] 02-10-2025 08:47-0400 Body mass index (BMI) [Ratio] 31.4 kg/m2 Yuliana Gonzalez HEARING THERAPY DIRECTOR-C Work Phone: 7(931)072-117899 [place] [address] 02-10-2025 08:47-0400 Body weight 85.78 kg Yuliana Gonzalez HEARING THERAPY DIRECTOR-C Work Phone: 7(899)509-004399 [place] [address] 02-10-2025 08:47-0400 Diastolic blood pressure 83 mm[Hg] Yuliana Gonzalez HEARING THERAPY DIRECTOR-C Work Phone: 9(944)531-559399 [place] [address] 02-10-2025 08:47-0400 Systolic blood pressure 115 mm[Hg] Yuliana Gonzalez HEARING THERAPY DIRECTOR-C Work Phone: 8(035)357-518199 [place] [address] 01-26-2025 08:35-0400 Body height 165.1 cm Yuliana Gonzalez HEARING THERAPY DIRECTOR-C Work Phone: 7(042)523-363399 [place] [address] 01-26-2025 08:35-0400 Body mass index (BMI) [Ratio] 31.3 kg/m2 Yuliana Gonzalez HEARING THERAPY DIRECTOR-C Work Phone: 0(963)601-823299 [place] [address] 01-26-2025 08:35-0400 Body weight 85.38 kg Yuliana Gonzalez HEARING THERAPY DIRECTOR-C Work Phone: [facility] 01-26-2025 08:35-0400 Diastolic blood pressure 72 mm[Hg] Yuliana Gonzalez HEARING THERAPY DIRECTOR-C Work Phone: [facility] 01-26-2025 08:35-0400 Systolic blood pressure 126 mm[Hg] Yuliana Gonzalez HEARING THERAPY DIRECTOR-C Work Phone: [facility] 01-07-2025 10:18-0400 Body height 165.1 cm Yuliana Gonzalez HEARING THERAPY DIRECTOR-C Work Phone: 2(347)502-570552 [place] [address] 01-07-2025 10:18-0400 Body mass index (BMI) [Ratio] 30.2 kg/m2 Yuliana Gonzalez HEARING THERAPY DIRECTOR-C Work Phone: 7(744)727-234552 [place] [address] 01-07-2025 10:18-0400 Body weight 82.55 kg Yuliana Gonzalez HEARING THERAPY DIRECTOR-C Work Phone: 5(703)041-004552 [place] [address] 01-07-2025 10:18-0400 Diastolic blood pressure 81 mm[Hg] Yuliana Gonzalez HEARING THERAPY DIRECTOR-C Work Phone: 0(162)197-054352 [address] [place] [address] 01-07-2025 10:18-0400 Systolic blood pressure 127 mm[Hg] Yuliana Gonzalez HEARING THERAPY DIRECTOR-C Work Phone: 2(080)[phone] [place] [address] 12-03-2024 10:15-0400 Body mass index (BMI) [Ratio] 28.5 kg/m2 Yuliana Gonzalez HEARING THERAPY DIRECTOR-C Work Phone: [facility] 12-03-2024 10:15-0400 Body weight 77.73 kg Yuliana Gonzalez HEARING THERAPY DIRECTOR-C Work Phone: 2(205)[phone] [place] [address] 12-03-2024 10:15-0400 Diastolic blood pressure 77 mm[Hg] Yuliana Gonzalez HEARING THERAPY DIRECTOR-C Work Phone: 1(357)425-223752 [place] [address] 12-03-2024 10:15-0400 Systolic blood pressure 120 mm[Hg] Yuliana Gonzalez HEARING THERAPY DIRECTOR-C Work Phone: 2(430)634-853252 [place] [address] 11-05-2024 11:42-0500 Body mass index (BMI) [Ratio] 27.3 kg/m2 Yuliana Gonzalez HEARING THERAPY DIRECTOR-C Work Phone: 1(704)380-198652 [place] [address] 11-05-2024 11:42-0500 Body weight 74.38 kg Yuliana Gonzalez HEARING THERAPY DIRECTOR-C Work Phone: 8(436)494-061299 [place] [address] 11-05-2024 11:42-0500 Diastolic blood pressure 81 mm[Hg] Yuliana Gonzalez HEARING THERAPY DIRECTOR-C Work Phone: 2(129)486-494599 [place] [address] 11-05-2024 11:42-0500 Systolic blood pressure 134 mm[Hg] Yuliana Gonzalez HEARING THERAPY DIRECTOR-C Work Phone: 6(216)362-457999 [place] [address] 10-07-2024 11:33-0500 Body mass index (BMI) [Ratio] 25.4 kg/m2 Yuliana Gonzalez HEARING THERAPY DIRECTOR-C Work Phone: 6(300)128-923899 [place] [address] 10-07-2024 11:33-0500 Body weight 69.45 kg Yuliana Gonzalez HEARING THERAPY DIRECTOR-C Work Phone: 8(656)324-949499 [place] [address] 10-07-2024 11:33-0500 Diastolic blood pressure 73 mm[Hg] Yuliana Gonzalez HEARING THERAPY DIRECTOR-C Work Phone: 8(138)392-156399 [place] [address] 10-07-2024 11:33-0500 Systolic blood pressure 120 mm[Hg] Yuliana Gonzalez HEARING THERAPY DIRECTOR-C Work Phone: 6(698)386-961599 [place] [address] 09-28-2024 07:45-0500 Body height 166.4 cm Yuliana Gonzalez [employer]ER Work Phone: 0(558)561-663717 [place] [address] 09-28-2024 07:45-0500 Body mass index (BMI) [Ratio] 24.91 kg/m2 Yuliana Gonzalez [employer]ER Work Phone: 0(008)910-847817 [place] [address] 09-28-2024 07:45-0500 Body weight 68.95 kg Yuliana Gonzalez [employer] Work Phone: 5(470)327-794117 [place] [address] 09-28-2024 07:45-0500 Diastolic blood pressure 80 mm[Hg] Yuliana Gonzalez [employer] CLE[employer]ER Work Phone: [facility] 09-28-2024 07:45-0500 Heart rate 72 /min Yuliana Gonzalez [employer] CLE[employer]ER Work Phone: [facility] 09-28-2024 07:45-0500 Systolic blood pressure 138 mm[Hg] Yuliana Gonzalez [employer] CLE[employer]ER Work Phone: [facility] 07-13-2024 07:18-0500 Body height 166.4 cm Yuliana Gonzalez [employer]ER Work Phone: [facility] 07-13-2024 07:18-0500 Body mass index (BMI) [Ratio] 23.02 kg/m2 Yuliana Gonzalez [employer]ER Work Phone: [facility] 07-13-2024 07:18-0500 Body weight 63.73 kg Yuliana Gonzalez [employer]ER Work Phone: [facility] 07-13-2024 07:18-0500 Diastolic blood pressure 80 mm[Hg] Yuliana Gonzalez [employer] CLEANER Work Phone: [facility] 07-13-2024 07:18-0500 Heart rate 82 /min Yuliana Gonzalez [employer]ER Work Phone: [facility] 07-13-2024 07:18-0500 Systolic blood pressure 124 mm[Hg] Yuliana Gonzalez [employer] CLE[employer]ER Work Phone: [facility] Encounters Encounter Date Encounter Type Care Provider Facility Start: 03-27-2025 End: 03-27-2025 ambulatory Yuliana Gonzalez NP-C Work Phone: -[facility] Start: 03-27-2025 End: 03-27-2025 Patient encounter procedure Autumn Jacome CNM -[facility] Work Phone: Start: 03-25-2025 End: 03-25-2025 Patient encounter procedure Autumn Jacome CNM -[facility] Work Phone: Start: 03-25-2025 End: 03-25-2025 ambulatory Yuliana Gonzalez HEARING THERAPY DIRECTOR-C Work Phone: -[facility] Start: 03-22-[address] Marissa Aquino MD -[facility] Work Phone: Start: 03-22-2025 ambulatory Yuliana Gonzalez Facility:[facility] Start: 03-18-2025 End: 03-18-[address] Marissa Aquino MD -[facility] Work Phone: Start: 03-18-2025 End: 03-18-2025 ambulatory Yuliana Gonzalez HEARING THERAPY DIRECTOR-C Work Phone: [facility] Start: 03-10-2025 End: 03-10-2025 ambulatory Yuliana Gonzalez HEARING THERAPY DIRECTOR-C Work Phone: -Laboratory Specimen Start: 03-10-2025 End: 03-10-[address] Rufina Weiss DO -Laboratory Specimen Work Phone: Start: 03-10-2025 End: 03-10-[address] Rufina Weiss DO -[facility] Work Phone: Start: 03-10-2025 End: 03-10-2025 ambulatory Yuliana Gonzalez HEARING THERAPY DIRECTOR-C Work Phone: [facility] Start: 03-10-2025 End: 03-10-2025 ambulatory Rufina Weiss Facility:[facility] Start: 02-24-2025 End: 02-24-[address] Marissa Aquino MD -[facility] Work Phone: Start: 02-24-2025 End: 02-24-2025 ambulatory Yuliana Gonzalez HEARING THERAPY DIRECTOR-C Work Phone: [facility] Work Phone: Start: 02-15-2025 End: 02-15-2025 ambulatory Yuliana Gonzalez HEARING THERAPY DIRECTOR-C Work Phone: [facility] Work Phone: Start: 02-15-2025 End: 02-15-2025 Patient encounter procedure Autumn M[facility]RQUEZM -[facility] Start: 02-15-2025 End: 02-15-2025 ambulatory Autumn Jacome Facility:[facility] Start: 02-11-2025 End: 02-11-2025 ambulatory Yuliana Gonzalez HEARING THERAPY DIRECTOR-C Work Phone: [facility] Work Phone: Start: 02-11-2025 End: 02-11-2025 Patient encounter procedure Autumn Jacome CNM -[facility] Work Phone: Start: 02-10-2025 End: 02-11-2025 ambulatory Yulaina Gonzalez HEARING THERAPY DIRECTOR-C Work Phone: [facility] Work Phone: Start: 02-10-2025 End: 02-10-2025 Patient encounter procedure Autumn Jacome CNM -[facility] Work Phone: Start: 01-26-2025 End: 01-26-2025 Patient encounter procedure Kristen Parker HEARING THERAPY DIRECTOR-C -[facility] Work Phone: Start: 01-26-2025 End: 01-26-2025 ambulatory Yuliana Gonzalez HEARING THERAPY DIRECTOR-C Work Phone: [facility] Work Phone: Start: 01-07-2025 End: 01-07-2025 Patient encounter procedure Autumn MÁRQUEZM -[facility] Work Phone: Start: 01-07-2025 End: 01-07-2025 ambulatory Yuliana Gonzalez HEARING THERAPY DIRECTOR-C Work Phone: [facility] Work Phone: Start: 01-07-2025 End: 01-07-2025 ambulatory Marissa Aquino Facility:[facility] Start: 12-31-2024 ambulatory Lore Staley y:[facility] Start: 12-03-2024 End: 12-03-[address] Rufina Weiss DO -[facility] Work Phone: Start: 12-03-2024 End: 12-03-2024 ambulatory Rufina Weiss Facility:[facility] Start: 11-09-2024 End: 11-09-2024 ambulatory JOSSELIN PETRA [facility] Start: 11-05-2024 End: 11-05-2024 Patient encounter procedure Autumn MÁRQUEZ -[facility] Work Phone: Start: 11-05-2024 End: 11-05-2024 ambulatory Yuliana Gonzalez Facility:[facility] Start: 10-07-2024 End: 10-07-[address] Rufina Weiss DO -[facility] Work Phone: Start: 10-07-2024 End: 10-07-2024 ambulatory Rufina Weiss Facility:[facility] Start: 09-28-2024 End: 09-28-2024 Office outpatient visit 15 minutes Yuliana Gonzalez [employer]ER Work Phone: [facility] Comment on above: Persistent depressiv e disorder; Anxiety Start: 09-28-2024 End: 09-28-2024 ambulatory [facility] Start: 09-09-2024 End: 09-09-2024 ambulatory Yuliana [place] Facility:[facility] Start: 09-09-2024 End: 09-09-2024 ambulatory Yuliana [place] Facility:[facility] Start: 08-27-2024 End: 08-27-2024 Emergency department patient visit Ivan Abrams Facility:[facility] Start: 07-13-2024 End: 07-13-2024 Initial preventive medicine new pt age 18-39yrs Yuliana Gonzalez [employer] CLE[employer]ER Work Phone: [facility] Comment on above: Wellness examination (Primary Dx); Dysuria; Persistent depressive disorder; Migraine without aura and without status migrainosus, not intractable; Screening for lipid disorders; BMI 23.0-23.9, adult Start: 07-13-2024 End: 07-13-2024 Patient encounter status Yuliana Gonzalez [employer] CLE[employer]ER Work Phone: [facility] Work Phone: Start: 07-13-2024 End: 07-13-2024 ambulatory YULIANA GONZALEZ [facility] Ambulatory Start: 07-13-2024 End: 07-13-2024 Encounter for general adult medical examination without abnormal findings YULIANA GONZALEZ [facility] Start: 01-01-2024 End: 01-01-2024 ambulatory BOAZ SCHULTZ Facility:[facility] Start: 02-13-2018 End: 02-14-2018 Ambulatory [facility] Procedures Date Procedure Procedure Detail Performing Clinician Start: 03-22-2025 Ultrasound scan for growth Yuliana Gonzalez HEARING THERAPY DIRECTOR-C Work Phone: Start: 03-10-2025 Beta-hemolytic Streptococcus culture Yuliana Vincenzo HEARING THERAPY DIRECTOR-C Work Phone: Start: 02-11-2025 Ultrasound scan for growth Yuliana Gonzalez HEARING THERAPY DIRECTOR-C Work Phone: Start: 01-07-2025 Serologic test for syphilis Yuliana Gonzalez HEARING THERAPY DIRECTOR-C Work Phone: Start: 09-09-2024 Microscopic observat ion [Identifier] in Cervix by Cyto stain Yuliana Gonzalez [employer]ER Work Phone: Start: 07-13-2024 Urnls dip stick/tabl et rgnt auto w/o microscopy Yuliana Gonzalez [employer]ER Work Phone: Plan of Treatment Date Care Activity Detail Author Start: 2076 RSV High Risk: (Elde rly (60+) or Population) (1 - 1-dose 75+ series) RSV High Risk: (Elderly (60+) or Population) (1 - 1-dose 75+ series) [facility] Start: 2051 Zoster Vaccines (1 of 2) Zoste r Vaccines (1 of 2) [facility] Start: 09-09-2027 Screening for malign ant neoplasm of cervix [facility] Start: 07-14-2025 Yearly Adult Physical Yearly Adult P hysical [facility] Start: 04-01-2025 ambulatory Ambulatory Facility:[facility] Start: 03-27-2025 Nonstress test [facility] Start: 03-27-2025 Obstetric monitoring [facility] Start: 03-27-2025 Vital signs measurements [facility] Start: 03-27-2025 [facility] Start: 03-27-2025 Patient discharge [facility] Start: 07-13-2024 End: 07-13-2025 CBC W Auto Differential panel - Blood CBC and Auto Differential Lab Routine Wellness examination Expected: 07/13/2024 (Approximate), Expires: 07/13/2025 [facility] Service Area Work Phone: Comment on above: Expected: 07/13/2024 (Approximate), Expires: 07/13/2025 Start: 07-13-2024 End: 07-13-2025 Comprehensive metabolic 2000 panel - Serum or Plasma Comprehensive Metabolic Panel Lab Routine Wellness examination Expected: 07/13/2024 (Approximate), Expires: 07/13/2025 [facility] Work Phone: Comment on above: Expected: 07/13/2024 (Approximate), Expires: 07/13/2025 Start: 07-13-2024 End: 07-13-2025 Lipid 1996 panel - Serum or Plasma Lipid Panel Lab Routine Screening for lipid disorders Wellness examination Expected: 07/13/2024 (Approximate), Expires: 07/13/2025 [facility] Work Phone: Comment on above: Expected: 07/13/2024 (Approximate), Expires: 07/13/2025 Start: 05-02-2024 COVID-19 Vaccine ( season) COVID-19 Vaccine ( season) [facility] Start: 05-02-2024 Influenza vaccination Influenza Vacc ine (#1) [facility] Start: 02-05-2024 DTaP/Tdap/Td Vaccine s (7 - Td or Tdap) DTaP/Tdap/Td Vaccines (7 - Td or Tdap) [facility] Start: 2022 Screening for malign ant neoplasm of cervix [facility] Start: 2019 Hepatitis C screening Hepatitis C Sc reening [facility] Start: 2016 HPV Vaccines (1 - 3- dose series) HPV Vaccines (1 - 3-dose series) [facility] Start: 2001 HIV screening HIV Screening [facility] Start: 2001 Lipid panel Lipid Panel [facility] Patient Education Kick Counts ED False Labor OB Triage: Return to Hospital or Notify Physician if you Experience: [facility] Work Phone: Streptococcus agalac tiae [Presence] in Unspecified specimen by Organism specific culture [facility] Ultrasound scan for growth [facility] Ultrasound scan for growth [facility] Immunizations Immunization Date Immunization Notes Care Provider Fa pankaj 02-10-2025 tetanus toxoid, redu gordon diphtheria toxoid, and acellular pertussis vaccine, adsorbed Yuliana Gonzalez HEARING THERAPY DIRECTOR-C Work Phone: [facility] 01-14-2022 tuberculin skin test ; purified protein derivative solution, intradermal Yuliana Gonzalez [employer] CLEANER Work Phone: [facility] Work Phone: 05-31-2019 meningococcal B vacc ine, recombinant, OMV, adjuvanted Yuliana Gonzalez [employer] CLEANER Work Phone: [facility] Work Phone: 02-12-2019 meningococcal B vacc ine, recombinant, OMV, adjuvanted Yuliana Gonzalez [employer]ABLE CLEANER Work Phone: [facility] Work Phone: 02-12-2019 meningococcal polysaccharide (groups A, C, Y and W-135) diphtheria toxoid conjugate vaccine (MCV4P) Yuliana Gonzalez [employer] CLEANER Work Phone: [facility] Work Phone: 02-07-2017 hepatitis A vaccine, pediatric/adolescent dosage, 2 dose schedule Yuliana Gonzalez [employer]ABLE CLE[employer]ER Work Phone: [facility] Work Phone: 02-07-2017 typhoid capsular polysaccharide vaccine Yulianaeber Gonzalez [employer]ABLE CLE[employer]ER Work Phone: [facility] Work Phone: 03-01-2016 hepatitis A vaccine, pediatric/adolescent dosage, 2 dose schedule Yulianaeber Gonzalez [employer] CLE[employer]ER Work Phone: [facility] Work Phone: 03-01-2016 typhoid capsular polysaccharide vaccine Yulianaeber Gonzalez [employer]ABLE CLEANER Work Phone: [facility] Work Phone: 04-27-2015 pneumococcal polysaccharide vaccine, 23 valent Yulianaeber Gonzalez [employer]ABLE CLEANER Work Phone: [facility] Work Phone: 02-04-2014 meningococcal polysaccharide (groups A, C, Y and W-135) diphtheria toxoid conjugate vaccine (MCV4P) Yuliana Gonzalez [employer]ROME POLISHER-[facility] Work Phone: [facility] Work Phone: 02-04-2014 tetanus toxoid, redu gordon diphtheria toxoid, and acellular pertussis vaccine, adsorbed Yuliana Gonzalez [employer]-[facility] Work Phone: [facility] Work Phone: 08-31-2008 varicella virus vaccine Jamar Gonzalez [employer]-[facility] Work Phone: [facility] Work Phone: 11-01-2005 diphtheria, tetanus toxoids and acellular pertussis vaccine Yuliana Gonzalez [employer]-[facility] Work Phone: [facility] Work Phone: 11-01-2005 measles, mumps and rubella virus vaccine Yuliana Gonzalez [employer]-[facility] Work Phone: [facility] Work Phone: 11-01-2005 poliovirus vaccine, inactivated Yuliana Gonzalez [employer]ER Work Phone: [facility] Work Phone: 11-19-2002 diphtheria, tetanus toxoids and acellular pertussis vaccine Yuliana Gonzalez [employer]ER Work Phone: [facility] Work Phone: 08-23-2002 measles, mumps and rubella virus vaccine Yuliana Gonzalez [employer]ER Work Phone: [facility] Work Phone: 05-24-2002 haemophilus influenz ae type b vaccine, PRP-T conjugate Yuliana Gonzalez [employer]ER Work Phone: [facility] Work Phone: 05-24-2002 hepatitis B vaccine, pediatric or pediatric/adolescent dosage Yuliana Gonzalez [employer]ER Work Phone: [facility] Work Phone: 05-24-2002 varicella virus vaccine Jamar Gonzalez [employer] CLE[employer]ER Work Phone: [facility] Work Phone: 03-01-2002 haemophilus influenz ae type b vaccine, PRP-T conjugate Yuliana Gonzalez [employer]ER Work Phone: [facility] Work Phone: 03-01-2002 poliovirus vaccine, inactivated Yuliana Gonzalez [employer] CLE[employer]ER Work Phone: [facility] Work Phone: 2001 diphtheria, tetanus toxoids and acellular pertussis vaccine Yuliana Gonzalez [employer] CLE[employer]ER Work Phone: [facility] Work Phone: 2001 pneumococcal conjuga te vaccine, 7 valent Yuliana Gonzalez [employer]-[facility] Work Phone: [facility] Work Phone: 2001 diphtheria, tetanus toxoids and acellular pertussis vaccine Yuliana Gonzalez [employer] CLE[employer]ER Work Phone: [facility] Work Phone: 2001 haemophilus influenz ae type b vaccine, PRP-T conjugate Yuliana Gonzalez [employer] CLE[employer]ER Work Phone: [facility] Work Phone: 2001 pneumococcal conjuga te vaccine, 7 valent Yuliana Gonzalez [employer]ABLE CLE[employer]ER Work Phone: [facility] Work Phone: 2001 poliovirus vaccine, inactivated Yuliana Gonzalez [employer]ABLE CLE[employer]ER Work Phone: [facility] Work Phone: 2001 diphtheria, tetanus toxoids and acellular pertussis vaccine Yuliana Gonzalez [employer] CLE[employer]ER Work Phone: [facility] Work Phone: 2001 haemophilus influenz ae type b vaccine, PRP-T conjugate Yuliana Gonzalez [employer] CLE[employer]ER Work Phone: [facility] Work Phone: 2001 hepatitis B vaccine, pediatric or pediatric/adolescent dosage Yuliana Gonzalez [employer] CLE[employer]ER Work Phone: [facility] Work Phone: 2001 pneumococcal conjuga te vaccine, 7 valent Yuliana Gonzalez [employer]ABLE CLE[employer]ER Work Phone: [facility] Work Phone: 2001 poliovirus vaccine, inactivated Yuliana Gonzalez [employer]ABLE CLE[employer]ER Work Phone: [facility] Work Phone: 2001 hepatitis B vaccine, pediatric or pediatric/adolescent dosage Yuliana Gonzalez [employer] CLE[employer]ER Work Phone: [facility] Work Phone: Payers Date Payer Category Payer Self-pay 2023 [facility] [id number] 2001 Unknown [id number] 2001 Unknown [id number] 2001 Unknown [id number] 2001 Unknown [id number] [id number] 1959 Unknown [id number] 1959 Unknown [id number] Unknown [id number] Unknown [id number] [id number] Unknown [id number] 2.16.840.1.285505.3.579.2.462 Unknown [id number] [id number] Unknown [id number] [id number] Unknown [id number] 2.16840.1.280002.3.579.2.462 Unknown [id number] [id number] Unknown [id number] 2.16.840.1.864468.3.579.2.462 Unknown [id number] 2.16.840.1.241440.3.579.2.462 Unknown [id number] 2.16.840.1.595869.3.579.2.462 Unknown [id number] [id number] Unknown [id number] 2.16.840.1.392963.3.579.2.462 Unknown [id number] 2.16.840.1.864320.3.579.2.462 Unknown [id number] 2.16.840.1.502574.3.579.2.462 Unknown [id number] 2.16.840.1.097174.3.579.2.462 Unknown [id number] 2.16.840.1.389725.3.579.2.462 Unknown [id number] 2.16.840.1.996783.3.579.2.462 Unknown [id number] 2.16.840.1.013517.3.579.2.462 Unknown [id number] [id number] Unknown [id number] [id number] Unknown [id number] [id number] Social History Date Type Detail Facility Start: 07-13-2024 End: 09-06-2024 Tobacco smoking status NHIS Never smoked tobacco [facility] Work Phone: Start: 07-13-2024 Tobacco use and exposure Smokeless tobacco non-user [facility] Work Phone: Start: 07-13-2024 End: 09-28-2024 Alcoholic beverage intake Current drinker of alcohol (finding) [facility] Work Phone: Start: 07-13-2024 End: 09-28-2024 History of Social function [facility] Work Phone: Start: 07-13-2024 End: 09-28-2024 Tobacco use panel [facility] Work Phone: Start: 07-13-2024 Alcohol Comment social [facility] Work Phone: Start: 2001 Sex assigned at Not on file [facility] Work Phone: Start: 07-03-2024 End: 09-28-2024 Exposure to SARS-CoV-2 (event) Not sure [facility] Start: 2001 Sex Assigned At Female [facility] Clinical Notes 07-13-2024 to 03-25-2025 Note Date & Type Note Facility 03-25-2025 Progress note [facility] 03-18-2025 Progress note [facility] 03-10-2025 Progress note [facility] 03-10-2025 Progress note Note Date/Time March 10, 2025 3:51pm [facility] [address], [address] [place] [address] OFFICE VISIT Date of Service: 03/10/25 MR#: [id number] Acct: [id number] Name: GINO MICHELE Rep #: [id number] : 2000 Provider: Dr. Rosalva Weiss DO Age/Sex: 24/F Location[facility] Status: Signed Intake Vital Signs 01/07/25 10:18 02/24/25 08:59 03/10/25 15:34 Height 5 ft 5 in 5 ft 5 in 5 ft 5 in Weight: 195 lb 4 oz BMI 32.5 BP 138/82 H Intake Visit Reasons: 36 wk ob Information Services Assistant Required: No Is patient in pain?: No [...] PFSH Medical History Migraine headache Surgical History [place] teeth extracted Family History Grandfather Diabetes Maternal Mother Cancer Basal cell skin cancer Father Cancer Basal cell Skin cancer Aunt Cancer Maternal- Skin Melanoma Social History adopted: No household members: spouse current occupational status: employed 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 pets and animals: Yes (Avoid Litterbox) pets [...] physical activity do you participate in: none osiris/voodoo: Adventist seatbelt use: always do you feel safe [...] high risk , unspecified, third trimester 03/10/25 3421 <Electronically signed by Rufina Watkins DO> Date _ Rufina Weiss DO Cosigner Signature: Date (if applicable) CC: ~ [facility] Work Phone: 1(977) 627-624206-26-2025 Progress [facility] [address], [address] [place] [id number] OFFICE VISIT Date of Service: 02/24/25 MR#: [id number] Acct: [id number] Name: GINO MICHELE Rep #: [id number] : 2000 Provider: Dr. Arias Aquino MD Age/Sex: 24/F [place] [facility] [place]: Signed Intake Vital Signs 09/09/24 09:07 02/10/25 08:47 02/24/25 08:59 02/24/25 08:59 Height 5 ft 5 in 5 ft 5 in 5 ft 5 in 5 ft 5 in Weight: 189 lb 4 oz BMI 31.4 BP 103/69 Intake Visit Reasons: 34 wk ob Information Services Assistant Required: No Is patient in pain?: No [...] PFSH Medical History Migraine headache Surgical History [place] teeth extracted Family History Grandfather Diabetes Maternal Mother Cancer Basal cell skin cancer Father Cancer Basal cell Skin cancer Aunt Cancer Maternal- Skin Melanoma Social History adopted: No household members: spouse current occupational status: employed 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[facility] [employer] pets and animals: Yes (Avoid Litterbox) pets [...] physical activity do you participate in: none osiris/voodoo: Adventist seatbelt use: always do you feel safe [...] Cosign Signature: Date (if applicable) CC: ~ [facility]06-13-2025 Radiology Diagnostic study note [facility] Imaging Services [address], [place] [address] OB Limited With Biometrics MR#: [id number] Acct: [id number] Name: MICHELE,GINOBERNY ESPITIA Rep #: [id number] : 2000 F 24 From: Joshua Astorga MD PCP: OLGA Montilla Status: REG CLI Study:OB Limited With Biometrics Date of Exam : 02/11/25 Exam# [id number] Ordering Dr: Autumn Jacome CNM PROCEDURE: OB [...] gestational age of 34 weeks. Reading Location: [id number] CC: JOSE Jacome; HEARING THERAPY DIRECTORCasey Gonzalez ~ Sail Repair Person: Signed [facility]06-12-2025 [facility] [address], [address] [place] [address] OFFICE VISIT Date of Service: 02/10/25 MR#: [id number] Acct: [id number] Name: GINO MICHELE Rep #: [id number] : 2000 Provider: JOSE Jacome Age/Sex: 24/F [place] [facility] [place]: Signed Intake Vital Signs 09/09/24 09:07 01/26/25 08:35 02/10/25 08:47 Height 5 ft 5 in 5 ft 5 in 5 ft 5 in Weight: 189 lb 2 oz BMI 31.4 BP 115/83 H Intake Visit Reasons: 32 wk ob Information Services Assistant Required: No Is patient in pain?: No [...] PFSH Medical History Migraine headache Surgical History [place] teeth extracted Family History Grandfather Diabetes Maternal Mother Cancer Basal cell skin cancer Father Cancer Basal cell Skin cancer Aunt Cancer Maternal- Skin Melanoma Social History adopted: No household members: spouse current occupational status: employed 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[facility] [employer] pets and animals: Yes (Avoid Litterbox) pets [...] physical activity do you participate in: none osiris/voodoo: Adventist seatbelt use: always do you feel safe [...] Performing Provider: Autumn Jacome CNM Performing Location: [facility] Administered by: Kristen Quiros on 02/10/25 08:57 Dose Route Admin Location Dispensed Lot Number Expiration Date NDC Information Systems Planner 0.5 mL IM Right Deltoid 0.5 mL [id number] 01/29/26 78246-837-65 [employer]PA[employer] VIS Given Date VIS Provided [...] Cosigner Signature: Date (if applicable) CC: ~ [facility]04-04-2025 Evaluation note* Diagnosis Onset Date Resolution [...] high-risk acute March 10, 2025 3:30pm [facility] Work Phone: 1(185) 759-715504-04-2025 Evaluation note* Diagnosis Onset Date Resolution Status [...] third trimester acute March 18, 2025 9:29am [facility] Work Phone: 1([phone]) 607-152804-04-2025 Evaluation note* Diagnosis Onset Date Resolution Status [...] third trimester acute March 25, 2025 9:59am [facility] Work Phone: 1([phone]) 461-257903-07-2025 Evaluation note* Diagnosis Onset Date Resolution Status [...] high-risk acute January 07, 2025 10 :04am [facility] Work Phone: 1(354) 777-888703-07-2025 Evaluation note* Diagnosis Onset Date Resolution Status [...] high-risk acute January 26, 2025 8 :33am [facility] Work Phone: 1([phone]) 744-541003-07-2025 Evaluation note* Diagnosis Onset Date Resolution Status [...] high-risk acute February 10, 2025 8:[address] [facility] Work Phone: 1([phone]) 774-578203-07-2025 Evaluation note* Diagnosis Onset Date Resolution Status [...] February 24 8:56am Circumvallate placenta acute Ju sd 2024 8:56am Depression acute February 24 8:56am acute February 24 8:56am Supervision of high-risk acute February 24, 2025 8:56am [facility] Work Phone: 1([phone] Evaluation + Plan note* Assessment & Plan Note - KAREL Phillips - 09/28/2024 7:59 AM ESTAssociated Problem(s): Persistent depressive disorder Increase zoloft 150 mg daily [facility] Work Phone: [phone] Evaluation + Plan note* Assessment & Plan Note - KAREL Phillips - 09/28/2024 7:59 AM ESTAssociated Problem(s): Anxiety Increase zoloft 150 mg daily [facility] Work Phone: 1([phone]) 562-968101-28-2025 Miscellaneous Notes* Assessment & Plan Note - KAREL Phillips - 09/28/2024 7:59 AM ESTAssociated Problem(s): Persistent depressive disorder Increase zoloft 150 mg daily * Assessment & Plan Note - KAREL Phillips - 09/28/2024 7:59 AM EST Associated Problem(s): Anxiety Increase zoloft 150 mg daily [facility] Work Phone: 1([phone]) 815-649401-28-2025 History of Present illness Narrative* Jojo Vela CMA - 09/28/2024 7:40 AM EST 13 weeks * Yuliana Sophie Gonzalez, CHROME POLISHER-STABLE CLEANER - 09/28/2024 7:40 AM EST Subjective Patient ID: Gino Michele is a 24 y.o. female who presents for Medication Problem. HPI Gino returns to discuss increasing her zoloft. She is currently 13 weeks . [facility] [place]. Anxiety/depression: has been on zoloft and was [...] effects of the medication. documented in this [facility] Work Phone: 1(369) 495-254811-12-2024 Evaluation + Plan note* Assessment & Plan Note - KAREL Phillips - 07/13/2024 8:05 AM ESTAssociated Problem(s): Migraine without aura and without status migrainosus, not intractable Rizatriptan 10 mg as needed for migraine stable [facility] Work Phone: 1([phone]) 887-456811-12-2024 Miscellaneous Notes* Assessment & Plan Note - [...] blood in it thistime. [facility] Work Phone: 1([phone]) [phone] Evaluation + Plan note* Assessment & Plan Note - KAREL Phillips - 07/13/2024 8:04 AM ESTAssociated Problem(s): Anxiety Doing well on sertraline 100 mg daily [facility] Work Phone: [phone] 173-145711-12-2024 Evaluation + Plan note* Assessment & Plan Note - KAREL Phillips - 07/13/2024 8:04 AM ESTAssociated Problem(s): Persistent depressive disorder Currently on sertraline 100 mg daily stable [facility] Work Phone: 1([phone]) 509-347811-12-2024 History of Present illness Narrative* Jojo Vela [...] hard to urinate, back pain. Went to [facility] clinic. Was treated for LUTS (Macrobid). Has [...] effects of the medication. [facility] Work Phone: 1([phone]) 821-813111-12-2024 Progress note* Result Encounter Note - KAREL Phillips - 07/13/2024 7:20 AM EST Let her know her urine did not show any signs of an infection and did not have any blood in it thistime. [facility] Work Phone: Evaluation note* Diagnosis Wellness examination- Primary Dysuria Persistent depressive disorder Migraine without aura and without status migrainosus, not intractable Screening for lipid disorders BMI 23.0-23.9, adult documented in this encounter [facility] Work Phone: Evaluation note* Diagnosis Wellness examination- Primary Dysuria Persistent depressive disorder Migraine without aura and without status migrainosus, not intractable Screening for lipid disorders BMI 23.0-23.9, adult Persistent depressive disorder Anxiety Anxiety state, unspecified documented in this encounter [facility] Work Phone: Progress note Author Autumn Jacome [facility] Note Date/Time February 10, 2025 9:11 am [facility] [address], [address] [place] [address] OFFICE VISIT Date of Service: 02/10/25 MR#: [id number] Acct: [id number] Name: GINO MICHELE Rep #: [id number] : 2000 Provider: JOSE Jacome Age/Sex: 24/F Location[place] [facility] [place] Status: Signed Intake Vital Signs 09/09/24 09:07 01/26/25 08:35 02/10/25 08:47 Height 5 ft 5 in 5 ft 5 in 5 ft 5 in Weight: 189 lb 2 oz BMI 31.4 BP 115/83 H Intake Visit Reasons: 32 wk ob Information Services Assistant Required: No Is patient in pain?: No [...] PFSH Medical History Migraine headache Surgical History [place] teeth extracted Family History Grandfather Diabetes Maternal Mother Cancer Basal cell skin cancer Father Cancer Basal cell Skin cancer Aunt Cancer Maternal- Skin Melanoma Social History adopted: No household members: spouse current occupational status: employed 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[facility] [employer] pets and animals: Yes (Avoid Litterbox) pets [...] physical activity do you participate in: none osiris/voodoo: Adventist seatbelt use: always do you feel safe [...] Symptoms of Preeclampsia, Infant Feeding No , [place] Education and Family Medical Leave or Disability [...] Performing Provider: Autumn Jacome CNM Performing Location: [facility] Administered by: Kristen Quiros on 02/10/25 08:57 Dose Route Admin Location Dispensed Lot Number Expiration Date NDC Information Systems Planner 0.5 mL IM Right Deltoid 0.5 mL [id number] 01/29/26 33062-497-65 [facility]-PASTEUR VIS Given Date VIS Provided VIS Publication [...] Cosigner Signature: Date (if applicable) CC: ~ [facility] Work Phone: Progress note Author Marissa Aquino [facility] Note Date/Time February 24, 2025 9:22 am [facility] [address], [address] [place] [address] OFFICE VISIT Date of Service: 02/24/25 MR#: [id number] Acct: [id number] Name: GINO MICHELE Rep #: [id number] : 2000 Provider: Dr. Arias Aquino MD Age/Sex: 24/F [place] [facility] [place]: Signed Intake Vital Signs 09/09/24 09:07 02/10/25 08:47 02/24/25 08:59 02/24/25 08:59 Height 5 ft 5 in 5 ft 5 in 5 ft 5 in 5 ft 5 in Weight: 189 lb 4 oz BMI 31.4 BP 103/69 Intake Visit Reasons: 34 wk ob Information Services Assistant Required: No Is patient in pain?: No [...] PFSH Medical History Migraine headache Surgical History [place] teeth extracted Family History Grandfather Diabetes Maternal Mother Cancer Basal cell skin cancer Father Cancer Basal cell Skin cancer Aunt Cancer Maternal- Skin Melanoma Social History adopted: No household members: spouse current occupational status: employed 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[facility] pets and animals: Yes (Avoid Litterbox) pets [...] physical activity do you participate in: none osiris/voodoo: Adventist seatbelt use: always do you feel safe [...] and Symptoms of Preeclampsia, Feeding No , [place] Education and Family Medical Leave or Disability [...] Signature: Date (if applicable) CC: ~ [facility] Work Phone: Progress note Author Marissa Aquino [facility] Note Date/Time March 18, 2025 9:59 am [facility] [address] [place] [address], [address] [place] [address] OFFICE VISIT Date of Service: 03/18/25 MR#: [id number] Acct: [id number] Name: GINO MICHELE Rep #: [id number] : 2000 Provider: Dr. Arias Aquino MD Age/Sex: 24/F [place] [facility] [place]: Signed Intake Vital Signs 02/10/25 08:47 03/10/25 15:34 03/18/25 09:31 Height 5 ft 5 in 5 ft 5 in 5 ft 5 in Weight: 195 lb BMI 32.4 BP 139/83 H Intake Visit Reasons: 37 wk ob Information Services Assistant Required: No Is patient in pain?: No [...] PFSH Medical History Migraine headache Surgical History [place] teeth extracted Family History Grandfather Diabetes Maternal Mother Cancer Basal cell skin cancer Father Cancer Basal cell Skin cancer Aunt Cancer Maternal- Skin Melanoma Social History adopted: No household members: spouse current occupational status: employed 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[facility] pets and animals: Yes (Avoid Litterbox) pets [...] physical activity do you participate in: none osiris/voodoo: Adventist seatbelt use: always do you feel safe [...] Cosign Signature: Date (if applicable) CC: ~ [facility] Work Phone: Progress note Author Autumn Jacome [facility] Note Date/Time March 25, 2025 10:3 6am [facility] [address] [place] [address], [address] [place] [address] OFFICE VISIT Date of Service: 03/25/25 MR#: [id number] Acct: [id number] Name: GINO MICHELE Rep #: [id number] : 2000 Provider: JOSE Jacome Age/Sex: 24/F [place] [facility] [place]: Signed Intake Vital Signs 02/10/25 08:47 03/18/25 09:31 03/25/25 10:08 Height 5 ft 5 in 5 ft 5 in 5 ft 5 in Weight: 196 lb 8 oz BMI 32.7 BP 123/67 H Intake Visit Reasons: 38 wk ob Chief Complaint: 38 Week OB Information Services Assistant Required: No Is patient in pain?: No [...] PFSH Medical History Migraine headache Surgical History [place] teeth extracted Family History Grandfather Diabetes Maternal Mother Cancer Basal cell skin cancer Father Cancer Basal cell Skin cancer Aunt Cancer Maternal- Skin Melanoma Social History adopted: No household members: spouse current occupational status: employed 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[facility] [employer] pets and animals: Yes (Avoid Litterbox) pets [...] physical activity do you participate in: none osiris/voodoo: Adventist seatbelt use: always do you feel safe [...] and Symptoms of Preeclampsia, Feeding No , [place] Education and Family Medical Leave or Disability [...] Signature: Date (if applicable) CC: ~ [facility] Work Phone: Reason for referral (narrative)No reason for referral information availableWBrown Memorial Hospital Work Phone: Summary Purpose Family History No [...] section and content) DATE CREATED AUTHOR 03/09/2018 [facility] DATE CREATED AUTHOR AUTHOR'S ORGANIZ ATION 10/20/2019 [facility] DATE CREATED AUTHOR AUTHOR'S ORGANIZ ATION 09/01/2020 [facility] DATE CREATED AUTHOR AUTHOR'S ORGANIZ ATION 01/30/2024 [facility] DATE CREATED AUTHOR AUTHOR'S ORGANIZ ATION 11/12/2024 [facility] DATE CREATED AUTHOR AUTHOR'S ORGANIZ ATION 12/13/2024 [facility] DATE CREATED AUTHOR AUTHOR'S ORGANIZ ATION 03/27/2025 [facility] Reason for Visit (unrecogniz ed section and content) Reason Comments Establish Care Reason Comments Medication Problem Care Teams (unrecognized sec tion and content) Laser Beam Color Scanner Operator Relationship Specialty Start Date End Date Yuliana Gonzalez, CHROME POLISHER-STABLE CLEANER [address] [facility] [place] [address] PCP - General Family Medicine 07/13/24 Laser Beam Color Scanner Operator Relationship Specialty Start Date End Date Vincenzo Yuliana Barrios APRN-STABLE CLEANER [address] [place] [address] PCP - General Family Medicine 07/13/24 Team [...] Inactive Member Role Status Dates Yuliana Gonzalez HEARING THERAPY DIRECTOR-C Primary Care Provider Active Start: January 26, 2025 End: January 26, 2025 Yuliana Gonzalez HEARING THERAPY DIRECTOR-C Referring Provider Active Sta rt: January 26, 2025 End: January 26, 2025 Kristen Parker NP, HEARING THERAPY DIRECTOR-C Attending Provider Active Start: January 26, 2025 End: January 26, 2025 Team Status: Inactive Member Role Status Dates Yuliana Gonzalez HEARING THERAPY DIRECTOR-C Primary Care Provider Active Start: February 10, [...] Status: Inactive Member Role Status Rodrigo Gonzalez HEARING THERAPY DIRECTOR-C Primary Care Provider Active Start: February 24, 2025 End: February 24, 2025 Yuliana Gonzalez , HEARING THERAPY DIRECTOR-C Referring Provider Active Sta rt: February 24, 2025 End: February 24, 2025 Dr. Marissa Aquino MD Attending Provider Active Start: February 24, 2025 End: February 24, 2025 Team Status: Active Member Role/Relationship Status Rodrigo Gonzalez HEARING THERAPY DIRECTOR-C Primary Care Provider Active Team Status: Inactive Member Role/Relationship Status Rodrigo Gonzalez HEARING THERAPY DIRECTOR-C Primary Care Provider Active Start: December 03, [...] End: January 26, 2025 Kristen Parker NP HEARING THERAPY DIRECTOR-C Attending Provider Active Start: January 26, 2025 [...] Inactive Member Role/Relationship Status Dates Yuliana Gonzalez HEARING THERAPY DIRECTOR-C Primary Care Provider Active Start: February 11, 2025 End: February 11, 2025 Autumn Jacome CNM Attending Provider Active S tart: February 11, 2025 End: February 11, 2025 Autumn Jacome CNM Referring Provider Active S tart: February 11, 2025 End: February 11, 2025 Team Status: Inactive Member Role/Relationship Status Dates Yuliana Gonzalez HEARING THERAPY DIRECTOR-C Primary Care Provider Active Start: February 15, 2025 End: February 15, 2025 Autumn Jacome CNM Attending Provider Active S tart: February 15, 2025 End: February 15, 2025 Autumn Jacome CNM Referring Provider Active S tart: February 15, 2025 End: February 15, 2025 Team Status: Inactive Member Role/Relationship Status Dates Yuliana Gonzalez HEARING THERAPY DIRECTOR-C Primary Care Provider Active Start: February 24, 2025 End: February 24, 2025 Yuliana Gonzalez HEARING THERAPY DIRECTOR-C Referring Provider Active Sta rt: February 24, 2025 End: February 24, 2025 Dr. Marissa Aquino MD Attending Provider Active Start: February 24, 2025 End: February 24, 2025 Team Status: Inactive Member Role/Relationship Status Rodrigo Gonzalez HEARING THERAPY DIRECTOR-C Primary Care Provider Active Start: March 10, 2025 End: March 10, 2025 Yuliana Gonzalez HEARING THERAPY DIRECTOR-C Referring Provider Active Sta rt: March 10, [...] Status: Inactive Member Role/Relationship Status Rodrigo Gonzalez HEARING THERAPY DIRECTOR-C Primary Care Provider Active Start: March 18, [...] BE BASED ON THE PRIMARY CLINICAL RECORDS. [facility] [employer] [facility]. provides no warranty or guarantee of the accuracy or completeness of information in this document.
--- OUTSIDE RECORDS SUMMARY | 2025-03-27 13:55 | XMS RPT_ITS | CCD ---
Author Organization [facility] CliniSymo Care Team Providers Care Commercial Loan Analyst Name Role Phone FERNANDO BELTRAN Unavailable Unavailabl FERNANDO Heath Unavailable Unavailabl e AA NO PCP, NO PCP Unavailable Unavailable BOAZ SCHULTZ DO Consulting Unavailable LUIS CAMEJO, [phone] THUAN Granados Admitting Unavailable LUIS CAMEJO, [phone] THUAN Granados Attending Unavailable RON PALAFOX Primary Care Unavailable BOAZ SCHULTZ DO Consulting Unavailable MARYANN CAMEJO, NATHEN Padilla Consulting Unavaila kory WOLF MD, NATHEN Padilla Consulting Unavaila RON Oliver Consulting Unavailable LUIS CAMEJO, DR THUAN Granados Consulting Unavaila kory SMITH MD, DR THUAN Granados Consulting Unavaila kory Gonzalez MILL WORKER-KAREL, Yuliana Barrios Primary Care Provider Vincenzo MILL WORKER-AUTOMOBILE BODY REPAIRER HELPER, Yuliana Barrios Primary Care Provider JOSSELIN LAMBERT Primary Care Unavailable CLEO GUZMAN Attending Unavailable AUTUMN JACOME Referring Unavailable YULIANA GONZALEZ Attending Unavailable YULIANA GONZALEZ Primary Care Unavailable YULIANA GONZALEZ Attending Unavailable YULIANA GONZALEZ Primary Care Unavailable Vincenzo TOWER HAND-C, Yuliana Primary Care Provider Vincenzo TOWER HAND-CYuliana Referring Provider [phone] Rufina Weiss DO Attending Provider Autumn Jacome CNM Attending Provider [phone] Dr. Marissa Aquino MD Attending Provider Dr. Marissa Aquino MD Referring Provider [phone] Keith TOWER HAND-CKristen Attending Provider Vincenzo TOWER HAND-CYuliana Primary Care Provider Gonzalez TOWER HAND-C, Yuliana Referring Provider Dr. Rufina Weiss DO Attending Provider Autumn Jacome CNM Referring Provider Gonzalez TOWER HAND-C, Yuliana Primary Care Provider Gonzalez TOWER HAND-C, Yuliana Referring Provider Simone CNAkbar, Autumn Attending [...] PO DAILY March 27, 2025 12:00am Multivit 08-Matr-Hlowvd 1-Dha (Pnv-Dha) 27 mg iron-1 mg -300 mg capsule (11 sources) Start: 09-06-2024 Multivit 73-Yadh-Jwkhiv 1-Dha (Pnv-Dha) 27 mg iron-1 mg -300 [...] Test Name Value Interpretation Reference Range Facility Reporting Process Consultant Office Visit Reporton 03-25-2025 Reporting Process Consultant Office Visit Report [facility] [address], [address] [place] [address] OFFICE VISIT Date of Service: 03/25/25 MR#: [id number] Acct: [id number] Name: GINO MICHELE Rep #: [id number] : 2000 Provider: JOSE Santos ams Age/Sex: 24/F [place] [facility] [place]: [place] Intake Vital Signs 02/10/25 08:47 03/18/25 09:31 03/25/25 10:08 Height 5 ft 5 in 5 ft 5 in 5 ft 5 in Weight: 196 lb 8 oz BMI 32.7 BP 123/67 H Intake Visit Reasons: 38 wk ob Chief Complaint: 38 Week OB Scientific Aide Required: No Is patient in pain?: No [...] PFSH Medical History Migraine headache Surgical History [place] teeth extracted Family History Grandfather Diabetes Maternal Mother Cancer Basal cell skin cancer Father Cancer Basal cell Skin cancer Aunt Cancer Maternal- Skin Melanoma Social History adopted: No household members: spouse current occupational status: employed 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 Normal [facility] OB Limited With Biometricson 03-22-2025 OB Limited With Biometrics [facility] [address] [place] [address] OB Limited With Biometrics MR#: [id number] Acct: [id number] Name: GINO MICHELE Rep #: [id number] : 2000 F 24 From: Boaz Blackwood MD PCP: OLGA Montilla Status: [facility] Study: OB Limited With Biometrics Date of Exam: 03/22 Exam# [id number] Ordering Dr: Marissa Aquino PROCEDURE: OB LIMITED [...] intrauterine . See biometry above. Reading Location: [id number] CC: OLGA Gonzalez; Dr. Marissa Aquino MD Paperhanger And Painter: Signed Normal [facility] Reporting Process Consultant Office Visit Reporton 03-18-2025 Reporting Process Consultant Office Visit Report [facility] [address], [address] [place] [address] OFFICE VISIT Date of Service: 03/18/25 MR#: [id number] Acct: [id number] Name: GINO MICHELE Rep #: [id number] : 2000 Provider: Dr. Marissa mendenhall MD Age/Sex: 24/F [place] [facility] [place]: Signed Intake Vital Signs 02/10/25 08:47 03/10/25 15:34 03/18/25 09:31 Height 5 ft 5 in 5 ft 5 in 5 ft 5 in Weight: 195 lb BMI 32.4 BP 139/83 H Intake Visit Reasons: 37 wk ob Scientific Aide Required: No Is patient in pain?: No [...] PFSH Medical History Migraine headache Surgical History [place] teeth extracted Family History Grandfather Diabetes Maternal Mother Cancer Basal cell skin cancer Father Cancer Basal cell Skin cancer Aunt Cancer Maternal- Skin Melanoma Social History adopted: No household members: spouse current occupational status: employed 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 Normal [facility] Rule out Beta Strep (Grp. B) on 03-14-2025 LAILA Group B Beta Streptococcus is not isolated. Normal [facility] Comment on above: Performed By: #### M 100.3400 ####[facility] [address] [place], [address] Laboratory - Chemistry and C hemistry - challengeOrdered By: Rufina Chaney on 03-10-2025 Glucose Ql (U) Negative [facility] Laboratory - UrinalysisOrder ed By: Rufina Chaney on 03-10-2025 Protein Ql (U) Negative [facility] Reporting Process Consultant Office Visit Reporton 03-10-2025 Reporting Process Consultant Office Visit Report [facility], [address] [place] [address] OFFICE VISIT Date of Service: 03/10/25 MR#: [id number] Acct: [id number] Name: GINO MICHELE Rep #: [id number] : 2000 Provider: Dr. Rufina Dowd DO Age/Sex: 24/F [place] [facility] [place]: Signed Intake Vital Signs 01/07/25 10:18 02/24/25 08:59 03/10/25 15:34 Height 5 ft 5 in 5 ft 5 in 5 ft 5 in Weight: 195 lb 4 oz BMI 32.5 BP 138/82 H Intake Visit Reasons: 36 wk ob Scientific Aide Required: No Is patient in pain?: No [...] PFSH Medical History Migraine headache Surgical History [place] teeth extracted Family History Grandfather Diabetes Maternal Mother Cancer Basal cell skin cancer Father Cancer Basal cell Skin cancer Aunt Cancer Maternal- Skin Melanoma Social History adopted: No household members: spouse current occupational status: employed 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 Normal [facility] Screening beta-hemolytic Str eptococcus cultureOrdered By: Rufina Chaney on 03-10-2025 Beta-hemolytic Streptococcus culture Group B Beta Streptococcus is not isolated. [facility] Laboratory - Chemistry and C hemistry - challengeOrdered By: Marissa Aquino on 02-24-2025 Glucose Ql (U) Negative [facility] Laboratory - UrinalysisOrder ed By: Marissa Aquino on 02-24-2025 Protein Ql (U) Negative [facility] Reporting Process Consultant Office Visit Reporton 02-24-2025 Reporting Process Consultant Office Visit Report [facility] [address], [address] [place] [address] OFFICE VISIT Date of Service: 02/24/25 MR#: [id number] Acct: [id number] Name: GINO MICHELE Rep #: [id number] : 2000 Provider: Dr. Marissa mendenhall MD Age/Sex: 24/F [place] [facility] [place]: Signed Intake Vital Signs 09/09/24 09:07 02/10/25 08:47 02/24/25 08:59 02/24/25 08:59 Height 5 ft 5 in 5 ft 5 in 5 ft 5 in 5 ft 5 in Weight: 189 lb 4 oz BMI 31.4 BP 103/69 Intake Visit Reasons: 34 wk ob Scientific Aide Required: No Is patient in pain?: No [...] PFSH Medical History Migraine headache Surgical History [place] teeth extracted Family History Grandfather Diabetes Maternal Mother Cancer Basal cell skin cancer Father Cancer Basal cell Skin cancer Aunt Cancer Maternal- Skin Melanoma Social History adopted: No household members: spouse current occupational status: employed 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 Normal [facility] Glucose Challenge Gest 1H 50 shayy 02-15-2025 GLU GEST 50g 1H 110 mg/dL Normal 70-140 [facility] Comment on above: Performed By: #### L 501.0250 #### [facility] Laboratory [address] [place], [place], [address] Glucose measurement at 2 larry rs post-dose gestational glucose tolerance testOrdered By: Autumn Jacome on 02-15-2025 Glucose [Mass/Vol] 110 mg/dL 70-140 [facility] OB Limited With Biometricson 02-11-2025 OB Limited With Biometrics [facility] [address] [place] [address] OB Limited With Biometrics MR#: [id number] Acct: [id number] Name: GINO MICHELE Rep #: [id number] : 2000 F 24 From: David del rio MD PCP: OLGA Montilla Status: REG CLI Study: OB Limited With Biometrics Date of Exam: 02/11 Exam# [id number] Ordering Dr: Autumn Jacome M PROCEDURE: OB [...] gestational age of 34 weeks. Reading Location: [id number] CC: JOSE Jacome; OLGA Gonzalez Paperhanger And Painter: Signed Normal [facility] Laboratory - Chemistry and C hemistry - challengeOrdered By: Autumn Jacome on 02-10-2025 Glucose Ql (U) Negative [facility] Laboratory - UrinalysisOrder ed By: Autumn Jacome on 02-10-2025 Protein Ql (U) Negative [facility] Reporting Process Consultant Office Visit Reporton 02-10-2025 Reporting Process Consultant Office Visit Report [facility] [address], [address] [place] [address] OFFICE VISIT Date of Service: 02/10/25 MR#: [id number] Acct: [id number] Name: GINO MICHELE Rep #: [id number] : 2000 Provider: JOSE [facility] Age/Sex: 24/F [place] [facility] [place]: Signed Intake Vital Signs 09/09/24 09:07 01/26/25 08:35 02/10/25 08:47 Height 5 ft 5 in 5 ft 5 in 5 ft 5 in Weight: 189 lb 2 oz BMI 31.4 BP 115/83 H Intake Visit Reasons: 32 wk ob Scientific Aide Required: No Is patient in pain?: No [...] PFSH Medical History Migraine headache Surgical History [place] teeth extracted Family History Grandfather Diabetes Maternal Mother Cancer Basal cell skin cancer Father Cancer Basal cell Skin cancer Aunt Cancer Maternal- Skin Melanoma Social History adopted: No household members: spouse current occupational status: employed 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 (more content not included)... Normal [facility] Laboratory - Chemistry and C hemistry - challengeOrdered By: Kristen Parker on 01-26-2025 Glucose Ql (U) Negative [facility] Laboratory - UrinalysisOrder ed By: Kristen Parker on 01-26-2025 Protein Ql (U) Negative [facility] Reporting Process Consultant Office Visit Reporton 01-26-2025 Reporting Process Consultant Office Visit Report [facility], [address] [place] [address] OFFICE VISIT Date of Service: 01/26/25 MR#: [id number] Acct: [id number] Name: GINO MICHELE Rep #: [id number] : 2000 Provider: OLGA rodriguez Age/Sex: 24/F [place] [facility] [place]: Signed Intake Vital Signs 09/09/24 09:07 01/07/25 10:18 01/26/25 08:35 Height 5 ft 5 in 5 ft 5 in 5 ft 5 in Weight: 188 lb 4 oz BMI 31.3 BP 126/72 H Intake Visit Reasons: 30 wk ob Chief Complaint: 30 Week OB Scientific Aide Required: No Is patient in pain?: No [...] PFSH Medical History Migraine headache Surgical History [place] teeth extracted Family History Grandfather Diabetes Maternal Mother Cancer Basal cell skin cancer Father Cancer Basal cell Skin cancer Aunt Cancer Maternal- Skin Melanoma Social History adopted: No household members: spouse current occupational status: employed 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 Normal [facility] Absolute lymphocyte countOrd ered By: Rufina Ritu on 01-07-2025 Lymphocytes Auto (Unsp spec) [#/Vol] 1.52 10*3/uL 0.83-4.51 [facility] Absolute neutrophil countOrd ered By: Rufina Ritu on 01-07-2025 Neutrophils (Bld) [#/Vol] 9.6 10*3/uL High 2.0-7.7 [facility] Automated lymphocyte count a s percentage of total leukocytesOrdered By: Rufina Ritu on 01-07-2025 Lymphocytes/100 WBC Auto (Unsp spec) 12.4 % Low 19-41 [facility] Basophil percentageOrdered B y: Rufina Chanye on 01-07-2025 Basophils/100 WBC (Bld) 0.3 % 0-1 [facility] CBC W/Diff, Automatedon 05-0 Absolute Lymph 1.52 X10 3/uL Normal 0.83-4.51 [facility] Comment on above: Performed By: #### L 100.0100, L509.8002, L501.0250, L3890.6006 ####[facility] [address] [place], [address] Absolute Neut 9.6 X10 3/uL High 2.0-7.7 [facility] Comment on above: Performed By: #### L 100.0100, L509.8002, L501.0250, L3890.6006 ####[facility] [address] [place], [address] Basophils/100 WBC (Bld) 0.3 % Normal 0-1 [facility] Comment on above: Performed By: #### L 100.0100, L509.8002, L501.0250, L3890.6006 ####[facility] [address] [place], [address] Eosinophils/100 WBC (Bld) 1.5 % Normal 0-5 [facility] Comment on above: Performed By: #### L 100.0100, L509.8002, L501.0250, L3890.6006 ####[facility] [address] [place], [address] Erythrocyte distribution width (RBC) [Ratio] 12.7 % Normal 11.6-14.6 [facility] Comment on above: Performed By: #### L 100.0100, L509.8002, L501.0250, L3890.6006 ####[facility] [address] [place], [address] Hematocrit (Bld) [Volume fraction] 31.5 % Low 37-47 [facility] Comment on above: Performed By: #### L 100.0100, L509.8002, L501.0250, L3890.6006 ####[facility] [address] [place], [address] Hemoglobin (Bld) [Mass/Vol] 10.1 g/dL Low 12.0-15.0 [facility] Comment on above: Performed By: #### L 100.0100, L509.8002, L501.0250, L3890.6006 ####[facility] [address] [place], [address] IG% 2.100 High 0.0-0.9 [facility] Comment on above: Result Comment: IG% - Immature Granulocytes (promyelocytes, myelocytes and metamyelocytes) > 1% indicates that a LEFT SHIFT is Present. Performed By: #### L 100.0100, L509.8002, L501.0250, L3890.6006 ####[facility] [address] [place], [address] Lymphocytes/100 WBC (Bld) 12.4 % Low 19-41 [facility] Comment on above: Performed By: #### L 100.0100, L509.8002, L501.0250, L3890.6006 ####[facility] [address] [place], [address] MCH (RBC) [Entitic mass] 28.6 pg Normal 27.0-32.0 [facility] Comment on above: Performed By: #### L 100.0100, L509.8002, L501.0250, L3890.6006 ####[facility] [address] [place], [address] MCHC (RBC) [Mass/Vol] 32.1 g/dL Normal 32-36 [facility] Comment on above: Performed By: #### L 100.0100, L509.8002, L501.0250, L3890.6006 ####[facility] [address] [place], [address] MCV (RBC) [Entitic vol] 89.2 fL Normal 81-99 [facility] Comment on above: Performed By: #### L 100.0100, L509.8002, L501.0250, L3890.6006 ####[facility] [address] [place], [address] Monocytes/100 WBC (Bld) 5.4 % Normal 0-10 [facility] Comment on above: Performed By: #### L 100.0100, L509.8002, L501.0250, L3890.6006 ####[facility] [address] [place], [address] Neutrophils/100 WBC (Bld) 78.3 % High 47-70 [facility] Comment on above: Performed By: #### L 100.0100, L509.8002, L501.0250, L3890.6006 ####[facility] [address] [place], [address] Nucleated RBC (Bld) [#/Vol] 0 10*3/uL Normal 0-5 [facility] Comment on above: Performed By: #### L 100.0100, L509.8002, L501.0250, L3890.6006 ####[facility] [address] [place], [address] Platelet mean volume (Bld) [Entitic vol] 12.1 fL High 6.2-12.0 [facility] Comment on above: Performed By: #### L 100.0100, L509.8002, L501.0250, L3890.6006 ####[facility] [address] [place], [address] Platelets (Bld) [#/Vol] 160 10*3/uL Normal 150-450 [facility] Comment on above: Performed By: #### L 100.0100, L509.8002, L501.0250, L3890.6006 ####[facility] [address] [place], [address] RBC (Bld) [#/Vol] 3.53 10*6/uL Low 4.2-5.4 [facility] Comment on above: Performed By: #### L 100.0100, L509.8002, L501.0250, L3890.6006 ####[facility] [address] [place], [address] RDW SD 40.6 fl Normal 35.1-43.9 [facility] Comment on above: Performed By: #### L 100.0100, L509.8002, L501.0250, L3890.6006 ####[facility] [address] [place], [address] WBC (Bld) [#/Vol] 12.2 10*3/uL High 4.4-11.0 [facility] Comment on above: Performed By: #### L 100.0100, L509.8002, L501.0250, L3890.6006 ####[facility] [address] [place], [address] Eosinophil percentageOrdered By: Rufina Chaney on 01-07-2025 Eosinophils/100 WBC (Bld) 1.5 % 0-5 [facility] Erythrocyte distribution wid th ratioOrdered By: Rufina Chaney on 01-07-2025 Erythrocyte distribution width (RBC) [Ratio] 12.7 % 11.6-14.6 [facility] Erythrocyte distribution wid th standard deviationOrdered By: Rufina Chaney on 01-07-2025 Erythrocyte distribution width (RBC) [Ratio] 40.6 fl 35.1-43.9 [facility] Glucose Challenge Gest 1H 50 shayy 01-07-2025 GLU GEST 50g 1H 103 mg/dL Normal 70-140 [facility] Comment on above: Performed By: #### L 100.0100, L509.8002, L501.0250, L3890.6006 ####[facility] [address] [place], [place], [address] Glucose measurement at 2 larry rs post-dose gestational glucose tolerance testOrdered By: Rufina Chaney on 01-07-2025 Glucose [Mass/Vol] 103 mg/dL 70-140 [facility] HIVon 01-07-2025 HIV Non-Reactive Normal Nonreactive [facility] Comment on above: Result Comment: Non- Reactive Reactive Repeatedly reactive samples must be confirmed according to CDC recommended confirmatory algorithms. The subresults for either HIVAG or AHIV can be used as an aid in the selection of the confirmation algorithm for reactive samples. Send out specimens with Reactive results to [facility] for confirmation. Order the HIV antibody detection and differentiation: lc#[id number] Performed By: #### L 100.0100, L509.8002, L501.0250, L3890.6006 ####[facility] [address] [place], [place], [address] Hematocrit Auto (Bld) [Volum e fraction]Ordered By: Rufina Chaney on 01-07-2025 Hematocrit (Bld) [Volume fraction] 31.5 % Low 37-47 [facility] Hemoglobin measurementOrdere d By: Rufina Chaney on 01-07-2025 Hemoglobin (Bld) [Mass/Vol] 10.1 g/dL Low 12.0-15.0 [facility] Immature granulocytes/100 WB C Auto (Bld)Ordered By: Rufina Chaney on 01-07-2025 Immature granulocytes/100 WBC (Bld) 2.100 % High 0.0-0.9 [facility] Comment on above: IG% - Immature Granu locytes (promyelocytes, myelocytes and metamyelocytes) > 1% indicates that a LEFT SHIFT is Present. Laboratory - Chemistry and C hemistry - challengeOrdered By: Autumn Jacome on 01-07-2025 Glucose Ql (U) Negative [facility] Laboratory - UrinalysisOrder ed By: Autumn Jacome on 01-07-2025 Protein Ql (U) Negative [facility] MCV (mean corpuscular volume ) determinationOrdered By: Rufina Chaney on 01-07-2025 MCV (RBC) [Entitic vol] 89.2 fL 81-99 [facility] Mean corpuscular hemoglobin (MCH) determinationOrdered By: Rufina Chaney on 01-07-2025 MCH (RBC) [Entitic mass] 28.6 pg 27.0-32.0 [facility] Mean corpuscular hemoglobin concentration (MCHC) determinationOrdered By: Rufina Chaney on 01-07-2025 MCHC (RBC) [Mass/Vol] 32.1 g/dL 32-36 [facility] Mean platelet volume determi nationOrdered By: Rufina Chaney on 01-07-2025 Platelet mean volume (Bld) [Entitic vol] 12.1 fL High 6.2-12.0 [facility] Monocyte percentageOrdered B y: Rufina Chaney on 01-07-2025 Monocytes/100 WBC (Bld) 5.4 % 0-10 [facility] Neutrophil percentageOrdered By: Rufina Chaney on 01-07-2025 Neutrophils/100 WBC (Bld) 78.3 % High 47-70 [facility] No Panel InformationOrdered By: Rfuina Cahney on 01-07-2025 HIV (1&2) Antibody Non-Reactive Nonreactive [facility] Comment on above: Non-ReactiveReactive Repeatedly reactive samples must be confirmed according to CDC recommended confirmatory algorithms. The subresults for either HIVAG or AHIV can be used as an aid in the selection of the confirmation algorithm for reactive samples.Send out specimens with Reactive results to [facility] for confirmation.Order the HIV antibody detection and differentiation: #[id number] Nucleated red blood cell per centageOrdered By: Rufina Chaney on 01-07-2025 Nucleated RBC/100 WBC (Bld) [Ratio] 0 % 0-5 [facility] Reporting Process Consultant Office Visit Reporton 01-07-2025 Reporting Process Consultant Office Visit Report [facility]'[address], [address] [place] [address] OFFICE VISIT Date of Service: 01/07/25 MR#: [id number] Acct: [id number] Name: GINO MICHELE Rep #: [id number] : 2000 Provider: JOSE Santos ams Age/Sex: 24/F Location[place] [facility] [place] Status: Signed Intake Vital Signs 12/03/24 10:16 01/07/25 10:18 01/07/25 10:18 Height 5 ft 5 in 5 ft 5 in 5 ft 5 in Weight: 182 lb BMI 30.2 BP 127/81 H Intake Visit Reasons: 27 wk ob/ glucose Chief Complaint: 27wk OB Scientific Aide Required: No Is patient in pain?: No [...] PFSH Medical History Migraine headache Surgical History [place] teeth extracted Family History Grandfather Diabetes Maternal Mother Cancer Basal cell skin cancer Father Cancer Basal cell Skin cancer Aunt Cancer Maternal- Skin Melanoma Social History adopted: No household members: spouse current occupational status: employed 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 ?- (more content not included)... Normal [facility] Platelet countOrdered By: Khris Chaney on 01-07-2025 Platelets (Bld) [#/Vol] 160 10*3/uL 150-450 [facility] RBC Auto (Bld) [#/Vol]Ordere d By: Rufina Chaney on 01-07-2025 RBC (Bld) [#/Vol] 3.53 10*6/uL Low 4.2-5.4 [facility] Syphilis Antibodieson 2024 Syphilis Abs Non-Reactive Normal Nonreactive [facility] Comment on above: Performed By: #### L 100.0100, L509.8002, L501.0250, L3890.6006 ####[facility] [address] [place], [address] White blood cell (WBC) count Ordered By: Rufina Chaney on 01-07-2025 WBC (Bld) [#/Vol] 12.2 10*3/uL High 4.4-11.0 [facility] Laboratory - Chemistry and C hemistry - challengeOrdered By: Rufina Chaney on 12-03-2024 Glucose Ql (U) Negative [facility] Laboratory - UrinalysisOrder ed By: Rufina Chaney on 12-03-2024 Protein Ql (U) Negative [facility] Reporting Process Consultant Office Visit Reporton 12-03-2024 Reporting Process Consultant Office Visit Report [facility]'[address], [address] [place] [address] OFFICE VISIT Date of Service: 12/03/24 MR#: [id number] Acct: [id number] Name: GINO MICHELE Rep #: [id number] : 2000 Provider: Dr. Rufina Dowd DO Age/Sex: 24/F [place] [facility] [place]: Signed Intake Vital Signs 09/09/24 09:07 11/05/24 11:42 12/03/24 10:15 12/03/24 10:16 Height 5 ft 5 in 5 ft 5 in 5 ft 5 in 5 ft 5 in Weight: 171 lb 6 oz BMI 28.5 BP 120/77 Intake Visit Reasons: 22 wk ob Scientific Aide Required: No Is patient in pain?: No [...] PFSH Medical History Migraine headache Surgical History [place] teeth extracted Family History Grandfather Diabetes Maternal Mother Cancer Basal cell skin cancer Father Cancer Basal cell Skin cancer Aunt Cancer Maternal- Skin Melanoma Social History adopted: No household members: spouse current occupational status: employed 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 Normal [facility] Laboratory - Chemistry and C hemistry - challengeOrdered By: Autumn Jacome on 11-05-2024 Glucose Ql (U) Negative [facility] Laboratory - UrinalysisOrder ed By: Autumn Jacome on 11-05-2024 Protein Ql (U) Negative [facility] Reporting Process Consultant Office Visit Reporton 11-05-2024 Reporting Process Consultant Office Visit Report [facility] [address] [place] [address], [address] [place] [address] OFFICE VISIT Date of Service: 11/05/24 MR#: [id number] Acct: [id number] Name: GINO MICHELE Rep #: [id number] : 2000 Provider: JOSE Santos ams Age/Sex: 24/F Location[place] [facility] [place] Status: Signed Intake Vital Signs [...] PFSH Medical History Migraine headache Surgical History [place] teeth extracted Family History Grandfather Diabetes Maternal Mother Cancer Basal cell skin cancer Father Cancer Basal cell Skin cancer Aunt Cancer Maternal- Skin Melanoma Social History adopted: No household members: spouse current occupational status: employed 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 Normal [facility] Laboratory - Chemistry and C hemistry - challengeOrdered By: Rufina Chaney on 10-07-2024 Glucose Ql (U) Negative [facility] Laboratory - UrinalysisOrder ed By: Rufina Chaney on 10-07-2024 Protein Ql (U) Negative [facility] Reporting Process Consultant Office Visit Reporton 10-07-2024 Reporting Process Consultant Office Visit Report [facility] [address], [address] [place] [address] OFFICE VISIT Date of Service: 10/07/24 MR#: [id number] Acct: [id number] Name: GINO MICHELE Rep #: [id number] : 2000 Provider: Dr. Rufina Dowd DO Age/Sex: 24/F [place] [facility] [place]: Signed Intake Vital Signs 08/27/24 19:48 09/09/24 09:07 10/07/24 11:33 10/07/24 11:35 Height 5 ft 5 in 5 ft 5 in 5 ft 5 in 5 ft 5 in Weight: 153 lb 2 oz BMI 25.4 BP 120/73 Intake Visit Reasons: 14 wk OB Scientific Aide Required: No Is patient in pain?: No [...] PFSH Medical History Migraine headache Surgical History [place] teeth extracted Family History Grandfather Diabetes Maternal Mother Cancer Basal cell skin cancer Father Cancer Basal cell Skin cancer Aunt Cancer Maternal- Skin Melanoma Social History adopted: No household members: spouse current occupational status: employed 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 Normal [facility] HIV - WCHon 09-14-2024 HIV Non-Reactive Normal Nonreactive [facility] Comment on above: Order Comment: Reaso n for Exam: Performed By: #### L 3890.6300, L509.4005, L509.8000, L3890.6100, L3890.6005, BTS, L100.0100 ####[facility] [address] [place], [place], [id number] PAP I-G w/rfx hrHPV-Aptimaon 09-14-2024 ADEQ Comment Normal . [facility] Comment on above: Order Comment: Cecil leblanc Comment: [id number] Specimen Comment: Source.............Cervix Specimen Comment: No. of containers..01 ThinPrep Vial Result Comment: Sati sfactory for evaluation. Endocervical and/or squamous metaplastic cells (endocervical component) are present. Performed By: #### M 100.2200, L7400.0353, L7000.1800 #### [facility] [address] [place], [place], [address] COMM . Normal . [facility] Comment on above: Order Comment: Speci deana Comment: [id number] Specimen Comment: Source.............Cervix Specimen Comment: No. of containers..01 ThinPrep Vial Performed By: #### M 100.2200, L7400.0353, L7000.1800 #### [facility] [address] [place], [place], [address] COMMENT Comment Normal . [facility] Comment on above: Order Comment: Speci men Comment: [id number] Specimen Comment: Source.............Cervix Specimen Comment: No. of containers..01 ThinPrep Vial Result Comment: This liquid based ThinPrep(R) pap test was screened with the use of an image guided system. Performed By: #### M 100.2200, L7400.0353, L7000.1800 #### [facility] [address] [place], [place], [id number] DIAG Comment Normal . [facility] Comment on above: Order Comment: Speci men Comment: [id number] Specimen Comment: Source.............Cervix Specimen Comment: No. of containers..01 ThinPrep Vial Result Comment: NEGA TIVE FOR INTRAEPITHELIAL LESION OR MALIGNANCY. Performed By: #### M 100.2200, L7400.0353, L7000.1800 #### [facility] [address] [place], [place], [address] HPV RFLX Comment Normal . [facility] Comment on above: Order Comment: Speci men Comment: [id number] Specimen Comment: Source.............Cervix Specimen Comment: No. of containers..01 ThinPrep Vial Result Comment: The HPV DNA reflex criteria were not met with this specimen result therefore, no HPV testing was performed. Performed at: [address] [id number] Manager Sas: Rachell Lowe MD, Phone: [phone] Performed By: #### M 100.2200, L7400.0353, L7000.1800 #### [facility] [address] [place], [address] PAPSMR Comment Normal . [facility] Comment on above: Order Comment: Speci men Comment: [id number] Specimen Comment: Source.............Cervix Specimen Comment: No. of [...] By: #### M 100.2200, L7400.0353, L7000.1800 #### [facility] [address] [place], [address] PERFORM Comment Normal . [facility] Comment on above: Order Comment: Speci men Comment: [id number] Specimen Comment: Source.............Cervix Specimen Comment: No. of containers..01 ThinPrep Vial Result Comment: Bang Reese, Chief Construction Inspector (ASCP) Performed By: #### M 100.2200, L7400.0353, L7000.1800 #### [facility] [address] [place], [address] Chlamydia/GC MICKEY aptimaon CHLAMY,NUC ACID Negative Normal Negative [facility] Comment on above: Performed By: #### M 100.2200, L7400.0353, L7000.1800 #### [facility] [address] [place], [address] GC BY NUC ACID Negative Normal Negative [facility] Comment on above: Result Comment: Perf ormed at: =G - [facility] [id number] Manager Sas: Rachell Lowe MD, Phone: [phone] Performed By: #### M 100.2200, L7400.0353, L7000.1800 #### [facility] [address] [place], [address] Urine Cultureon 09-10-2024 URC Culture exhibits no growth. Normal [facility] Comment on above: Performed By: #### M 100.2200, L7400.0353, L7000.1800 #### [facility] [address] [place], [address] CBC W/Diff, Automatedon Absolute Lymph 1.49 X10 3/uL Normal 0.83-4.51 [facility] Comment on above: Performed By: #### L 3890.6300, L509.4005, L509.8000, L3890.6100, L3890.6005, BTS, L100.0100 ####[facility] [address] [place], [address] Absolute Neut 7.4 X10 3/uL Normal 2.0-7.7 [facility] Comment on above: Performed By: #### L 3890.6300, L509.4005, L509.8000, L3890.6100, L3890.6005, BTS, L100.0100 ####[facility] [address] [place], [address] Basophils/100 WBC (Bld) 0.2 % Normal 0-1 [facility] Comment on above: Performed By: #### L 3890.6300, L509.4005, L509.8000, L3890.6100, L3890.6005, BTS, L100.0100 ####[facility] [address] [place], [address] Eosinophils/100 WBC (Bld) 1.5 % Normal 0-5 [facility] Comment on above: Performed By: #### L 3890.6300, L509.4005, L509.8000, L3890.6100, L3890.6005, BTS, L100.0100 ####[facility] [address] [place], [address] Erythrocyte distribution width (RBC) [Ratio] 12.8 % Normal 11.6-14.6 [facility] Comment on above: Performed By: #### L 3890.6300, L509.4005, L509.8000, L3890.6100, L3890.6005, BTS, L100.0100 ####[facility] [address] [place], [address] Hematocrit (Bld) [Volume fraction] 40.7 % Normal 37-47 [facility] Comment on above: Performed By: #### L 3890.6300, L509.4005, L509.8000, L3890.6100, L3890.6005, BTS, L100.0100 ####[facility] [address] [place], [address] Hemoglobin (Bld) [Mass/Vol] 13.3 g/dL Normal 12.0-15.0 [facility] Comment on above: Performed By: #### L 3890.6300, L509.4005, L509.8000, L3890.6100, L3890.6005, BTS, L100.0100 ####[facility] [address] [place], [address] IG% 0.300 Normal 0.0-0.9 [facility] Comment on above: Result Comment: IG% - Immature Granulocytes (promyelocytes, myelocytes and metamyelocytes) > 1% indicates that a LEFT SHIFT is Present. Performed By: #### L 3890.6300, L509.4005, L509.8000, L3890.6100, L3890.6005, BTS, L100.0100 ####[facility] [address] [place], [address] Lymphocytes/100 WBC (Bld) 15.6 % Low 19-41 [facility] Comment on above: Performed By: #### L 3890.6300, L509.4005, L509.8000, L3890.6100, L3890.6005, BTS, L100.0100 ####[facility] [address] [place], [address] MCH (RBC) [Entitic mass] 28.8 pg Normal 27.0-32.0 [facility] Comment on above: Performed By: #### L 3890.6300, L509.4005, L509.8000, L3890.6100, L3890.6005, BTS, L100.0100 ####[facility] [address] [place], [address] MCHC (RBC) [Mass/Vol] 32.7 g/dL Normal 32-36 [facility] Comment on above: Performed By: #### L 3890.6300, L509.4005, L509.8000, L3890.6100, L3890.6005, BTS, L100.0100 ####[facility] [address] [place], [address] MCV (RBC) [Entitic vol] 88.1 fL Normal 81-99 [facility] Comment on above: Performed By: #### L 3890.6300, L509.4005, L509.8000, L3890.6100, L3890.6005, BTS, L100.0100 ####[facility] [address] [place], [address] Monocytes/100 WBC (Bld) 4.9 % Normal 0-10 [facility] Comment on above: Performed By: #### L 3890.6300, L509.4005, L509.8000, L3890.6100, L3890.6005, BTS, L100.0100 ####[facility] [address] [place], [address] Neutrophils/100 WBC (Bld) 77.5 % High 47-70 [facility] Comment on above: Performed By: #### L 3890.6300, L509.4005, L509.8000, L3890.6100, L3890.6005, BTS, L100.0100 ####[facility] [address] [place], [address] Nucleated RBC (Bld) [#/Vol] 0 10*3/uL Normal 0-5 [facility] Comment on above: Performed By: #### L 3890.6300, L509.4005, L509.8000, L3890.6100, L3890.6005, BTS, L100.0100 ####[facility] [address] [place], [address] Platelet mean volume (Bld) [Entitic vol] 12.9 fL High 6.2-12.0 [facility] Comment on above: Performed By: #### L 3890.6300, L509.4005, L509.8000, L3890.6100, L3890.6005, BTS, L100.0100 ####[facility] [address] [place], [address] Platelets (Bld) [#/Vol] 183 10*3/uL Normal 150-450 [facility] Comment on above: Performed By: #### L 3890.6300, L509.4005, L509.8000, L3890.6100, L3890.6005, BTS, L100.0100 ####[facility] [address] [place], [address] RBC (Bld) [#/Vol] 4.62 10*6/uL Normal 4.2-5.4 [facility] Comment on above: Performed By: #### L 3890.6300, L509.4005, L509.8000, L3890.6100, L3890.6005, BTS, L100.0100 ####[facility] [address] [place], [address] RDW SD 41.2 fl Normal 35.1-43.9 [facility] Comment on above: Performed By: #### L 3890.6300, L509.4005, L509.8000, L3890.6100, L3890.6005, BTS, L100.0100 ####[facility] [address] [place], [place], [phone]) WBC (Bld) [#/Vol] 9.6 10*3/uL Normal 4.4-11.0 [facility] Comment on above: Performed By: #### L 3890.6300, L509.4005, L509.8000, L3890.6100, L3890.6005, BTS, L100.0100 ####[facility] [address] [place], [address] Hepatitis B Surface Antigeno n 09-09-2024 HEP B Surf Ag Non-Reactive Normal Nonreactive [facility] Comment on above: Order Comment: Reaso n for Exam: Performed By: #### L 3890.6300, L509.4005, L509.8000, L3890.6100, L3890.6005, BTS, L100.0100 ####[facility] [address] [place], [place], [phone] Hepatitis C Antibodyon 09-09 Hepatitis C AB Non-Reactive Normal Nonreactive [facility] Comment on above: Order Comment: Reaso n for Exam: Result Comment: Non Reactive: < 0.8 Equivocal: >/= 0.8 to < 1.0 Reactive: >/= 1.0 The CDC requires that a reactive/equivocal HCV antibody result be sent out for confirmation. HCV Quant by PCR testing. Performed By: #### L 3890.6300, L509.4005, L509.8000, L3890.6100, L3890.6005, BTS, L100.0100 ####[facility] [address] [place], [address] L509.8000on 09-09-2024 Syphilis Abs Non-Reactive Normal [facility] Comment on above: Order Comment: Reaso n for Exam: Performed By: #### L 3890.6300, L509.4005, L509.8000, L3890.6100, L3890.6005, BTS, L100.0100 ####[facility] [address] [place], [place], [address] Reporting Process Consultant Office Visit Reporton 09-09-2024 Reporting Process Consultant Office Visit Report [facility] [address], [address] [place] [address] OFFICE VISIT Date of Service: 09/09/24 MR#: [id number] Acct: [id number] Name: GINO BAE Rep #: [id number] : 2000 Provider: JOSE Santos ams Age/Sex: 24/F [place] [facility] [place]: Signed Intake Vital Signs 08/27/24 19:48 09/09/24 09:00 09/09/24 09:07 Height 5 ft 5 in 5 ft 5 in 5 ft 5 in Weight: 143 lb BMI 23.8 BP 127/83 H Intake Visit Reasons: LMP:06/27 BLUE:04/03 Scientific Aide Required: No Is patient in pain?: No [...] PFSH Medical History Migraine headache Surgical History [place] teeth extracted Family History Grandfather Diabetes Maternal Mother Cancer Basal cell skin cancer Father Cancer Basal cell Skin cancer Aunt Cancer Maternal- Skin Melanoma Social History adopted: No household members: spouse current occupational status: employed 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 Normal [facility] Rubella IgGon 09-09-2024 Rubella IgG Reactive Normal Nonreactive [facility] Comment on above: Order Comment: Reaso n for Exam: Result Comment: Anti body Results Interpretation of Immune Status Non Reactive Presumed Non-Immune Equivocal Equivocal Reactive Presumed Immune Performed By: #### L 3890.6300, L509.4005, L509.8000, L3890.6100, L3890.6005, BTS, L100.0100 ####[facility] [address] [place], [address] Type AND Screenon 09-09-2024 Ab SCREEN GEL Negative Normal [facility] Comment on above: Order Comment: PN Performed By: #### L 3890.6300, L509.4005, L509.8000, L3890.6100, L3890.6005, BTS, L100.0100 ####[facility] [address] [place], [address] Urine Cultureon 08-29-2024 URC Culture exhibits no growth. Normal [facility] Comment on above: Performed By: #### M 100.2200 #### [facility] [address] [place], [address] CBC-Complete Blood Cnt No Di ffon 08-27-2024 Erythrocyte distribution width (RBC) [Ratio] 12.4 % Normal 11.6-14.6 [facility] Comment on above: Performed By: #### L 500.4050, L100.0500, L501.2450 ####[facility] [address] [place], [address] Hematocrit (Bld) [Volume fraction] 35.8 % Low 37-47 [facility] Comment on above: Performed By: #### L 500.4050, L100.0500, L501.2450 ####[facility] [address] [place], [address] Hemoglobin (Bld) [Mass/Vol] 12.1 g/dL Normal 12.0-15.0 [facility] Comment on above: Performed By: #### L 500.4050, L100.0500, L501.2450 ####[facility] [address] [place], [address] MCH (RBC) [Entitic mass] 29.5 pg Normal 27.0-32.0 [facility] Comment on above: Performed By: #### L 500.4050, L100.0500, L501.2450 ####[facility] [address] [place], [address] MCHC (RBC) [Mass/Vol] 33.8 g/dL Normal 32-36 [facility] Comment on above: Performed By: #### L 500.4050, L100.0500, L501.2450 ####[facility] [address] [place], [address] MCV (RBC) [Entitic vol] 87.3 fL Normal 81-99 [facility] Comment on above: Performed By: #### L 500.4050, L100.0500, L501.2450 ####[facility] [address] [place], [address] Platelet mean volume (Bld) [Entitic vol] 13.1 fL High 6.2-12.0 [facility] Comment on above: Performed By: #### L 500.4050, L100.0500, L501.2450 ####[facility] [address] [place], [address] Platelets (Bld) [#/Vol] 153 10*3/uL Normal 150-450 [facility] Comment on above: Performed By: #### L 500.4050, L100.0500, L501.2450 ####[facility] [address] [place], [address] RBC (Bld) [#/Vol] 4.10 10*6/uL Low 4.2-5.4 [facility] Comment on above: Performed By: #### L 500.4050, L100.0500, L501.2450 ####[facility] [address] [place], [address] RDW SD 39.5 fl Normal 35.1-43.9 [facility] Comment on above: Performed By: #### L 500.4050, L100.0500, L501.2450 ####[facility] [address] [place], [address] WBC (Bld) [#/Vol] 9.6 10*3/uL Normal 4.4-11.0 [facility] Comment on above: Performed By: #### L 500.4050, L100.0500, L501.2450 ####[facility] [address] [place], [address] Comprehensive Metabolic Prof [facility] 08-27-2024 Albumin [Mass/Vol] 3.6 g/dL Normal 3.2-5.0 [facility] Comment on above: Performed By: #### L 500.4050, L100.0500, L501.2450 ####[facility] [address] [place], [address] Albumin/Globulin [Mass ratio] 1.1 {ratio} Normal 0.9-2.4 [facility] Comment on above: Performed By: #### L 500.4050, L100.0500, L501.2450 ####[facility] [address] [place], [address] ALK P 60 U/L Normal 45-117 [facility] Comment on above: Performed By: #### L 500.4050, L100.0500, L501.2450 ####[facility] [address] [place], [address] ALT [Catalytic activity/Vol] 16 U/L Normal 13-56 [facility] Comment on above: Performed By: #### L 500.4050, L100.0500, L501.2450 ####[facility] [address] [place], [address] AST [Catalytic activity/Vol] 11 U/L Low 15-37 [facility] Comment on above: Performed By: #### L 500.4050, L100.0500, L501.2450 ####[facility] [address] [place], [address] Bilirubin [Mass/Vol] 0.30 mg/dL Normal 0.20-1.00 [facility] Comment on above: Result Comment: For patients on eltrombopag therapy, use of Dimension [place] TBIL is not recommended. Performed By: #### L 500.4050, L100.0500, L501.2450 ####[facility] [address] [place], [address] BUN/CRE 17.2 RATIO Normal 10-20 [facility] Comment on above: Performed By: #### L 500.4050, L100.0500, L501.2450 ####[facility] [address] [place], [address] CA,Total 8.9 mg/dL Normal 8.5-10.1 [facility] Comment on above: Performed By: #### L 500.4050, L100.0500, L501.2450 ####[facility] [address] [place], [address] Chloride [Moles/Vol] 104 mmol/L Normal 98-107 [facility] Comment on above: Performed By: #### L 500.4050, L100.0500, L501.2450 ####[facility] [address] [place], [address] CO2 [Moles/Vol] 29.0 mmol/L Normal 21.0-32.0 [facility] Comment on above: Performed By: #### L 500.4050, L100.0500, L501.2450 ####[facility] [address] [place], [address] Creatinine [Mass/Vol] 0.52 mg/dL Low 0.55-1.02 [facility] Comment on above: Result Comment: The validity of the calculated GFR GFRAA in patients over 70 years has not been determined. Clinical correlation is essential. Performed By: #### L 500.4050, L100.0500, L501.2450 ####[facility] [address] [place], [address] EST GFR - AA 186 mL/min Normal >60 [facility] Comment on above: Result Comment: Afri can [place] GFR Calc Performed By: #### L 500.4050, L100.0500, L501.2450 ####[facility] [address] [place], [address] GAP 6 Normal 5-15 [facility] Comment on above: Performed By: #### L 500.4050, L100.0500, L501.2450 ####[facility] [address] [place], [address] GFR/1.73 sq M.predicted among non-blacks MDRD (S/P/Bld) [Vol rate/Area] 154 mL/min/{1.73_m2} Normal >60 [facility] Comment on above: Result Comment: Non- GFR Calc Performed By: #### L 500.4050, L100.0500, L501.2450 ####[facility] [address] [place], [address] Globulin (S) [Mass/Vol] 3.4 g/dL Normal 2.2-4.2 [facility] Comment on above: Performed By: #### L 500.4050, L100.0500, L501.2450 ####[facility] [address] [place], [address] Glucose [Mass/Vol] 91 mg/dL Normal 74-106 [facility] Comment on above: Performed By: #### L 500.4050, L100.0500, L501.2450 ####[facility] [address] [place], [address] Potassium [Moles/Vol] 3.6 mmol/L Normal 3.5-5.1 [facility] Comment on above: Performed By: #### L 500.4050, L100.0500, L501.2450 ####[facility] [address] [place], [address] Sodium [Moles/Vol] 139 mmol/L Normal 136-145 [facility] Comment on above: Performed By: #### L 500.4050, L100.0500, L501.2450 ####[facility] [address] [place], [address] T PROT 7.0 g/dL Normal 6.4-8.2 [facility] Comment on above: Performed By: #### L 500.4050, L100.0500, L501.2450 ####[facility] [address] [place], [address] Urea nitrogen [Mass/Vol] 9 mg/dL Normal 7-18 [facility] Comment on above: Performed By: #### L 500.4050, L100.0500, L501.2450 ####[facility] [address] [place], [address] Emergency Department Summary on 08-27-2024 Emergency Department Summary [facility] Medical Records Department [address] [place] [address] Emergency Department Summary 08/27/24 MR#: [id number] Acct: [id number] Name: GINO BAE Rep #: [id number] : 2000 24 From: Ivan Abrams DO [...] they tawanda (more content not included)... Normal [facility] Lipaseon 08-27-2024 Lipase [Catalytic activity/Vol] 36 U/L Normal 13-75 [facility] Comment on above: Result Comment: Susan stock note: LIPASE revised reference range effective 22. New Lipase methodology. Expected to produce lower values than the previous assay method. NEW Reference Range: 13 - 75 U/L Performed By: #### L 500.4050, L100.0500, L501.2450 ####[facility] [address] [place], [address] Urinalysis, Completeon 08-27 AMORPHOUS 3+ Normal [facility] Comment on above: Order Comment: CLEAN CATCH Performed By: #### L 400.0001 #### [facility] Laboratory [address] [place], [address] EPI,SQUAMOUS 0-5 SEEN Normal 5-10 [facility] Comment on above: Order Comment: CLEAN CATCH Performed By: #### L 400.0001 #### [facility] [address] [place], [address] WBC 0-5 SEEN Normal 0-5 [facility] Comment on above: Order Comment: CLEAN CATCH Performed By: #### L 400.0001 #### [facility] [address] [place], [address] BACTERIA 0 SEEN Normal None Seen [facility] Comment on above: Order Comment: CLEAN CATCH Performed By: #### L 400.0001 #### [facility] [address] [place], [address] Mucus Ql (Urine sed) 0 SEEN Normal [facility] Comment on above: Order Comment: CLEAN CATCH Performed By: #### L 400.0001 #### [facility] [address] [place], [address] RBC 0 SEEN Normal 0-5 [facility] Comment on above: Order Comment: CLEAN CATCH Performed By: #### L 400.0001 #### [facility] [address] [place], [address] POCT UA Automated manually r esultedon 07-13-2024 Appearance (U) Clear Clear [facility] Work Phone: Glucose Test strip (U) [Mass/Vol] Negative NEGATIVE mg/dl [facility] Work Phone: [phone] Hemoglobin Ql (U) Negative NEGATIVE [facility] Work Phone: [phone] Interpretation and review of laboratory results Normal [facility] Work Phone: [phone] Leukocyte esterase Test strip Ql (U) Negative NEGATIVE [facility] Work Phone: [phone] Nitrite Ql (U) Negative NEGATIVE [facility] Work Phone: [phone] pH (U) 7.0 [pH] No Reference Range Established [facility] Work Phone: [phone] POC Bilirubin, Urine Negative NEGATIVE [facility] Work Phone: [phone] POC Color, Urine Yellow Straw, [place] ow, Light-Yellow [facility] Work Phone: [phone] POC Ketones, Urine Negative NEGATIVE mg/dl [facility] Work Phone: [phone] POC Protein, Urine Negative NEGATIVE, 30 (1+) mg/dl [facility] Work Phone: POC Specific Stanley, Urine 1.020 1.005 - 1.035 [facility] Work Phone: POC Urobilinogen, Urine 0.2 0.2, 1.0 EU/ DL [facility] Work Phone: [facility] Work Phone: CULTURE URINEon 01-03-2024 Bacteria identified Cx Nom (U) NO PATHOGENS GROWN AFTER 1 DAY NO PATHOGENS GROWN AFTER 2 DAYS Normal [facility] Comment on above: Performed By: #### 6 30-4, UAR #### [facility] [address] [place] [address] Web [employer] Specialist - Pippa QUIÑONESIA [id number] CBC W Auto Differential pane l (Bld)on 01-01-2024 Basophils (Bld) [#/Vol] 0.05 10*3/uL Normal <=0.70 [facility] Comment on above: Performed By: #### 5 7021-8 #### [address] [place] [address] [employer] Specialist - Pippa QUIÑONESIA [id number] Basophils/100 WBC (Bld) 0.6 % Normal <=2.0 [facility] Comment on above: Performed By: #### 5 7021-8 #### [address] [place] [address] [employer] Specialist - Pippa Nowak CLIA [id number] Eosinophils (Bld) [#/Vol] 0.51 10*3/uL Normal <=0.70 [facility] Comment on above: Performed By: #### 5 7021-8 #### [address] [facility] [place] [address] [employer] Specialist - Pippa Nowak CLIA [id number] Eosinophils/100 WBC (Bld) 6.2 % Normal <=10.0 [facility] Comment on above: Performed By: #### 5 7021-8 #### [address] [facility] [place] [address] [employer] Specialist - Pippa QUIÑONESIA [id number] Erythrocyte distribution width (RBC) [Entitic vol] 38.9 fL Normal 36.4-46.3 [facility] Comment on above: Performed By: #### 5 7021-8 #### [address] [place] [address] [employer] Specialist - Pippa QUIÑONESIA [id number] Hematocrit (Bld) [Volume fraction] 39.2 % Normal 37.0-47.0 [facility] Comment on above: Performed By: #### 5 7021-8 #### [address] [facility] [place] [address] [employer] Specialist - Pippa QUIÑONESIA [id number] Hemoglobin (Bld) [Mass/Vol] 13.6 g/dL Normal 12.0-16.0 [facility] Comment on above: Performed By: #### 5 7021-8 #### [address] [place] [address] [employer] Specialist - Pippa QUIÑONESIA [id number] Immature granulocytes (Bld) [#/Vol] 0.03 10*3/uL Normal <=0.10 [facility] Comment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 presents to follow up after a recent ED visit as she was unable to get a sooner appointment at [facility]. Gino has a history of migraines and has been followed for this by Dr. Mat Patel in pediatric neurology at [facility]. She last saw Dr. Patel on [...] The symptoms lasted 20 minutes. During a [place] mission trip March,, Gino again had recurrent [...] 2019 the day after she arrived in [facility] for another mission trip. It is [...] poor living conditions noted on arrival to [facility] including cockroaches in food, moldy paul, [...] women were taken to a clinic in [facility] where they were given Valium to calm them. Blood and urine testing was reportedly normal. The three young women who were having symptoms [place]. The other two young women are now symptom-free and the symptoms were felt to be related to anxiety/panic attacks as opposed to seizure. On March 18, 2019, Gino was seen in [facility] ED for ongoing abnormal movements and concerns for seizure-like activity. Vital signs were stable and work up, including anti-streptolysin titer, urine HCG, CBC. CK, UA. and CMP were normal, except for a slightly elevated total bilirubin of 1.2 (0.0-1.0) with normal AST/ALT. Urine toxicology screen was only positive for benzodiazepines (which she had been given in [facility]). She was treated with Benadryl [...] well (mother describes episode early-on while at [employer]-day when her right upper extremity had drastic [...] scapula: this began at symptom onset in [facility]. Gino feels it is getting better. [...] by pediatric cardiology (Dr. Emily Garcia) at [facility] on February 18, 2019 for an asymptomatic murmur; and had a normal examination (no murmur heard) and echocardiogram. 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 She does very well at school with a 4.0 GPA. She is active and involved with [employer], [employer] (no longer doing), [employer], and latter-day leadership team. 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 + Recent stress during trip to [facility]. Hematology/Lympholo gy: Negative for prolonged [...] There is no motor impersistence on hand purchasing/receiving or minimyoclonus of the fingers when arms [...] young women on her recent trip to [facility]) it is difficult to exclude [...] clinic in June and Gino will need care home ongoing care, her care will need to [...] Resident for LARRY Woodall Staff, Pediatric Neurology [facility] STAFF PHYSICIAN NOTE OF PERSONAL INVOLVEMENT [...] by US mail. C: Family, PCP Normal [facility] Vital Signs Date Time Vital Sign Value Performing Clinician Facility 03-27-2025 11:04040 Heart rate 87 /min Yuliana ESPINOZA Work Phone: [facility] 03-27-2025 11:04-0400 SaO2% (BldA) [Mass fraction] 92 % Yuliana Gonzalez [employer] Work Phone: [phone] [place] [address] 03-27-2025 09:54-0400 Respiratory rate 16 /min Yuliana Gonzalez [employer] Work Phone: [phone] [place], [place] [address] 03-27-2025 09:11-0400 Body temperature 97.5 [degF] Yuliana Gonzalez [employer] Work Phone: 2(033)618-293789 [place] [address] 03-27-2025 09:11-0400 Diastolic blood pressure 68 mm[Hg] uYliana Gonzalez [employer] Work Phone: 1(066)512-090589 [place] [address] 03-27-2025 09:11-0400 Systolic blood pressure 128 mm[Hg] Yuliana Gonzalez [employer] Work Phone: 8(828)333-242989 [place] [address] 03-27-2025 08:59-0400 Body height 165.1 cm Yuliana Gonzalez [employer] Work Phone: 7(738)347-340489 [place] [address] 03-27-2025 08:59-0400 Body mass index (BMI) [Ratio] 32.6 kg/m2 Yuliana Gonzalez [employer] Work Phone: 8(402)823-881289 [place] [address] 03-27-2025 08:59-0400 Body weight 88.99 kg Yuliana Gonzalez [employer] Work Phone: 1(514)158-030902 [place] [address] 03-25-2025 10:08-0400 Body height 165.1 cm Yuliana Gonzalez [employer] Work Phone: 5(901)921-295102 [place] [address] 03-25-2025 10:08-0400 Body mass index (BMI) [Ratio] 32.7 kg/m2 Yuliana Gonzalez [employer] Work Phone: 4(694)585-857602 [place] [address] 03-25-2025 10:08-0400 Body weight 89.13 kg Yuliana Gonzalez [employer] Work Phone: 6(682)059-941002 [place] [address] 03-25-2025 10:08-0400 Diastolic blood pressure 67 mm[Hg] Yuliana Gonzalez [employer] Work Phone: [facility] 03-25-2025 10:08-0400 Systolic blood pressure 123 mm[Hg] Yuliana Gonzalez [employer] Work Phone: 1(868)212-916202 [place] [address] 03-18-2025 09:31-0400 Body height 165.1 cm Yuliana Gonzalez [employer] Work Phone: 4(104)106-455889 [place] [address] 03-18-2025 09:31-0400 Body mass index (BMI) [Ratio] 32.4 kg/m2 Yuliana Gonzalez [employer] Work Phone: 8(557)406-811689 [place] [address] 03-18-2025 09:31-0400 Body weight 88.45 kg Yuliana Gonzalez [employer] Work Phone: 1(751)274-364589 [place] [address] 03-18-2025 09:31-0400 Diastolic blood pressure 83 mm[Hg] Yuliana Gonzalez [employer] Work Phone: 2(569)951-446489 [place] [address] 03-18-2025 09:31-0400 Systolic blood pressure 139 mm[Hg] Yuliana Gonzalez [employer] Work Phone: 4(957)219-015889 [place] [address] 03-10-2025 15:34-0400 Body height 165.1 cm Yuliana Gonzalez [employer] Work Phone: 9(027)348-185489 [place] [address] 03-10-2025 15:34-0400 Body mass index (BMI) [Ratio] 32.5 kg/m2 Yuliana Gonzalez [employer] Work Phone: 7(099)922-090189 [place] [address] 03-10-2025 15:34-0400 Body weight 88.56 kg Yuliana Gonzalez [employer] Work Phone: 3(835)034-551589 [place] [address] 03-10-2025 15:34-0400 Diastolic blood pressure 82 mm[Hg] Yuliana Gonzalez [employer] Work Phone: 8(446)362-235389 [place] [address] 03-10-2025 15:34-0400 Systolic blood pressure 138 mm[Hg] Yuliana Gonzalez [employer] Work Phone: 2(234)910-779489 [place] [address] 02-24-2025 08:59-0400 Body height 165.1 cm Yuliana Gonzalez [employer] Work Phone: [facility] 02-24-2025 08:59-0400 Body mass index (BMI) [Ratio] 31.4 kg/m2 Yuliana Gonzalez [employer] Work Phone: [facility] 02-24-2025 08:59-0400 Body weight 85.84 kg Yuliana Gonzalez [employer] Work Phone: 5(367)643-625602 [place] [address] 02-24-2025 08:59-0400 Diastolic blood pressure 69 mm[Hg] Yuliana Gnozalez [employer] Work Phone: 6(882)232-641989 [place] [address] 02-24-2025 08:59-0400 Systolic blood pressure 103 mm[Hg] Yuliana Gonzalez [employer] Work Phone: 7(500)092-444589 [place] [address] 02-10-2025 08:47-0400 Body height 165.1 cm Yuliana Gonzalez [employer] Work Phone: 5(972)951-385489 [place] [address] 02-10-2025 08:47-0400 Body mass index (BMI) [Ratio] 31.4 kg/m2 Yuliana Gonzalez [employer] Work Phone: 2(899)955-457889 [place] [address] 02-10-2025 08:47-0400 Body weight 85.78 kg Yuliana Gonzalez [employer] Work Phone: 5(434)389-887389 [place] [address] 02-10-2025 08:47-0400 Diastolic blood pressure 83 mm[Hg] Yuliana Gonzalez [employer] Work Phone: 8(493)220-889689 [place] [address] 02-10-2025 08:47-0400 Systolic blood pressure 115 mm[Hg] Yuliana Gonzalez [employer] Work Phone: 7(075)274-115989 [place] [address] 01-26-2025 08:35-0400 Body height 165.1 cm Yuliana Gonzalez [employer] Work Phone: 4(391)921-169189 [place] [address] 01-26-2025 08:35-0400 Body mass index (BMI) [Ratio] 31.3 kg/m2 Yuliana Gonzalez [employer] Work Phone: 4(592)945-926189 [place] [address] 01-26-2025 08:35-0400 Body weight 85.38 kg Yuliana Gonzalez [employer] Work Phone: [facility] 01-26-2025 08:35-0400 Diastolic blood pressure 72 mm[Hg] Yuliana Gonzalez [employer] Work Phone: [facility] 01-26-2025 08:35-0400 Systolic blood pressure 126 mm[Hg] Yuliana Gonzalez [employer] Work Phone: [facility] 01-07-2025 10:18-0400 Body height 165.1 cm Yuliana Gonzalez [employer] Work Phone: 7(961)390-708702 [place] [address] 01-07-2025 10:18-0400 Body mass index (BMI) [Ratio] 30.2 kg/m2 Yuliana Gonzalez [employer] Work Phone: 9(433)921-489102 [place] [address] 01-07-2025 10:18-0400 Body weight 82.55 kg Yuliana Gonzalez [employer] Work Phone: 3(709)132-950502 [place] [address] 01-07-2025 10:18-0400 Diastolic blood pressure 81 mm[Hg] Yuliana Gonzalez [employer] Work Phone: 1(059)079-432102 [place] [address] 01-07-2025 10:18-0400 Systolic blood pressure 127 mm[Hg] Yuliana Gonzalez [employer] Work Phone: 0(489)089-193602 [place] [address] 12-03-2024 10:15-0400 Body mass index (BMI) [Ratio] 28.5 kg/m2 Yuliana Gonzalez [employer] Work Phone: [facility] 12-03-2024 10:15-0400 Body weight 77.73 kg Yuliana Gonzalez [employer] Work Phone: 6(402)377-493202 [place] [address] 12-03-2024 10:15-0400 Diastolic blood pressure 77 mm[Hg] Yuliana Gonzalez [employer] Work Phone: 8(787)013-609602 [place] [address] 12-03-2024 10:15-0400 Systolic blood pressure 120 mm[Hg] Yuliana Gonzalez [employer] Work Phone: 6(449)282-948002 [place] [address] 11-05-2024 11:42-0500 Body mass index (BMI) [Ratio] 27.3 kg/m2 Yuliana Gonzalez [employer] Work Phone: 4(674)747-231802 [place] [address] 11-05-2024 11:42-0500 Body weight 74.38 kg Yuliana Gonzalez [employer] Work Phone: 0(865)383-029389 [place] [address] 11-05-2024 11:42-0500 Diastolic blood pressure 81 mm[Hg] Yuliana Gonzalez [employer] Work Phone: 6(644)573-373789 [place] [address] 11-05-2024 11:42-0500 Systolic blood pressure 134 mm[Hg] Yuliana Gonzalez [employer] Work Phone: 4(766)263-709089 [place] [address] 10-07-2024 11:33-0500 Body mass index (BMI) [Ratio] 25.4 kg/m2 Yuliana Gonzalez [employer] Work Phone: 7(957)433-274689 [place] [address] 10-07-2024 11:33-0500 Body weight 69.45 kg Yuliana Gonzalez [employer] Work Phone: 9(885)578-513989 [place] [address] 10-07-2024 11:33-0500 Diastolic blood pressure 73 mm[Hg] Yuliana Gonzalez [employer] Work Phone: 6(958)190-245989 [place] [address] 10-07-2024 11:33-0500 Systolic blood pressure 120 mm[Hg] Yuliana Gonzalez [employer] Work Phone: 1(006)513-207589 [place] [address] 09-28-2024 07:45-0500 Body height 166.4 cm Yuliana Gonzalez MILL WORKER-[employer]BI[employer] REPAIRER HELPER Work Phone: 7(542)538-643010 [place] [address] 09-28-2024 07:45-0500 Body mass index (BMI) [Ratio] 24.91 kg/m2 Yuliana Gonzalez [employer] WORKER-[employer]BI[employer] REPAIRER HELPER Work Phone: 7(278)062-354110 [place] [address] 09-28-2024 07:45-0500 Body weight 68.95 kg Yuliana Gonzalez MILL WORKER-[employer]BI[employer] REPAIRER HELPER Work Phone: 0(495)632-760410 [place] [address] 09-28-2024 07:45-0500 Diastolic blood pressure 80 mm[Hg] Yuliana Gonzalez MILL WORKER-AUT[employer]BI[employer] BODY REPAIRER HELPER Work Phone: [facility] 09-28-2024 07:45-0500 Heart rate 72 /min Yuliaan Gonzalez MILL WORKER-AUTOMOBI[employer] BODY REPAIRER HELPER Work Phone: [facility] 09-28-2024 07:45-0500 Systolic blood pressure 138 mm[Hg] Yuliana Gonzalez MILL WORKER-AUT[employer]BI[employer] BODY REPAIRER HELPER Work Phone: [facility] 07-13-2024 07:18-0500 Body height 166.4 cm Yuliana Gonzalez MILL WORKER-AUTOM[employer]BI[employer] BODY REPAIRER HELPER Work Phone: [facility] 07-13-2024 07:18-0500 Body mass index (BMI) [Ratio] 23.02 kg/m2 Yuliana Gonzalez MILL WORKER-AUT[employer]BI[employer] BODY REPAIRER HELPER Work Phone: [facility] 07-13-2024 07:18-0500 Body weight 63.73 kg Yuliana Gonzalez MILL WORKER-AUT[employer]BI[employer] BODY REPAIRER HELPER Work Phone: [facility] 07-13-2024 07:18-0500 Diastolic blood pressure 80 mm[Hg] Yuliana Gonzalez MILL WORKER-AUTOM[employer]BI[employer] BODY REPAIRER HELPER Work Phone: [facility] 07-13-2024 07:18-0500 Heart rate 82 /min Yuliana Gonzalez MILL WORKER-AUTOM[employer]BI[employer] BODY REPAIRER HELPER Work Phone: [facility] 07-13-2024 07:18-0500 Systolic blood pressure 124 mm[Hg] Yuliana Gonzalez MILL WORKER-AUTOM[employer]BI[employer] BODY REPAIRER HELPER Work Phone: [facility] Encounters Encounter Date Encounter Type Care Provider Facility Start: 03-27-2025 End: 03-27-2025 ambulatory Yuliana Gonzalez NP-C Work Phone: -[facility] Start: 03-27-2025 End: 03-27-2025 Patient encounter procedure Autumn Jacome CNM -[facility] Work Phone: Start: 03-25-2025 End: 03-25-2025 Patient encounter procedure Autumn Jacome CNM -[facility] Work Phone: Start: 03-25-2025 End: 03-25-2025 ambulatory Yuliana Gonzalez [employer] Work Phone: -[facility] Start: 03-22-[address] Marissa Aquino MD -[facility] Work Phone: Start: 03-22-2025 ambulatory Yuliana Gonzalez Facility:[facility] Start: 03-18-2025 End: 03-18-[address] Marissa Aquino MD -[facility] Work Phone: Start: 03-18-2025 End: 03-18-2025 ambulatory Yuliana Gonzalez [employer] Work Phone: [facility] Start: 03-10-2025 End: 03-10-2025 ambulatory Yuliana Gonzalez [employer] Work Phone: -Laboratory Specimen Start: 03-10-2025 End: 03-10-[address] Rufina Weiss DO -Laboratory Specimen Work Phone: Start: 03-10-2025 End: 03-10-[address] Rufina Weiss DO -[facility] Work Phone: Start: 03-10-2025 End: 03-10-2025 ambulatory Yuliana Gonzalez [employer] Work Phone: [facility] Start: 03-10-2025 End: 03-10-2025 ambulatory Rufina Weiss Facility:[facility] Start: 02-24-2025 End: 02-24-[address] Marissa Aquino MD -[facility] Work Phone: Start: 02-24-2025 End: 02-24-2025 ambulatory Yuliana Gonzalez [employer] Work Phone: [facility] Work Phone: Start: 02-15-2025 End: 02-15-2025 ambulatory Yuliana Gonzalez [employer] Work Phone: [facility] Work Phone: Start: 02-15-2025 End: 02-15-2025 Patient encounter procedure [facility]M [facility] Start: 02-15-2025 End: 02-15-2025 ambulatory Autumn Jacome Facility:[facility] Start: 02-11-2025 End: 02-11-2025 ambulatory Yuliana Gonzalez [employer] Work Phone: [facility] Work Phone: Start: 02-11-2025 End: 02-11-2025 Patient encounter procedure Autumn Jacome CNM -[facility] Work Phone: Start: 02-10-2025 End: 02-11-2025 ambulatory Yuliana Gonzalez [employer] Work Phone: [facility] Work Phone: Start: 02-10-2025 End: 02-10-2025 Patient encounter procedure Autumn Jacome CNM -[facility] Work Phone: Start: 01-26-2025 End: 01-26-2025 Patient encounter procedure Kirsten Parker [employer] -[facility] Work Phone: Start: 01-26-2025 End: 01-26-2025 ambulatory Yuliana Gonzalez [employer] Work Phone: [facility] Work Phone: Start: 01-07-2025 End: 01-07-2025 Patient encounter procedure Autumn MÁRQUEZM -[facility] Work Phone: Start: 01-07-2025 End: 01-07-2025 ambulatory Yuliana Gonzalez [employer] Work Phone: [facility] Work Phone: Start: 01-07-2025 End: 01-07-2025 ambulatory Marissa Aquino Facility:[facility] Start: 12-31-2024 ambulatory Lore Staley y:[facility] Start: 12-03-2024 End: 12-03-[address] Rufina Weiss DO -[facility] Work Phone: Start: 12-03-2024 End: 12-03-2024 ambulatory Rufina Weiss Facility:[facility] Start: 11-09-2024 End: 11-09-2024 ambulatory JOSSELIN PETRA [facility] Start: 11-05-2024 End: 11-05-2024 Patient encounter procedure Autumn MÁRQUEZ -[facility] Work Phone: Start: 11-05-2024 End: 11-05-2024 ambulatory Yuliana Gonzalez Facility:[facility] Start: 10-07-2024 End: 10-07-[address] Rufina Weiss DO -[facility] Work Phone: Start: 10-07-2024 End: 10-07-2024 ambulatory Rufina Weiss Facility:[facility] Start: 09-28-2024 End: 09-28-2024 Office outpatient visit 15 minutes Yuliana Gonzalez M[employer] WORKER-[employer] REPAIRER HELPER Work Phone: [facility] Comment on above: Persistent depressiv e disorder; Anxiety Start: 09-28-2024 End: 09-28-2024 ambulatory [facility] Start: 09-09-2024 End: 09-09-2024 ambulatory Yuliana Prospect Facility:[facility] Start: 09-09-2024 End: 09-09-2024 ambulatory Yuliana Prospect Facility:[facility] Start: 08-27-2024 End: 08-27-2024 Emergency department patient visit Ivan Abrams Facility:[facility] Start: 07-13-2024 End: 07-13-2024 Initial preventive medicine new pt age 18-39yrs Yuliana Gonzalez MILL WORKER-[employer]BI[employer] B[employer] REPAIRER HELPER Work Phone: [facility] Comment on above: Wellness examination (Primary Dx); Dysuria; Persistent depressive disorder; Migraine without aura and without status migrainosus, not intractable; Screening for lipid disorders; BMI 23.0-23.9, adult Start: 07-13-2024 End: 07-13-2024 Patient encounter status Yuliana Gonzalez MILL WORKER-AUT[employer]BILE BODY REPAIRER HELPER Work Phone: [facility] Work Phone: Start: 07-13-2024 End: 07-13-2024 ambulatory YULIANA GONZALEZ [facility] Start: 07-13-2024 End: 07-13-2024 Encounter for general adult medical examination without abnormal findings YULIANA GONZALEZ [facility] Ambulatory Start: 01-01-2024 End: 01-01-2024 ambulatory BOAZ SCHULTZ Facility:[facility] Start: 02-13-2018 End: 02-14-2018 Ambulatory [facility] Procedures Date Procedure Procedure Detail Performing Clinician Start: 03-22-2025 Ultrasound scan for growth Yuliana Gonzalez [employer] Work Phone: Start: 03-10-2025 Beta-hemolytic Streptococcus culture Yuliana Vincenzo [employer] Work Phone: Start: 02-11-2025 Ultrasound scan for growth Yuliana Gonzalez [employer] Work Phone: Start: 01-07-2025 Serologic test for syphilis Yuliana Gonzalez [employer] Work Phone: Start: 09-09-2024 Microscopic observat ion [Identifier] in Cervix by Cyto stain Yuliana Gonzalez [employer]ILL WORKER-AUT[employer]BILE BODY REPAIRER HELPER Work Phone: Start: 07-13-2024 Urnls dip stick/tabl et rgnt auto w/o microscopy Yuliana Gonzalez [employer]ILL WORKER-AUTOM[employer]BI[employer] BODY REPAIRER HELPER Work Phone: Plan of Treatment Date Care Activity Detail Author Start: 2076 RSV High Risk: (Elde rly (60+) or Population) (1 - 1-dose 75+ series) RSV High Risk: (Elderly (60+) or Population) (1 - 1-dose 75+ series) [facility] Start: 2051 Zoster Vaccines (1 of 2) Zoste r Vaccines (1 of 2) [facility] Start: 09-09-2027 Screening for malign ant neoplasm of cervix [facility] Start: 07-14-2025 Yearly Adult Physical Yearly Adult P hysical [facility] Start: 04-01-2025 ambulatory Ambulatory Facility:[facility] Start: 03-27-2025 Nonstress test [facility] Start: 03-27-2025 Obstetric monitoring [facility] Start: 03-27-2025 Vital signs measurements [facility] Start: 03-27-2025 [facility] Start: 03-27-2025 Patient discharge [facility] Start: 07-13-2024 End: 07-13-2025 CBC W Auto Differential panel - Blood CBC and Auto Differential Lab Routine Wellness examination Expected: 07/13/2024 (Approximate), Expires: 07/13/2025 [facility] Service Area Work Phone: Comment on above: Expected: 07/13/2024 (Approximate), Expires: 07/13/2025 Start: 07-13-2024 End: 07-13-2025 Comprehensive metabolic 2000 panel - Serum or Plasma Comprehensive Metabolic Panel Lab Routine Wellness examination Expected: 07/13/2024 (Approximate), Expires: 07/13/2025 [facility] Work Phone: Comment on above: Expected: 07/13/2024 (Approximate), Expires: 07/13/2025 Start: 07-13-2024 End: 07-13-2025 Lipid 1996 panel - Serum or Plasma Lipid Panel Lab Routine Screening for lipid disorders Wellness examination Expected: 07/13/2024 (Approximate), Expires: 07/13/2025 [facility] Work Phone: Comment on above: Expected: 07/13/2024 (Approximate), Expires: 07/13/2025 Start: 05-02-2024 COVID-19 Vaccine ( season) COVID-19 Vaccine ( season) [facility] Start: 05-02-2024 Influenza vaccination Influenza Vacc ine (#1) [facility] Start: 02-05-2024 DTaP/Tdap/Td Vaccine s (7 - Td or Tdap) DTaP/Tdap/Td Vaccines (7 - Td or Tdap) [facility] Start: 2022 Screening for malign ant neoplasm of cervix [facility] Start: 2019 Hepatitis C screening Hepatitis C Sc reening [facility] Start: 2016 HPV Vaccines (1 - 3- dose series) HPV Vaccines (1 - 3-dose series) [facility] Start: 2001 HIV screening HIV Screening [facility] Start: 2001 Lipid panel Lipid Panel [facility] Patient Education Kick Counts ED False Labor OB Triage: Return to Hospital or Notify Physician if you Experience: [facility] Work Phone: Streptococcus agalac tiae [Presence] in Unspecified specimen by Organism specific culture [facility] Ultrasound scan for growth [facility] Ultrasound scan for growth [facility] Immunizations Immunization Date Immunization Notes Care Provider Fa pankaj 02-10-2025 tetanus toxoid, redu gordon diphtheria toxoid, and acellular pertussis vaccine, adsorbed Yuliana Gonzalez [employer] Work Phone: [facility] 01-14-2022 tuberculin skin test ; purified protein derivative solution, intradermal Yuliana Gonzalez MILL WORKER-AUT[employer]BI[employer] BODY REPAIRER HELPER Work Phone: [facility] Work Phone: 05-31-2019 meningococcal B vacc ine, recombinant, OMV, adjuvanted Yuliana Gonzalez MILL WORKER-AUTOMOBI[employer] BODY REPAIRER HELPER Work Phone: [facility] Work Phone: 02-12-2019 meningococcal B vacc ine, recombinant, OMV, adjuvanted Yuliana Gonzalez MILL WORKER-AUTOMOBILE BODY REPAIRER HELPER Work Phone: [facility] Work Phone: 02-12-2019 meningococcal polysaccharide (groups A, C, Y and W-135) diphtheria toxoid conjugate vaccine (MCV4P) Yuliana Gonzalez MILL WORKER-AUTOM[employer]BILE BODY REPAIRER HELPER Work Phone: [facility] Work Phone: 02-07-2017 hepatitis A vaccine, pediatric/adolescent dosage, 2 dose schedule Yuliana Gonzalez MILL WORKER-AUTOMOBILE BODY REPAIRER HELPER Work Phone: [facility] Work Phone: 02-07-2017 typhoid capsular polysaccharide vaccine Yulianaeber Gonzalez MILL WORKER-AUTOMOBILE BODY REPAIRER HELPER Work Phone: [facility] Work Phone: 03-01-2016 hepatitis A vaccine, pediatric/adolescent dosage, 2 dose schedule Yulianaeber Gonzalez MILL WORKER-AUTOMOBILE BODY REPAIRER HELPER Work Phone: [facility] Work Phone: 03-01-2016 typhoid capsular polysaccharide vaccine Yulianaeber Gonzalez MILL WORKER-AUTOMOBILE BODY REPAIRER HELPER Work Phone: [facility] Work Phone: 04-27-2015 pneumococcal polysaccharide vaccine, 23 valent Yulianaeber Gonzalez MILL WORKER-AUTOMOBILE BODY REPAIRER HELPER Work Phone: [facility] Work Phone: 02-04-2014 meningococcal polysaccharide (groups A, C, Y and W-135) diphtheria toxoid conjugate vaccine (MCV4P) Yuliana Gonzalez MILL WORKER-[facility] Work Phone: [facility] Work Phone: 02-04-2014 tetanus toxoid, redu gordon diphtheria toxoid, and acellular pertussis vaccine, adsorbed Yuliana Gonzalez MILL WORKER-[facility] Work Phone: [facility] Work Phone: 08-31-2008 varicella virus vaccine Jamar Gonzalez MILL WORKER-[facility] Work Phone: [facility] Work Phone: 11-01-2005 diphtheria, tetanus toxoids and acellular pertussis vaccine Yuliana Gonzalez MILL WORKER-[facility] Work Phone: [facility] Work Phone: 11-01-2005 measles, mumps and rubella virus vaccine Yuliana Gonzalez MILL WORKER-[facility] Work Phone: [facility] Work Phone: 11-01-2005 poliovirus vaccine, inactivated Yuliana Gonzalez MILL WORKER-AUT[employer]BILE BODY REPAIRER HELPER Work Phone: [facility] Work Phone: 11-19-2002 diphtheria, tetanus toxoids and acellular pertussis vaccine Yuliana Gonzalez MILL WORKER-AUTOM[employer]BI[employer] BODY REPAIRER HELPER Work Phone: [facility] Work Phone: 08-23-2002 measles, mumps and rubella virus vaccine Yuliana Gonzalez MILL WORKER-AUT[employer] BODY REPAIRER HELPER Work Phone: [facility] Work Phone: 05-24-2002 haemophilus influenz ae type b vaccine, PRP-T conjugate Yuliana Gonzalez MILL WORKER-AUTOM[employer]BI[employer] BODY REPAIRER HELPER Work Phone: [facility] Work Phone: 05-24-2002 hepatitis B vaccine, pediatric or pediatric/adolescent dosage Yuliana Gonzalez MILL WORKER-AUTOM[employer]BI[employer] BODY REPAIRER HELPER Work Phone: [facility] Work Phone: 05-24-2002 varicella virus vaccine Jamar Gonzalez MILL WORKER-AUTOMOBILE BODY REPAIRER HELPER Work Phone: [facility] Work Phone: 03-01-2002 haemophilus influenz ae type b vaccine, PRP-T conjugate Yuliana Gonzalez MILL WORKER-AUTOMOBILE BODY REPAIRER HELPER Work Phone: [facility] Work Phone: 03-01-2002 poliovirus vaccine, inactivated Yuliana Gonzalez MILL WORKER-AUTOMOBILE BODY REPAIRER HELPER Work Phone: [facility] Work Phone: 2001 diphtheria, tetanus toxoids and acellular pertussis vaccine Yuliana Gonzalez MILL WORKER-AUTOMOBILE BODY REPAIRER HELPER Work Phone: [facility] Work Phone: 2001 pneumococcal conjuga te vaccine, 7 valent Yuliana Gonzalez MILL WORKER-[facility] Work Phone: [facility] Work Phone: 2001 diphtheria, tetanus toxoids and acellular pertussis vaccine Yuliana Gonzalez MILL WORKER-AUTOMOBILE BODY REPAIRER HELPER Work Phone: [facility] Work Phone: 2001 haemophilus influenz ae type b vaccine, PRP-T conjugate Yuliana Gonzalez MILL WORKER-AUTOMOBILE BODY REPAIRER HELPER Work Phone: [facility] Work Phone: 2001 pneumococcal conjuga te vaccine, 7 valent Yuliana Gonzalez MILL WORKER-AUTOMOBILE BODY REPAIRER HELPER Work Phone: [facility] Work Phone: 2001 poliovirus vaccine, inactivated Yuliana Gonzalez MILL WORKER-AUTOMOBILE BODY REPAIRER HELPER Work Phone: [facility] Work Phone: 2001 diphtheria, tetanus toxoids and acellular pertussis vaccine Yuliana Gonzalez MILL WORKER-AUTOMOBILE BODY REPAIRER HELPER Work Phone: [facility] Work Phone: 2001 haemophilus influenz ae type b vaccine, PRP-T conjugate Yuliana Gonzalez MILL WORKER-AUTOMOBILE BODY REPAIRER HELPER Work Phone: [facility] Work Phone: 2001 hepatitis B vaccine, pediatric or pediatric/adolescent dosage Yuliana Gonzalez MILL WORKER-AUTOMOBILE BODY REPAIRER HELPER Work Phone: [facility] Work Phone: 2001 pneumococcal conjuga te vaccine, 7 valent Yuliana Gonzalez MILL WORKER-AUTOMOBILE BODY REPAIRER HELPER Work Phone: [facility] Work Phone: 2001 poliovirus vaccine, inactivated Yuliana Gonzalez MILL WORKER-AUTOMOBILE BODY REPAIRER HELPER Work Phone: [facility] Work Phone: 2001 hepatitis B vaccine, pediatric or pediatric/adolescent dosage Yuliana Gonzalez MILL WORKER-AUTOMOBILE BODY REPAIRER HELPER Work Phone: [facility] Work Phone: Payers Date Payer Category Payer Self-pay 2023 [facility] [id number] 2001 Unknown [id number] [id number] 2001 Unknown [id number] 2.16.840.1.422597.3.579.2.479 2001 Unknown [id number] 2.16.840.1.470545.3.579.2.1244 2001 Unknown [id number] 2.16.840.1.732281.3.579.2.1244 1959 Unknown [id number] 1959 Unknown [id number] Unknown [id number] 2.16840.1.192653.3.579.2.462 Unknown [id number] 2.840.1.162169.3.579.2.462 Unknown [id number] 2.16.840.1.134797.3.579.2.462 Unknown [id number] 2.16.840.1.428310.3.579.2.462 Unknown [id number] 2.16840.1.126002.3.579.2.462 Unknown [id number] 2.16840.1.470564.3.579.2.462 Unknown [id number] 2.16840.1.794004.3.579.2.462 Unknown [id number] 2.16.840.1.330065.3.579.2.462 Unknown [id number] 2.16.840.1.148250.3.579.2.462 Unknown [id number] 2.16.840.1.681919.3.579.2.462 Unknown [id number] 2.16840.1.999995.3.579.2.462 Unknown [id number] 2.16.840.1.337872.3.579.2.462 Unknown [id number] 2.16.840.1.188031.3.579.2.462 Unknown [id number] 2.16.840.1.253328.3.579.2.462 Unknown [id number] 2.16.840.1.359330.3.579.2.462 Unknown [id number] 2.16.840.1.352990.3.579.2.462 Unknown [id number] 2.16.840.1.480545.3.579.2.462 Unknown [id number] 2.16.840.1.605887.3.579.2.462 Unknown [id number] 2.16.840.1.684395.3.579.2.462 Unknown [id number] 2.16.840.1.765227.3.579.2.462 Unknown [id number] 2.16.840.1.205620.3.579.2.462 Social History Date Type Detail Facility Start: 07-13-2024 End: 09-06-2024 Tobacco smoking status NHIS Never smoked tobacco [facility] Work Phone: Start: 07-13-2024 Tobacco use and exposure Smokeless tobacco non-user [facility] Work Phone: Start: 07-13-2024 End: 09-28-2024 Alcoholic beverage intake Current drinker of alcohol (finding) [facility] Work Phone: Start: 07-13-2024 End: 09-28-2024 History of Social function [facility] Work Phone: Start: 07-13-2024 End: 09-28-2024 Tobacco use panel [facility] Work Phone: Start: 07-13-2024 Alcohol Comment social [facility] Work Phone: Start: 2001 Sex assigned at Not on file [facility] Work Phone: Start: 07-03-2024 End: 09-28-2024 Exposure to SARS-CoV-2 (event) Not sure [facility] Start: 2001 Sex Assigned At Female [facility] Clinical Notes 07-13-2024 to 03-25-2025 Note Date & Type Note Facility 03-25-2025 Progress note [facility] 03-18-2025 Progress note [facility] 03-10-2025 Progress note [facility] 03-10-2025 Progress note Note Date/Time March 10, 2025 3:51pm [facility]'s [address], [address] [place] [address] OFFICE VISIT Date of Service: 03/10/25 MR#: [id number] Acct: [id number] Name: GINO MICHELE Rep #: [id number] : 2000 Provider: Dr. Rosalva Weiss DO Age/Sex: 24/F Location[place] [facility] Status: Signed Intake Vital Signs 01/07/25 10:18 02/24/25 08:59 03/10/25 15:34 Height 5 ft 5 in 5 ft 5 in 5 ft 5 in Weight: 195 lb 4 oz BMI 32.5 BP 138/82 H Intake Visit Reasons: 36 wk ob Scientific Aide Required: No Is patient in pain?: No [...] PFSH Medical History Migraine headache Surgical History [place] teeth extracted Family History Grandfather Diabetes Maternal Mother Cancer Basal cell skin cancer Father Cancer Basal cell Skin cancer Aunt Cancer Maternal- Skin Melanoma Social History adopted: No household members: spouse current occupational status: employed 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: Yes (Avoid Litterbox) [...] physical activity do you participate in: none osiris/rastafarian: Sabianism seatbelt use: always do you feel safe [...] high risk , unspecified, third trimester 03/10/25 5721 <Electronically signed by Rufian Watkins DO> Date _ Rufina Weiss DO Cosigner Signature: Date (if applicable) CC: ~ [facility] Work Phone: 1(322) 999-725706-26-2025 Progress [facility] [address], [address] [place] [id number] OFFICE VISIT Date of Service: 02/24/25 MR#: [id number] Acct: [id number] Name: GINO MICHELE Rep #: [id number] : 2000 Provider: Dr. Arias Aquino MD Age/Sex: 24/F [place] [facility] [place]: Signed Intake Vital Signs 09/09/24 09:07 02/10/25 08:47 02/24/25 08:59 02/24/25 08:59 Height 5 ft 5 in 5 ft 5 in 5 ft 5 in 5 ft 5 in Weight: 189 lb 4 oz BMI 31.4 BP 103/69 Intake Visit Reasons: 34 wk ob Scientific Aide Required: No Is patient in pain?: No [...] PFSH Medical History Migraine headache Surgical History [place] teeth extracted Family History Grandfather Diabetes Maternal Mother Cancer Basal cell skin cancer Father Cancer Basal cell Skin cancer Aunt Cancer Maternal- Skin Melanoma Social History adopted: No household members: spouse current occupational status: employed 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: Yes (Avoid Litterbox) [...] physical activity do you participate in: none osiris/rastafarian: Sabianism seatbelt use: always do you feel safe [...] Cosign Signature: Date (if applicable) CC: ~ [facility]06-13-2025 Radiology Diagnostic study note [facility] Imaging Services [address] [place], [place] [address] OB Limited With Biometrics MR#: [id number] Acct: [id number] Name: MICHELE,GINOBERNY ESPITIA Rep #: [id number] : 2000 F 24 From: Joshua Astorga MD PCP: OLGA Montilla Status: REG CLI Study:OB Limited With Biometrics Date of Exam : 02/11/25 Exam# [id number] Ordering Dr: Autumn Jacome CNM PROCEDURE: OB [...] gestational age of 34 weeks. Reading Location: [id number]-T CC: JOSE Jacome; TOWER HANDCasey Gonzalez ~ Paperhanger And Painter: Signed [facility]06-12-2025 [facility] [address], [address] [place] [address] OFFICE VISIT Date of Service: 02/10/25 MR#: [id number] Acct: [id number] Name: GINO MICHELE Rep #: [id number] : 2000 Provider: JOSE Jacome Age/Sex: 24/F [place] [facility] [place]: Signed Intake Vital Signs 09/09/24 09:07 01/26/25 08:35 02/10/25 08:47 Height 5 ft 5 in 5 ft 5 in 5 ft 5 in Weight: 189 lb 2 oz BMI 31.4 BP 115/83 H Intake Visit Reasons: 32 wk ob Scientific Aide Required: No Is patient in pain?: No [...] PFSH Medical History Migraine headache Surgical History [place] teeth extracted Family History Grandfather Diabetes Maternal Mother Cancer Basal cell skin cancer Father Cancer Basal cell Skin cancer Aunt Cancer Maternal- Skin Melanoma Social History adopted: No household members: spouse current occupational status: employed 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: Yes (Avoid Litterbox) [...] physical activity do you participate in: none osiris/rastafarian: Sabianism seatbelt use: always do you feel safe [...] Performing Provider: Autumn Jacome CNM Performing Location: [facility] Administered by: Kristen Quiros on 02/10/25 08:57 Dose Route Admin Location Dispensed Lot Number Expiration Date NDC Cloud Systems Administrator 0.5 mL IM Right Deltoid 0.5 mL [id number] 01/29/26 46561-861-02 [employer] VIS Given Date VIS Provided [...] Cosigner Signature: Date (if applicable) CC: ~ [facility]04-04-2025 Evaluation note* Diagnosis Onset Date [...] of high-risk acute March 10, 2025 3:30pm [facility] Work Phone: 1([phone]) 111-331404-04-2025 Evaluation note* Diagnosis Onset Date Resolution Status [...] third trimester acute March 18, 2025 9:29am [facility] Work Phone: 1([phone]) 848-164604-04-2025 Evaluation note* Diagnosis Onset Date Resolution Status [...] third trimester acute March 25, 2025 9:59am [facility] Work Phone: 1(448) 577-742203-07-2025 Evaluation note* Diagnosis Onset Date Resolution Status [...] high-risk acute January 07, 2025 10 :04am [facility] Work Phone: 1([phone] [phone] Evaluation note* Diagnosis Onset Date Resolution Status [...] high-risk acute January 26, 2025 8 :33am [facility] Work Phone: 1([phone]) 538-785803-07-2025 Evaluation note* Diagnosis Onset Date Resolution Status [...] of high-risk acute February 10, 2025 8:46am [facility] Work Phone: 1([phone]) 313-211403-07-2025 Evaluation note* Diagnosis Onset Date Resolution Status [...] February 24 8:56am Circumvallate placenta acute Ju mo 2024 8:56am Depression acute February 24 8:56am acute February 24 8:56am Supervision of high-risk acute February 24, 2025 8:56am [facility] Work Phone: 1([phone]) [phone] Evaluation + Plan note* Assessment & Plan Note - KAREL Phillips - 09/28/2024 7:59 AM ESTAssociated Problem(s): Persistent depressive disorder Increase zoloft 150 mg daily [facility] Work Phone: [phone]) [phone] Evaluation + Plan note* Assessment & Plan Note - KAREL Phillips - 09/28/2024 7:59 AM ESTAssociated Problem(s): Anxiety Increase zoloft 150 mg daily [facility] Work Phone: [phone] 171-290701-28-2025 Miscellaneous Notes* Assessment & Plan Note - KAREL Phillips - 09/28/2024 7:59 AM ESTAssociated Problem(s): Persistent depressive disorder Increase zoloft 150 mg daily * Assessment & Plan Note - KAREL Phillips - 09/28/2024 7:59 AM EST Associated Problem(s): Anxiety Increase zoloft 150 mg daily [facility] Work Phone: 1(997) 369-214101-28-2025 History of Present illness Narrative* Jojo Vela CMA - 09/28/2024 7:40 AM EST 13 weeks * Yuliana Sophie Gonzalez, MILL WORKER-AUTOMOBILE BODY REPAIRER HELPER - 09/28/2024 7:40 AM EST Subjective Patient ID: Gino Michele is a 24 y.o. female who presents for Medication Problem. HPI Gino returns to discuss increasing her zoloft. She is currently 13 weeks . [place] Anxiety/depression: has been on zoloft and was [...] effects of the medication. documented in this [facility] Work Phone: 1(272) 653-269411-12-2024 Evaluation + Plan note* Assessment & Plan Note - KAREL Phillips - 07/13/2024 8:05 AM ESTAssociated Problem(s): Migraine without aura and without status migrainosus, not intractable Rizatriptan 10 mg as needed for migraine stable [facility] Work Phone: 1([phone]) 916-851111-12-2024 Miscellaneous Notes* Assessment & Plan Note - KAREL Phililps - 07/13/2024 8:05 AM ESTAssociated Problem(s): Migraine [...] blood in it thistime. [facility] Work Phone: [phone]) [phone] Evaluation + Plan note* Assessment & Plan Note - KAREL Phillips - 07/13/2024 8:04 AM ESTAssociated Problem(s): Anxiety Doing well on sertraline 100 mg daily [facility] Work Phone: 1([phone]) 527-383211-12-2024 Evaluation + Plan note* Assessment & Plan Note - KAREL Phillips - 07/13/2024 8:04 AM ESTAssociated Problem(s): Persistent depressive disorder Currently on sertraline 100 mg daily stable [facility] Work Phone: [phone]) 340-626811-12-2024 History of Present illness Narrative* Jojo Vela [...] to urinate, back pain. Went to [facility] clinic. Was treated for LUTS (Macrobid). [...] effects of the medication. [facility] Work Phone: 1([phone]) 809-621211-12-2024 Progress note* Result Encounter Note - KAREL Phillips - 07/13/2024 7:20 AM EST Let her know her urine did not show any signs of an infection and did not have any blood in it thistime. [facility] Work Phone: Evaluation note* Diagnosis Wellness examination- Primary Dysuria Persistent depressive disorder Migraine without aura and without status migrainosus, not intractable Screening for lipid disorders BMI 23.0-23.9, adult documented in this encounter [facility] Work Phone: Evaluation note* Diagnosis Wellness examination- Primary Dysuria Persistent depressive disorder Migraine without aura and without status migrainosus, not intractable Screening for lipid disorders BMI 23.0-23.9, adult Persistent depressive disorder Anxiety Anxiety state, unspecified documented in this encounter [facility] Work Phone: Progress note Author Autumn Jacome [facility] Note Date/Time February 10, 2025 9:11 am [facility]'s [address], [address] [place] [address] OFFICE VISIT Date of Service: 02/10/25 MR#: [id number] Acct: [id number] Name: GINO MICHELE Rep #: [id number] : 2000 Provider: JOSE Jacome Age/Sex: 24/F Location[place] [facility] Status: Signed Intake Vital Signs 09/09/24 09:07 01/26/25 08:35 02/10/25 08:47 Height 5 ft 5 in 5 ft 5 in 5 ft 5 in Weight: 189 lb 2 oz BMI 31.4 BP 115/83 H Intake Visit Reasons: 32 wk ob Scientific Aide Required: No Is patient in pain?: No [...] PFSH Medical History Migraine headache Surgical History [place] teeth extracted Family History Grandfather Diabetes Maternal Mother Cancer Basal cell skin cancer Father Cancer Basal cell Skin cancer Aunt Cancer Maternal- Skin Melanoma Social History adopted: No household members: spouse current occupational status: employed 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: Yes (Avoid Litterbox) [...] physical activity do you participate in: none osiris/rastafarian: Sabianism seatbelt use: always do you feel safe [...] Symptoms of Preeclampsia, Infant Feeding No , [place] Education and Family Medical Leave or Disability [...] Performing Provider: Autumn Jacome CNM Performing Location: [facility] Administered by: Kristen Quiros on 02/10/25 08:57 Dose Route Admin Location Dispensed Lot Number Expiration Date NDC Cloud Systems Administrator 0.5 mL IM Right Deltoid 0.5 mL [id number] 01/29/26 14640-673-19 [facility]-PASTEUR VIS Given Date VIS Provided VIS Publication [...] Cosigner Signature: Date (if applicable) CC: ~ [facility] Work Phone: Progress note Author Marissa Aquino [facility] Note Date/Time February 24, 2025 9:22 am [facility] [address], [address] [place] [address] OFFICE VISIT Date of Service: 02/24/25 MR#: [id number] Acct: [id number] Name: GINO MICHELE Rep #: [id number] : 2000 Provider: Dr. Arias Aquino MD Age/Sex: 24/F [place] [facility] [place] Signed Intake Vital Signs 09/09/24 09:07 02/10/25 08:47 02/24/25 08:59 02/24/25 08:59 Height 5 ft 5 in 5 ft 5 in 5 ft 5 in 5 ft 5 in Weight: 189 lb 4 oz BMI 31.4 BP 103/69 Intake Visit Reasons: 34 wk ob Scientific Aide Required: No Is patient in pain?: No [...] PFSH Medical History Migraine headache Surgical History [place] teeth extracted Family History Grandfather Diabetes Maternal Mother Cancer Basal cell skin cancer Father Cancer Basal cell Skin cancer Aunt Cancer Maternal- Skin Melanoma Social History adopted: No household members: spouse current occupational status: employed 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: Yes (Avoid Litterbox) [...] physical activity do you participate in: none osiris/rastafarian: Sabianism seatbelt use: always do you feel safe [...] and Symptoms of Preeclampsia, Feeding No , [place] Education and Family Medical Leave or Disability [...] Cosign Signature: Date (if applicable) CC: ~ [facility] Work Phone: Progress note Author Marissa Aquino [facility] Note Date/Time March 18, 2025 9:59 am [facility] [address] [place] [address], [address] [place] [address] OFFICE VISIT Date of Service: 03/18/25 MR#: [id number] Acct: [id number] Name: GINO MICHELE Rep #: [id number] : 2000 Provider: Dr. Arias Aquino MD Age/Sex: 24/F [place] [facility] [place]: Signed Intake Vital Signs 02/10/25 08:47 03/10/25 15:34 03/18/25 09:31 Height 5 ft 5 in 5 ft 5 in 5 ft 5 in Weight: 195 lb BMI 32.4 BP 139/83 H Intake Visit Reasons: 37 wk ob Scientific Aide Required: No Is patient in pain?: No [...] PFSH Medical History Migraine headache Surgical History [place] teeth extracted Family History Grandfather Diabetes Maternal Mother Cancer Basal cell skin cancer Father Cancer Basal cell Skin cancer Aunt Cancer Maternal- Skin Melanoma Social History adopted: No household members: spouse current occupational status: employed 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: Yes (Avoid Litterbox) [...] physical activity do you participate in: none osiris/rastafarian: Sabianism seatbelt use: always do you feel safe [...] Cosign Signature: Date (if applicable) CC: ~ [facility] Work Phone: Progress note Author Autumn Jacome [facility] Note Date/Time March 25, 2025 10:3 6am [facility] [address] [place] [address], [address] [place] [address] OFFICE VISIT Date of Service: 03/25/25 MR#: [id number] Acct: [id number] Name: GINO MICHELE Rep #: [id number] : 2000 Provider: JOSE Jacome Age/Sex: 24/F [place] [facility] [place]: Signed Intake Vital Signs 02/10/25 08:47 03/18/25 09:31 03/25/25 10:08 Height 5 ft 5 in 5 ft 5 in 5 ft 5 in Weight: 196 lb 8 oz BMI 32.7 BP 123/67 H Intake Visit Reasons: 38 wk ob Chief Complaint: 38 Week OB Scientific Aide Required: No Is patient in pain?: No [...] PFSH Medical History Migraine headache Surgical History [place] teeth extracted Family History Grandfather Diabetes Maternal Mother Cancer Basal cell skin cancer Father Cancer Basal cell Skin cancer Aunt Cancer Maternal- Skin Melanoma Social History adopted: No household members: spouse current occupational status: employed 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: Yes (Avoid Litterbox) [...] physical activity do you participate in: none osiris/rastafarian: Sabianism seatbelt use: always do you feel safe [...] and Symptoms of Preeclampsia, Feeding No , [place] Education and Family Medical Leave or Disability [...] Cosigner Signature: Date (if applicable) CC: ~ [facility] Work Phone: Reason for referral (narrative)No reason for referral information availableWCrystal Clinic [facility] Work Phone: Summary Purpose Family History [...] section and content) DATE CREATED AUTHOR 03/09/2018 [facility] DATE CREATED AUTHOR AUTHOR'S ORGANIZ ATION 10/20/2019 [facility] DATE CREATED AUTHOR AUTHOR'S ORGANIZ ATION 09/01/2020 [facility] DATE CREATED AUTHOR AUTHOR'S ORGANIZ ATION 01/30/2024 [facility] DATE CREATED AUTHOR AUTHOR'S ORGANIZ ATION 11/12/2024 [facility] DATE CREATED AUTHOR AUTHOR'S ORGANIZ ATION 12/13/2024 [facility] DATE CREATED AUTHOR AUTHOR'S ORGANIZ ATION 03/27/2025 [facility] Reason for Visit (unrecogniz ed section and content) Reason Comments Establish Care Reason Comments Medication Problem Care Teams (unrecognized sec tion and content) Commercial Loan Analyst Relationship Specialty Start Date End Date Yuliana Gonzalez, MILL WORKER-AUTOMOBILE BODY REPAIRER HELPER [address] [facility] [place] [address] PCP - General Family Medicine 07/13/24 Commercial Loan Analyst Relationship Specialty Start Date End Date Vincenzo Yuliana Barrios APRN-AUTOMOBILE BODY REPAIRER HELPER [address] [place] [address] PCP - General Family Medicine 07/13/24 Team [...] Inactive Member Role Status Dates Yuliana Gonzalez TOWER HAND-C Primary Care Provider Active Start: January 26, 2025 End: January 26, 2025 Yuliana Gonzalez TOWER HAND-C Referring Provider Active Sta rt: January 26, 2025 End: January 26, 2025 Kristen Parker NP, TOWER HAND-C Attending Provider Active Start: January 26, 2025 End: January 26, 2025 Team Status: Inactive Member Role Status Dates Yuliana Gonzalez TOWER HAND-C Primary Care Provider Active Start: February 10, [...] Status: Inactive Member Role Status Rodrigo Gonzalez TOWER HAND-C Primary Care Provider Active Start: February 24, 2025 End: February 24, 2025 Yuliana Gonzalez , TOWER HAND-C Referring Provider Active Sta rt: February 24, 2025 End: February 24, 2025 Dr. Marissa Aquino MD Attending Provider Active Start: February 24, 2025 End: February 24, 2025 Team Status: Active Member Role/Relationship Status Rodrigo Gonzalez TOWER HAND-C Primary Care Provider Active Team Status: Inactive Member Role/Relationship Status Rodrigo Gonzalez TOWER HAND-C Primary Care Provider Active Start: December 03, [...] End: January 26, 2025 Kristen Parker NP TOWER HAND-C Attending Provider Active Start: January 26, 2025 [...] Inactive Member Role/Relationship Status Dates Yuliana Gonzalez TOWER HAND-C Primary Care Provider Active Start: February 11, 2025 End: February 11, 2025 Autumn Jacome CNM Attending Provider Active S tart: February 11, 2025 End: February 11, 2025 Autumn Jacome CNM Referring Provider Active S tart: February 11, 2025 End: February 11, 2025 Team Status: Inactive Member Role/Relationship Status Dates Yuliana Gonzalez TOWER HAND-C Primary Care Provider Active Start: February 15, 2025 End: February 15, 2025 Autumn Jacome CNM Attending Provider Active S tart: February 15, 2025 End: February 15, 2025 Autumn Jacome CNM Referring Provider Active S tart: February 15, 2025 End: February 15, 2025 Team Status: Inactive Member Role/Relationship Status Dates Yuliana Gonzalez TOWER HAND-C Primary Care Provider Active Start: February 24, 2025 End: February 24, 2025 Yuliana Gonzalez TOWER HAND-C Referring Provider Active Sta rt: February 24, 2025 End: February 24, 2025 Dr. Marissa Aquino MD Attending Provider Active Start: February 24, 2025 End: February 24, 2025 Team Status: Inactive Member Role/Relationship Status Rodrigo Gonzalez TOWER HAND-C Primary Care Provider Active Start: March 10, 2025 End: March 10, 2025 Yuliana Gonzalez TOWER HAND-C Referring Provider Active Sta rt: March 10, [...] Status: Inactive Member Role/Relationship Status Rodrigo Gonzalez TOWER HAND-C Primary Care Provider Active Start: March 18, [...] BE BASED ON THE PRIMARY CLINICAL RECORDS. [facility] [employer] [facility]. provides no warranty or guarantee of the accuracy or completeness of information in this document.
[2025-03-27 14:19] LABS: Hematocrit 38.6 % (37-47); Hemoglobin 12.1 g/dL (12.0-15.0); Immature Granulocytes Count 0.110 X10^3/uL (0.0-0.0); Mean Corp Hgb Conc 31.3 g/dL (32-36); Mean Corpuscular Volume 79.4 fL (81-99); NRBC Flagged by Analyzer 0 % (0-5); Platelet Count 151 K/mm3 (150-450); RBC Distribution Width CV 18.2 % (11.6-14.6); RBC Distribution Width SD 51.4 fl (35.1-43.9); Red Blood Count 4.86 M/mm3 (4.2-5.4); White Blood Count 13.2 K/mm3 (4.4-11.0)
[2025-03-27 14:42] LABS: Syphilis Antibodies Nonreactive (Nonreactive)
[2025-03-27] MEDS: Lactated Ringers 1,000 ML 200 ML IV ×2 (14:45→20:36)
[2025-03-27] MEDS: Lactated Ringers 1,000 ML 999 ML IV (14:46)
[2025-03-27] MEDS: fentaNYL-bupivacaine (epidural) 100 ML BAG EPIDURAL ×2 (15:30→20:12)
--- NOTE | 2025-03-27 16:15 | HP.PCM.OB_ITS ---
HPI - General General Date of Admission: 03/27/25 Date of Service: 03/27/25 HPI Narrative DAPHNIE MICHELE, is a 24 F 39.0 weeks who presents to unit for active labor. Progressed from 2cm to 3.5 cm and was admitted. plans epidural . Maternal Data Information BLUE Calculator Estimated Delivery Date Method Current WG Current Estimate 04/03/25 LMP (Certain) 39w 0d Other Estimates 04/01/25 Ultrasound #1 39w 2d Final BLUE: 04/03/25 Final BLUE Source: US >20 weeks Gestational age: 39.0 PFSH PFS Medical History (Updated 03/27/25 @ 16:17 by Rehana Nichols CNM) Depression Anxiety Migraine headache Home Medications ?Medication ?Instructions ?Recorded ?Last Taken ?Type multivitamin no.47-iron fum 27 1 cap PO DAILY Pregnanc y 09/06/24 03/26/25 Histo ry mg-folate no.1 1 mg-dha 300 mg capsule (PNV-DHA) buspirone 15 mg tablet 15 mg PO TID PRN anxiety #30 tabs 10/07/24 Unknown Rx sertraline 50 mg tablet (Zoloft) 150 mg PO QDAY 03/26/25 History ferrous gluconate 240 mg (27 mg 240 mg PO QDAY #30 tab s 01/07/25 03/26/25 Rx iron) tablet magnesium 200 mg tablet 400 mg PO DAILY 03/27/25 Unk nown History Allergy/AdvReac Type Severity Reaction Status Date / Time No Known Allergies Allergy Verified 03/25/25 10:10 Family History Grandfather Diabetes Maternal Mother Cancer Basal cell skin cancer Father Cancer Basal cell Skin cancer Aunt Cancer Maternal- Skin Melanoma Surgical History [place] teeth extracted Social History adopted: No household members: spouse current occupational status: employed 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[employer] pets and animals: Yes (Avoid Litterbox) pets and animals: cat(s) history of recent travel: No sexually active: Yes Smoking Status: Never smoker alcohol intake: current alcohol intake frequency: a few times a month details: Not while substance use type: does not use well-balanced diet: daily or most days caffeine: No eating out: 1-3 times/week during the past year weight has: remained stable what type of physical activity do you participate in: none osiris/moravian: Adventism seatbelt use: always do you feel safe at home: Yes additional social history: Xavier History 1 Elective abortions Hx Para 0 Spontaneous abortions Hx # Term Pregnancies Ectopic pregnancies Hx # Pregnancies Multiple births # of living children Visit Details Expected Delivery Route/Plan Labor Preferences- CB/BF classes: yes labor support person: Alice labor intervention preferences: [] pain management options preferred: epidural cut cord/dad catch: no : yes PP control planned: discussed discussed possible routes of delivery and associated risks: [] special requests: [] Plans Covid status: [] Flu vaccine: [] Tdap vaccine: Rhogam: NA LARC form signed: yes movement and labor precautions reviewed. Problem list reviewed and updated with the most current plan of care details and appropriate orders placed. Relevant counseling for the gestational age provided. Continue routine care and follow up unless otherwise noted in visit notes/problem list details OB Flowsheet Initial Weight: 143 lb Date -?-?-?-?-?-?-?-?-?-?-?-?- EGA Weight BP Urine Prot -?-?-?-?-?-?-?-?-?-?-?-?- Glucose FHR FuHt Pres Dilation -?-?-?-?-?-?-?-?-?-?-?-?- Effaced St Visit Note 09/09/24 -?-?-?-?-?-?-?-?-?-?-?-?- 10w 4d 143 lb (+0 oz) 127/83 -?-?-?-?-?-?-?-?-?-?--?-?- 169 -?-?-?-?-?-?-?-?-?-?-?-?- KW- CRL cons wit h dates. declines NIPT. Anatomy US ordered 10/07/24 -?-?-?-?-?-?-?-?-?-?-?-?- 14w 4d 153 lb 2 oz (+10 lb 2 oz) 120/73 Negative -?-?-?-?-?-?-?-?-?-?-?-?- Negative 145 -?-?-?-?-?-?-?-?-?-?-?-?- JV- still some n ausea. trying reglan. will also try buspar for anxiety. anatomy scan ordered. 11/05/24 -?-?-?-?-?-?-?-?-?-?-?-?- 18w 5d 164 lb (+21 lb) 134/81 Negative -?-?-?-?-?-?-?-?-?-?-?-?- Negative 165 -?-?-?-?-?-?-?-?-?-?-?-?- KW- no vb/crampi ng. +flutters. Having a BOY! nausea is getting better. 11/09 US scheduled. magnesium for restless legs. 12/03/24 -?-?-?-?-?-?-?-?-?-?-?-?- 22w 5d 171 lb 6 oz (+28 lb 6 oz) 120/77 Negative -?-?-?-?-?-?-?-?--?-?-?-?- Negative 164 -?-?-?-?-?-?-?-?-?-?-?-?- JV- discussed ci rcumvellate placenta. no other complaints. RTO in 4 weeks. 01/07/25 -?-?-?-?-?--?-?-?-?-?-?-?- 27w 5d 182 lb (+39 lb) 127/81 Negative -?-?-?-?-?-?-?-?-?-?-?-?- Negative 155 28 -?-?-?-?-?-?-?-?-?-?-?-?- KW- no vb/lof/ct x. good fm. good fm. signed up for CBE classes-28 week labs today-chiropractor for low back pain. LARC today. possible tdap next week. 01/26/25 -?-?-?-?-?-?-?-?-?-?-?--?- 30w 3d 188 lb 4 oz (+45 lb 4 oz) 126/72 Negative -?-?-?-?-?-?-?-?-?-?-?-?- Negative 145 31 -?-?-?-?-?-?-?-?-?-?-?-?- MH-No Vb, LOF. G ood FM. Resp congestion, meds reviewed. Wants tdap next visit. 02/10/25 -?-?-?-?-?-?-?-?-?-?-?-?- 32w 4d 189 lb 2 oz (+46 lb 2 oz) 115/83 Negative -?-?-?-?-?-?-?-?-?-?-?-?- Negative 160 33 -?-?-?-?-?-?-?-?-?-?-?-?- KW- no vb/lof/ct x. good fm. restless leg sx- starting magnesium and discussed compression hose. growth scan tomorrow. Baby shower this weekend. 02/24/25 -?-?-?-?-?-?-?-?-?-?-?-?- 34w 4d 189 lb 4 oz (+46 lb 4 oz) 103/69 Negative -?-?-?-?-?-?-?-?-?-?-?-?- Negative 145 35 -?-?-?-?-?-?-?-?-?-?-?-?- SM- no vb lof go od fm n oreuglar ctx 03/10/25 -?-?-?-?-?-?-?-?-?-?-?-?- 36w 4d 195 lb 4 oz (+52 lb 4 oz) 138/82 Negative -?-?-?-?-?-?-?-?-?-?-?-?- Negative 168 37 Cephalic 1 -?-?-?-?-?-?-?-?-?-?-?-?- 30 -3 JV- gbs co llected, no lof ,vaginal bleeding, or dec fm. 03/18/25 -?-?-?-?-?-?-?-?-?-?-?-?- 37w 5d 195 lb (+52 lb) 139/83 -?-?-?-?-?-?-?-?-?-?-?-?- 150 41 Cephalic 1 -?-?-?-?-?-?-?-?-?-?-?-?- SM- no vb lof go od fm no regular ctx, occasional hilario and spots in vision but they always resolve 03/25/25 -?-?-?-?-?-?-?-?-?-?-?-?- 38w 5d 196 lb 8 oz (+53 lb 8 oz) 123/67 Negative -?-?-?-?-?-?-?-?-?-?-?-?- Negative 140 41 Cephalic 2 -?-?-?-?-?-?-?-?-?-?-?-?- 70 -2 KW- no vb/ lof. no regular ctx. good fm. US reviewed. labor precautions. NST FHR Rate Baby A Baseline: 130 Variability:: Moderate Accelerations:: 15 x 15 Decelerations:: None NST Reactive:: Yes FHR Category:: Category I Uterine Activity:: 2-3 minutes ROS Constitutional Constitutional: Denies change in weight, fatigue, fever(s), headache(s), poor appetite or weakness Eyes Eyes: Denies blurry vision, change in vision, floaters, seeing flashes or spots in vision ENT HEENT: Denies dizziness, headache(s), loss taste/smell or sore throat Cardiovascular Cardiovascular: Denies chest pain, dizziness, dyspnea, irregular heart rhythm, lightheadedness, palpitations or rapid heart rate Respiratory/Chest Respiratory/Chest: Denies change in mental status, chest tightness, cough, dyspnea or breast pain Gastrointestinal Gastrointestinal: Denies anorexia, chewing difficulty, constipation, diarrhea or weight changes Genitourinary Genitourinary: Denies difficulty urinating, dysuria, flank pain, genital pain, urinary frequency or urinary urgency Musculoskeletal Musculoskeletal: Denies back pain, difficulty walking, extremity pain, joint pain, muscle cramps or muscle weakness Integumentary Integumentary: Denies lesions or unusual bruising Neurologic Neurologic: Denies abnormal movements, abnormal speech, dizziness, numbness, seizure-like activity, syncope or weakness Psychiatric Psychiatric: Denies behavioral changes, change in appetite, confusion, depression, homicidal ideation, suicidal ideation or suicidal thoughts Endocrine Endocrinology: Denies excessive sweating, polydipsia or polyuria Hematologic/Lymphatic Hematologic/Lymphatic: Denies anemia Allergic/Immunologic Allergic/Immunologic: Denies itchy eyes, lip swelling, throat swelling, tongue swelling or wheezing Vital Signs Vital Signs Vital Signs: 03/27/25 09:11 03/27/25 09:11 03/27/25 09:11 Temperature Temperature Source Temporal Pulse Rate 94 Respiratory Rate Blood Pressure BP Systolic BP Diastolic Pulse Ox 94 03/27/25 09:11 03/27/25 09:11 03/27/25 09:11 Temperature Temperature Source Pulse Rate 88 Respiratory Rate 16 Blood Pressure 128/68 H BP Systolic 128 BP Diastolic 68 Pulse Ox 03/27/25 09:11 03/27/25 09:11 03/27/25 09:54 Temperature 97.5 F L Temperature Source Pulse Rate Respiratory Rate 16 Blood Pressure BP Systolic BP Diastolic Pulse Ox 93 03/27/25 09:56 03/27/25 09:56 03/27/25 10:24 Temperature Temperature Source Pulse Rate 84 88 Respiratory Rate Blood Pressure BP Systolic BP Diastolic Pulse Ox 93 03/27/25 10:24 03/27/25 10:24 03/27/25 10:29 Temperature Temperature Source Pulse Rate 81 83 Respiratory Rate Blood Pressure BP Systolic BP Diastolic Pulse Ox 94 03/27/25 10:29 03/27/25 11:04 03/27/25 11:04 Temperature Temperature Source Pulse Rate 87 Respiratory Rate Blood Pressure BP Systolic BP Diastolic Pulse Ox 96 92 03/27/25 13:41 03/27/25 13:41 03/27/25 13:42 Temperature Temperature Source Pulse Rate 81 Respiratory Rate Blood Pressure 138/66 H BP Systolic 138 BP Diastolic 66 Pulse Ox 96 03/27/25 13:42 03/27/25 13:43 03/27/25 13:43 Temperature Temperature Source Temporal Pulse Rate 78 Respiratory Rate 18 Blood Pressure BP Systolic BP Diastolic Pulse Ox 03/27/25 13:43 03/27/25 13:43 03/27/25 15:14 Temperature 97.8 F Temperature Source Pulse Rate 96 Respiratory Rate Blood Pressure BP Systolic BP Diastolic Pulse Ox 96 03/27/25 15:14 03/27/25 15:15 03/27/25 15:15 Temperature Temperature Source Pulse Rate 104 H Respiratory Rate Blood Pressure 162/78 H BP Systolic 162 BP Diastolic 78 Pulse Ox 94 03/27/25 15:16 03/27/25 15:16 03/27/25 15:19 Temperature Temperature Source Pulse Rate 100 86 Respiratory Rate Blood Pressure BP Systolic BP Diastolic Pulse Ox 94 03/27/25 15:19 03/27/25 15:21 03/27/25 15:21 Temperature Temperature Source Pulse Rate 91 Respiratory Rate Blood Pressure 141/78 H BP Systolic 141 BP Diastolic 78 Pulse Ox 96 03/27/25 15:22 03/27/25 15:22 03/27/25 15:24 Temperature Temperature Source Pulse Rate 93 Respiratory Rate Blood Pressure 133/77 H BP Systolic 133 BP Diastolic 77 Pulse Ox 93 03/27/25 15:24 03/27/25 15:24 03/27/25 15:30 Temperature Temperature Source Pulse Rate 75 Respiratory Rate Blood Pressure 124/71 H BP Systolic 124 BP Diastolic 71 Pulse Ox 95 03/27/25 15:30 03/27/25 15:30 03/27/25 15:31 Temperature Temperature Source Pulse Rate 80 84 Respiratory Rate 16 Blood Pressure BP Systolic BP Diastolic Pulse Ox 03/27/25 15:31 03/27/25 15:34 03/27/25 15:34 Temperature Temperature Source Pulse Rate 90 Respiratory Rate Blood Pressure 127/82 H BP Systolic 127 BP Diastolic 82 Pulse Ox 96 03/27/25 15:35 03/27/25 15:36 03/27/25 15:36 Temperature Temperature Source Pulse Rate 82 Respiratory Rate 16 Blood Pressure BP Systolic BP Diastolic Pulse Ox 95 03/27/25 15:40 03/27/25 15:40 03/27/25 15:40 Temperature Temperature Source Pulse Rate 94 Respiratory Rate 16 Blood Pressure 128/58 H BP Systolic 128 BP Diastolic 58 Pulse Ox 03/27/25 15:41 03/27/25 15:41 03/27/25 15:45 Temperature Temperature Source Pulse Rate 96 Respiratory Rate Blood Pressure 126/58 H BP Systolic 126 BP Diastolic 58 Pulse Ox 97 03/27/25 15:45 03/27/25 15:45 03/27/25 15:46 Temperature Temperature Source Pulse Rate 100 98 Respiratory Rate 16 Blood Pressure BP Systolic BP Diastolic Pulse Ox 03/27/25 15:46 03/27/25 15:50 03/27/25 15:50 Temperature Temperature Source Pulse Rate 94 Respiratory Rate Blood Pressure 121/61 H BP Systolic 121 BP Diastolic 61 Pulse Ox 97 03/27/25 15:50 03/27/25 15:51 03/27/25 15:51 Temperature Temperature Source Pulse Rate 97 Respiratory Rate 16 Blood Pressure BP Systolic BP Diastolic Pulse Ox 97 03/27/25 15:55 03/27/25 15:56 03/27/25 15:56 Temperature Temperature Source Pulse Rate 110 H Respiratory Rate 16 Blood Pressure 104/56 L BP Systolic 104 BP Diastolic 56 Pulse Ox 03/27/25 15:56 03/27/25 16:00 03/27/25 16:00 Temperature Temperature Source Pulse Rate 98 Respiratory Rate Blood Pressure 134/63 H BP Systolic 134 BP Diastolic 63 Pulse Ox 97 03/27/25 16:00 03/27/25 16:01 03/27/25 16:01 Temperature Temperature Source Pulse Rate 106 H Respiratory Rate 16 Blood Pressure BP Systolic BP Diastolic Pulse Ox 98 03/27/25 16:05 03/27/25 16:05 03/27/25 16:06 Temperature Temperature Source Pulse Rate 97 Respiratory Rate Blood Pressure 118/58 L 119/57 L BP Systolic 118 119 BP Diastolic 58 57 Pulse Ox 03/27/25 16:06 03/27/25 16:06 03/27/25 16:06 Temperature Temperature Source Pulse Rate 108 H 103 H Respiratory Rate Blood Pressure BP Systolic BP Diastolic Pulse Ox 98 03/27/25 16:10 03/27/25 16:10 03/27/25 16:11 Temperature Temperature Source Pulse Rate 106 H 106 H Respiratory Rate Blood Pressure 118/60 BP Systolic 118 BP Diastolic 60 Pulse Ox 03/27/25 16:11 Temperature Temperature Source Pulse Rate Respiratory Rate Blood Pressure BP Systolic BP Diastolic Pulse Ox 97 Weight Weight: 196 lb 3.2 oz Body Mass Index (BMI) 32.6 Physical Exam Const alert, oriented x3 and no apparent distress General Appearance: cooperative Orientation / Consciousness: awake HEENT normocephalic Neck full ROM Lymph Lymphatic: no lymphadenopathy noted Chest inspection of chest normal Resp normal respiratory effort and normal air movement Effort and Inspection: able to speak in complete sentences and symmetric chest movement GI soft to palpation and non-tender Inspection: gravid Palpation: soft; Negative for tender external exam normal Back/Spine normal to inspection Extremity normal to inspection and full ROM Skin no rashes or lesions noted Psych mental status grossly normal Appearance: grossly normal Speech: normal speech Labs Labs Labs: Blood Type B POSITIVE Antibody Screen NEGATIVE Hct 38.6 % (37-47) Hgb 12.1 g/dL (12.0-15.0) Obstetrics Ultrasound Syphilis Total Ab Nonreactive (Nonreactive) Rubella IgG Antibody Reactive (Nonreactive) Hep Bs Antigen Non-Reactive (Nonreactive) Hepatitis C Antibody Non-Reactive (Nonreactive) Chlamydia DNA (MICKEY) Negative (Negative) N.gonorrhoeae DNA (MICKEY) Negative (Negative) HIV 1&2 Antibody Nonreactive (Nonreactive) Glucose 1 Hr 50 gm 110 mg/dL (70-140) Assessment & Plan (1) Active labor: PLAN: Patient presents IAL, plan expectant management for , pitocin/AROM PRN if needed. Pain management: plans epidural. GBS neg. Management of any complications: none I have reviewed the [facility] and made any clinically relevant updates. Dr Gentile aware of assessment/plan and admission. agrees with above (2) Uterine size-date discrepancy, third trimester: (3) Anemia in preg-unspec: QUALIFIERS: Trimester: third trimester Qualified Code(s): O99.013 - Anemia complicating , third trimester COMMENT: FE (4) Circumvallate placenta: QUALIFIERS: Trimester: third trimester Qualified Code(s): O43.113 - Circumvallate placenta, third trimester COMMENT: growth at 32 weeks: 02/11: (5) Supervision of high-risk : QUALIFIERS: Trimester: third trimester Qualified Code(s): O09.93 - Supervision of high risk , unspecified, third trimester COMMENT: PRR, , BLUE 04/03/25 Boy Doris, Xavier (6) : QUALIFIERS: Weeks of gestation: 38 weeks Qualified Code(s): Z3A.38 - 38 weeks gestation of COMMENT: Neg GBS. undecided about NIPT, nl anatomy (7) Depression: QUALIFIERS: Depression Type: unspecified Qualified Code(s): F32.A - Depression, unspecified COMMENT: sertraline/stable (8) Anxiety: COMMENT: stable Charges/Coding Multi Select Codes Urinary/Genital Urinary/Genital CPT Codes: No Charge
--- NOTE | 2025-03-27 16:31 | PCM.PN.BLA ---
Progress Note comfortable with epidural current tracing: FHT: 130 Moderate variability reactive no decelerations category I tracing [place]: 3-4 Contractions Membranes:AROM for Meconium SVE:5/80/-1 A/P: Continue with position changes Titrate pitocin per protocol Epidural per anesthesia GBS neg Anticipate Dr Gentile aware of above assessment and agrees with plan of care Assessment & Plan Assessment/Plan (1) Active labor: (2) Uterine size-date discrepancy, third trimester: (3) Anemia in preg-unspec: QUALIFIERS: Trimester: third trimester Qualified Code(s): O99.013 - Anemia complicating , third trimester (4) Circumvallate placenta: QUALIFIERS: Trimester: third trimester Qualified Code(s): O43.113 - Circumvallate placenta, third trimester (5) Supervision of high-risk : QUALIFIERS: Trimester: third trimester Qualified Code(s): O09.93 - Supervision of high risk , unspecified, third trimester (6) : QUALIFIERS: Weeks of gestation: 38 weeks Qualified Code(s): Z3A.38 - 38 weeks gestation of (7) Depression: QUALIFIERS: Depression Type: unspecified Qualified Code(s): F32.A - Depression, unspecified (8) Anxiety: Multi Select Codes Urinary/Genital Urinary/Genital CPT Codes: No Charge
[2025-03-27] MEDS: Oxytocin 15 Units/NS 250ml 15 UNITS/250 ML IV.SOLN 2 UNITS IV (17:14)
--- NOTE | 2025-03-27 21:42 | PN_ITS ---
Progress Note comfortable with epidural current tracing: FHT: 140 Moderate variability reactive no decelerations category I tracing [place]: 2-4 minute Contractions Membranes:ruptured-mec SVE:8/-1 direct OP A/P: Continue with position changes Titrate pitocin per protocol Epidural per anesthesia GBS neg Anticipate Dr Gentile aware of above assessment and agrees with plan of care Assessment & Plan Assessment/Plan (1) Active labor: (2) Uterine size-date discrepancy, third trimester: (3) Anemia in preg-unspec: QUALIFIERS: Trimester: third trimester Qualified Code(s): O99.013 - Anemia complicating , third trimester (4) Circumvallate placenta: QUALIFIERS: Trimester: third trimester Qualified Code(s): O43.113 - Circumvallate placenta, third trimester (5) Supervision of high-risk : QUALIFIERS: Trimester: third trimester Qualified Code(s): O09.93 - Supervision of high risk , unspecified, third trimester (6) : QUALIFIERS: Weeks of gestation: 38 weeks Qualified Code(s): Z3A.38 - 38 weeks gestation of (7) Depression: QUALIFIERS: Depression Type: unspecified Qualified Code(s): F32.A - Depression, unspecified (8) Anxiety: Multi Select Codes Urinary/Genital Urinary/Genital CPT Codes: No Charge
[2025-03-27] MEDS: LACTATED RINGERS 500 ML 999 ML IV (23:05)
[2025-03-28] VITALS (17 sets, daily range): BP systolic 113–147; BP diastolic 46–88; PULSE 78–122; RESP 16–18; TEMP 36.2–37.7; O2SAT 94–100
--- NOTE | 2025-03-28 00:30 | PN_ITS ---
Progress Note comfortable with epidural-was called to room at 0030 for significant variables after position change. pitocin was turned off and postion changed. Planning for amnioinfusion and terb and benadryl. known OP position current tracing: FHT: 140 Moderate variability reactive variable decelerations category II tracing [place]: Contractions Membranes: mec SVE:8.5 reviewed tracing abnormalities since last note: phone collaboration with Dr Weiss at this time for Cat II FHT tracing. requested to come to unit for evaulation due to sudden onset of recurrent significant decels. In route to hospital A/P: Continue with position changes Titrate pitocin per protocol Epidural per anesthesia GBS neg Anticipate PCS Dr Gentile aware of above assessment and agrees with plan of care Assessment & Plan Assessment/Plan (1) Active labor: (2) Uterine size-date discrepancy, third trimester: (3) Anemia in preg-unspec: QUALIFIERS: Trimester: third trimester Qualified Code(s): O99.013 - Anemia complicating , third trimester (4) Circumvallate placenta: QUALIFIERS: Trimester: third trimester Qualified Code(s): O43.113 - Circumvallate placenta, third trimester (5) Supervision of high-risk : QUALIFIERS: Trimester: third trimester Qualified Code(s): O09.93 - Supervision of high risk , unspecified, third trimester (6) : QUALIFIERS: Weeks of gestation: 38 weeks Qualified Code(s): Z3A.38 - 38 weeks gestation of (7) Depression: QUALIFIERS: Depression Type: unspecified Qualified Code(s): F32.A - Depression, unspecified (8) Anxiety: Multi Select Codes Urinary/Genital Urinary/Genital CPT Codes: No Charge
[2025-03-28 01:24] LABS: Hematocrit 35.4 % (37-47); Hemoglobin 10.9 g/dL (12.0-15.0); Immature Granulocytes Count 0.160 X10^3/uL (0.0-0.0); Mean Corp Hgb Conc 30.8 g/dL (32-36); Mean Corpuscular Volume 80.5 fL (81-99); NRBC Flagged by Analyzer 0 % (0-5); Platelet Count 129 K/mm3 (150-450); RBC Distribution Width CV 18.4 % (11.6-14.6); RBC Distribution Width SD 52.8 fl (35.1-43.9); Red Blood Count 4.40 M/mm3 (4.2-5.4); White Blood Count 17.3 K/mm3 (4.4-11.0)
[2025-03-28] MEDS: DiphenhydrAMINE 50 MG/ML Syringe IV (01:25)
[2025-03-28] MEDS: Azithromycin 500 MG in 0.9% Normal Saline (250mL Bag) 250 ML 250 MG IV (01:52)
[2025-03-28] MEDS: Cefazolin 2 GM in 0.9% Normal Saline (100mL Bag) 100 ML IV (01:57)
--- NOTE | 2025-03-28 02:42 | OP.PCM_ITS ---
Assessment & Plan (1) Occiput posterior presentation of fetus: (2) Category II heart rate tracing during labor and delivery: (3) Active labor: (4) Anemia in preg-unspec: QUALIFIERS: Trimester: third trimester Qualified Code(s): O99.013 - Anemia complicating , third trimester COMMENT: FE (5) Circumvallate placenta: QUALIFIERS: Trimester: third trimester Qualified Code(s): O43.113 - Circumvallate placenta, third trimester COMMENT: growth at 32 weeks: 02/11: (6) Supervision of high-risk : QUALIFIERS: Trimester: third trimester Qualified Code(s): O09.93 - Supervision of high risk , unspecified, third trimester COMMENT: PRR, , BLUE 04/03/25 Boy Doris, Xavier (7) : QUALIFIERS: Weeks of gestation: 38 weeks Qualified Code(s): Z3A.38 - 38 weeks gestation of COMMENT: Neg GBS. undecided about NIPT, nl anatomy (8) Depression: QUALIFIERS: Depression Type: unspecified Qualified Code(s): F32.A - Depression, unspecified COMMENT: sertraline/stable (9) Anxiety: COMMENT: stable Maternal Data Information BLUE Calculator Estimated Delivery Date Method Current WG Current Estimate 04/03/25 LMP (Certain) 39w 1d Other Estimates 04/01/25 Ultrasound #1 39w 3d Final BLUE: 04/03/25 Final BLUE Source: LMP Doctor Who Attended Delivery: Patrizia Ortiz Operative Report (OB) Details Procedure Type: low transverse Date of Procedure: 03/28/25 Procedure Start Time: :03 Procedure Stop Time: 02:33 Time of Delivery: 02:08 Pre-Operative Diagnosis: Nonreassuring Status and Other ( occiput posterior position ) Other Pre-Operative diagnosis: none Post-Operative Diagnosis: Same as Pre-operative diagnosis Classification: JARED Type of Anesthesia: Epidural Antibiotic Given: Ancef 2 grams IV x1 and Zithromax 500 mg/5 mL X1 Drain: Acevedo to straight drain Estimated Blood Loss: 700cc Findings Description of surgery: Procedure: The patient was brought to the operating room where epidural anesthesia was found to be adequate. Initially an OB ERT was called due to a category 3 heart tracing. Terbutaline was given and the heart rate resolved however was noted to be tachycardic in the 180s to 190s with minimal variability. The cervix was noted to be 8 cm dilated with swelling. The position was noted to be occiput posterior. Attempt was made to turn the infant's head and this worked for a brief moment in the infant returned to the occiput posterior position the cervix continued to swell. The patient was given Benadryl. After almost hour of observing the category 2 tracing and attempting side-lying release IV fluid bolus and Benadryl the cervix did not dilate more and in fact began swelling more. The patient was felt to be warm and a stat CBC was ordered the white blood cell count was mildly elevated platelets were in the low range and hemoglobin dropped from 12 down to 10. The decision was made to proceed with a section due to persistent category 2 tracing, occiput posterior position, and cervical swelling. She was prepped and draped in the normal sterile fashion and was placed in a dorsal supine position with a leftward tilt. Pfannenstiel skin incision was made with a scalpel and carried through to the underlying layers. The fascia was nicked in the midline and extended laterally using Jason scissors. The anterior aspect of the fascia was grasped with Jorge clamps and the underlying rectus muscles dissected off using the Metzenbaum scissors. The inferior aspect the fascia was also grasped with Jorge clamps and the underlying rectus muscle dissected off with the Metzenbaum scissors. The rectus muscles were in the midline. Peritoneum was entered sharply. The uterus was identified and a bladder blade was inserted into the abdomen. Bladder flap was created off the uterus using Metzenbaum scissors. A transverse incision was made with a scalpel and extended laterally manually. The infant's head was grasped with the help of my butcher assistant and fundal pressure the was delivered through the uterine incision without difficulty. The mouth and nares were bulb suctioned. After a 30 second delay the cord was clamped and cut. The infant was handed off to the awaiting senior technical support engineer for routine assessment. Placenta was delivered manually without difficulty. The uterus was exteriorized and cleared of all clots and debris. Incision was closed with an 0 Vicryl suture in a running locked fashion. Second layer of 1-0 monocryl suture was used in imbricating manner to create excellent closure and hemostasis. [ The uterus was returned to the abdomen. The gutters were cleared of all clots and debris. The peritoneum was closed in a pursestring pattern using a 3-0 Vicryl suture. This muscle was reapproximated with a 3-0 Vicryl. The fascia was closed with an 0 stratafix suture. Subcutaneous tissue layer was closed using a plain gut suture. The skin was closed with a 4-0 Monocryl subcuticular stitch. The patient tolerated the procedure well sponge lap and needle counts were correct at each tissue closure plane and the patient is now being brought to the recovery room in stable condition Surgical findings: Viable male infant with orbital swelling. Yazan. scores are to be determined. Cord gases to be determined Presentation: Vertex Amniotic Membrane Rupture Type: Artificial Amniotic Fluid Description: Lightly stained meconium Placental Delivery Description: Expressed Placenta Disposition: [facility] Specimen collected: No Cord Vessel Description: 3 Vessels Cord Entanglement: Around neck x 1, loose Nuchal Cord Compression: Without compression Cord Gases: ABG and VBG A gender: Male Delayed Cord Clamping: No Historical Manuscripts Curator editing computer publisher: Yes Oncology Social Worker: Lewis Camejo Tasks completed by banking assistant: Hemostasis: Clamp and Retracting Additional butcher assistant?: No Complications Complications: No Admit VTE Documentation VTE Present on Admission: No VTE Mechan Device Prophylaxis: SCD's VTE Pharm Prophylaxis Ordered: No Multi Select Codes Urinary/Genital Urinary/Genital CPT Codes: 88871 Delivery [facility]
[2025-03-28] MEDS: Oxytocin 15 Units/NS 250ml 15 UNITS/250 ML IV.SOLN 83 UNITS IV (02:54)
[2025-03-28] MEDS: Lactated Ringers 1,000 ML 100 ML IV (03:38)
[2025-03-28] MEDS: Ketorolac 30 MG/ML Syringe IV ×4 (03:38→21:48)
[2025-03-28] MEDS: Senna/Docusate Sodium 1 Tablet PO (09:46)
[2025-03-29 00:42] VITALS: BP 129/58; PULSE 72; RESP 16; TEMP 36.1; O2SAT 97
[2025-03-29 04:00] VITALS: BP 112/59; PULSE 74; RESP 16; TEMP 36.2; O2SAT 97
[2025-03-29 07:30] VITALS: BP 116/74; PULSE 79; RESP 16; TEMP 37.1; O2SAT 96
--- NOTE | 2025-03-29 07:32 | DCINST_ITS ---
Discharge Instructions DC O2, CPAP, BIPAP needs Home O2 Discharge instructions: No Dressing / Incision Discharge Activity: May Not Drive (for 2 weeks or while taking narcotic pain medications.), May Shower and May Take a Tub Bath (in 7 days.) May resume sexual activity in: 4-6 weeks Weight Bearing Status: Full weight bearing Lifting Restrictions: 20 pounds Dressing / Incision Call your doctor if your incision/area has: Continuous Slow Oozing, Sudden Increased Bleeding, Increased Pain/ Swelling, Increased Redness and Foul Smelling Discharge Call your doctor if you observe: Fever of 101 or Higher and Using more than 1 pad per hour Suture Line Care: Avoid Pulling/Pushing and Avoid Pinching/Bending Cleanse incision/area with: Soap & Water and Keep Dressing Clean & Dry Follow Up Care Please Follow Up With: Rufina Weiss DO When: Call [phone] to make an appointment for an incision check in 1-2 weeks. Test Results: Test results from this visit will be discussed in further detail at your follow- up appointment, if applicable. Discharge Plan Admission Admit Date/Time: 03/27/25 13:33 Primary Reason for Your Visit: section Attending Provider: Rufina Weiss Primary Care Provider: Yuliana Loya Instructions Patient Instructions: Kick Counts, ED False Labor, OB Triage: Return to Hospital or Notify Physician if you Experience: Discharge Orders/Prescriptions Prescriptions: New ibuprofen 800 mg tablet 800 mg PO Q8H PRN (Reason: pain) Qty: 30 0RF oxycodone-acetaminophen [Percocet] 5-325 mg tablet 1 tab PO Q4H PRN (Reason: pain) 7 Days Qty: 20 0RF Continued PNV-DHA 27 mg iron-1 mg -300 mg capsule 1 cap PO DAILY sertraline [Zoloft] 50 mg tablet 150 mg PO QDAY buspirone 15 mg tablet 15 mg PO TID PRN (Reason: anxiety) Qty: 30 6RF magnesium 200 mg tablet 400 mg PO DAILY ferrous gluconate 240 mg (27 mg iron) tablet 240 mg PO QDAY Qty: 30 6RF Referrals / Follow Up: Yuliana Loya, KEVYN-C [Primary Care Provider] - Disposition Disposition (needs filled in before D/C Order can be placed): Home, Self Care
[2025-03-29 07:48] LABS: Hematocrit 30.7 % (37-47); Hemoglobin 9.5 g/dL (12.0-15.0); Mean Corp Hgb Conc 30.9 g/dL (32-36); Mean Corpuscular Volume 80.8 fL (81-99); Mean Platelet Vol. 12.4 fl (6.2-12.0); Platelet Count 115 K/mm3 (150-450); RBC Distribution Width CV 18.2 % (11.6-14.6); RBC Distribution Width SD 53.1 fl (35.1-43.9); Red Blood Count 3.80 M/mm3 (4.2-5.4); White Blood Count 12.1 K/mm3 (4.4-11.0)
[2025-03-29] MEDS: Senna/Docusate Sodium 1 Tablet PO (11:33)
[2025-03-29 14:16] VITALS: BP 111/60; PULSE 71; RESP 14; TEMP 37.1; O2SAT 97
--- NOTE | 2025-03-29 16:07 | PCM.PN.OB ---
Subjective Subjective Patient doing well without complaints. Tolerating PO. Ambulating and voiding without difficulty. feeding well. Denies chest pain, shortness of breath, calf pain/swelling, fevers, chills, lightheadedness. Objective Data Objective Data Vital Signs: Vital Signs Temp Pulse Resp BP Pulse Ox O2 Del Method 98.7 F 71 14 111/60 97 Room Air 03/29/25 14:16 03/29/25 14:16 03/29/25 14:16 03/29/25 14:16 03/29/25 14:16 03/29/25 14:16 Oxygen Delivery Method Room Air Weight: 196 lb 3.2 oz Body Mass Index (BMI) 32.6 Intake & Output: Intake and Output for Last 24 Hours 03/27/25 03/28/25 03/29/25 23:59 23:59 23:59 Intake Total 2559.76 / 2559.76 1815.17 / 1815.17 Output Total 375 / 375 500 / 500 Balance 2184.76 / 2184.76 1315.17 / 1315.17 Lab / Micro Data 03/29/25 07:27 Labs: Laboratory Results - last 24 hr 03/29/25 07:27: WBC 12.1 H, RBC 3.80 L, Hgb 9.5 L, Hct 30.7 L, MCV 80.8 L, MCH 25.0 L, MCHC 30.9 L, RDW Std Deviation 53.1 H, RDW Coeff of Edilma 18.2 H, Plt Count 115 L, MPV 12.4 H ROS Constitutional Constitutional: Reports systems reviewed and no addt'l complaints, except as documented Cardiovascular Cardiovascular: Reports systems reviewed and no addt'l complaints, except as documented Respiratory/Chest Respiratory/Chest: Reports systems reviewed and no addt'l complaints, except as documented Gastrointestinal Gastrointestinal: Reports systems reviewed and no addt'l complaints, except as documented Physical Exam Const alert, oriented x3 and no apparent distress HEENT Head and Scalp: atraumatic Resp normal respiratory effort GI soft to palpation and non-tender Inspection: incision intact, healing well and drainage (none) Bimanual Exam - Vag & Uterus: uterus non-tender Uterus Palpation: uterus fundus firm (below Umbilicus) Assessment & Plan (1) delivery delivered: COMMENT: MARCELLE 03/28/25 PLAN: Plan s/p LTCS PPD # 1 1. routine post care 2. breast feeding- support given 3. rh positive 4. rubella immune
[2025-03-29 19:35] VITALS: BP 134/77; PULSE 73; RESP 16; TEMP 36.4; O2SAT 98
[2025-03-30 03:04] VITALS: BP 125/80; PULSE 74; RESP 16; TEMP 36.6; O2SAT 98
[2025-03-30 07:30] VITALS: BP 133/89; PULSE 74; RESP 16; TEMP 36.3; O2SAT 97
--- NOTE | 2025-03-30 07:50 | PCM.PN.OB ---
Subjective Subjective Patient doing well without complaints. Tolerating PO. Ambulating and voiding without difficulty. Feeding well. Denies chest pain, shortness of breath, calf pain/swelling, fevers, chills, lightheadedness. Objective Data Objective Data Vital Signs: Vital Signs Temp Pulse Resp BP Pulse Ox O2 Del Method 98 F 74 16 125/80 H 98 Room Air 03/30/25 03:04 03/30/25 03:04 03/30/25 03:04 03/30/25 03:04 03/30/25 03:04 03/30/25 03:04 Oxygen Delivery Method Room Air Weight: 196 lb 3.2 oz Body Mass Index (BMI) 32.6 Intake & Output: Intake and Output for Last 24 Hours 03/28/25 03/29/25 03/30/25 23:59 23:59 23:59 Intake Total 1815.17 / 1815.17 Output Total 500 / 500 Balance 1315.17 / 1315.17 Lab / Micro Data 03/29/25 07:27 Physical Exam Const alert and oriented x3 HEENT normocephalic Eyes PERRL Neck full ROM Resp normal respiratory effort GI soft to palpation GI Narrative: FF below U. Dressing dry and intact Palpation: tender other (appropriately) Assessment & Plan (1) delivery delivered: COMMENT: MARCELLE 03/28/25 Cat 2 tracing, OP presentation boy Doris (2) Depression: QUALIFIERS: Depression Type: unspecified Qualified Code(s): F32.A - Depression, unspecified COMMENT: sertraline/stable (3) Anxiety: COMMENT: stable PLAN: Plan s/p LTCS PPD # 2 1. routine post care 2. breast feeding- support given 3. rh positive 4. rubella immune
--- NOTE | 2025-03-30 12:02 | CASEMGMT ---
Social Work Assessment Labor and Delivery Unit Patient Address: [address] [place] [address] Phone number: [phone] Date of Referral: 03/28/25 Time of Referral:? 0516 Referred By: Dr. Weiss Date of Intervention: ??03/29/25 Time of Intervention:? 1500 Reason for Referral:? anxiety and depression Sw completed chart review and notes social work consult due to maternal mental health history of anxiety and depression. Sw presented to bedside and introduced self to mother of baby (NAMRATA- Gino) and father of baby (FOB- Xavier). Sw explained reason for sw involvement and completed psychosocial assessment. History obtained from: medical records, MOB and FOB Household composition: Currently residing in the family home is MOB and FOB. to be included in residence when ready for discharge. Parents deny any problems or concerns with housing, stating their home is safe and secure. Patient's parent/guardian status:? ?MOB states that she and FODiann met while both attending college and have been together for 4 years, for one. baby is first baby for parents together. No concerns reported of domestic violence or intimate partner violence. Medical History: ?NAMRATA is 24 year old female who is 1, para 0- now 1 following labor and delivery of . NAMRATA received routine care during with [facility]. NAMRATA presented to hospital and ultimately required unplanned due to decelerations. Baby boy, named Doris Zavaleta, was born weighing 8lb 5oz and had apgars of 3, 3, and 8 at one, five and ten minutes of life, respectfully. NAMRATA states that she is breast feeding and it is going okay, and baby will be followed by Dr. Kirby for pediatrics. Educational Status:?Both parents obtained their Bachelor's degrees, and deny problems with reading, learning or comprehension. Financial Status: Both parents are gainfully employed. 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 Supplies:?All necessary baby supplies obtained, including: car seat, safe sleep space, clothes, diapers and wipes. ? Childcare/Caregiver(s):? NAMRATA reports that grandma's and a family friend will be able to provide childcare to when parents are working. Transportation:??Both parents have their drivers license and reliable means of transportation, no barriers. Programs/Agencies Involved: ???Parents are not connected to any community resources that provide them with financial assistance as they are over income. Children Services/Legal Issues:??? No history of children services involvement, no issues or concerns warranting a referral to be made at this time. Behavioral Health Issues: ??Mental Health History:?FODiann states that he has been diagnosed with anxiety and is currently prescribed zoloft by his primary care doctor to help him manage his mental health symptoms. MOB reports that she has been diagnosed with anxiety and depression and is also prescribed sertraline and Buspirone. MOB states that she felt anxious during her due to situational things that eventually were resolved. MOB states that she also felt nervous during delivery due to needing emergency , which she was not planning on. ?? Substance Use History:?Parents deny substance use prior to and during . ? Family History: No family history of substance use or significant mental health history. ? Drug Screens: ??No drug screens observed while completing chart review. Family/Social Stressors:? NAMRATA denies any issues, concerns or stressors at this time. Support Systems: MOB states that FOB and their immediate families are their biggest supports Depression/Shaken Baby/Safe Sleeping:? Fausto educated parents on signs and symptoms of baby blues and depression and anxiety to be mindful of during this period. Fausto explained that NAMRATA is more at risk to experience symptoms due to her mental health history as well as experiencing a traumatic . MOB states that although her labor did not go as planned, she is thankful that baby is here and she and baby are healthy. MOB states that overall her labor and experience has been exceptional. MOB states that she feels like herself, she does not feel down, anxious or overwhelmed. MOB states that when she gets home and starts to feel as though she is experiencing the blues or any symptoms she feels comfortable discussing that with FOB and her mom. MOB states that she also has her sertraline increased during and she thinks that is helpful as well. Fausto educated parents on shaken baby prevention and ABCs of safe sleep, parents express understanding. ASSESSMENT:? MOB and baby admitted following labor and delivery. MOB and FOB with mental health history of anxiety and depression. Both parents are prescribed medication to help them manage their mental health symptoms and have supportive people that they feel comfortable talking to. Parents are college educated and have jobs that allow them to be financially secure. All necessary baby items obtained for baby. MOB aware of signs and symptoms of baby blues to be on the lookout for. MOB states that she is talkative when it comes to her mental health and what she is experiencing or struggling with. FOB states that if MOB were to struggle he would be able to recognize that and would know how to help and support her. PLAN:? No other services requested or indicated. MOB and baby to be discharged when medically ready. Parents were provided literature regarding: signs and symptoms of baby blues and mood and anxiety disorders, Help Me Grow, shaken baby prevention, ABCs of safe sleep and a list of county resources that are available for them should any needs present themselves. Rossy Baeza, CARTOGRAPHIC ENGINEER, BAR HOST
[2025-03-30] MEDS: Senna/Docusate Sodium 1 Tablet PO (12:30)
[2025-03-30 14:18] VITALS: BP 123/83; PULSE 77; RESP 16; TEMP 36.4; O2SAT 98
[2025-03-30 21:10] VITALS: BP 145/72; PULSE 81; RESP 16; TEMP 36.3; O2SAT 97
[2025-03-31 00:58] VITALS: BP 136/61; PULSE 73; RESP 18; TEMP 36.2; O2SAT 97
[2025-03-31 03:36] VITALS: BP 124/78
--- NOTE | 2025-03-31 06:10 | PCM.DC.SUM ---
Providers Date of Admission: 03/27/25 Primary Care Physician: OLGA Montilla Reason For Visit: C SECTION Diagnosis Discharge Diagnosis (1) delivery delivered: Status: Acute Code(s): O82 - Encounter for delivery without indication (2) Depression: Status: Acute Code(s): F32.A - Depression, unspecified Qualifiers: Depression Type: unspecified Qualified Code(s): F32.A - Depression, unspecified (3) Anxiety: Status: Acute Code(s): F41.9 - Anxiety disorder, unspecified Medications at Discharge Home Medications multivitamin no.47-iron fum 27 mg-folate no.1 1 mg-dha 300 mg capsule (PNV-DHA) 1 cap PO DAILY 09/06/24 buspirone 15 mg tablet 15 mg PO TID PRN anxiety #30 tabs 10/07/24 sertraline 50 mg tablet (Zoloft) 150 mg PO QDAY 10/07/24 ferrous gluconate 240 mg (27 mg iron) tablet 240 mg PO QDAY #30 tabs 01/07/25 magnesium 200 mg tablet 400 mg PO DAILY 03/27/25 ibuprofen 800 mg tablet 800 mg PO Q8H PRN pain #30 tabs 03/29/25 oxycodone-acetaminophen 5 mg-325 mg tablet (Percocet) 1 tab PO Q4H PRN pain 7 days #20 tabs 03/29/25 Hospital Course Operations section Summary of Care Provided Minutes Spent on Discharge: 30 Hospital Course: The patient was admitted for active labor on 03/27/25. She progressed to 8 cm and the baby was found to be in the OP position. There was a brief moment of a category 3 tracing and an EMMA alert was called. The patient was rushed to the operating room, however the tracing improved to a category 2. She labored for an hour in the OR and attempt was made to rotate the infant's head without success. tachycardia and moments of minimal variability were noted and a section was performed without complications. On day #1 she was tolerating pain well and ambulating, on day #2 she was still experiencing discomfort and pain medication was given as well as support. On post operative day #3 she was ready for discharge. Physical Exam HEENT normocephalic Resp normal respiratory effort and normal air movement GI soft to palpation, non-tender and non-distended Rectal Exam: other Other Details: Incision is clean, dry, and intact no CVA tenderness Extremity normal to inspection General Extremity: edema bilateral (trace ) Weight / BMI Weight Weight: 196 lb 3.2 oz Body Mass Index (BMI) 32.6 ABG / Lab / Microbiology Data 03/29/25 07:27 D/C Instructions May resume sexual activity in: 4-6 weeks Weight Bearing Status: Full weight bearing Call your doctor if your incision/area has: Continuous Slow Oozing, Sudden Increased Bleeding, Increased Pain/ Swelling, Increased Redness and Foul Smelling Discharge Call your doctor if you observe: Fever of 101 or Higher and Using more than 1 pad per hour Suture Line Care: Avoid Pulling/Pushing and Avoid Pinching/Bending Cleanse incision/area with: Soap & Water and Keep Dressing Clean & Dry DC O2, CPAP, BIPAP Needs Home O2 Discharge instructions: No Please Follow Up With: Rufina Weiss DO When: Call [phone] to make an appointment for an incision check in 1-2 weeks. Meaningful Use Info Meaningful Use Meaningful Use Diagnoses (Choose all that apply): None applicable Discharge Plan Admission Admit Date/Time: 03/27/25 13:33 Primary Reason for Your Visit: section Attending Provider: Rufina Weiss Primary Care Provider: Yuliana Loya Instructions Patient Instructions: Kick Counts, ED False Labor, OB Triage: Return to Hospital or Notify Physician if you Experience: Discharge Orders/Prescriptions Prescriptions: New ibuprofen 800 mg tablet 800 mg PO Q8H PRN (Reason: pain) Qty: 30 0RF oxycodone-acetaminophen [Percocet] 5-325 mg tablet 1 tab PO Q4H PRN (Reason: pain) 7 Days Qty: 20 0RF Continued PNV-DHA 27 mg iron-1 mg -300 mg capsule 1 cap PO DAILY sertraline [Zoloft] 50 mg tablet 150 mg PO QDAY buspirone 15 mg tablet 15 mg PO TID PRN (Reason: anxiety) Qty: 30 6RF magnesium 200 mg tablet 400 mg PO DAILY ferrous gluconate 240 mg (27 mg iron) tablet 240 mg PO QDAY Qty: 30 6RF Referrals / Follow Up: Yuliana Loya NP-C [Primary Care Provider] - Disposition Disposition (needs filled in before D/C Order can be placed): Home, Self Care
[2025-03-31 07:30] VITALS: BP 132/72; PULSE 74; RESP 16; TEMP 36.6; O2SAT 96
[2025-03-31] MEDS: Senna/Docusate Sodium 1 Tablet PO (07:39)
--- NOTE | 2025-04-04 13:43 | NURSING ---
F/Up Questions asked in person at 04/01 visit. MOB feeling good overall, just tender at incicion site. Denies issues with lochia, milk coming in. nursing well. Encouragement and support given.
== END 2025-03-31 12:15 | disposition home or self-care (01) | DRG 788 ==
LOC: WP 13:42
PROVIDERS: Advanced Practice Midwife; Admitting Provider Obstetrics & Gynecology; PCP Nurse Practitioner Family; Visit Provider Obstetrics & Gynecology
DX: O76 Abnormality in fetal heart rate and rhythm complicating labor and delivery (principal); O64.0XX0 Obstructed labor due to incomplete rotation of fetal head, not applicable or unspecified; D64.9 Anemia, unspecified; F32.A Depression, unspecified; F41.9 Anxiety disorder, unspecified; O99.02 Anemia complicating childbirth; O77.0 Labor and delivery complicated by meconium in amniotic fluid; O69.2XX0 Labor and delivery complicated by other cord entanglement, with compression, not applicable or unspecified; O43.113 Circumvallate placenta, third trimester; O99.344 Other mental disorders complicating childbirth; O26.843 Uterine size-date discrepancy, third trimester; Z37.0 Single live birth; Z3A.39 39 weeks gestation of pregnancy
CPT/HCPCS: 36415; 59025; 59050; 76815; 85025; 85027; 86780; 86850; 86900; 86901; 99221; G0378; J2405

== ENCOUNTER → 2025-03-27 | Outpatient (CLI) | payer BC, SELFPAY ==
--- OUTSIDE RECORDS SUMMARY | 2025-03-27 13:09 | XMS RPT_ITS | CCD ---
Author Organization [facility] [employer] Care Team Providers Care Commodity Manager Name Role Phone FERNANDO BELTRAN Unavailable Unavailabl FERNANDO Heath Unavailable Unavailabl e AA NO PCP, NO PCP Unavailable Unavailable BOAZ SCHULTZ DO Consulting Unavailable LUIS CAMEJO, [phone] THUAN Granados Admitting Unavailable LUIS CAMEJO, [phone] THUAN Granados Attending Unavailable RON PALAFOX Primary Care Unavailable BOAZ SCHULTZ DO Consulting Unavailable MARYANN CAMEJO, NATHEN Padilla Consulting Unavaila kory WOLF MD, NATHEN Padilla Consulting Unavaila RON Oliver Consulting Unavailable LUIS CAMEJO, DR THUAN Granados Consulting Unavaila kory SMITH MD, DR THUAN Granados Consulting Unavaila kory Gonzalez WINDOWS SYSTEMS ENGINEER-KAREL, Yuliana Barrios Primary Care Provider Vincenzo WINDOWS SYSTEMS ENGINEER-CABLE TELEVISION PROGRAM DIRECTOR, Yuliana Barrios Primary Care Provider JOSSELIN LAMBERT Primary Care Unavailable CLEO GUZMAN Attending Unavailable AUTUMN JACOME Referring Unavailable YULIANA GONZALEZ Attending Unavailable YULIANA GONZALEZ Primary Care Unavailable YULIANA GONZALEZ Attending Unavailable YULIANA GONZALEZ Primary Care Unavailable Vincenzo MOTORS AND CONTROLS TESTER-C, Yuliana Primary Care Provider Vincenzo MOTORS AND CONTROLS TESTER-CYuliana Referring Provider [phone] Rufina Weiss DO Attending Provider Autumn Jacome CNM Attending Provider Dr. Marissa Aquino MD Attending Provider Dr. Marissa Aquino MD Referring Provider Keith MOTORS AND CONTROLS TESTER-CKristen Attending Provider [phone] Vincenzo MOTORS AND CONTROLS TESTER-CYuliana Primary Care Provider Gonzalez MOTORS AND CONTROLS TESTER-C, Yuliana Referring Provider Dr. Rufina Weiss DO Attending Provider Autumn Jacome CNM Referring Provider Gonzalez MOTORS AND CONTROLS TESTER-C, Yuliana Primary Care Provider Gonzalez MOTORS AND CONTROLS TESTER-C, Yuliana Referring Provider Simone CNAkbar, Autumn Attending Provider Autumn Jacome Attending Unavailable Autumn Jacome Referring Unavailable Gonzalez, Yuliana Primary Care Unavailable Vande VelRufina wu Attending Unavailabl e Gonzalez, Yuliana Primary Care Unavailable Gonzalez, Yuliana Primary Care Unavailable Autumn Jacome Referring Unavailable Autumn Jacome Attending Unavailable Lore Portillo Attending Unavailable Gonzalez, Yuliana Referring Unavailable Gonzalez, Yuliana Primary Care Unavailable Vande VelRufina wu Attending Unavailabl e Gonzalez, Yuliana Primary Care Unavailable Gonzalez, Yuliana Referring Unavailable Gonzalez, Yuliana Primary Care Unavailable Gonzalez, Yuliana Referring Unavailable Autumn Jacome Attending Unavailable Marissa Aquino Attending Unavailable Gonzalez, Yuliana Primary Care Unavailable Marissa Aquino Referring Unavailable Ivan Abrams Attending Unavailable Gonzalez, Yuliana Primary Care Unavailable Vande VelRufina wu Attending Unavailabl e Gonzalez, Yuliana Referring Unavailable [...] Primary Care Unavailable Kristen Parker Attending Unavailable Gonzalez, Yuliana Referring Unavailable Gonzalez, Yuliana Primary Care Unavailable Autumn Jacome Attending Unavailable Gonzalez, Yuliana Primary Care Unavailable Gonzalez, Yuliana Referring Unavailable Marissa Aquino Attending Unavailable Gonzalez, Yuliana Primary Care Unavailable Gonzalez, Yuliana Referring Unavailable Gonzalez, Yuliana Primary Care Unavailable Gonzalez, Yuliana Referring Unavailable Autumn Jacome Attending Unavailable Rufina Weiss Attending Unavailabl e Gonzalez, Yuliana Primary Care Unavailable Gonzalez, Yuliana Referring Unavailable Gonzalez, Yuliana Primary Care Unavailable Gonzalez, Yuliana Referring Unavailable Autumn Jacome Attending Unavailable Richarde Rufina Chaney Attending Unavailabl e Gonzalez, Yuliana Primary Care Unavailable Gonzalez, Yuliana Referring Unavailable Gonzalez, Yuliana Referring Unavailable Yuliana Gonzalez Primary Care Unavailable Marissa Aquino Attending Unavailable Medications Current Medications Medication Drug Class(es) Dates Sig (Normalized) Sig (Original) busPIRone hydrochloride 15 mg oral tablet (11 sources) Start: 10-07-2024 take 1 tablet by mouth three times daily as needed for anxiety Buspirone 15 mg tablet Active 15 mg PO THREE TIMES A DAY as needed for anxiety 28 02October 07, 2024 1:00am ferrous gluconate 240 mg oral tablet (11 sources) Start: 01-07-2025 take 1 tablet by mouth once daily Ferrous Gluconate 240 mg (27 mg iron) tablet Active 240 mg PO daily 28 02January 07, 2025 12:00am Magnesium (1 source) Start: 03-27-2025 take 2 tablets by mouth once daily Magnesium 200 mg tablet Active 400 mg PO DAILY March 27, 2025 12:00am Multivit 83-Xavf-Fjfcpu 1-Dha (Pnv-Dha) 27 mg iron-1 mg -300 mg capsule (11 sources) Start: 09-06-2024 Multivit 86-Xdsw-Nfycqf 1-Dha (Pnv-Dha) 27 mg iron-1 mg -300 mg capsule Active 1 NMA PO DAILY September 06, 2024 1:00am Start: 09-06-2024 Multivit 47-Ir on-Folate 1-Dha (Pnv-Dha) 27 mg iron-1 mg -300 mg capsule Active NMA PO September 06, 2024 1:00am rizatriptan 10 mg oral tablet (2 sources) [...] Drug Class(es) Dates Sig (Normalized) Sig (Original) metoclopramide 10 mg oral tablet (11 sources) Dopamine-2 Receptor Antagonist Start: 10-07-2024 End: 03-27-2025 take 1 tablet by mouth 30 minutes before mealtime Metoclopramide Hcl (Reglan) 10 mg tablet Discontinued 10 mg PO before meals 60 3 October 07, 2024 1:00am March 27, 2025 9:01am administer 30 minutes before meals ondansetron 4 mg oral tablet (20 sources) Serotonin-3 Receptor Antagonist Start: 10-28-2024 End: 03-27-2025 take 1 tablet by mouth every six hours as needed for nausea and vomiting Ondansetron Hcl 4 mg tablet Discontinued 4 mg PO EVERY 6 HOURS as needed for nausea and vomiting 60 2 October 28, 2024 1:00am March 27, 2025 9:01am Start: 08-27-2024 End: 03-27-2025 take 1 tablet by mouth every eight hours as needed for nausea Ondansetron 4 mg tablet,disintegrating Discontinued 4 mg PO EVERY 8 HOURS NEEDED as needed for Nausea 30 4 October 15, 2024 5:32pm March 27, 2025 9:01am take 1 tablet by gwendolyn th every eight hours as needed ondansetron (Zofran) 4 mg tablet Take 1 tablet (4 mg) by mouth every 8 hours if needed for nausea or vomiting. 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, unspecified trimester] 11-10-2024 Episodic Comment on above: growth at 32 weeks growth at 32 weeks: 02/11: Other complications of (8 sources) Uterine size for dates discrepancy; Translations: [Uterine size-date discrepancy, third trimester] 03-18-2025 Episodic Other complications of (1 source) Supervision of high risk , unspecified, third trimester; Translations: [Supervision of high risk , unspecified, third trimester] Onset: 03-25-2025 Episodic Other complications of (1 source) Circumvallate [...] 01-07-2025 Episodic Other and delivery including normal (20 sources) ; Translations: [Encounter for supervision of normal , unspecified, unspecified trimester] Onset: 09-09-2024 01-07-2025 Episodic Comment on above: undecided about NIPT , nl anatomy Neg GBS. undecided a bout NIPT, nl anatomy Residual codes; unclassified (3 sources) [...] Test Name Value Interpretation Reference Range Facility Resident Care Spec Office Visit Reporton 03-25-2025 Resident Care Spec Office Visit Report [facility] [address], [address] [place] [address] OFFICE VISIT Date of Service: 03/25/25 MR#: [id number] Acct: [id number] Name: GINO MICHELE Rep #: [id number] : 2000 Provider: JOSE Santos ams Age/Sex: 24/F [place] [facility] [place]: Signed Intake Vital Signs 02/10/25 08:47 03/18/25 09:31 03/25/25 10:08 Height 5 ft 5 in 5 ft 5 in 5 ft 5 in Weight: 196 lb 8 oz BMI 32.7 BP 123/67 H Intake Visit Reasons: 38 wk ob Chief Complaint: 38 Week OB Optical Engineer Required: No Is patient in pain?: No [...] PFSH Medical History Migraine headache Surgical History Bayard teeth extracted Family History Grandfather Diabetes Maternal Mother Cancer Basal cell skin cancer Father Cancer Basal cell Skin cancer Aunt Cancer Maternal- Skin Melanoma Social History adopted: No household members: spouse current occupational status: employed 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 Normal [facility] OB Limited With Biometricson 03-22-2025 OB Limited With Biometrics [facility] Imaging Services [address] [place] [address] OB Limited With Biometrics MR#: [id number] Acct: [id number] Name: GINO MICHELE Rep #: [id number] : 2000 F 24 From: Boaz Blackwood MD PCP: OLGA Montilla Status: [facility] Study: OB Limited With Biometrics Date of Exam: 03/22 Exam# [id number] Ordering Dr: Marissa Aquino PROCEDURE: OB LIMITED [...] intrauterine . See biometry above. Reading Location: [id number] CC: OLGA Gonzalez; Dr. Marissa Aquino MD Coil Cleaner: Signed Normal [facility] Resident Care Spec Office Visit Reporton 03-18-2025 Resident Care Spec Office Visit Report [facility] [address], [address] [place] [address] OFFICE VISIT Date of Service: 03/18/25 MR#: [id number] Acct: [id number] Name: GINO MICHELE Rep #: [id number] : 2000 Provider: Dr. Marissa mendenhall MD Age/Sex: 24/F [place] [facility] [place]: Signed Intake Vital Signs 02/10/25 08:47 03/10/25 15:34 03/18/25 09:31 Height 5 ft 5 in 5 ft 5 in 5 ft 5 in Weight: 195 lb BMI 32.4 BP 139/83 H Intake Visit Reasons: 37 wk ob Optical Engineer Required: No Is patient in pain?: No [...] PFSH Medical History Migraine headache Surgical History Bayard teeth extracted Family History Grandfather Diabetes Maternal Mother Cancer Basal cell skin cancer Father Cancer Basal cell Skin cancer Aunt Cancer Maternal- Skin Melanoma Social History adopted: No household members: spouse current occupational status: employed 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 Normal [facility] Rule out Beta Strep (Grp. B) on 03-14-2025 LAILA Group B Beta Streptococcus is not isolated. Normal [facility] Comment on above: Performed By: #### M 100.3400 ####[facility] [address] [place], [address] Laboratory - Chemistry and C hemistry - challengeOrdered By: Rufina Chaney on 03-10-2025 Glucose Ql (U) Negative [facility] Laboratory - UrinalysisOrder ed By: Rufina Chaney on 03-10-2025 Protein Ql (U) Negative [facility] Resident Care Spec Office Visit Reporton 03-10-2025 Resident Care Spec Office Visit Report [facility], [address] [place] [address] OFFICE VISIT Date of Service: 03/10/25 MR#: [id number] Acct: [id number] Name: GINO MICHELE Rep #: [id number] : 2000 Provider: Dr. Rufina Dowd DO Age/Sex: 24/F [place] [facility] [place]: Signed Intake Vital Signs 01/07/25 10:18 02/24/25 08:59 03/10/25 15:34 Height 5 ft 5 in 5 ft 5 in 5 ft 5 in Weight: 195 lb 4 oz BMI 32.5 BP 138/82 H Intake Visit Reasons: 36 wk ob Optical Engineer Required: No Is patient in pain?: No [...] PFSH Medical History Migraine headache Surgical History Bayard teeth extracted Family History Grandfather Diabetes Maternal Mother Cancer Basal cell skin cancer Father Cancer Basal cell Skin cancer Aunt Cancer Maternal- Skin Melanoma Social History adopted: No household members: spouse current occupational status: employed 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 Normal [facility] Screening beta-hemolytic Str eptococcus cultureOrdered By: Rufina Chaney on 03-10-2025 Beta-hemolytic Streptococcus culture Group B Beta Streptococcus is not isolated. [facility] Laboratory - Chemistry and C hemistry - challengeOrdered By: Marissa Aquino on 02-24-2025 Glucose Ql (U) Negative [facility] Laboratory - UrinalysisOrder ed By: Marissa Aquino on 02-24-2025 Protein Ql (U) Negative [facility] Resident Care Spec Office Visit Reporton 02-24-2025 Resident Care Spec Office Visit Report [facility] [address], [address] [place] [address] OFFICE VISIT Date of Service: 02/24/25 MR#: [id number] Acct: [id number] Name: GINO MICHELE Rep #: [id number] : 2000 Provider: Dr. Marissa mendenhall MD Age/Sex: 24/F [place] [facility] [place]: Signed Intake Vital Signs 09/09/24 09:07 02/10/25 08:47 02/24/25 08:59 02/24/25 08:59 Height 5 ft 5 in 5 ft 5 in 5 ft 5 in 5 ft 5 in Weight: 189 lb 4 oz BMI 31.4 BP 103/69 Intake Visit Reasons: 34 wk ob Optical Engineer Required: No Is patient in pain?: No [...] PFSH Medical History Migraine headache Surgical History Bayard teeth extracted Family History Grandfather Diabetes Maternal Mother Cancer Basal cell skin cancer Father Cancer Basal cell Skin cancer Aunt Cancer Maternal- Skin Melanoma Social History adopted: No household members: spouse current occupational status: employed 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 Normal [facility] Glucose Challenge Gest 1H 50 shayy 02-15-2025 GLU GEST 50g 1H 110 mg/dL Normal 70-140 [facility] Comment on above: Performed By: #### L 501.0250 #### [facility] Laboratory [address] [place], [place], [address] Glucose measurement at 2 larry rs post-dose gestational glucose tolerance testOrdered By: Autumn Jacome on 02-15-2025 Glucose [Mass/Vol] 110 mg/dL 70-140 [facility] OB Limited With Biometricson 02-11-2025 OB Limited With Biometrics [facility] Imaging Services [address] [place] [address] OB Limited With Biometrics MR#: [id number] Acct: [id number] Name: GINO MICHELE Rep #: [id number] : 2000 F 24 From: David del rio MD PCP: OLGA Montilla Status: REG CLI Study: OB Limited With Biometrics Date of Exam: 02/11 Exam# [id number] Ordering Dr: Autumn Jacome M PROCEDURE: OB LIMITED WITH BIOMETRICS 02/11/2025 REASON [...] gestational age of 34 weeks. Reading Location: [id number] CC: JOSE Jacome; OLGA Gonzalez Coil Cleaner: Signed Normal [facility] Laboratory - Chemistry and C hemistry - challengeOrdered By: Autumn Jacome on 02-10-2025 Glucose Ql (U) Negative [facility] Laboratory - UrinalysisOrder ed By: Autumn Jacome on 02-10-2025 Protein Ql (U) Negative [facility] Resident Care Spec Office Visit Reporton 02-10-2025 Resident Care Spec Office Visit Report [facility] [address], [address] [place] [address] OFFICE VISIT Date of Service: 02/10/25 MR#: [id number] Acct: [id number] Name: GINO MICHELE Rep #: [id number] : 2000 Provider: JOSE Santos [facility] Age/Sex: 24/F [place] [facility] [place]: Signed Intake Vital Signs 09/09/24 09:07 01/26/25 08:35 02/10/25 08:47 Height 5 ft 5 in 5 ft 5 in 5 ft 5 in Weight: 189 lb 2 oz BMI 31.4 BP 115/83 H Intake Visit Reasons: 32 wk ob Optical Engineer Required: No Is patient in pain?: No [...] PFSH Medical History Migraine headache Surgical History Bayard teeth extracted Family History Grandfather Diabetes Maternal Mother Cancer Basal cell skin cancer Father Cancer Basal cell Skin cancer Aunt Cancer Maternal- Skin Melanoma Social History adopted: No household members: spouse current occupational status: employed 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 (more content not included)... Normal [facility] Laboratory - Chemistry and C hemistry - challengeOrdered By: Kristen Parker on 01-26-2025 Glucose Ql (U) Negative [facility] Laboratory - UrinalysisOrder ed By: Kristen Parker on 01-26-2025 Protein Ql (U) Negative [facility] Resident Care Spec Office Visit Reporton 01-26-2025 Resident Care Spec Office Visit Report [facility], [address] [place] [address] OFFICE VISIT Date of Service: 01/26/25 MR#: [id number] Acct: [id number] Name: GINO MICHELE Rep #: [id number] : 2000 Provider: OLGA rodriguez Age/Sex: 24/F Location[place] [facility] [place]: Signed Intake Vital Signs 09/09/24 09:07 01/07/25 10:18 01/26/25 08:35 Height 5 ft 5 in 5 ft 5 in 5 ft 5 in Weight: 188 lb 4 oz BMI 31.3 BP 126/72 H Intake Visit Reasons: 30 wk ob Chief Complaint: 30 Week OB Optical Engineer Required: No Is patient in pain?: No [...] PFSH Medical History Migraine headache Surgical History Bayard teeth extracted Family History Grandfather Diabetes Maternal Mother Cancer Basal cell skin cancer Father Cancer Basal cell Skin cancer Aunt Cancer Maternal- Skin Melanoma Social History adopted: No household members: spouse current occupational status: employed 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 Normal [facility] Absolute lymphocyte countOrd ered By: Rufina Ritu on 01-07-2025 Lymphocytes Auto (Unsp spec) [#/Vol] 1.52 10*3/uL 0.83-4.51 [facility] Absolute neutrophil countOrd ered By: Rufina Ritu on 01-07-2025 Neutrophils (Bld) [#/Vol] 9.6 10*3/uL High 2.0-7.7 [facility] Automated lymphocyte count a s percentage of total leukocytesOrdered By: Rufina Ritu on 01-07-2025 Lymphocytes/100 WBC Auto (Unsp spec) 12.4 % Low 19-41 [facility] Basophil percentageOrdered B y: Rufina Chaney on 01-07-2025 Basophils/100 WBC (Bld) 0.3 % 0-1 [facility] CBC W/Diff, Automatedon 05-0 Absolute Lymph 1.52 X10 3/uL Normal 0.83-4.51 [facility] Comment on above: Performed By: #### L 100.0100, L509.8002, L501.0250, L3890.6006 ####[facility] [address] [place], [address] Absolute Neut 9.6 X10 3/uL High 2.0-7.7 [facility] Comment on above: Performed By: #### L 100.0100, L509.8002, L501.0250, L3890.6006 ####[facility] [address] [place], [address] Basophils/100 WBC (Bld) 0.3 % Normal 0-1 [facility] Comment on above: Performed By: #### L 100.0100, L509.8002, L501.0250, L3890.6006 ####[facility] [address] [place], [address] Eosinophils/100 WBC (Bld) 1.5 % Normal 0-5 [facility] Comment on above: Performed By: #### L 100.0100, L509.8002, L501.0250, L3890.6006 ####[facility] [address] [place], [address] Erythrocyte distribution width (RBC) [Ratio] 12.7 % Normal 11.6-14.6 [facility] Comment on above: Performed By: #### L 100.0100, L509.8002, L501.0250, L3890.6006 ####[facility] [address] [place], [address] Hematocrit (Bld) [Volume fraction] 31.5 % Low 37-47 [facility] Comment on above: Performed By: #### L 100.0100, L509.8002, L501.0250, L3890.6006 ####[facility] [address] [place], [address] Hemoglobin (Bld) [Mass/Vol] 10.1 g/dL Low 12.0-15.0 [facility] Comment on above: Performed By: #### L 100.0100, L509.8002, L501.0250, L3890.6006 ####[facility] [address] [place], [address] IG% 2.100 High 0.0-0.9 [facility] Comment on above: Result Comment: IG% - Immature Granulocytes (promyelocytes, myelocytes and metamyelocytes) > 1% indicates that a LEFT SHIFT is Present. Performed By: #### L 100.0100, L509.8002, L501.0250, L3890.6006 ####[facility] [address] [place], [address] Lymphocytes/100 WBC (Bld) 12.4 % Low 19-41 [facility] Comment on above: Performed By: #### L 100.0100, L509.8002, L501.0250, L3890.6006 ####[facility] [address] [place], [address] MCH (RBC) [Entitic mass] 28.6 pg Normal 27.0-32.0 [facility] Comment on above: Performed By: #### L 100.0100, L509.8002, L501.0250, L3890.6006 ####[facility] [address] [place], [address] MCHC (RBC) [Mass/Vol] 32.1 g/dL Normal 32-36 [facility] Comment on above: Performed By: #### L 100.0100, L509.8002, L501.0250, L3890.6006 ####[facility] [address] [place], [address] MCV (RBC) [Entitic vol] 89.2 fL Normal 81-99 [facility] Comment on above: Performed By: #### L 100.0100, L509.8002, L501.0250, L3890.6006 ####[facility] [address] [place], [address] Monocytes/100 WBC (Bld) 5.4 % Normal 0-10 [facility] Comment on above: Performed By: #### L 100.0100, L509.8002, L501.0250, L3890.6006 ####[facility] [address] [place], [address] Neutrophils/100 WBC (Bld) 78.3 % High 47-70 [facility] Comment on above: Performed By: #### L 100.0100, L509.8002, L501.0250, L3890.6006 ####[facility] [address] [place], [address] Nucleated RBC (Bld) [#/Vol] 0 10*3/uL Normal 0-5 [facility] Comment on above: Performed By: #### L 100.0100, L509.8002, L501.0250, L3890.6006 ####[facility] [address] [place], [address] Platelet mean volume (Bld) [Entitic vol] 12.1 fL High 6.2-12.0 [facility] Comment on above: Performed By: #### L 100.0100, L509.8002, L501.0250, L3890.6006 ####[facility] [address] [place], [address] Platelets (Bld) [#/Vol] 160 10*3/uL Normal 150-450 [facility] Comment on above: Performed By: #### L 100.0100, L509.8002, L501.0250, L3890.6006 ####[facility] [address] [place], [address] RBC (Bld) [#/Vol] 3.53 10*6/uL Low 4.2-5.4 [facility] Comment on above: Performed By: #### L 100.0100, L509.8002, L501.0250, L3890.6006 ####[facility] [address] [place], [address] RDW SD 40.6 fl Normal 35.1-43.9 [facility] Comment on above: Performed By: #### L 100.0100, L509.8002, L501.0250, L3890.6006 ####[facility] [address] [place], [address] WBC (Bld) [#/Vol] 12.2 10*3/uL High 4.4-11.0 [facility] Comment on above: Performed By: #### L 100.0100, L509.8002, L501.0250, L3890.6006 ####[facility] [address] [place], [address] Eosinophil percentageOrdered By: Rufina Chaney on 01-07-2025 Eosinophils/100 WBC (Bld) 1.5 % 0-5 [facility] Erythrocyte distribution wid th ratioOrdered By: Rufina Chaney on 01-07-2025 Erythrocyte distribution width (RBC) [Ratio] 12.7 % 11.6-14.6 [facility] Erythrocyte distribution wid th standard deviationOrdered By: Rufina Chaney on 01-07-2025 Erythrocyte distribution width (RBC) [Ratio] 40.6 fl 35.1-43.9 [facility] Glucose Challenge Gest 1H 50 shayy 01-07-2025 GLU GEST 50g 1H 103 mg/dL Normal 70-140 [facility] Comment on above: Performed By: #### L 100.0100, L509.8002, L501.0250, L3890.6006 ####[facility] [address] [place], [place], [id number] Glucose measurement at 2 larry rs post-dose gestational glucose tolerance testOrdered By: Rufina Chaney on 01-07-2025 Glucose [Mass/Vol] 103 mg/dL 70-140 [facility] HIVon 01-07-2025 HIV Non-Reactive Normal Nonreactive [facility] Comment on above: Result Comment: Non- Reactive Reactive Repeatedly reactive samples must be confirmed according to CDC recommended confirmatory algorithms. The subresults for either HIVAG or AHIV can be used as an aid in the selection of the confirmation algorithm for reactive samples. Send out specimens with Reactive results to [facility] for confirmation. Order the HIV antibody detection and differentiation: lc#[id number] Performed By: #### L 100.0100, L509.8002, L501.0250, L3890.6006 ####[facility] [address] [place], [place], [address] Hematocrit Auto (Bld) [Volum e fraction]Ordered By: Rufina Chaney on 01-07-2025 Hematocrit (Bld) [Volume fraction] 31.5 % Low 37-47 [facility] Hemoglobin measurementOrdere d By: Rufina Chaney on 01-07-2025 Hemoglobin (Bld) [Mass/Vol] 10.1 g/dL Low 12.0-15.0 [facility] Immature granulocytes/100 WB C Auto (Bld)Ordered By: Rufina Chaney on 01-07-2025 Immature granulocytes/100 WBC (Bld) 2.100 % High 0.0-0.9 [facility] Comment on above: IG% - Immature Granu locytes (promyelocytes, myelocytes and metamyelocytes) > 1% indicates that a LEFT SHIFT is Present. Laboratory - Chemistry and C hemistry - challengeOrdered By: Autumn Jacome on 01-07-2025 Glucose Ql (U) Negative [facility] Laboratory - UrinalysisOrder ed By: Autumn Jacome on 01-07-2025 Protein Ql (U) Negative [facility] MCV (mean corpuscular volume ) determinationOrdered By: Rufina Chnaey on 01-07-2025 MCV (RBC) [Entitic vol] 89.2 fL 81-99 [facility] Mean corpuscular hemoglobin (MCH) determinationOrdered By: Rufina Chaney on 01-07-2025 MCH (RBC) [Entitic mass] 28.6 pg 27.0-32.0 [facility] Mean corpuscular hemoglobin concentration (MCHC) determinationOrdered By: Rufina Chaney on 01-07-2025 MCHC (RBC) [Mass/Vol] 32.1 g/dL 32-36 [facility] Mean platelet volume determi nationOrdered By: Rufina Chaney on 01-07-2025 Platelet mean volume (Bld) [Entitic vol] 12.1 fL High 6.2-12.0 [facility] Monocyte percentageOrdered B y: Rufina Chaney on 01-07-2025 Monocytes/100 WBC (Bld) 5.4 % 0-10 [facility] Neutrophil percentageOrdered By: Rufina Chaney on 01-07-2025 Neutrophils/100 WBC (Bld) 78.3 % High 47-70 [facility] No Panel InformationOrdered By: Rufina Chaney on 01-07-2025 HIV (1&2) Antibody Non-Reactive Nonreactive [facility] Comment on above: Non-ReactiveReactive Repeatedly reactive samples must be confirmed according to CDC recommended confirmatory algorithms. The subresults for either HIVAG or AHIV can be used as an aid in the selection of the confirmation algorithm for reactive samples.Send out specimens with Reactive results to [facility] for confirmation.Order the HIV antibody detection and differentiation: #[id number] Nucleated red blood cell per centageOrdered By: Rufina Chaney on 01-07-2025 Nucleated RBC/100 WBC (Bld) [Ratio] 0 % 0-5 [facility] Resident Care Spec Office Visit Reporton 01-07-2025 Resident Care Spec Office Visit Report [facility]'[address], [address] [place] [address] OFFICE VISIT Date of Service: 01/07/25 MR#: [id number] Acct: [id number] Name: GINO MICHELE Rep #: [id number] : 2000 Provider: JOSE Santos ams Age/Sex: 24/F [place] [facility] [place] Status: Signed Intake Vital Signs 12/03/24 10:16 01/07/25 10:18 01/07/25 10:18 Height 5 ft 5 in 5 ft 5 in 5 ft 5 in Weight: 182 lb BMI 30.2 BP 127/81 H Intake Visit Reasons: 27 wk ob/ glucose Chief Complaint: 27wk OB Optical Engineer Required: No Is patient in pain?: No [...] 4 mg PO Q6H PRN nausea and 01/07/25 Rx vomiting #60 tabs Last Menstrual Period: 06/27/24 : No PFSH PFSH Medical History Migraine headache Surgical History Bay[place] teeth extracted Family History Grandfather Diabetes Maternal Mother Cancer Basal cell skin cancer Father Cancer Basal cell Skin cancer Aunt Cancer Maternal- Skin Melanoma Social History adopted: No household members: spouse current occupational status: employed 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 anatomy scan ordered. 11/05/24 -???-???-???-???-?? ?-???-???-???-???-? ??-???-???- 18w 5d 164 lb (+21 lb) 134/81 Negative -???-???-???-???-?? ?- (more content not included)... Normal [facility] Platelet countOrdered By: Khris Chaney on 01-07-2025 Platelets (Bld) [#/Vol] 160 10*3/uL 150-450 [facility] RBC Auto (Bld) [#/Vol]Ordere d By: Rufina Chaney on 01-07-2025 RBC (Bld) [#/Vol] 3.53 10*6/uL Low 4.2-5.4 [facility] Syphilis Antibodieson 2024 Syphilis Abs Non-Reactive Normal Nonreactive [facility] Comment on above: Performed By: #### L 100.0100, L509.8002, L501.0250, L3890.6006 ####[facility] [address] [place], [address] White blood cell (WBC) count Ordered By: Rufina Chaney on 01-07-2025 WBC (Bld) [#/Vol] 12.2 10*3/uL High 4.4-11.0 [facility] Laboratory - Chemistry and C hemistry - challengeOrdered By: Rufina Chaney on 12-03-2024 Glucose Ql (U) Negative [facility] Laboratory - UrinalysisOrder ed By: Rufina Chaney on 12-03-2024 Protein Ql (U) Negative [facility] Resident Care Spec Office Visit Reporton 12-03-2024 Resident Care Spec Office Visit Report [facility]'[address], [address] [place] [address] OFFICE VISIT Date of Service: 12/03/24 MR#: [id number] Acct: [id number] Name: GINO MICHLEE Rep #: [id number] : 2000 Provider: Dr. Rufina Dowd DO Age/Sex: 24/F [place] [facility] [place]: Signed Intake Vital Signs 09/09/24 09:07 11/05/24 11:42 12/03/24 10:15 12/03/24 10:16 Height 5 ft 5 in 5 ft 5 in 5 ft 5 in 5 ft 5 in Weight: 171 lb 6 oz BMI 28.5 BP 120/77 Intake Visit Reasons: 22 wk ob Optical Engineer Required: No Is patient in pain?: No [...] PFSH Medical History Migraine headache Surgical History Bayard teeth extracted Family History Grandfather Diabetes Maternal Mother Cancer Basal cell skin cancer Father Cancer Basal cell Skin cancer Aunt Cancer Maternal- Skin Melanoma Social History adopted: No household members: spouse current occupational status: employed 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 Normal [facility] Laboratory - Chemistry and C hemistry - challengeOrdered By: Autumn Jacome on 11-05-2024 Glucose Ql (U) Negative [facility] Laboratory - UrinalysisOrder ed By: Autumn Jacome on 11-05-2024 Protein Ql (U) Negative [facility] Resident Care Spec Office Visit Reporton 11-05-2024 Resident Care Spec Office Visit Report [facility] [address] [place] [address], [address] [place] [address] OFFICE VISIT Date of Service: 11/05/24 MR#: [id number] Acct: [id number] Name: GINO MICHELE Rep #: [id number] : 2000 Provider: JOSE Santos ams Age/Sex: 24/F [place] [facility] [place] Status: Signed Intake Vital Signs 09/09/24 [...] PFSH Medical History Migraine headache Surgical History Bayard teeth extracted Family History Grandfather Diabetes Maternal Mother Cancer Basal cell skin cancer Father Cancer Basal cell Skin cancer Aunt Cancer Maternal- Skin Melanoma Social History adopted: No household members: spouse current occupational status: employed 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 Normal [facility] Laboratory - Chemistry and C hemistry - challengeOrdered By: Rufina Chaney on 10-07-2024 Glucose Ql (U) Negative [facility] Laboratory - UrinalysisOrder ed By: Rufina Chaney on 10-07-2024 Protein Ql (U) Negative [facility] Resident Care Spec Office Visit Reporton 10-07-2024 Resident Care Spec Office Visit Report [facility] [address], [address] [place] [address] OFFICE VISIT Date of Service: 10/07/24 MR#: [id number] Acct: [id number] Name: GINO MICHELE Rep #: [id number] : 2000 Provider: Dr. Rufina Dowd DO Age/Sex: 24/F [place] [facility] [place]: Signed Intake Vital Signs 08/27/24 19:48 09/09/24 09:07 10/07/24 11:33 10/07/24 11:35 Height 5 ft 5 in 5 ft 5 in 5 ft 5 in 5 ft 5 in Weight: 153 lb 2 oz BMI 25.4 BP 120/73 Intake Visit Reasons: 14 wk OB Optical Engineer Required: No Is patient in pain?: No [...] PFSH Medical History Migraine headache Surgical History Bayard teeth extracted Family History Grandfather Diabetes Maternal Mother Cancer Basal cell skin cancer Father Cancer Basal cell Skin cancer Aunt Cancer Maternal- Skin Melanoma Social History adopted: No household members: spouse current occupational status: employed 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 Normal [facility] HIV - WCHon 09-14-2024 HIV Non-Reactive Normal Nonreactive [facility] Comment on above: Order Comment: Reaso n for Exam: Performed By: #### L 3890.6300, L509.4005, L509.8000, L3890.6100, L3890.6005, BTS, L100.0100 ####[facility] [address] [place], [place], [id number] PAP I-G w/rfx hrHPV-Aptimaon 09-14-2024 ADEQ Comment Normal . [facility] Comment on above: Order Comment: Cecil leblanc Comment: [id number] Specimen Comment: Source.............Cervix Specimen Comment: No. of containers..01 ThinPrep Vial Result Comment: Sati sfactory for evaluation. Endocervical and/or squamous metaplastic cells (endocervical component) are present. Performed By: #### M 100.2200, L7400.0353, L7000.1800 #### [facility] [address] [place], [place], [address] COMM . Normal . [facility] Comment on above: Order Comment: Speci deana Comment: [id number] Specimen Comment: Source.............Cervix Specimen Comment: No. of containers..01 ThinPrep Vial Performed By: #### M 100.2200, L7400.0353, L7000.1800 #### [facility] [address] [place], [place], [address] COMMENT Comment Normal . [facility] Comment on above: Order Comment: Speci men Comment: [id number] Specimen Comment: Source.............Cervix Specimen Comment: No. of containers..01 ThinPrep Vial Result Comment: This liquid based ThinPrep(R) pap test was screened with the use of an image guided system. Performed By: #### M 100.2200, L7400.0353, L7000.1800 #### [facility] [address] [place], [place], [address] DIAG Comment Normal . [facility] Comment on above: Order Comment: Speci men Comment: [id number] Specimen Comment: Source.............Cervix Specimen Comment: No. of containers..01 ThinPrep Vial Result Comment: NEGA TIVE FOR INTRAEPITHELIAL LESION OR MALIGNANCY. Performed By: #### M 100.2200, L7400.0353, L7000.1800 #### [facility] [address] [place], [place], [address] HPV RFLX Comment Normal . [facility] Comment on above: Order Comment: Speci men Comment: [id number] Specimen Comment: Source.............Cervix Specimen Comment: No. of containers..01 ThinPrep Vial Result Comment: The HPV DNA reflex criteria were not met with this specimen result therefore, no HPV testing was performed. Performed at: [address] [id number] Cash Reconciliation Specialist: Rachell Lowe MD, Phone: [phone] Performed By: #### M 100.2200, L7400.0353, L7000.1800 #### [facility] [address] [place], [address] PAPSMR Comment Normal . [facility] Comment on above: Order Comment: Speci men Comment: [id number] Specimen Comment: Source.............Cervix Specimen Comment: No. of [...] By: #### M 100.2200, L7400.0353, L7000.1800 #### [facility] [address] [place], [address] PERFORM Comment Normal . [facility] Comment on above: Order Comment: Speci men Comment: [id number] Specimen Comment: Source.............Cervix Specimen Comment: No. of containers..01 ThinPrep Vial Result Comment: Bang Reese, Link Trainer (ASCP) Performed By: #### M 100.2200, L7400.0353, L7000.1800 #### [facility] [address] [place], [address] Chlamydia/GC MICKEY aptimaon CHLAMY,NUC ACID Negative Normal Negative [facility] Comment on above: Performed By: #### M 100.2200, L7400.0353, L7000.1800 #### [facility] [address] [place], [address] GC BY NUC ACID Negative Normal Negative [facility] Comment on above: Result Comment: Perf ormed at: =G - [facility] [id number] Cash Reconciliation Specialist: Rachell Lowe MD, Phone: [phone] Performed By: #### M 100.2200, L7400.0353, L7000.1800 #### [facility] [address] [place], [address] Urine Cultureon 09-10-2024 URC Culture exhibits no growth. Normal [facility] Comment on above: Performed By: #### M 100.2200, L7400.0353, L7000.1800 #### [facility] [address] [place], [address] CBC W/Diff, Automatedon Absolute Lymph 1.49 X10 3/uL Normal 0.83-4.51 [facility] Comment on above: Performed By: #### L 3890.6300, L509.4005, L509.8000, L3890.6100, L3890.6005, BTS, L100.0100 ####[facility] [address] [place], [address] Absolute Neut 7.4 X10 3/uL Normal 2.0-7.7 [facility] Comment on above: Performed By: #### L 3890.6300, L509.4005, L509.8000, L3890.6100, L3890.6005, BTS, L100.0100 ####[facility] [address] [place], [address] Basophils/100 WBC (Bld) 0.2 % Normal 0-1 [facility] Comment on above: Performed By: #### L 3890.6300, L509.4005, L509.8000, L3890.6100, L3890.6005, BTS, L100.0100 ####[facility] [address] [place], [address] Eosinophils/100 WBC (Bld) 1.5 % Normal 0-5 [facility] Comment on above: Performed By: #### L 3890.6300, L509.4005, L509.8000, L3890.6100, L3890.6005, BTS, L100.0100 ####[facility] [address] [place], [address] Erythrocyte distribution width (RBC) [Ratio] 12.8 % Normal 11.6-14.6 [facility] Comment on above: Performed By: #### L 3890.6300, L509.4005, L509.8000, L3890.6100, L3890.6005, BTS, L100.0100 ####[facility] [address] [place], [address] Hematocrit (Bld) [Volume fraction] 40.7 % Normal 37-47 [facility] Comment on above: Performed By: #### L 3890.6300, L509.4005, L509.8000, L3890.6100, L3890.6005, BTS, L100.0100 ####[facility] [address] [place], [address] Hemoglobin (Bld) [Mass/Vol] 13.3 g/dL Normal 12.0-15.0 [facility] Comment on above: Performed By: #### L 3890.6300, L509.4005, L509.8000, L3890.6100, L3890.6005, BTS, L100.0100 ####[facility] [address] [place], [address] IG% 0.300 Normal 0.0-0.9 [facility] Comment on above: Result Comment: IG% - Immature Granulocytes (promyelocytes, myelocytes and metamyelocytes) > 1% indicates that a LEFT SHIFT is Present. Performed By: #### L 3890.6300, L509.4005, L509.8000, L3890.6100, L3890.6005, BTS, L100.0100 ####[facility] [address] [place], [address] Lymphocytes/100 WBC (Bld) 15.6 % Low 19-41 [facility] Comment on above: Performed By: #### L 3890.6300, L509.4005, L509.8000, L3890.6100, L3890.6005, BTS, L100.0100 ####[facility] [address] [place], [address] MCH (RBC) [Entitic mass] 28.8 pg Normal 27.0-32.0 [facility] Comment on above: Performed By: #### L 3890.6300, L509.4005, L509.8000, L3890.6100, L3890.6005, BTS, L100.0100 ####[facility] [address] [place], [address] MCHC (RBC) [Mass/Vol] 32.7 g/dL Normal 32-36 [facility] Comment on above: Performed By: #### L 3890.6300, L509.4005, L509.8000, L3890.6100, L3890.6005, BTS, L100.0100 ####[facility] [address] [place], [address] MCV (RBC) [Entitic vol] 88.1 fL Normal 81-99 [facility] Comment on above: Performed By: #### L 3890.6300, L509.4005, L509.8000, L3890.6100, L3890.6005, BTS, L100.0100 ####[facility] [address] [place], [address] Monocytes/100 WBC (Bld) 4.9 % Normal 0-10 [facility] Comment on above: Performed By: #### L 3890.6300, L509.4005, L509.8000, L3890.6100, L3890.6005, BTS, L100.0100 ####[facility] [address] [place], [address] Neutrophils/100 WBC (Bld) 77.5 % High 47-70 [facility] Comment on above: Performed By: #### L 3890.6300, L509.4005, L509.8000, L3890.6100, L3890.6005, BTS, L100.0100 ####[facility] [address] [place], [address] Nucleated RBC (Bld) [#/Vol] 0 10*3/uL Normal 0-5 [facility] Comment on above: Performed By: #### L 3890.6300, L509.4005, L509.8000, L3890.6100, L3890.6005, BTS, L100.0100 ####[facility] [address] [place], [address] Platelet mean volume (Bld) [Entitic vol] 12.9 fL High 6.2-12.0 [facility] Comment on above: Performed By: #### L 3890.6300, L509.4005, L509.8000, L3890.6100, L3890.6005, BTS, L100.0100 ####[facility] [address] [place], [address] Platelets (Bld) [#/Vol] 183 10*3/uL Normal 150-450 [facility] Comment on above: Performed By: #### L 3890.6300, L509.4005, L509.8000, L3890.6100, L3890.6005, BTS, L100.0100 ####[facility] [address] [place], [address] RBC (Bld) [#/Vol] 4.62 10*6/uL Normal 4.2-5.4 [facility] Comment on above: Performed By: #### L 3890.6300, L509.4005, L509.8000, L3890.6100, L3890.6005, BTS, L100.0100 ####[facility] [address] [place], [address] RDW SD 41.2 fl Normal 35.1-43.9 [facility] Comment on above: Performed By: #### L 3890.6300, L509.4005, L509.8000, L3890.6100, L3890.6005, BTS, L100.0100 ####[facility] [address] [place], [place], [phone] WBC (Bld) [#/Vol] 9.6 10*3/uL Normal 4.4-11.0 [facility] Comment on above: Performed By: #### L 3890.6300, L509.4005, L509.8000, L3890.6100, L3890.6005, BTS, L100.0100 ####[facility] [address] [place], [address] Hepatitis B Surface Antigeno n 09-09-2024 HEP B Surf Ag Non-Reactive Normal Nonreactive [facility] Comment on above: Order Comment: Reaso n for Exam: Performed By: #### L 3890.6300, L509.4005, L509.8000, L3890.6100, L3890.6005, BTS, L100.0100 ####[facility] [address] [place], [place], [phone] Hepatitis C Antibodyon 09-09 Hepatitis C AB Non-Reactive Normal Nonreactive [facility] Comment on above: Order Comment: Reaso n for Exam: Result Comment: Non Reactive: < 0.8 Equivocal: >/= 0.8 to < 1.0 Reactive: >/= 1.0 The CDC requires that a reactive/equivocal HCV antibody result be sent out for confirmation. HCV Quant by PCR testing. Performed By: #### L 3890.6300, L509.4005, L509.8000, L3890.6100, L3890.6005, BTS, L100.0100 ####[facility] [address] [place], [address] L509.8000on 09-09-2024 Syphilis Abs Non-Reactive Normal [facility] Comment on above: Order Comment: Reaso n for Exam: Performed By: #### L 3890.6300, L509.4005, L509.8000, L3890.6100, L3890.6005, BTS, L100.0100 ####[facility] [address] [place], [place], [address] Resident Care Spec Office Visit Reporton 09-09-2024 Resident Care Spec Office Visit Report [facility] [address], [address] [place] [address] OFFICE VISIT Date of Service: 09/09/24 MR#: [id number] Acct: [id number] Name: GINO BAE Rep #: [id number] : 2000 Provider: JOSE Santos ams Age/Sex: 24/F [place] [facility] [place] Signed Intake Vital Signs 08/27/24 19:48 09/09/24 09:00 09/09/24 09:07 Height 5 ft 5 in 5 ft 5 in 5 ft 5 in Weight: 143 lb BMI 23.8 BP 127/83 H Intake Visit Reasons: LMP:06/27 BLUE:04/03 Optical Engineer Required: No Is patient in pain?: No [...] PFSH Medical History Migraine headache Surgical History Bayard teeth extracted Family History Grandfather Diabetes Maternal Mother Cancer Basal cell skin cancer Father Cancer Basal cell Skin cancer Aunt Cancer Maternal- Skin Melanoma Social History adopted: No household members: spouse current occupational status: employed 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 Normal [facility] Rubella IgGon 09-09-2024 Rubella IgG Reactive Normal Nonreactive [facility] Comment on above: Order Comment: Reaso n for Exam: Result Comment: Anti body Results Interpretation of Immune Status Non Reactive Presumed Non-Immune Equivocal Equivocal Reactive Presumed Immune Performed By: #### L 3890.6300, L509.4005, L509.8000, L3890.6100, L3890.6005, BTS, L100.0100 ####[facility] [address] [place], [address] Type AND Screenon 09-09-2024 Ab SCREEN GEL Negative Normal [facility] Comment on above: Order Comment: PN Performed By: #### L 3890.6300, L509.4005, L509.8000, L3890.6100, L3890.6005, BTS, L100.0100 ####[facility] [address] [place], [address] Urine Cultureon 08-29-2024 URC Culture exhibits no growth. Normal [facility] Comment on above: Performed By: #### M 100.2200 #### [facility] [address] [place], [address] CBC-Complete Blood Cnt No Di ffon 08-27-2024 Erythrocyte distribution width (RBC) [Ratio] 12.4 % Normal 11.6-14.6 [facility] Comment on above: Performed By: #### L 500.4050, L100.0500, L501.2450 ####[facility] [address] [place], [address] Hematocrit (Bld) [Volume fraction] 35.8 % Low 37-47 [facility] Comment on above: Performed By: #### L 500.4050, L100.0500, L501.2450 ####[facility] [address] [place], [address] Hemoglobin (Bld) [Mass/Vol] 12.1 g/dL Normal 12.0-15.0 [facility] Comment on above: Performed By: #### L 500.4050, L100.0500, L501.2450 ####[facility] [address] [place], [address] MCH (RBC) [Entitic mass] 29.5 pg Normal 27.0-32.0 [facility] Comment on above: Performed By: #### L 500.4050, L100.0500, L501.2450 ####[facility] [address] [place], [address] MCHC (RBC) [Mass/Vol] 33.8 g/dL Normal 32-36 [facility] Comment on above: Performed By: #### L 500.4050, L100.0500, L501.2450 ####[facility] [address] [place], [address] MCV (RBC) [Entitic vol] 87.3 fL Normal 81-99 [facility] Comment on above: Performed By: #### L 500.4050, L100.0500, L501.2450 ####[facility] [address] [place], [address] Platelet mean volume (Bld) [Entitic vol] 13.1 fL High 6.2-12.0 [facility] Comment on above: Performed By: #### L 500.4050, L100.0500, L501.2450 ####[facility] [address] [place], [address] Platelets (Bld) [#/Vol] 153 10*3/uL Normal 150-450 [facility] Comment on above: Performed By: #### L 500.4050, L100.0500, L501.2450 ####[facility] [address] [place], [address] RBC (Bld) [#/Vol] 4.10 10*6/uL Low 4.2-5.4 [facility] Comment on above: Performed By: #### L 500.4050, L100.0500, L501.2450 ####[facility] [address] [place], [address] RDW SD 39.5 fl Normal 35.1-43.9 [facility] Comment on above: Performed By: #### L 500.4050, L100.0500, L501.2450 ####[facility] [address] [place], [address] WBC (Bld) [#/Vol] 9.6 10*3/uL Normal 4.4-11.0 [facility] Comment on above: Performed By: #### L 500.4050, L100.0500, L501.2450 ####[facility] [address] [place], [address] Comprehensive Metabolic Prof [facility] 08-27-2024 Albumin [Mass/Vol] 3.6 g/dL Normal 3.2-5.0 [facility] Comment on above: Performed By: #### L 500.4050, L100.0500, L501.2450 ####[facility] [address] [place], [address] Albumin/Globulin [Mass ratio] 1.1 {ratio} Normal 0.9-2.4 [facility] Comment on above: Performed By: #### L 500.4050, L100.0500, L501.2450 ####[facility] [address] [place], [address] ALK P 60 U/L Normal 45-117 [facility] Comment on above: Performed By: #### L 500.4050, L100.0500, L501.2450 ####[facility] [address] [place], [address] ALT [Catalytic activity/Vol] 16 U/L Normal 13-56 [facility] Comment on above: Performed By: #### L 500.4050, L100.0500, L501.2450 ####[facility] [address] [place], [address] AST [Catalytic activity/Vol] 11 U/L Low 15-37 [facility] Comment on above: Performed By: #### L 500.4050, L100.0500, L501.2450 ####[facility] [address] [place], [address] Bilirubin [Mass/Vol] 0.30 mg/dL Normal 0.20-1.00 [facility] Comment on above: Result Comment: For patients on eltrombopag therapy, use of Dimension Fluker TBIL is not recommended. Performed By: #### L 500.4050, L100.0500, L501.2450 ####[facility] [address] [place], [address] BUN/CRE 17.2 RATIO Normal 10-20 [facility] Comment on above: Performed By: #### L 500.4050, L100.0500, L501.2450 ####[facility] [address] [place], [address] CA,Total 8.9 mg/dL Normal 8.5-10.1 [facility] Comment on above: Performed By: #### L 500.4050, L100.0500, L501.2450 ####[facility] [address] [place], [address] Chloride [Moles/Vol] 104 mmol/L Normal 98-107 [facility] Comment on above: Performed By: #### L 500.4050, L100.0500, L501.2450 ####[facility] [address] [place], [address] CO2 [Moles/Vol] 29.0 mmol/L Normal 21.0-32.0 [facility] Comment on above: Performed By: #### L 500.4050, L100.0500, L501.2450 ####[facility] [address] [place], [address] Creatinine [Mass/Vol] 0.52 mg/dL Low 0.55-1.02 [facility] Comment on above: Result Comment: The validity of the calculated GFR GFRAA in patients over 70 years has not been determined. Clinical correlation is essential. Performed By: #### L 500.4050, L100.0500, L501.2450 ####[facility] [address] [place], [address] EST GFR - AA 186 mL/min Normal >60 [facility] Comment on above: Result Comment: Afri can Armenian GFR Calc Performed By: #### L 500.4050, L100.0500, L501.2450 ####[facility] [address] [place], [address] GAP 6 Normal 5-15 [facility] Comment on above: Performed By: #### L 500.4050, L100.0500, L501.2450 ####[facility] [address] [place], [address] GFR/1.73 sq M.predicted among non-blacks MDRD (S/P/Bld) [Vol rate/Area] 154 mL/min/{1.73_m2} Normal >60 [facility] Comment on above: Result Comment: Non- GFR Calc Performed By: #### L 500.4050, L100.0500, L501.2450 ####[facility] [address] [place], [address] Globulin (S) [Mass/Vol] 3.4 g/dL Normal 2.2-4.2 [facility] Comment on above: Performed By: #### L 500.4050, L100.0500, L501.2450 ####[facility] [address] [place], [address] Glucose [Mass/Vol] 91 mg/dL Normal 74-106 [facility] Comment on above: Performed By: #### L 500.4050, L100.0500, L501.2450 ####[facility] [address]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 D 25 Hydroxyon 08-20 Vitamin D 25 Hydroxy 27.7 ng/mL Low 31.0-80.0 [facility] Comment on above: Result [...] EBVNA, MAGRBC, COPPER, ZINC, LEAD2, MMA, COMP4A ####[facility] [address] [place], [place] [phone]#### ASB, MERC2 ####[facility] [address] [place], [place] [phone] Zincon 08-20-2019 Zinc 68 ug/dL Normal 55-150 [facility] Comment on above: Result Comment: This test was developed and its performance characteristics determined by [facility]'s [facility] ( [facility]). It has not been cleared or approved by the FDA. [facility] is regulated under CLIA as qualified to perform high complexity testing. This test is used for clinical purposes. It should not be regarded as investigational or for research. Performed By: #### C BCDIF, FIBCT, CERULO, CMP, GGT, HSCRP, IRON, TRANSF, FERR, TSH, FREET3, FT4, HOMCYS, VITD, EBVEA, EBVG, EBVM, EBVNA, MAGRBC, COPPER, ZINC, LEAD2, MMA, COMP4A ####[facility] [address] [place], [place] [phone]#### ASB, MERC2 ####[facility] [address] [place], [place] [phone] OBSOLETEon 06-09-2019 OBSOLETE Refill (NEPNMN) ---- GINO BAE ([id number]) 2 F Date Time Provider Department 06/09/19 CHANEL PRADHAN During your visit today, we recorded the following information about you: Vanda Williamson [facility] 06/09/2019 11:24 AM Signed Pharmacy Fax Per Insurance [employer] 90 day supply order Drug: Clonidine HCl (CATAPRES) 0.1 mg tablet Generic Strength:0.1 mg tablet Current Dose: Take 2 tabs daily at night Pharmacy: [facility] Kayli 90 days Date of last visit:04.08.2019 [...] LVM requesting call back. Sigrid Galdamez RN [phone] Pager [phone] Per Mom- Clonidine was weaned off yesterday 06/08. No need for refill. Refill request denied. Sigrid Galdamez RN [phone] Pager [phone] Allergies As of Date: 06/09/2019 (Not on [...] Encounter Status:Closed by SIGRID GALDAMEZ on 06/09/19 [facility] OBSOLETEon 05-18-2019 OBSOLETE Refill (JOSE ARMANDO) ---- GINO BAE ([id number]) 2 F Date Time Provider Department 05/18/19 CHANEL PRADHAN During your visit today, we recorded the following information about you: Ezekiel Garciaers [facility] 05/18/2019 12:36 PM Signed Name of caller: Aide Relationship to patient: mom Contact number: [phone] Chief Complaint: Current Weight (Estimate): Reason for call: Mom is requesting a new script for the clonidine. Dr. Pradhan advised mom she could increase to two tabs daily if the symptoms continued. Mom needs a refill and its too soon so pharmacy is asking for script with new dosage. [phone] Sigrid Galdamez RN 05/18/2019 12:46 PM Addendum [...] Dr. Pradhan for approval. Sigrid Galdamez RN [phone] Pager [phone] Read and agree Chanel Pradhan, [facility] Sigrid Galdamez RN 05/18/2019 2:22 PM Signed The following approved medication requests have been transmitted electronically. Signed Prescriptions Disp Refills cloNIDine HCl (CATAPRES) 0.1 mg tablet 60 tablet 2 Sig: Take 2 tabs daily at night CLAUDE: No Authorizing Provider: CHANEL PRADHAN RN Allergies As of Date: 05/18/2019 (Not on File) Date Reviewed: 04/11/2019 Reviewed by: Chanel Pradhna - Fully Assessed Visit Diagnosis:Motor tic disorder [...] Encounter Status:Closed by CHANEL CHANG on 05/18/19 [facility] CNOVon 04-08-2019 CNOV Office Visit (NEPNMN) ---- GINO BAE ([id number]) 2 F Date Time Provider Department 04/08/19 2:30 PM LORNE SHANKS NEPNMN During your visit today, we recorded the following information about you: Pulse Blood pressure Weight Height 60/minute 94/76 54.9 kg 1.676 m Juancarlos Wilkinson DO 04/08/2019 5:09 PM Addendum Jess Hagan MD? [id number], [facility] [address]? Dear Dr. Hagan: Thank you for your [...] upper extremity. She was previously evaluated at [facility] and the movements were felt to be functional in nature. The movements have, however, persisted and she now presents to follow up after a recent ED visit as she was unable to get a sooner appointment at [facility] Neurology. Gino has a history of migraines and has been followed for this by Dr. Mat Patel in pediatric neurology at [facility]. She last saw Dr. Patel on [...] The symptoms lasted 20 minutes. During a [place] mission trip March,, Gino again had recurrent [...] 2019 the day after she arrived in [facility] for another mission trip. It is [...] poor living conditions noted on arrival to [facility] including cockroaches in food, moldy paul, [...] women were taken to a clinic in [facility] where they were given Valium to calm them. Blood and urine testing was reportedly normal. The three young women who were having symptoms were [place] the [place]. The other two young women are now symptom-free and the symptoms were felt to be related to anxiety/panic attacks as opposed to seizure. On March 18, 2019, Gino was seen in [facility] ED for ongoing abnormal movements and concerns for seizure-like activity. Vital signs were stable and work up, including anti-streptolysin titer, urine HCG, CBC. CK, UA. and CMP were normal, except for a slightly elevated total bilirubin of 1.2 (0.0-1.0) with normal AST/ALT. Urine toxicology screen was only positive for benzodiazepines (which she had been given in [facility]). She was treated with Benadryl 25 [...] well (mother describes episode early-on while at [employer] when her right upper extremity had drastic [...] scapula: this began at symptom onset in [facility]. Gino feels it is getting better. [...] by pediatric cardiology (Dr. Emily Garcia) at [facility] on February 18, 2019 for an asymptomatic murmur; and had a normal examination (no murmur heard) and echocardiogram. 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 She does very well at school with a 4.0 GPA. She is active and involved with [employer], [employer] (no longer doing), [employer], [email or web address], and [employer] leadership team. 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 + Recent stress during trip to [facility]. Hematology/Lympholo gy: Negative for prolonged bleeding, [...] There is no motor impersistence on hand machine zipper trimmer or minimyoclonus of the fingers when arms [...] young women on her recent trip to [facility]) it is difficult to exclude underlying [...] in June and Gino will need termite treater ongoing care, her care will need to [...] Juancarlos Wilkinson, DO Neurology Resident for Chanel Pradhan, [facility] Staff, Pediatric Neurology [facility] STAFF PHYSICIAN NOTE OF PERSONAL INVOLVEMENT IN CARE I have reviewed and edited the consult note obtained and documented by the fellow and I personally participated in the tong components and examination of this patient. I have discussed the case and management of Gino' care with Gino, her mother, and the resident. Chanel Pradhan, [facility] These final recommendations will be communicated back to the requesting physician by way of shared medical record or letter to the requesting physician by [place] mail. C: Family, PCP Juancarlos Wilkinson, 04/08/2019 4:46 PM Signed -Start Clonidine 0.5 [...] attacks [F41.0] Anxiety [F41.9] Order(s):EPIL EEG ROUTINE [[id number]] Order #: [id number]: 1 FUTURE cloNIDine HCl (CATAPRES) 0.1 mg [...] Disposition History Recorded Encounter Status:Closed [facility] on 04/11/19 [facility] PROGRESSon 04-08-2019 PROGRESS HNO ID: [id number] Author: Juancarlos Wilkinson Service: ? Author Type: Resident Type: Progress Notes Filed: 04/11/2019 9:12 AM Note Text: Jess Hagan MD? [id number], [facility] [address]? Dear Dr. Hagan: Thank you for your [...] upper extremity. She was previously evaluated at [facility] and the movements were felt to be functional in nature. The movements have, however, persisted and she now presents to follow up after a recent ED visit as she was unable to get a sooner appointment at [facility] Neurology. Gino has a history of migraines and has been followed for this by Dr. Mat Patel in pediatric neurology at [facility]. She last saw Dr. Patel on [...] The symptoms lasted 20 minutes. During a [place] mission trip March,, Gino again had recurrent [...] 2019 the day after she arrived in [facility] for another mission trip. It is [...] poor living conditions noted on arrival to [facility] including cockroaches in food, moldy paul, [...] women were taken to a clinic in [facility] where they were given Valium to calm them. Blood and urine testing was reportedly normal. The three young women who were having symptoms were brought [place] the [place]. The other two young women are now symptom-free and the symptoms were felt to be related to anxiety/panic attacks as opposed to seizure. On March 18, 2019, Gino was seen in [facility] ED for ongoing abnormal movements and concerns for seizure-like activity. Vital signs were stable and work up, including anti-streptolysin titer, urine HCG, CBC. CK, UA. and CMP were normal, except for a slightly elevated total bilirubin of 1.2 (0.0-1.0) with normal AST/ALT. Urine toxicology screen was only positive for benzodiazepines (which she had been given in [facility]). She was treated with Benadryl 25 [...] well (mother describes episode early-on while at [employer] when her right upper extremity had drastic [...] scapula: this began at symptom onset in [facility]. Gino feels it is getting better. [...] by pediatric cardiology (Dr. Emily Garcia) at [facility] on February 18, 2019 for an asymptomatic murmur; and had a normal examination (no murmur heard) and echocardiogram. 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 She does very well at school with a 4.0 GPA. She is active and involved with [employer], [employer] (no longer doing), [employer], and [employer] leadership team. 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 + Recent stress during trip to [facility]. Hematology/Lympholo gy: Negative for prolonged bleeding, [...] There is no motor impersistence on hand machine zipper trimmer or minimyoclonus of the fingers when arms [...] young women on her recent trip to [facility]) it is difficult to exclude underlying [...] clinic in June and Gino will need fdc ongoing care, her care will need to [...] Sincerely, Juancarlos Wilkinson, DO Neurology Resident for LARRY Woodall Staff, Pediatric Neurology [facility] STAFF PHYSICIAN NOTE OF PERSONAL INVOLVEMENT [...] by [place] mail. C: Family, PCP Normal [facility] Vital Signs Date Time Vital Sign Value Performing Clinician Facility 03-27-2025 11:04040 Heart rate 87 /min Yuliana ESPINOZA Work Phone: [facility] 03-27-2025 11:04-0400 SaO2% (BldA) [Mass fraction] 92 % Yuliana Gonzalez [employer] Work Phone: 2(410)597-094778 [place] [address] 03-27-2025 09:54-0400 Respiratory rate 16 /min Yuliana Gonzalez [employer] Work Phone: 5(240)695-622703 [place] [address] 03-27-2025 09:11-0400 Body temperature 97.5 [degF] Yuliana Gonzalez [employer] Work Phone: 9(804)352-819403 [place] [address] 03-27-2025 09:11-0400 Diastolic blood pressure 68 mm[Hg] Yuliana Gonzalez [employer] Work Phone: 8(036)675-106803 [place] [address] 03-27-2025 09:11-0400 Systolic blood pressure 128 mm[Hg] Yuliana Gonzalez [employer] Work Phone: 9(738)261-662803 [place] [address] 03-27-2025 08:59-0400 Body height 165.1 cm Yuliana Gonzalez [employer] Work Phone: 4(696)735-452203 [place] [address] 03-27-2025 08:59-0400 Body mass index (BMI) [Ratio] 32.6 kg/m2 Yuliana Gonzalez [employer] Work Phone: 8(360)029-541803 [place] [address] 03-27-2025 08:59-0400 Body weight 88.99 kg Yuliana Gonzalez [employer] Work Phone: 0(658)238-327678 [place] [address] 03-25-2025 10:08-0400 Body height 165.1 cm Yuliana Gonzalez [employer] Work Phone: 8(300)128-258578 [place] [address] 03-25-2025 10:08-0400 Body mass index (BMI) [Ratio] 32.7 kg/m2 Yuliana Gonzalez [employer] Work Phone: 5(929)009-548478 [place] [address] 03-25-2025 10:08-0400 Body weight 89.13 kg Yuliana Gonzalez [employer] Work Phone: 4(017)061-166878 [place] [address] 03-25-2025 10:08-0400 Diastolic blood pressure 67 mm[Hg] Yuliana Gonzalez [employer] Work Phone: [facility] 03-25-2025 10:08-0400 Systolic blood pressure 123 mm[Hg] Yuliana Gonzalez [employer] Work Phone: 5(914)489-752978 [place] [address] 03-18-2025 09:31-0400 Body height 165.1 cm Yuliana Gonzalez [employer] Work Phone: 9(357)372-105003 [place] [address] 03-18-2025 09:31-0400 Body mass index (BMI) [Ratio] 32.4 kg/m2 Yuliana Gonzalez [employer] Work Phone: 4(613)290-049003 [place] [address] 03-18-2025 09:31-0400 Body weight 88.45 kg Yuliana Gonzalez [employer] Work Phone: 7(932)847-003603 [place] [address] 03-18-2025 09:31-0400 Diastolic blood pressure 83 mm[Hg] Yuliana Gonzalez [employer] Work Phone: 7(197)624-819103 [place] [address] 03-18-2025 09:31-0400 Systolic blood pressure 139 mm[Hg] Yuliana Gonzalez [employer] Work Phone: 0(311)003-718003 [place] [address] 03-10-2025 15:34-0400 Body height 165.1 cm Yuliana Gonzalez [employer] Work Phone: 0(518)678-162703 [place] [address] 03-10-2025 15:34-0400 Body mass index (BMI) [Ratio] 32.5 kg/m2 Yuliana Gonzalez [employer] Work Phone: 0(971)412-197703 [place] [address] 03-10-2025 15:34-0400 Body weight 88.56 kg Yuliana Gonzalez [employer] Work Phone: 0(467)250-727803 [place] [address] 03-10-2025 15:34-0400 Diastolic blood pressure 82 mm[Hg] Yuliana Gonzalez [employer] Work Phone: 1(099)131-518103 [place] [address] 03-10-2025 15:34-0400 Systolic blood pressure 138 mm[Hg] Yuliana Gonzalez [employer] Work Phone: 8(477)115-973803 [place] [address] 02-24-2025 08:59-0400 Body height 165.1 cm Yuliana Gonzalez [employer] Work Phone: [facility] 02-24-2025 08:59-0400 Body mass index (BMI) [Ratio] 31.4 kg/m2 Yuliana Gonzalez [employer] Work Phone: [facility] 02-24-2025 08:59-0400 Body weight 85.84 kg Yuliana Gonzalez [employer] Work Phone: 8(254)528-571178 [place] [address] 02-24-2025 08:59-0400 Diastolic blood pressure 69 mm[Hg] Yuliana Gonzalez [employer] Work Phone: 2(102)063-999403 [place] [address] 02-24-2025 08:59-0400 Systolic blood pressure 103 mm[Hg] Yuilana Gonzalez [employer] Work Phone: 7(352)226-432503 [place] [address] 02-10-2025 08:47-0400 Body height 165.1 cm Yuliana Gonzalez [employer] Work Phone: 6(787)838-012303 [place] [address] 02-10-2025 08:47-0400 Body mass index (BMI) [Ratio] 31.4 kg/m2 Yuliana Gonzalez [employer] Work Phone: 2(763)332-411803 [place] [address] 02-10-2025 08:47-0400 Body weight 85.78 kg Yuliana Gonzalez [employer] Work Phone: 3(619)300-511503 [place] [address] 02-10-2025 08:47-0400 Diastolic blood pressure 83 mm[Hg] Yuliana Gonzalez [employer] Work Phone: 5(252)475-042203 [place] [address] 02-10-2025 08:47-0400 Systolic blood pressure 115 mm[Hg] Yuliana Gonzalez [employer] Work Phone: 7(783)434-743803 [place] [address] 01-26-2025 08:35-0400 Body height 165.1 cm Yuliana Gonzalez [employer] Work Phone: 1(519)846-734503 [place] [address] 01-26-2025 08:35-0400 Body mass index (BMI) [Ratio] 31.3 kg/m2 Yuliana Gonzalez [employer] Work Phone: 9(596)460-831103 [place] [address] 01-26-2025 08:35-0400 Body weight 85.38 kg Yuliana Gonzalez [employer] Work Phone: [facility] 01-26-2025 08:35-0400 Diastolic blood pressure 72 mm[Hg] Yuliana Gonzalez [employer] Work Phone: [facility] 01-26-2025 08:35-0400 Systolic blood pressure 126 mm[Hg] Yuliana Gonzalez [employer] Work Phone: [facility] 01-07-2025 10:18-0400 Body height 165.1 cm Yuliana Gonzalez [employer] Work Phone: 8(191)458-627478 [place] [address] 01-07-2025 10:18-0400 Body mass index (BMI) [Ratio] 30.2 kg/m2 Yuliana Gonzalez [employer] Work Phone: 8(987)379-216178 [place] [address] 01-07-2025 10:18-0400 Body weight 82.55 kg Yuliana Gonzalez [employer] Work Phone: 1(813)053-121978 [place] [address] 01-07-2025 10:18-0400 Diastolic blood pressure 81 mm[Hg] Yuliana Gonzalez [employer] Work Phone: 2(214)804-150878 [place] [address] 01-07-2025 10:18-0400 Systolic blood pressure 127 mm[Hg] Yuliana Gonzalez [employer] Work Phone: 2(984)489-419878 [place] [address] 12-03-2024 10:15-0400 Body mass index (BMI) [Ratio] 28.5 kg/m2 Yuliana Gonzalez [employer] Work Phone: [facility] 12-03-2024 10:15-0400 Body weight 77.73 kg Yuliana Gonzalez [employer] Work Phone: 1(776)156-550678 [place] [address] 12-03-2024 10:15-0400 Diastolic blood pressure 77 mm[Hg] Yuliana Gonzalez [employer] Work Phone: 1(980)557-673978 [place] [address] 12-03-2024 10:15-0400 Systolic blood pressure 120 mm[Hg] Yuliana Gonzalez [employer] Work Phone: 8(679)711-519178 [place] [address] 11-05-2024 11:42-0500 Body mass index (BMI) [Ratio] 27.3 kg/m2 Yuliana Gonzalez [employer] Work Phone: 1(830)439-597378 [place] [address] 11-05-2024 11:42-0500 Body weight 74.38 kg Yuliana Gonzalez [employer] Work Phone: 4(248)257-953203 [place] [address] 11-05-2024 11:42-0500 Diastolic blood pressure 81 mm[Hg] Yuliana Gonzalez [employer] Work Phone: 0(791)278-203103 [place] [address] 11-05-2024 11:42-0500 Systolic blood pressure 134 mm[Hg] Yuliana Gonzalez [employer] Work Phone: 8(552)633-562103 [place] [address] 10-07-2024 11:33-0500 Body mass index (BMI) [Ratio] 25.4 kg/m2 Yuliana Gonzalez [employer] Work Phone: 3(923)896-191803 [place] [address] 10-07-2024 11:33-0500 Body weight 69.45 kg Yuliana Gonzalez [employer] Work Phone: 8(634)626-390103 [place] [address] 10-07-2024 11:33-0500 Diastolic blood pressure 73 mm[Hg] Yuliana Gonzalez [employer] Work Phone: 1(839)324-040303 [place] [address] 10-07-2024 11:33-0500 Systolic blood pressure 120 mm[Hg] Yuliana Gonzalez [employer] Work Phone: 3(852)317-162103 [place] [address] 09-28-2024 07:45-0500 Body height 166.4 cm Yuliana Gonzalez [employer] ENGINEER[employer]ABLE TELEVISION PROGRAM DIRECTOR Work Phone: 7(299)122-868415 [place] [address] 09-28-2024 07:45-0500 Body mass index (BMI) [Ratio] 24.91 kg/m2 Yuliana Gonzalez [employer] ENGINE[employer]ABLE TELEVISION PROGRAM DIRECTOR Work Phone: 8(309)762-278515 [place] [address] 09-28-2024 07:45-0500 Body weight 68.95 kg Yuliana Gonzalez [employer] ENGINEER[employer]ABLE TELEVISION PROGRAM DIRECTOR Work Phone: 0(440)706-710515 [place] [address] 09-28-2024 07:45-0500 Diastolic blood pressure 80 mm[Hg] Yuliana Gonzalez [employer] ENGINEER-[employer]ABLE TELEVISION PROGRAM DIRECTOR Work Phone: [facility] 09-28-2024 07:45-0500 Heart rate 72 /min Yuliana Gonzalez [employer] ENGINEER-CABLE TELEVISION PROGRAM DIRECTOR Work Phone: [facility] 09-28-2024 07:45-0500 Systolic blood pressure 138 mm[Hg] Yuliana Gonzalez [employer] ENGINEER-CABLE TELEVISION PROGRAM DIRECTOR Work Phone: [facility] 07-13-2024 07:18-0500 Body height 166.4 cm Yuliana Gonzalez [employer] ENGINEER[employer]ABLE TELEVISION PROGRAM DIRECTOR Work Phone: [facility] 07-13-2024 07:18-0500 Body mass index (BMI) [Ratio] 23.02 kg/m2 Yuliana Gonzalez [employer] ENGINEER[employer]ABLE TELEVISION PROGRAM DIRECTOR Work Phone: [facility] 07-13-2024 07:18-0500 Body weight 63.73 kg Yuliana Gonzalez [employer] ENGINEER[employer]ABLE TELEVISION PROGRAM DIRECTOR Work Phone: [facility] 07-13-2024 07:18-0500 Diastolic blood pressure 80 mm[Hg] Yuliana Gonzalez [employer] ENGINEER-CABLE TELEVISION PROGRAM DIRECTOR Work Phone: [facility] 07-13-2024 07:18-0500 Heart rate 82 /min Yuliana Gonzalez [employer] ENGINEER[employer]ABLE TELEVISION PROGRAM DIRECTOR Work Phone: [facility] 07-13-2024 07:18-0500 Systolic blood pressure 124 mm[Hg] Yuliana Gonzalez [employer] ENGINEER-CABLE TELEVISION PROGRAM DIRECTOR Work Phone: [facility] Encounters Encounter Date Encounter Type Care Provider Facility Start: 03-27-2025 End: 03-27-2025 ambulatory Yuliana Gonzalez NP-C Work Phone: -[facility] Start: 03-27-2025 End: 03-27-2025 Patient encounter procedure Autumn Jacome CNM -[facility] Work Phone: Start: 03-25-2025 End: 03-25-2025 Patient encounter procedure Autumn Jacome CNM -[facility] Work Phone: Start: 03-25-2025 End: 03-25-2025 ambulatory Yuliana Gonzalez [employer]C Work Phone: -[facility] Start: 03-22-[address] Marissa Aquino MD -[facility] Work Phone: Start: 03-22-2025 ambulatory Yuliana Gonzalez Facility:[facility] Start: 03-18-2025 End: 03-18-[address] Marissa Aquino MD -[facility] Work Phone: Start: 03-18-2025 End: 03-18-2025 ambulatory Yuliana Gonzalez [employer] Work Phone: [facility] Start: 03-10-2025 End: 03-10-2025 ambulatory Yuliana Gonzalez [employer] Work Phone: -Laboratory Specimen Start: 03-10-2025 End: 03-10-[address] Rufina Weiss DO -Laboratory Specimen Work Phone: Start: 03-10-2025 End: 03-10-[address] Rufina Weiss DO -[facility] Work Phone: Start: 03-10-2025 End: 03-10-2025 ambulatory Yuliana Gonzalez [employer] Work Phone: [facility] Start: 03-10-2025 End: 03-10-2025 ambulatory Rufina Weiss Facility:[facility] Start: 02-24-2025 End: 02-24-[address] Marissa Aquino MD -[facility] Work Phone: Start: 02-24-2025 End: 02-24-2025 ambulatory Yuliana Gonzalez [employer]C Work Phone: [facility] Work Phone: Start: 02-15-2025 End: 02-15-2025 ambulatory Yuliana Gonzalez [employer]C Work Phone: [facility] Work Phone: Start: 02-15-2025 End: 02-15-2025 Patient encounter procedure Autumn M[facility]RQUEZM -[facility] Start: 02-15-2025 End: 02-15-2025 ambulatory Autumn Jacome Facility:[facility] Start: 02-11-2025 End: 02-11-2025 ambulatory Yuliana Gonzalez [employer]C Work Phone: [facility] Work Phone: Start: 02-11-2025 End: 02-11-2025 Patient encounter procedure Autumn Jacome CNM -[facility] Work Phone: Start: 02-10-2025 End: 02-11-2025 ambulatory Yuliana Gonzalez [employer]C Work Phone: [facility] Work Phone: Start: 02-10-2025 End: 02-10-2025 Patient encounter procedure Autumn Jacome CNM -[facility] Work Phone: Start: 01-26-2025 End: 01-26-2025 Patient encounter procedure Kristen Parker [employer]C -[facility] Work Phone: Start: 01-26-2025 End: 01-26-2025 ambulatory Yuliana Gonzalez [employer] Work Phone: [facility] Work Phone: Start: 01-07-2025 End: 01-07-2025 Patient encounter procedure Autumn MÁRQUEZM -[facility] Work Phone: Start: 01-07-2025 End: 01-07-2025 ambulatory Yuliana Gonzalez [employer]C Work Phone: [facility] Work Phone: Start: 01-07-2025 End: 01-07-2025 ambulatory Marissa Aquino Facility:[facility] Start: 12-31-2024 ambulatory Lore Staley y:[facility] Start: 12-03-2024 End: 12-03-[address] Rufina Weiss DO -[facility] Work Phone: Start: 12-03-2024 End: 12-03-2024 ambulatory Rufina Weiss Facility:[facility] Start: 11-09-2024 End: 11-09-2024 ambulatory JOSSELIN PETRA [facility] Start: 11-05-2024 End: 11-05-2024 Patient encounter procedure Autumn MÁRQUEZ -[facility] Work Phone: Start: 11-05-2024 End: 11-05-2024 ambulatory Yuliana Gonzalez Facility:[facility] Start: 10-07-2024 End: 10-07-[address] Rufina Weiss DO -[facility] Work Phone: Start: 10-07-2024 End: 10-07-2024 ambulatory Rufina Weiss Facility:[facility] Start: 09-28-2024 End: 09-28-2024 Office outpatient visit 15 minutes Yuliana Gonzalez W[employer]OWS SYSTEMS ENGINEER-CABLE TELEVISION PROGRAM DIRECTOR Work Phone: [facility] Comment on above: Persistent depressiv e disorder; Anxiety Start: 09-28-2024 End: 09-28-2024 ambulatory [facility] Start: 09-09-2024 End: 09-09-2024 ambulatory Yuliana Benton [facility] Start: 09-09-2024 End: 09-09-2024 ambulatory Yuliana Benton Facility:[facility] Start: 08-27-2024 End: 08-27-2024 Emergency department patient visit Ivan Abrams Facility:[facility] Start: 07-13-2024 End: 07-13-2024 Initial preventive medicine new pt age 18-39yrs Yuliana Gonzalez W[employer]OWS SYSTEMS ENGINEER-CABLE TELEVISION PROGRAM DIRECTOR Work Phone: [facility] Comment on above: Wellness examination (Primary Dx); Dysuria; Persistent depressive disorder; Migraine without aura and without status migrainosus, not intractable; Screening for lipid disorders; BMI 23.0-23.9, adult Start: 07-13-2024 End: 07-13-2024 Patient encounter status Yuliana Gonzalez W[employer]OWS SYSTEMS ENGINEER-CABLE TELEVISION PROGRAM DIRECTOR Work Phone: [facility] Work Phone: Start: 07-13-2024 End: 07-13-2024 ambulatory YULIANA GONZALEZ [facility]ulatory Start: 07-13-2024 End: 07-13-2024 Encounter for general adult medical examination without abnormal findings YULIANA GONZALEZ [facility] Start: 01-01-2024 End: 01-01-2024 ambulatory BOAZ SCHULTZ Facility:[facility] Start: 02-13-2018 End: 02-14-2018 Ambulatory [facility] Procedures Date Procedure Procedure Detail Performing Clinician Start: 03-22-2025 Ultrasound scan for growth Yuliana Gonzalez [employer] Work Phone: Start: 03-10-2025 Beta-hemolytic Streptococcus culture Yuliana Vincenzo [employer]C Work Phone: Start: 02-11-2025 Ultrasound scan for growth Yuliana Gonzalez [employer] TE[employer] Work Phone: Start: 01-07-2025 Serologic test for syphilis Yuliana Gonzalez [employer] TE[employer]C Work Phone: Start: 09-09-2024 Microscopic observat ion [Identifier] in Cervix by Cyto stain Yuliana Gonzalez [employer]OWS SYSTEM[employer] ENGINEER-CABLE TELEVISION PROGRAM DIRECTOR Work Phone: Start: 07-13-2024 Urnls dip stick/tabl et rgnt auto w/o microscopy Yuliana Gonzalez [employer]INDOWS SYSTEMS ENGINEER-CABLE TELEVISION PROGRAM DIRECTOR Work Phone: Plan of Treatment Date Care Activity Detail Author Start: 2076 RSV High Risk: (Elde rly (60+) or Population) (1 - 1-dose 75+ series) RSV High Risk: (Elderly (60+) or Population) (1 - 1-dose 75+ series) [facility] Start: 2051 Zoster Vaccines (1 of 2) Zoste r Vaccines (1 of 2) [facility] Start: 09-09-2027 Screening for malign ant neoplasm of cervix [facility] Start: 07-14-2025 Yearly Adult Physical Yearly Adult P hysical [facility] Start: 04-01-2025 ambulatory Ambulatory Facility:[facility] Start: 03-27-2025 Nonstress test [facility] Start: 03-27-2025 Obstetric monitoring [facility] Start: 03-27-2025 Vital signs measurements [facility] Start: 03-27-2025 [facility] Start: 03-27-2025 Patient discharge [facility] Start: 07-13-2024 End: 07-13-2025 CBC W Auto Differential panel - Blood CBC and Auto Differential Lab Routine Wellness examination Expected: 07/13/2024 (Approximate), Expires: 07/13/2025 [facility] Service Area Work Phone: Comment on above: Expected: 07/13/2024 (Approximate), Expires: 07/13/2025 Start: 07-13-2024 End: 07-13-2025 Comprehensive metabolic 2000 panel - Serum or Plasma Comprehensive Metabolic Panel Lab Routine Wellness examination Expected: 07/13/2024 (Approximate), Expires: 07/13/2025 [facility] Work Phone: Comment on above: Expected: 07/13/2024 (Approximate), Expires: 07/13/2025 Start: 07-13-2024 End: 07-13-2025 Lipid 1996 panel - Serum or Plasma Lipid Panel Lab Routine Screening for lipid disorders Wellness examination Expected: 07/13/2024 (Approximate), Expires: 07/13/2025 [facility] Work Phone: Comment on above: Expected: 07/13/2024 (Approximate), Expires: 07/13/2025 Start: 05-02-2024 COVID-19 Vaccine ( season) COVID-19 Vaccine ( season) [facility] Start: 05-02-2024 Influenza vaccination Influenza Vacc ine (#1) [facility] Start: 02-05-2024 DTaP/Tdap/Td Vaccine s (7 - Td or Tdap) DTaP/Tdap/Td Vaccines (7 - Td or Tdap) [facility] Start: 2022 Screening for malign ant neoplasm of cervix [facility] Start: 2019 Hepatitis C screening Hepatitis C Sc reening [facility] Start: 2016 HPV Vaccines (1 - 3- dose series) HPV Vaccines (1 - 3-dose series) [facility] Start: 2001 HIV screening HIV Screening [facility] Start: 2001 Lipid panel Lipid Panel [facility] Patient Education Kick Counts ED False Labor OB Triage: Return to Hospital or Notify Physician if you Experience: [facility] Work Phone: Streptococcus agalac tiae [Presence] in Unspecified specimen by Organism specific culture [facility] Ultrasound scan for growth [facility] Ultrasound scan for growth [facility] Immunizations Immunization Date Immunization Notes Care Provider Fa pankaj 02-10-2025 tetanus toxoid, redu gordon diphtheria toxoid, and acellular pertussis vaccine, adsorbed Yuliana Gonzalez [employer] TESTER-C Work Phone: [facility] 01-14-2022 tuberculin skin test ; purified protein derivative solution, intradermal Yuliana Gonzalez WINDOWS SYSTEMS ENGINEER-CABLE TELEVISION PROGRAM DIRECTOR Work Phone: [facility] Work Phone: 05-31-2019 meningococcal B vacc ine, recombinant, OMV, adjuvanted Yuliana Gonzalez WINDOWS SYSTEMS ENGINEER-CABLE TELEVISION PROGRAM DIRECTOR Work Phone: [facility] Work Phone: 02-12-2019 meningococcal B vacc ine, recombinant, OMV, adjuvanted Yuliana Gonzalez WINDOWS SYSTEMS ENGINEER-CABLE TELEVISION PROGRAM DIRECTOR Work Phone: [facility] Work Phone: 02-12-2019 meningococcal polysaccharide (groups A, C, Y and W-135) diphtheria toxoid conjugate vaccine (MCV4P) Yuliana Gonzalez WINDOWS SYSTEMS ENGINEER-CABLE TELEVISION PROGRAM DIRECTOR Work Phone: [facility] Work Phone: 02-07-2017 hepatitis A vaccine, pediatric/adolescent dosage, 2 dose schedule Yuliana Gonzalez WINDOWS SYSTEMS ENGINEER-CABLE TELEVISION PROGRAM DIRECTOR Work Phone: [facility] Work Phone: 02-07-2017 typhoid capsular polysaccharide vaccine Yulianaeber Gonzalez WINDOWS SYSTEMS ENGINEER-CABLE TELEVISION PROGRAM DIRECTOR Work Phone: [facility] Work Phone: 03-01-2016 hepatitis A vaccine, pediatric/adolescent dosage, 2 dose schedule Yulianaeber Gonzalez WINDOWS SYSTEMS ENGINEER-CABLE TELEVISION PROGRAM DIRECTOR Work Phone: [facility] Work Phone: 03-01-2016 typhoid capsular polysaccharide vaccine Yulianaeber Gonzalez WINDOWS SYSTEMS ENGINEER-CABLE TELEVISION PROGRAM DIRECTOR Work Phone: [facility] Work Phone: 04-27-2015 pneumococcal polysaccharide vaccine, 23 valent Yulianaeber Gonzalez WINDOWS SYSTEMS ENGINEER-CABLE TELEVISION PROGRAM DIRECTOR Work Phone: [facility] Work Phone: 02-04-2014 meningococcal polysaccharide (groups A, C, Y and W-135) diphtheria toxoid conjugate vaccine (MCV4P) Yuliana Gonzalez WINDOWS SYSTEMS ENGINEER-[facility] Work Phone: [facility] Work Phone: 02-04-2014 tetanus toxoid, redu gordon diphtheria toxoid, and acellular pertussis vaccine, adsorbed Yuliana Gonzalez WINDOWS SYSTEMS ENGINEER-[facility] Work Phone: [facility] Work Phone: 08-31-2008 varicella virus vaccine Jamar Gonzalez WINDOWS SYSTEMS ENGINEER-[facility] Work Phone: [facility] Work Phone: 11-01-2005 diphtheria, tetanus toxoids and acellular pertussis vaccine Yuliana Gonzalez WINDOWS SYSTEMS ENGINEER-[facility] Work Phone: [facility] Work Phone: 11-01-2005 measles, mumps and rubella virus vaccine Yuliana Gonzalez WINDOWS SYSTEMS ENGINEER-[facility] Work Phone: [facility] Work Phone: 11-01-2005 poliovirus vaccine, inactivated Yuliana Gonzalez WINDOWS SYSTEMS ENGINEER-CABLE TELEVISION PROGRAM DIRECTOR Work Phone: [facility] Work Phone: 11-19-2002 diphtheria, tetanus toxoids and acellular pertussis vaccine Yuliana Gonzalez WINDOWS SYSTEMS ENGINEER-CABLE TELEVISION PROGRAM DIRECTOR Work Phone: [facility] Work Phone: 08-23-2002 measles, mumps and rubella virus vaccine Yuliana Gonzalez WINDOWS SYSTEMS ENGINEER-CABLE TELEVISION PROGRAM DIRECTOR Work Phone: [facility] Work Phone: 05-24-2002 haemophilus influenz ae type b vaccine, PRP-T conjugate Yuliana Gonzalez WINDOWS SYSTEMS ENGINEER-CABLE TELEVISION PROGRAM DIRECTOR Work Phone: [facility] Work Phone: 05-24-2002 hepatitis B vaccine, pediatric or pediatric/adolescent dosage Yuliana Gonzalez WINDOWS SYSTEMS ENGINEER-CABLE TELEVISION PROGRAM DIRECTOR Work Phone: [facility] Work Phone: 05-24-2002 varicella virus vaccine Jamar Gonzalez WINDOWS SYSTEMS ENGINEER-CABLE TELEVISION PROGRAM DIRECTOR Work Phone: [facility] Work Phone: 03-01-2002 haemophilus influenz ae type b vaccine, PRP-T conjugate Yuliana Gonzalez WINDOWS SYSTEMS ENGINEER-CABLE TELEVISION PROGRAM DIRECTOR Work Phone: [facility] Work Phone: 03-01-2002 poliovirus vaccine, inactivated Yuliana Gonzalez WINDOWS SYSTEMS ENGINEER-CABLE TELEVISION PROGRAM DIRECTOR Work Phone: [facility] Work Phone: 2001 diphtheria, tetanus toxoids and acellular pertussis vaccine Yuliana Gonzalez WINDOWS SYSTEMS ENGINEER-CABLE TELEVISION PROGRAM DIRECTOR Work Phone: [facility] Work Phone: 2001 pneumococcal conjuga te vaccine, 7 valent Yuliana Gonzalez WINDOWS SYSTEMS ENGINEER-[facility] Work Phone: [facility] Work Phone: 2001 diphtheria, tetanus toxoids and acellular pertussis vaccine Yuliana Gonzalez WINDOWS SYSTEMS ENGINEER-CABLE TELEVISION PROGRAM DIRECTOR Work Phone: [facility] Work Phone: 2001 haemophilus influenz ae type b vaccine, PRP-T conjugate Yuliana Gonzalez WINDOWS SYSTEMS ENGINEER-CABLE TELEVISION PROGRAM DIRECTOR Work Phone: [facility] Work Phone: 2001 pneumococcal conjuga te vaccine, 7 valent Yuliana Gonzalez WINDOWS SYSTEMS ENGINEER-CABLE TELEVISION PROGRAM DIRECTOR Work Phone: [facility] Work Phone: 2001 poliovirus vaccine, inactivated Yuliana Gonzalez WINDOWS SYSTEMS ENGINEER-CABLE TELEVISION PROGRAM DIRECTOR Work Phone: [facility] Work Phone: 2001 diphtheria, tetanus toxoids and acellular pertussis vaccine Yuliana Gonzalez WINDOWS SYSTEMS ENGINEER-CABLE TELEVISION PROGRAM DIRECTOR Work Phone: [facility] Work Phone: 2001 haemophilus influenz ae type b vaccine, PRP-T conjugate Yuliana Gonzalez WINDOWS SYSTEMS ENGINEER-CABLE TELEVISION PROGRAM DIRECTOR Work Phone: [facility] Work Phone: 2001 hepatitis B vaccine, pediatric or pediatric/adolescent dosage Yuliana Gonzalez WINDOWS SYSTEMS ENGINEER-CABLE TELEVISION PROGRAM DIRECTOR Work Phone: [facility] Work Phone: 2001 pneumococcal conjuga te vaccine, 7 valent Yuliana Gonzalez WINDOWS SYSTEMS ENGINEER-CABLE TELEVISION PROGRAM DIRECTOR Work Phone: [facility] Work Phone: 2001 poliovirus vaccine, inactivated Yuliana Gonzalez WINDOWS SYSTEMS ENGINEER-CABLE TELEVISION PROGRAM DIRECTOR Work Phone: [facility] Work Phone: 2001 hepatitis B vaccine, pediatric or pediatric/adolescent dosage Yuliana Gonzalez WINDOWS SYSTEMS ENGINEER-CABLE TELEVISION PROGRAM DIRECTOR Work Phone: [facility] Work Phone: Payers Date Payer Category Payer Self-pay 2023 [facility] [id number] 2001 Unknown [id number] 2001 Unknown [id number] [id number]9 2001 Unknown [id number] 2.16.840.1.533192.3.579.2.1244 2001 Unknown [id number] 2.16.840.1.505423.3.579.2.1244 1959 Unknown [id number] 1959 Unknown [id number] Unknown [id number] [id number] Unknown [id number] 2.840.1.874387.3.579.2.462 Unknown [id number] 2.16.840.1.367007.3.579.2.462 Unknown [id number] 2.16.840.1.271469.3.579.2.462 Unknown [id number] 2.16840.1.320275.3.579.2.462 Unknown [id number] 2.16840.1.017958.3.579.2.462 Unknown [id number] 2.16840.1.104902.3.579.2.462 Unknown [id number] 2.16.840.1.860521.3.579.2.462 Unknown [id number] 2.16.840.1.884494.3.579.2.462 Unknown [id number] 2.16.840.1.355341.3.579.2.462 Unknown [id number] 2.16840.1.937915.3.579.2.462 Unknown [id number] 2.16.840.1.218126.3.579.2.462 Unknown [id number] 2.16.840.1.358726.3.579.2.462 Unknown [id number] 2.16.840.1.761537.3.579.2.462 Unknown [id number] 2.16.840.1.248067.3.579.2.462 Unknown [id number] 2.16.840.1.950309.3.579.2.462 Unknown [id number] 2.16.840.1.730704.3.579.2.462 Unknown [id number] 2.16.840.1.446579.3.579.2.462 Unknown [id number] 2.16.840.1.589440.3.579.2.462 Unknown [id number] 2.16.840.1.954226.3.579.2.462 Unknown [id number] 2.16.840.1.977789.3.579.2.462 Social History Date Type Detail Facility Start: 07-13-2024 End: 09-06-2024 Tobacco smoking status NHIS Never smoked tobacco [facility] Work Phone: Start: 07-13-2024 Tobacco use and exposure Smokeless tobacco non-user [facility] Work Phone: Start: 07-13-2024 End: 09-28-2024 Alcoholic beverage intake Current drinker of alcohol (finding) [facility] Work Phone: Start: 07-13-2024 End: 09-28-2024 History of Social function [facility] Work Phone: Start: 07-13-2024 End: 09-28-2024 Tobacco use panel [facility] Work Phone: Start: 07-13-2024 Alcohol Comment social [facility] Work Phone: Start: 2000 Sex assigned at Not on file [facility] Work Phone: Start: 07-03-2024 End: 09-28-2024 Exposure to SARS-CoV-2 (event) Not sure [facility] Start: 2000 Sex Assigned At Female W [facility] Clinical Notes 07-13-2024 to 03-25-2025 Note Date & Type Note Facility 03-25-2025 Progress note [facility] 03-18-2025 Progress note [facility] 03-10-2025 Progress note [facility] 03-10-2025 Progress note Note Date/Time March 10, 2025 3:51pm [facility] [address], [address] [place] [address] OFFICE VISIT Date of Service: 03/10/25 MR#: [id number] Acct: [id number] Name: GINO MICHELE Rep #: [id number] : 2000 Provider: Dr. Rosalva Weiss DO Age/Sex: 24/F [place] [facility] Status: Signed Intake Vital Signs 01/07/25 10:18 02/24/25 08:59 03/10/25 15:34 Height 5 ft 5 in 5 ft 5 in 5 ft 5 in Weight: 195 lb 4 oz BMI 32.5 BP 138/82 H Intake Visit Reasons: 36 wk ob Optical Engineer Required: No Is patient in pain?: No [...] PFSH Medical History Migraine headache Surgical History Bayard teeth extracted Family History Grandfather Diabetes Maternal Mother Cancer Basal cell skin cancer Father Cancer Basal cell Skin cancer Aunt Cancer Maternal- Skin Melanoma Social History adopted: No household members: spouse current occupational status: employed 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 pets and animals: Yes (Avoid Litterbox) [...] physical activity do you participate in: none osiris/yazidi: Buddhist seatbelt use: always do you feel [...] high risk , unspecified, third trimester 03/10/25 8631 <Electronically signed by Rufina Watkins DO> Date _ Rufina Weiss DO Cosigner Signature: Date (if applicable) CC: ~ [facility] Work Phone: 1(465) 433-366006-26-2025 Progress [facility] [address], [address] [place] [id number] OFFICE VISIT Date of Service: 02/24/25 MR#: [id number] Acct: [id number] Name: GINO MICHELE Rep #: [id number] : 2000 Provider: Dr. Arias Aquino MD Age/Sex: 24/F [place] [facility] [place]: Signed Intake Vital Signs 09/09/24 09:07 02/10/25 08:47 02/24/25 08:59 02/24/25 08:59 Height 5 ft 5 in 5 ft 5 in 5 ft 5 in 5 ft 5 in Weight: 189 lb 4 oz BMI 31.4 BP 103/69 Intake Visit Reasons: 34 wk ob Optical Engineer Required: No Is patient in pain?: No [...] PFSH Medical History Migraine headache Surgical History Bayard teeth extracted Family History Grandfather Diabetes Maternal Mother Cancer Basal cell skin cancer Father Cancer Basal cell Skin cancer Aunt Cancer Maternal- Skin Melanoma Social History adopted: No household members: spouse current occupational status: employed 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 pets and animals: Yes (Avoid Litterbox) [...] physical activity do you participate in: none osiris/yazidi: Buddhist seatbelt use: always do you feel [...] gita CAMEJO> Date _ Marissa Aquino MD Cosign Signature: Date (if applicable) CC: ~ [facility]06-13-2025 Radiology Diagnostic study note [facility] Imaging Services [address] [place], [place] [address] OB Limited With Biometrics MR#: [id number] Acct: [id number] Name: MICHELE,GINOBERNY ESPITIA Rep #: [id number] : 2000 F 24 From: Joshua Astorga MD PCP: OLGA Montilla Status: REG CLI Study:OB Limited With Biometrics Date of Exam : 02/11/25 Exam# [id number] Ordering Dr: Autumn Jacome CNM PROCEDURE: OB [...] gestational age of 34 weeks. Reading Location: [id number] CC: JOSE Jacome; MOTORS AND CONTROLS TESTERCasey Gonzalez ~ Coil Cleaner: Signed [facility]06-12-2025 [facility] [address], [address] [place] [address] OFFICE VISIT Date of Service: 02/10/25 MR#: [id number] Acct: [id number] Name: GINO MICHELE Rep #: [id number] : 2000 Provider: JOSE Jacome Age/Sex: 24/F [place] [facility] [place]: Signed Intake Vital Signs 09/09/24 09:07 01/26/25 08:35 02/10/25 08:47 Height 5 ft 5 in 5 ft 5 in 5 ft 5 in Weight: 189 lb 2 oz BMI 31.4 BP 115/83 H Intake Visit Reasons: 32 wk ob Optical Engineer Required: No Is patient in pain?: No Allergies No Known Allergies Allergy (Verified 02/10/25 08:48) Medications ?Medication ?Instructions ?Recorded ?Confirmed ?Type multivitamin no.47-iron fum 27 cap PO 01/06/25 06/12/2 5 History mg-folate no.1 1 mg-dha 300 [...] PFSH Medical History Migraine headache Surgical History Bayard teeth extracted Family History Grandfather Diabetes Maternal Mother Cancer Basal cell skin cancer Father Cancer Basal cell Skin cancer Aunt Cancer Maternal- Skin Melanoma Social History adopted: No household members: spouse current occupational status: employed 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 Administered by: Kristen Quiros on 02/10/25 08:57 Dose Route Admin Location Dispensed Lot Number Expiration Date NDC Sr. Director 0.5 mL IM Right Deltoid 0.5 mL [id number] 01/29/26 03257-643-22 [employer] VIS Given Date VIS Provided [...] [place] appropriate handout given. 02/10/25 0911 s JOSE> Date _ Autumn Jacome CNM Cosigner Signature: Date (if applicable) CC: ~ [facility]04-04-2025 Evaluation note* Diagnosis Onset Date Resolution [...] February 24 8:56am Circumvallate placenta acute Ju 2024 8:56am Depression acute February 24 8:56am acute February 24 8:56am Supervision of high-risk acute February 24, 2025 8:56am Anemia in preg-unspec acute Mar y 2024 3:30pm Anxiety acute March 10 3:30pm Circumvallate placenta acute 2024 3:30pm Depression acute March 10 3:30pm acute March 10 3:30pm Supervision of high-risk acute March 10, 2025 3:30pm [facility] Work Phone: 1([phone]) 522-764804-04-2025 Evaluation note* Diagnosis Onset Date Resolution Status [...] March 10 3:30pm Circumvallate placenta acute Ju 2024 3:30pm Depression acute March 10 3:30pm [...] third trimester acute March 18, 2025 9:29am [facility] Work Phone: 1(406) 747-385404-04-2025 Evaluation note* Diagnosis Onset Date Resolution Status [...] March 10 3:30pm Circumvallate placenta acute Ju 2024 3:30pm Depression acute March 10 3:30pm [...] third trimester acute March 25, 2025 9:59am [facility] Work Phone: 1(891) [phone] Evaluation note* Diagnosis Onset Date Resolution Status [...] high-risk acute January 07, 2025 10 :04am [facility] Work Phone: 1(140) 188-972003-07-2025 Evaluation note* Diagnosis Onset Date Resolution Status [...] high-risk acute January 26, 2025 8 :33am [facility] Work Phone: 1(256) 836-212303-07-2025 Evaluation note* Diagnosis Onset Date Resolution Status [...] high-risk acute February 10, 2025 8:46am [facility] Work Phone: 1(565) 587-488603-07-2025 Evaluation note* Diagnosis Onset Date Resolution Status [...] February 24 8:56am Circumvallate placenta acute Ju de 2024 8:56am Depression acute February 24 8:56am acute February 24 8:56am Supervision of high-risk acute February 24, 2025 8:56am [facility] Work Phone: 1([phone]) 336-135601-28-2025 Evaluation + Plan note* Assessment & Plan Note - KAREL Phillips - 09/28/2024 7:59 AM ESTAssociated Problem(s): Persistent depressive disorder Increase zoloft 150 mg daily [facility] Work Phone: [phone]) [phone] Evaluation + Plan note* Assessment & Plan Note - KAREL Phillips - 09/28/2024 7:59 AM ESTAssociated Problem(s): Anxiety Increase zoloft 150 mg daily [facility] Work Phone: [phone] Miscellaneous Notes* Assessment & Plan Note - KAREL Phillips - 09/28/2024 7:59 AM ESTAssociated Problem(s): Persistent depressive disorder Increase zoloft 150 mg daily * Assessment & Plan Note - KAREL Phillips - 09/28/2024 7:59 AM EST Associated Problem(s): Anxiety Increase zoloft 150 mg daily [facility] Work Phone: 1([phone]) 186-858301-28-2025 History of Present illness Narrative* Jojo Vela CMA - 09/28/2024 7:40 AM EST 13 weeks * Yuliana Sophie Gonzalez, WINDOWS SYSTEMS ENGINEER-CABLE TELEVISION PROGRAM DIRECTOR - 09/28/2024 7:40 AM EST Subjective Patient ID: Gino Michele is a 24 y.o. female who presents for Medication Problem. HPI Gino returns to discuss increasing her zoloft. She is currently 13 weeks . Sees [facility] in [place]. Anxiety/depression: has been on zoloft and was [...] effects of the medication. documented in this [facility] Work Phone: 1(997) 660-692411-12-2024 Evaluation + Plan note* Assessment & Plan Note - KAREL Phillips - 07/13/2024 8:05 AM ESTAssociated Problem(s): Migraine without aura and without status migrainosus, not intractable Rizatriptan 10 mg as needed for migraine stable [facility] Work Phone: 1(246) 102-302111-12-2024 Miscellaneous Notes* Assessment & Plan Note - [...] blood in it thistime. [facility] Work Phone: 1([phone]) 613-889011-12-2024 Evaluation + Plan note* Assessment & Plan Note - KAREL Phillips - 07/13/2024 8:04 AM ESTAssociated Problem(s): Anxiety Doing well on sertraline 100 mg daily [facility] Work Phone: 1(521) [phone] Evaluation + Plan note* Assessment & Plan Note - KAREL Phillips - 07/13/2024 8:04 AM ESTAssociated Problem(s): Persistent depressive disorder Currently on sertraline 100 mg daily stable [facility] Work Phone: 1([phone]) [phone] History of Present illness Narrative* Jojo Vela [...] hard to urinate, back pain. [facility] clinic. Was treated for LUTS (Macrobid). Has [...] effects of the medication. [facility] Work Phone: 1([phone]) [phone] Progress note* Result Encounter Note - KAREL Phillips - 07/13/2024 7:20 AM EST Let her know her urine did not show any signs of an infection and did not have any blood in it thistime. [facility] Work Phone: Evaluation note* Diagnosis Wellness examination- Primary Dysuria Persistent depressive disorder Migraine without aura and without status migrainosus, not intractable Screening for lipid disorders BMI 23.0-23.9, adult documented in this encounter [facility] Work Phone: Evaluation note* Diagnosis Wellness examination- Primary Dysuria Persistent depressive disorder Migraine without aura and without status migrainosus, not intractable Screening for lipid disorders BMI 23.0-23.9, adult Persistent depressive disorder Anxiety Anxiety state, unspecified documented in this encounter [facility] Work Phone: Progress note Author Autumn Jacome [facility] Note Date/Time February 10, 2025 9:11 am [facility] [address], [address] [place] [address] OFFICE VISIT Date of Service: 02/10/25 MR#: [id number] Acct: [id number] Name: GINO MICHELE Rep #: [id number] : 2000 Provider: JOSE Jacome Age/Sex: 24/F [place] [facility] Status: Signed Intake Vital Signs 09/09/24 09:07 01/26/25 08:35 02/10/25 08:47 Height 5 ft 5 in 5 ft 5 in 5 ft 5 in Weight: 189 lb 2 oz BMI 31.4 BP 115/83 H Intake Visit Reasons: 32 wk ob Optical Engineer Required: No Is patient in pain?: No [...] PFSH Medical History Migraine headache Surgical History Bayard teeth extracted Family History Grandfather Diabetes Maternal Mother Cancer Basal cell skin cancer Father Cancer Basal cell Skin cancer Aunt Cancer Maternal- Skin Melanoma Social History adopted: No household members: spouse current occupational status: employed 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 Administered by: Kristen Quiros on 02/10/25 08:57 Dose Route Admin Location Dispensed Lot Number Expiration Date NDC Sr. Director 0.5 mL IM Right Deltoid 0.5 mL [id number] 01/29/26 97827-488-66 [facility] VIS Given Date VIS Provided VIS Publication [...] this visit. [place] appropriate handout given. 02/10/25 0911 <Electronically signed by Autumn fernandez CNM> Date _ Autumn Jacome CNM Cosigner Signature: Date (if applicable) CC: ~ [facility] Work Phone: Progress note Author Marissa Aquino [facility] Note Date/Time February 24, 2025 9:22 am [facility] [address], [address] [place] [address] OFFICE VISIT Date of Service: 02/24/25 MR#: [id number] Acct: [id number] Name: GINO MICHELE Rep #: [id number] : 2000 Provider: Dr. Arias Aquino MD Age/Sex: 24/F [place] [facility] [place]: Signed Intake Vital Signs 09/09/24 09:07 02/10/25 08:47 02/24/25 08:59 02/24/25 08:59 Height 5 ft 5 in 5 ft 5 in 5 ft 5 in 5 ft 5 in Weight: 189 lb 4 oz BMI 31.4 BP 103/69 Intake Visit Reasons: 34 wk ob Optical Engineer Required: No Is patient in pain?: No [...] PFSH Medical History Migraine headache Surgical History Bayard teeth extracted Family History Grandfather Diabetes Maternal Mother Cancer Basal cell skin cancer Father Cancer Basal cell Skin cancer Aunt Cancer Maternal- Skin Melanoma Social History adopted: No household members: spouse current occupational status: employed 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 Work Phone: Progress note Author Marissa Aquino [facility] Note Date/Time March 18, 2025 9:59 am [facility] [address] [place] [address], [address] [place] [address] OFFICE VISIT Date of Service: 03/18/25 MR#: [id number] Acct: [id number] Name: GINO MICHELE Rep #: [id number] : 2000 Provider: Dr. 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 Is patient in pain?: No [...] PFSH Medical History Migraine headache Surgical History Bayard teeth extracted Family History Grandfather Diabetes Maternal Mother Cancer Basal cell skin cancer Father Cancer Basal cell Skin cancer Aunt Cancer Maternal- Skin Melanoma Social History adopted: No household members: spouse current occupational status: employed 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 pets and animals: Yes (Avoid Litterbox) [...] physical activity do you participate in: none osiris/yazidi: Buddhist seatbelt use: always do you feel [...] signed by Marissa pelayo MD> Date _ Marissa Aquino MD Cosign Signature: Date (if applicable) CC: ~ [facility] Work Phone: Progress note Author Autumn Jacome [facility] Note Date/Time March 25, 2025 10:3 6am [facility] [address] [place] [address], [address] [place] [address] OFFICE VISIT Date of Service: 03/25/25 MR#: [id number] Acct: [id number] Name: GINO MICHELE Rep #: [id number] : 2000 Provider: JOSE Jacome Age/Sex: 24/F [place] [facility] [place]: Signed Intake Vital Signs 02/10/25 08:47 03/18/25 09:31 03/25/25 10:08 Height 5 ft 5 in 5 ft 5 in 5 ft 5 in Weight: 196 lb 8 oz BMI 32.7 BP 123/67 H Intake Visit Reasons: 38 wk ob Chief Complaint: 38 Week OB Optical Engineer Required: No Is patient in pain?: No [...] PFSH Medical History Migraine headache Surgical History [place] teeth extracted Family History Grandfather Diabetes Maternal Mother Cancer Basal cell skin cancer Father Cancer Basal cell Skin cancer Aunt Cancer Maternal- Skin Melanoma Social History adopted: No household members: spouse current occupational status: employed 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 DATE CREATED AUTHOR AUTHOR'S ORGANIZ ATION 01/30/2024 [facility] DATE CREATED AUTHOR AUTHOR'S ORGANIZ ATION 11/12/2024 [facility] DATE CREATED AUTHOR AUTHOR'S ORGANIZ ATION 12/13/2024 [facility] DATE CREATED AUTHOR AUTHOR'S ORGANIZ ATION 03/27/2025 [facility] Reason for Visit (unrecogniz ed section and content) Reason Comments Establish Care Reason Comments Medication Problem Care Teams (unrecognized sec tion and content) Commodity Manager Relationship Specialty Start Date End Date Yuliana Gonzalez, WINDOWS SYSTEMS ENGINEER-CABLE TELEVISION PROGRAM DIRECTOR [address] [facility] [place] [address] PCP - General Family Medicine 07/13/24 Commodity Manager Relationship Specialty Start Date End Date Vincenzo Yuliana Barrios APRN-CABLE TELEVISION PROGRAM DIRECTOR [address] [place] [address] PCP - General Family Medicine 07/13/24 Team Status: Active Member Role Status OLGA Vela Primary Care Provider Active Team Status: Inactive [...] January 07, 2025 End: January 07, 2025 OLGA Montilla Referring Provider Active Sta rt: January 07, [...] Inactive Member Role Status Dates Yuliana Gonzalez MOTORS AND CONTROLS TESTER-C Primary Care Provider Active Start: January 26, 2025 End: January 26, 2025 Yuliana Gonzalez MOTORS AND CONTROLS TESTER-C Referring Provider Active Sta rt: January 26, 2025 End: January 26, 2025 Kristen Parker NP, MOTORS AND CONTROLS TESTER-C Attending Provider Active Start: January 26, 2025 End: January 26, 2025 Team Status: Inactive Member Role Status Dates Yuliana Gonzalez MOTORS AND CONTROLS TESTER-C Primary Care Provider Active Start: February 10, 2025 End: February 10, 2025 Yuliana Gonzalez NP-C Referring Provider Active Sta rt: February 10, 2025 End: February 10, 2025 Autumn Jacome CNM Attending Provider Active S tart: February 10, 2025 End: February 10, 2025 Team Status: Inactive Member Role Status Rodrigo Gonzalez NP-C Primary Care Provider Active Start: February 11, 2025 End: February 11, 2025 Autumn Jacome CNM Attending Provider Active S tart: February 11, 2025 End: February 11, 2025 Autumn Jacome CNM Referring Provider Active S tart: February 11, 2025 End: February 11, 2025 Team Status: Active Member Role Status Rodrigo Gonzalez NP-C Primary Care Provider Active Start: February 15, 2025 Autumn Jacome CNM Attending Provider Active S tart: February 15, 2025 Autumn Jacome CNM Referring Provider Active S tart: February 15, 2025 Team Status: Inactive Member Role Status Dates Yuliana Gonzalez NP-C Primary Care Provider Active Start: February 15, 2025 End: February 15, 2025 Autumn Jacome CNM Attending Provider Active S tart: February 15, 2025 End: February 15, 2025 Autumn Jacome CNM Referring Provider Active S tart: February 15, 2025 End: February 15, 2025 Team Status: Inactive Member Role Status Rodrigo Gonzalez MOTORS AND CONTROLS TESTER-C Primary Care Provider Active Start: February 24, 2025 End: February 24, 2025 Yuliana Gonzalez , MOTORS AND CONTROLS TESTER-C Referring Provider Active Sta rt: February 24, 2025 End: February 24, 2025 Dr. Marissa Aquino MD Attending Provider Active Start: February 24, 2025 End: February 24, 2025 Team Status: Active Member Role/Relationship Status Rodrigo Gonzalez MOTORS AND CONTROLS TESTER-C Primary Care Provider Active Team Status: Inactive Member Role/Relationship Status Rodrigo Gonzalez MOTORS AND CONTROLS TESTER-C Primary Care Provider Active Start: December 03, 2024 End: December 03, 2024 Yuliana Gonzalez NP-C Referring Provider Active Sta rt: December 03, 2024 End: December 03, 2024 Dr. Rufina Weiss DO Attending Provider Activ e Start: December 03, 2024 End: December 03, 2024 Team Status: Inactive Member Role/Relationship Status GILLIAN VelaC Primary Care Provider Active Start: January 07, 2025 End: January 07, 2025 Yuliana Gonzalez NP-C Referring Provider Active Sta rt: January 07, 2025 End: January 07, 2025 Atuumn Jacome CNM Attending Provider Active S tart: [...] End: January 26, 2025 Kristen Parker NP MOTORS AND CONTROLS TESTER-C Attending Provider Active Start: January 26, 2025 End: January 26, 2025 Team Status: Inactive Member Role/Relationship Status Rodrigo Gonzalez NP-C Primary Care Provider Active Start: February 10, 2025 End: February 10, 2025 Yuliana Gonzalez NP-C Referring Provider Active Sta rt: February 10, 2025 End: February 10, 2025 Autumn Jacome CNM Attending Provider Active S tart: February 10, 2025 End: February 10, 2025 Team Status: Inactive Member Role/Relationship Status Dates Yuliana Gonzalez MOTORS AND CONTROLS TESTER-C Primary Care Provider Active Start: February 11, 2025 End: February 11, 2025 Autumn Jacome CNM Attending Provider Active S tart: February 11, 2025 End: February 11, 2025 Autumn Jacome CNM Referring Provider Active S tart: February 11, 2025 End: February 11, 2025 Team Status: Inactive Member Role/Relationship Status Dates Yuliana Gonzalez MOTORS AND CONTROLS TESTER-C Primary Care Provider Active Start: February 15, 2025 End: February 15, 2025 Autumn Jacome CNM Attending Provider Active S tart: February 15, 2025 End: February 15, 2025 Autumn Jacome CNM Referring Provider Active S tart: February 15, 2025 End: February 15, 2025 Team Status: Inactive Member Role/Relationship Status Dates Yuliana Gonzalez MOTORS AND CONTROLS TESTER-C Primary Care Provider Active Start: February 24, 2025 End: February 24, 2025 Yuliana Gonzalez MOTORS AND CONTROLS TESTER-C Referring Provider Active Sta rt: February 24, 2025 End: February 24, 2025 Dr. Marissa Aquino MD Attending Provider Active Start: February 24, 2025 End: February 24, 2025 Team Status: Inactive Member Role/Relationship Status Rodrigo Gonzalez MOTORS AND CONTROLS TESTER-C Primary Care Provider Active Start: March 10, 2025 End: March 10, 2025 Yuliana Gonzalez MOTORS AND CONTROLS TESTER-C Referring Provider Active Sta rt: March 10, 2025 End: March 10, 2025 Dr. Rufina Weiss DO Attending Provider Activ e Start: March 10, 2025 End: March 10, 2025 Team Status: Inactive Member Role/Relationship Status Rodrigo Gonzalez NP-C Primary Care Provider Active Start: March 10, 2025 End: March 10, 2025 Dr. Rufina Weiss DO Attending Provider Activ e Start: March 10, 2025 End: March 10, 2025 Team Status: Inactive Member Role/Relationship Status Rodrigo Gonzalez MOTORS AND CONTROLS TESTER-C Primary Care Provider Active Start: March 18, 2025 End: March 18, 2025 Yuliana Gonzalez NP-C Referring Provider Active Sta rt: March 18, [...] March 25, 2025 End: March 25, 2025 Team Status: Inactive Member Role/Relationship Status Dates OLGA Montilla Primary Care Provider Active Start: March 27, 2025 End: March 27, 2025 Autumn Jacome CNM Attending Provider Active S tart: March 27, 2025 End: March 27, 2025 Goals (unrecognized section and content) Goals [...] BE BASED ON THE PRIMARY CLINICAL RECORDS. [facility] [employer] [facility]. provides no warranty or guarantee of the accuracy or completeness of information in this document.
--- OUTSIDE RECORDS SUMMARY | 2025-03-27 13:32 | XMS RPT_ITS | CCD ---
Author Organization [facility] CliniSynj Care Team Providers Care Operating Room Specialist Name Role Phone FERNANDO BELTRAN Unavailable Unavailabl FERNANDO Heath Unavailable Unavailabl e AA NO PCP, NO PCP Unavailable Unavailable BOAZ SCHULTZ DO Consulting Unavailable LUIS CAMEJO, [phone] THUAN Granados Admitting Unavailable LUIS CAMEJO, [phone] THUAN Granados Attending Unavailable RON PALAFOX Primary Care Unavailable BOAZ SCHULTZ DO Consulting Unavailable MARYANN CAMEJO, NATHEN Padilla Consulting Unavaila kory WOLF MD, NATHEN Padilla Consulting Unavaila RON Oliver Consulting Unavailable LUIS CAMEJO, DR THUAN Granados Consulting Unavaila kory SMITH MD, DR THUAN Granados Consulting Unavaila kory Gonzalez BOARDER MACHINE-KAREL, Yuliana Barrios Primary Care Provider Vincenzo BOARDER MACHINE-THERMOCOUPLE TESTER, Yuliana Barrios Primary Care Provider JOSSELIN LAMBERT Primary Care Unavailable CLEO GUZMAN Attending Unavailable AUTUMN JACOME Referring Unavailable YULIANA GONZALEZ Attending Unavailable YULIANA GONZALEZ Primary Care Unavailable YULIANA GONZALEZ Attending Unavailable YULIANA GONZALEZ Primary Care Unavailable Vincenzo LABOR ARBITRATOR-C, Yuliana Primary Care Provider Vincenzo LABOR ARBITRATOR-CYuliana Referring Provider Dr. Rufina Weiss DO Attending Provider Autumn Jacome CNM Attending Provider Dr. Marissa Aquino MD Attending Provider Dr. Marissa Aquino MD Referring Provider Keith LABOR ARBITRATOR-CKristen Attending Provider Vincenzo LABOR ARBITRATOR-CYuliana Primary Care Provider Gonzalez LABOR ARBITRATOR-C, Yuliana Referring Provider Dr. Rufina Weiss DO Attending Provider Autumn Jacome CNM Referring Provider [phone] Gonzalez LABOR ARBITRATOR-C, Yuliana Primary Care Provider Gonzalez LABOR ARBITRATOR-C, Yuliana Referring Provider Simone CNAkbar, Autumn Attending [...] PO DAILY March 27, 2025 12:00am Multivit 18-Qtab-Qalfak 1-Dha (Pnv-Dha) 27 mg iron-1 mg -300 mg capsule (11 sources) Start: 09-06-2024 Multivit 96-Pqwf-Pvozlf 1-Dha (Pnv-Dha) 27 mg iron-1 mg -300 [...] Test Name Value Interpretation Reference Range Facility Tire Specialist Office Visit Reporton 03-25-2025 Tire Specialist Office Visit Report [facility] [address], [address] [place] [address] OFFICE VISIT Date of Service: 03/25/25 MR#: [id number] Acct: [id number] Name: GINO MICHELE Rep #: [id number] : 2000 Provider: JOSE Santos ams Age/Sex: 24/F Location: [facility] Status: Signed Intake Vital Signs 02/10/25 08:47 03/18/25 09:31 03/25/25 10:08 Height 5 ft 5 in 5 ft 5 in 5 ft 5 in Weight: 196 lb 8 oz BMI 32.7 BP 123/67 H Intake Visit Reasons: 38 wk ob Chief Complaint: 38 Week OB Strategic Debriefing Officer Required: No Is patient in pain?: No [...] PFSH Medical History Migraine headache Surgical History [place] teeth extracted Family History Grandfather Diabetes Maternal Mother Cancer Basal cell skin cancer Father Cancer Basal cell Skin cancer Aunt Cancer Maternal- Skin Melanoma Social History adopted: No household members: spouse current occupational status: employed 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 Normal [facility] OB Limited With Biometricson 03-22-2025 OB Limited With Biometrics [facility] Imaging Services [address] [place] [address] OB Limited With Biometrics MR#: [id number] Acct: [id number] Name: GINO MICHELE Rep #: [id number] : 2000 F 24 From: Boaz Blackwood MD PCP: OLGA Montilla Status: [facility] Study: OB Limited With Biometrics Date of Exam: 03/22 Exam# [id number] Ordering Dr: Marissa Aquino PROCEDURE: OB LIMITED [...] intrauterine . See biometry above. Reading Location: [facility] CC: OLGA Gonzalez; Dr. Marissa Aquino MD Ethnic Origins Teacher: Signed Normal [facility] Tire Specialist Office Visit Reporton 03-18-2025 Tire Specialist Office Visit Report [facility]'s [address], [address] [place] [address] OFFICE VISIT Date of Service: 03/18/25 MR#: [id number] Acct: [id number] Name: GINO MICHELE Rep #: [id number] : 2000 Provider: Dr. Marissa mendenhall MD Age/Sex: 24/F Location: [facility] Status: Signed Intake Vital Signs 02/10/25 08:47 03/10/25 15:34 03/18/25 09:31 Height 5 ft 5 in 5 ft 5 in 5 ft 5 in Weight: 195 lb BMI 32.4 BP 139/83 H Intake Visit Reasons: 37 wk ob Strategic Debriefing Officer Required: No Is patient in pain?: No [...] PFSH Medical History Migraine headache Surgical History [place] teeth extracted Family History Grandfather Diabetes Maternal Mother Cancer Basal cell skin cancer Father Cancer Basal cell Skin cancer Aunt Cancer Maternal- Skin Melanoma Social History adopted: No household members: spouse current occupational status: employed 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 Normal [facility] Rule out Beta Strep (Grp. B) on 03-14-2025 LAILA Group B Beta Streptococcus is not isolated. Normal [facility] Comment on above: Performed By: #### M 100.3400 ####[facility] [address] [place], [address] Laboratory - Chemistry and C hemistry - challengeOrdered By: Rufina Chaney on 03-10-2025 Glucose Ql (U) Negative [facility] Laboratory - UrinalysisOrder ed By: Rufina Chaney on 03-10-2025 Protein Ql (U) Negative [facility] Tire Specialist Office Visit Reporton 03-10-2025 Tire Specialist Office Visit Report [facility]'[address], [address] [place] [address] OFFICE VISIT Date of Service: 03/10/25 MR#: [id number] Acct: [id number] Name: GINO MICHELE Rep #: [id number] : 2000 Provider: Dr. Rufina Dowd DO Age/Sex: 24/F Location: [facility] Status: Signed Intake Vital Signs 01/07/25 10:18 02/24/25 08:59 03/10/25 15:34 Height 5 ft 5 in 5 ft 5 in 5 ft 5 in Weight: 195 lb 4 oz BMI 32.5 BP 138/82 H Intake Visit Reasons: 36 wk ob Strategic Debriefing Officer Required: No Is patient in pain?: No [...] PFSH Medical History Migraine headache Surgical History [place] teeth extracted Family History Grandfather Diabetes Maternal Mother Cancer Basal cell skin cancer Father Cancer Basal cell Skin cancer Aunt Cancer Maternal- Skin Melanoma Social History adopted: No household members: spouse current occupational status: employed 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 Normal [facility] Screening beta-hemolytic Str eptococcus cultureOrdered By: Rufina Chaney on 03-10-2025 Beta-hemolytic Streptococcus culture Group B Beta Streptococcus is not isolated. [facility] Laboratory - Chemistry and C hemistry - challengeOrdered By: Marissa Aquino on 02-24-2025 Glucose Ql (U) Negative [facility] Laboratory - UrinalysisOrder ed By: Marissa Aquino on 02-24-2025 Protein Ql (U) Negative [facility] Tire Specialist Office Visit Reporton 02-24-2025 Tire Specialist Office Visit Report [facility]'s [address], [address] [place] [address] OFFICE VISIT Date of Service: 02/24/25 MR#: [id number] Acct: [id number] Name: GINO MICHELE Rep #: [id number] : 2000 Provider: Dr. Marissa mendenhall MD Age/Sex: 24/F Location: [facility] Status: Signed Intake Vital Signs 09/09/24 09:07 02/10/25 08:47 02/24/25 08:59 02/24/25 08:59 Height 5 ft 5 in 5 ft 5 in 5 ft 5 in 5 ft 5 in Weight: 189 lb 4 oz BMI 31.4 BP 103/69 Intake Visit Reasons: 34 wk ob Strategic Debriefing Officer Required: No Is patient in pain?: No [...] PFSH Medical History Migraine headache Surgical History [place] teeth extracted Family History Grandfather Diabetes Maternal Mother Cancer Basal cell skin cancer Father Cancer Basal cell Skin cancer Aunt Cancer Maternal- Skin Melanoma Social History adopted: No household members: spouse current occupational status: employed 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 Normal [facility] Glucose Challenge Gest 1H 50 shayy 02-15-2025 GLU GEST 50g 1H 110 mg/dL Normal 70-140 [facility] Comment on above: Performed By: #### L 501.0250 #### [facility] [address] [place], [place], [address] Glucose measurement at 2 larry rs post-dose gestational glucose tolerance testOrdered By: Autumn Jacome on 02-15-2025 Glucose [Mass/Vol] 110 mg/dL 70-140 [facility] OB Limited With Biometricson 02-11-2025 OB Limited With Biometrics [facility] Imaging Services [address] [place] [address] OB Limited With Biometrics MR#: [id number] Acct: [id number] Name: GINO MICHELE Rep #: [id number] : 2000 F 24 From: David del rio MD PCP: OLGA Montilla Status: REG CLI Study: OB Limited With Biometrics Date of Exam: 02/11 Exam# [id number] Ordering Dr: Autumn Jacome M PROCEDURE: OB [...] gestational age of 34 weeks. Reading Location: [id number] CC: JOSE Jacome; OLGA Gonzalez Ethnic Origins Teacher: Signed Normal [facility] Laboratory - Chemistry and C hemistry - challengeOrdered By: Autumn Jacome on 02-10-2025 Glucose Ql (U) Negative [facility] Laboratory - UrinalysisOrder ed By: Autumn Jacome on 02-10-2025 Protein Ql (U) Negative [facility] Tire Specialist Office Visit Reporton 02-10-2025 Tire Specialist Office Visit Report [facility]'s [address], [address] [place] [address] OFFICE VISIT Date of Service: 02/10/25 MR#: [id number] Acct: [id number] Name: GINO MICHELE Rep #: [id number] : 2000 Provider: JOSE Santos [facility] Age/Sex: 24/F Location: [facility] Status: Signed Intake Vital Signs 09/09/24 09:07 01/26/25 08:35 02/10/25 08:47 Height 5 ft 5 in 5 ft 5 in 5 ft 5 in Weight: 189 lb 2 oz BMI 31.4 BP 115/83 H Intake Visit Reasons: 32 wk ob Strategic Debriefing Officer Required: No Is patient in pain?: No [...] PFSH Medical History Migraine headache Surgical History [place] teeth extracted Family History Grandfather Diabetes Maternal Mother Cancer Basal cell skin cancer Father Cancer Basal cell Skin cancer Aunt Cancer Maternal- Skin Melanoma Social History adopted: No household members: spouse current occupational status: employed 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 (more content not included)... Normal [facility] Laboratory - Chemistry and C hemistry - challengeOrdered By: Kristen Parker on 01-26-2025 Glucose Ql (U) Negative [facility] Laboratory - UrinalysisOrder ed By: Kristen Parker on 01-26-2025 Protein Ql (U) Negative [facility] Tire Specialist Office Visit Reporton 01-26-2025 Tire Specialist Office Visit Report [facility]'[address], [address] [place] [address] OFFICE VISIT Date of Service: 01/26/25 MR#: [id number] Acct: [id number] Name: GINO MICHELE Rep #: [id number] : 2000 Provider: OLGA rodriguez Age/Sex: 24/F Location: [facility] Status: Signed Intake Vital Signs 09/09/24 09:07 01/07/25 10:18 01/26/25 08:35 Height 5 ft 5 in 5 ft 5 in 5 ft 5 in Weight: 188 lb 4 oz BMI 31.3 BP 126/72 H Intake Visit Reasons: 30 wk ob Chief Complaint: 30 Week OB Strategic Debriefing Officer Required: No Is patient in pain?: No [...] PFSH Medical History Migraine headache Surgical History [place] teeth extracted Family History Grandfather Diabetes Maternal Mother Cancer Basal cell skin cancer Father Cancer Basal cell Skin cancer Aunt Cancer Maternal- Skin Melanoma Social History adopted: No household members: spouse current occupational status: employed 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 Normal [facility] Absolute lymphocyte countOrd ered By: Rufina Ritu on 01-07-2025 Lymphocytes Auto (Unsp spec) [#/Vol] 1.52 10*3/uL 0.83-4.51 [facility] Absolute neutrophil countOrd ered By: Rufina Ritu on 01-07-2025 Neutrophils (Bld) [#/Vol] 9.6 10*3/uL High 2.0-7.7 [facility] Automated lymphocyte count a s percentage of total leukocytesOrdered By: Rufina Ritu on 01-07-2025 Lymphocytes/100 WBC Auto (Unsp spec) 12.4 % Low 19-41 [facility] Basophil percentageOrdered B y: Rufina Chaney on 01-07-2025 Basophils/100 WBC (Bld) 0.3 % 0-1 [facility] CBC W/Diff, Automatedon 05-0 Absolute Lymph 1.52 X10 3/uL Normal 0.83-4.51 [facility] Comment on above: Performed By: #### L 100.0100, L509.8002, L501.0250, L3890.6006 ####[facility] [address] [place], [address] Absolute Neut 9.6 X10 3/uL High 2.0-7.7 [facility] Comment on above: Performed By: #### L 100.0100, L509.8002, L501.0250, L3890.6006 ####[facility] [address] [place], [address] Basophils/100 WBC (Bld) 0.3 % Normal 0-1 [facility] Comment on above: Performed By: #### L 100.0100, L509.8002, L501.0250, L3890.6006 ####[facility] [address] [place], [address] Eosinophils/100 WBC (Bld) 1.5 % Normal 0-5 [facility] Comment on above: Performed By: #### L 100.0100, L509.8002, L501.0250, L3890.6006 ####[facility] [address] [place], [address] Erythrocyte distribution width (RBC) [Ratio] 12.7 % Normal 11.6-14.6 [facility] Comment on above: Performed By: #### L 100.0100, L509.8002, L501.0250, L3890.6006 ####[facility] [address] [place], [address] Hematocrit (Bld) [Volume fraction] 31.5 % Low 37-47 [facility] Comment on above: Performed By: #### L 100.0100, L509.8002, L501.0250, L3890.6006 ####[facility] [address] [place], [address] Hemoglobin (Bld) [Mass/Vol] 10.1 g/dL Low 12.0-15.0 [facility] Comment on above: Performed By: #### L 100.0100, L509.8002, L501.0250, L3890.6006 ####[facility] [address] [place], [address] IG% 2.100 High 0.0-0.9 [facility] Comment on above: Result Comment: IG% - Immature Granulocytes (promyelocytes, myelocytes and metamyelocytes) > 1% indicates that a LEFT SHIFT is Present. Performed By: #### L 100.0100, L509.8002, L501.0250, L3890.6006 ####[facility] [address] [place], [address] Lymphocytes/100 WBC (Bld) 12.4 % Low 19-41 [facility] Comment on above: Performed By: #### L 100.0100, L509.8002, L501.0250, L3890.6006 ####[facility] [address] [place], [address] MCH (RBC) [Entitic mass] 28.6 pg Normal 27.0-32.0 [facility] Comment on above: Performed By: #### L 100.0100, L509.8002, L501.0250, L3890.6006 ####[facility] [address] [place], [address] MCHC (RBC) [Mass/Vol] 32.1 g/dL Normal 32-36 [facility] Comment on above: Performed By: #### L 100.0100, L509.8002, L501.0250, L3890.6006 ####[facility] [address] [place], [address] MCV (RBC) [Entitic vol] 89.2 fL Normal 81-99 [facility] Comment on above: Performed By: #### L 100.0100, L509.8002, L501.0250, L3890.6006 ####[facility] [address] [place], [address] Monocytes/100 WBC (Bld) 5.4 % Normal 0-10 [facility] Comment on above: Performed By: #### L 100.0100, L509.8002, L501.0250, L3890.6006 ####[facility] [address] [place], [address] Neutrophils/100 WBC (Bld) 78.3 % High 47-70 [facility] Comment on above: Performed By: #### L 100.0100, L509.8002, L501.0250, L3890.6006 ####[facility] [address] [place], [address] Nucleated RBC (Bld) [#/Vol] 0 10*3/uL Normal 0-5 [facility] Comment on above: Performed By: #### L 100.0100, L509.8002, L501.0250, L3890.6006 ####[facility] [address] [place], [address] Platelet mean volume (Bld) [Entitic vol] 12.1 fL High 6.2-12.0 [facility] Comment on above: Performed By: #### L 100.0100, L509.8002, L501.0250, L3890.6006 ####[facility] [address] [place], [address] Platelets (Bld) [#/Vol] 160 10*3/uL Normal 150-450 [facility] Comment on above: Performed By: #### L 100.0100, L509.8002, L501.0250, L3890.6006 ####[facility] [address] [place], [address] RBC (Bld) [#/Vol] 3.53 10*6/uL Low 4.2-5.4 [facility] Comment on above: Performed By: #### L 100.0100, L509.8002, L501.0250, L3890.6006 ####[facility] [address] [place], [address] RDW SD 40.6 fl Normal 35.1-43.9 [facility] Comment on above: Performed By: #### L 100.0100, L509.8002, L501.0250, L3890.6006 ####[facility] [address] [place], [address] WBC (Bld) [#/Vol] 12.2 10*3/uL High 4.4-11.0 [facility] Comment on above: Performed By: #### L 100.0100, L509.8002, L501.0250, L3890.6006 ####[facility] [address] [place], [address] Eosinophil percentageOrdered By: Rufina Chaney on 01-07-2025 Eosinophils/100 WBC (Bld) 1.5 % 0-5 [facility] Erythrocyte distribution wid th ratioOrdered By: Rufina Chaney on 01-07-2025 Erythrocyte distribution width (RBC) [Ratio] 12.7 % 11.6-14.6 [facility] Erythrocyte distribution wid th standard deviationOrdered By: Rufina Chaney on 01-07-2025 Erythrocyte distribution width (RBC) [Ratio] 40.6 fl 35.1-43.9 [facility] Glucose Challenge Gest 1H 50 shayy 01-07-2025 GLU GEST 50g 1H 103 mg/dL Normal 70-140 [facility] Comment on above: Performed By: #### L 100.0100, L509.8002, L501.0250, L3890.6006 ####[facility] [address] [place], [place], [address] Glucose measurement at 2 larry rs post-dose gestational glucose tolerance testOrdered By: Rufina Chaney on 01-07-2025 Glucose [Mass/Vol] 103 mg/dL 70-140 [facility] HIVon 01-07-2025 HIV Non-Reactive Normal Nonreactive [facility] Comment on above: Result Comment: Non- Reactive Reactive Repeatedly reactive samples must be confirmed according to CDC recommended confirmatory algorithms. The subresults for either HIVAG or AHIV can be used as an aid in the selection of the confirmation algorithm for reactive samples. Send out specimens with Reactive results to [facility] for confirmation. Order the HIV antibody detection and differentiation: lc#[id number] Performed By: #### L 100.0100, L509.8002, L501.0250, L3890.6006 ####[facility] [address] [place], [place], [address] Hematocrit Auto (Bld) [Volum e fraction]Ordered By: Rufina Chaney on 01-07-2025 Hematocrit (Bld) [Volume fraction] 31.5 % Low 37-47 [facility] Hemoglobin measurementOrdere d By: Rufina Chaney on 01-07-2025 Hemoglobin (Bld) [Mass/Vol] 10.1 g/dL Low 12.0-15.0 [facility] Immature granulocytes/100 WB C Auto (Bld)Ordered By: Rufina Chaney on 01-07-2025 Immature granulocytes/100 WBC (Bld) 2.100 % High 0.0-0.9 [facility] Comment on above: IG% - Immature Granu locytes (promyelocytes, myelocytes and metamyelocytes) > 1% indicates that a LEFT SHIFT is Present. Laboratory - Chemistry and C hemistry - challengeOrdered By: Atuumn Jacome on 01-07-2025 Glucose Ql (U) Negative [facility] Laboratory - UrinalysisOrder ed By: Autumn Jacome on 01-07-2025 Protein Ql (U) Negative [facility] MCV (mean corpuscular volume ) determinationOrdered By: Rufina Chaney on 01-07-2025 MCV (RBC) [Entitic vol] 89.2 fL 81-99 [facility] Mean corpuscular hemoglobin (MCH) determinationOrdered By: Rufina Chaney on 01-07-2025 MCH (RBC) [Entitic mass] 28.6 pg 27.0-32.0 [facility] Mean corpuscular hemoglobin concentration (MCHC) determinationOrdered By: Rufina Chaney on 01-07-2025 MCHC (RBC) [Mass/Vol] 32.1 g/dL 32-36 [facility] Mean platelet volume determi nationOrdered By: Rufina Chaney on 01-07-2025 Platelet mean volume (Bld) [Entitic vol] 12.1 fL High 6.2-12.0 [facility] Monocyte percentageOrdered B y: Rufina Chaney on 01-07-2025 Monocytes/100 WBC (Bld) 5.4 % 0-10 [facility] Neutrophil percentageOrdered By: Rufina Chaney on 01-07-2025 Neutrophils/100 WBC (Bld) 78.3 % High 47-70 [facility] No Panel InformationOrdered By: Rufina Chaney on 01-07-2025 HIV (1&2) Antibody Non-Reactive Nonreactive [facility] Comment on above: Non-ReactiveReactive Repeatedly reactive samples must be confirmed according to CDC recommended confirmatory algorithms. The subresults for either HIVAG or AHIV can be used as an aid in the selection of the confirmation algorithm for reactive samples.Send out specimens with Reactive results to [facility] for confirmation.Order the HIV antibody detection and differentiation: #[id number] Nucleated red blood cell per centageOrdered By: Rufina Chaney on 01-07-2025 Nucleated RBC/100 WBC (Bld) [Ratio] 0 % 0-5 [facility] Tire Specialist Office Visit Reporton 01-07-2025 Tire Specialist Office Visit Report [facility]'[address], [address] [place] [address] OFFICE VISIT Date of Service: 01/07/25 MR#: [id number] Acct: [id number] Name: GINO MICHELE Rep #: [id number] : 2000 Provider: JOSE Santos ams Age/Sex: 24/F Location: [facility] Status: Signed Intake Vital Signs 12/03/24 10:16 01/07/25 10:18 01/07/25 10:18 Height 5 ft 5 in 5 ft 5 in 5 ft 5 in Weight: 182 lb BMI 30.2 BP 127/81 H Intake Visit Reasons: 27 wk ob/ glucose Chief Complaint: 27wk OB Strategic Debriefing Officer Required: No Is patient in pain?: No [...] PFSH Medical History Migraine headache Surgical History [place] teeth extracted Family History Grandfather Diabetes Maternal Mother Cancer Basal cell skin cancer Father Cancer Basal cell Skin cancer Aunt Cancer Maternal- Skin Melanoma Social History adopted: No household members: spouse current occupational status: employed 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 ?- (more content not included)... Normal [facility] Platelet countOrdered By: Khris Chaney on 01-07-2025 Platelets (Bld) [#/Vol] 160 10*3/uL 150-450 [facility] RBC Auto (Bld) [#/Vol]Ordere d By: Rufina Chaney on 01-07-2025 RBC (Bld) [#/Vol] 3.53 10*6/uL Low 4.2-5.4 [facility] Syphilis Antibodieson 2024 Syphilis Abs Non-Reactive Normal Nonreactive [facility] Comment on above: Performed By: #### L 100.0100, L509.8002, L501.0250, L3890.6006 ####[facility] [address] [place], [address] White blood cell (WBC) count Ordered By: Rufina Chaney on 01-07-2025 WBC (Bld) [#/Vol] 12.2 10*3/uL High 4.4-11.0 [facility] Laboratory - Chemistry and C hemistry - challengeOrdered By: Rufina Chaney on 12-03-2024 Glucose Ql (U) Negative [facility] Laboratory - UrinalysisOrder ed By: Rufina Chaney on 12-03-2024 Protein Ql (U) Negative [facility] Tire Specialist Office Visit Reporton 12-03-2024 Tire Specialist Office Visit Report [facility]'[address], [address] [place] [address] OFFICE VISIT Date of Service: 12/03/24 MR#: [id number] Acct: [id number] Name: GINO MICHELE Rep #: [id number] : 2000 Provider: Dr. Rufina Dowd DO Age/Sex: 24/F Location: [facility] Status: Signed Intake Vital Signs 09/09/24 09:07 11/05/24 11:42 12/03/24 10:15 12/03/24 10:16 Height 5 ft 5 in 5 ft 5 in 5 ft 5 in 5 ft 5 in Weight: 171 lb 6 oz BMI 28.5 BP 120/77 Intake Visit Reasons: 22 wk ob Strategic Debriefing Officer Required: No Is patient in pain?: No [...] PFSH Medical History Migraine headache Surgical History [place] teeth extracted Family History Grandfather Diabetes Maternal Mother Cancer Basal cell skin cancer Father Cancer Basal cell Skin cancer Aunt Cancer Maternal- Skin Melanoma Social History adopted: No household members: spouse current occupational status: employed 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 Normal [facility] Laboratory - Chemistry and C hemistry - challengeOrdered By: Autumn Jacome on 11-05-2024 Glucose Ql (U) Negative [facility] - UrinalysisOrder ed By: Autumn Jacome on 11-05-2024 Protein Ql (U) Negative [facility] Tire Specialist Office Visit Reporton 11-05-2024 Tire Specialist Office Visit Report [facility] [address] [place] [address], [address] [place] [address] OFFICE VISIT Date of Service: 11/05/24 MR#: [id number] Acct: [id number] Name: GINO MICHELE Rep #: [id number] : 2000 Provider: JOSE Santos ams Age/Sex: 24/F Location: [facility] Status: Signed Intake Vital Signs 09/09/24 09:07 [...] PFSH Medical History Migraine headache Surgical History [place] teeth extracted Family History Grandfather Diabetes Maternal Mother Cancer Basal cell skin cancer Father Cancer Basal cell Skin cancer Aunt Cancer Maternal- Skin Melanoma Social History adopted: No household members: spouse current occupational status: employed 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 Normal [facility] - Chemistry and C hemistry - challengeOrdered By: Rufina Chaney on 10-07-2024 Glucose Ql (U) Negative [facility] Laboratory - UrinalysisOrder ed By: Rufina Chaney on 10-07-2024 Protein Ql (U) Negative [facility] Tire Specialist Office Visit Reporton 10-07-2024 Tire Specialist Office Visit Report [facility] [address], [address] [place] [address] OFFICE VISIT Date of Service: 10/07/24 MR#: [id number] Acct: [id number] Name: GINO MICHELE Rep #: [id number] : 2000 Provider: Dr. Rufina Dowd DO Age/Sex: 24/F Location: [facility] Status: Signed Intake Vital Signs 08/27/24 19:48 09/09/24 09:07 10/07/24 11:33 10/07/24 11:35 Height 5 ft 5 in 5 ft 5 in 5 ft 5 in 5 ft 5 in Weight: 153 lb 2 oz BMI 25.4 BP 120/73 Intake Visit Reasons: 14 wk OB Strategic Debriefing Officer Required: No Is patient in pain?: No [...] PFSH Medical History Migraine headache Surgical History [place] teeth extracted Family History Grandfather Diabetes Maternal Mother Cancer Basal cell skin cancer Father Cancer Basal cell Skin cancer Aunt Cancer Maternal- Skin Melanoma Social History adopted: No household members: spouse current occupational status: employed 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 Normal [facility] HIV - WCHon 09-14-2024 HIV Non-Reactive Normal Nonreactive [facility] Comment on above: Order Comment: Reaso n for Exam: Performed By: #### L 3890.6300, L509.4005, L509.8000, L3890.6100, L3890.6005, BTS, L100.0100 ####[facility] [address] [place], [place], [id number] PAP I-G w/rfx hrHPV-Aptimaon 09-14-2024 ADEQ Comment Normal . [facility] Comment on above: Order Comment: Cecil leblanc Comment: [id number] Specimen Comment: Source.............Cervix Specimen Comment: No. of containers..01 ThinPrep Vial Result Comment: Sati sfactory for evaluation. Endocervical and/or squamous metaplastic cells (endocervical component) are present. Performed By: #### M 100.2200, L7400.0353, L7000.1800 #### [facility] [address] [place], [place], [address] COMM . Normal . [facility] Comment on above: Order Comment: Speci deana Comment: [id number] Specimen Comment: Source.............Cervix Specimen Comment: No. of containers..01 ThinPrep Vial Performed By: #### M 100.2200, L7400.0353, L7000.1800 #### [facility] [address] [place], [place], [address] COMMENT Comment Normal . [facility] Comment on above: Order Comment: Speci men Comment: [id number] Specimen Comment: Source.............Cervix Specimen Comment: No. of containers..01 ThinPrep Vial Result Comment: This liquid based ThinPrep(R) pap test was screened with the use of an image guided system. Performed By: #### M 100.2200, L7400.0353, L7000.1800 #### [facility] [address] [place], [place], [phone] DIAG Comment Normal . [facility] Comment on above: Order Comment: Speci men Comment: [id number] Specimen Comment: Source.............Cervix Specimen Comment: No. of containers..01 ThinPrep Vial Result Comment: NEGA TIVE FOR INTRAEPITHELIAL LESION OR MALIGNANCY. Performed By: #### M 100.2200, L7400.0353, L7000.1800 #### [facility] [address] [place], [place], [id number] HPV RFLX Comment Normal . [facility] Comment on above: Order Comment: Speci men Comment: [id number] Specimen Comment: Source.............Cervix Specimen Comment: No. of containers..01 ThinPrep Vial Result Comment: The HPV DNA reflex criteria were not met with this specimen result therefore, no HPV testing was performed. Performed at: [address] [id number] Customer Management Specialist: Rachell Lowe MD, Phone: [phone] Performed By: #### M 100.2200, L7400.0353, L7000.1800 #### [facility] [address] [place], [address] PAPSMR Comment Normal . [facility] Comment on above: Order Comment: Speci men Comment: [id number] Specimen Comment: Source.............Cervix Specimen Comment: No. of [...] By: #### M 100.2200, L7400.0353, L7000.1800 #### [facility] [address] [place], [address] PERFORM Comment Normal . [facility] Comment on above: Order Comment: Speci men Comment: [id number] Specimen Comment: Source.............Cervix Specimen Comment: No. of containers..01 ThinPrep Vial Result Comment: Bang Reese, Concrete Pavement Installer (ASCP) Performed By: #### M 100.2200, L7400.0353, L7000.1800 #### [facility] [address] [place], [address] Chlamydia/GC MICKEY aptimaon CHLAMY,NUC ACID Negative Normal Negative [facility] Comment on above: Performed By: #### M 100.2200, L7400.0353, L7000.1800 #### [facility] [address] [place], [address] GC BY NUC ACID Negative Normal Negative [facility] Comment on above: Result Comment: Perf ormed at: =G - [facility] [id number] Customer Management Specialist: Rachell Lowe MD, Phone: [phone] Performed By: #### M 100.2200, L7400.0353, L7000.1800 #### [facility] [address] [place], [address] Urine Cultureon 09-10-2024 URC Culture exhibits no growth. Normal [facility] Comment on above: Performed By: #### M 100.2200, L7400.0353, L7000.1800 #### [facility] [address] [place], [address] CBC W/Diff, Automatedon Absolute Lymph 1.49 X10 3/uL Normal 0.83-4.51 [facility] Comment on above: Performed By: #### L 3890.6300, L509.4005, L509.8000, L3890.6100, L3890.6005, BTS, L100.0100 ####[facility] [address] [place], [address] Absolute Neut 7.4 X10 3/uL Normal 2.0-7.7 [facility] Comment on above: Performed By: #### L 3890.6300, L509.4005, L509.8000, L3890.6100, L3890.6005, BTS, L100.0100 ####[facility] [address] [place], [address] Basophils/100 WBC (Bld) 0.2 % Normal 0-1 [facility] Comment on above: Performed By: #### L 3890.6300, L509.4005, L509.8000, L3890.6100, L3890.6005, BTS, L100.0100 ####[facility] [address] [place], [address] Eosinophils/100 WBC (Bld) 1.5 % Normal 0-5 [facility] Comment on above: Performed By: #### L 3890.6300, L509.4005, L509.8000, L3890.6100, L3890.6005, BTS, L100.0100 ####[facility] [address] [place], [address] Erythrocyte distribution width (RBC) [Ratio] 12.8 % Normal 11.6-14.6 [facility] Comment on above: Performed By: #### L 3890.6300, L509.4005, L509.8000, L3890.6100, L3890.6005, BTS, L100.0100 ####[facility] [address] [place], [address] Hematocrit (Bld) [Volume fraction] 40.7 % Normal 37-47 [facility] Comment on above: Performed By: #### L 3890.6300, L509.4005, L509.8000, L3890.6100, L3890.6005, BTS, L100.0100 ####[facility] [address] [place], [address] Hemoglobin (Bld) [Mass/Vol] 13.3 g/dL Normal 12.0-15.0 [facility] Comment on above: Performed By: #### L 3890.6300, L509.4005, L509.8000, L3890.6100, L3890.6005, BTS, L100.0100 ####[facility] [address] [place], [address] IG% 0.300 Normal 0.0-0.9 [facility] Comment on above: Result Comment: IG% - Immature Granulocytes (promyelocytes, myelocytes and metamyelocytes) > 1% indicates that a LEFT SHIFT is Present. Performed By: #### L 3890.6300, L509.4005, L509.8000, L3890.6100, L3890.6005, BTS, L100.0100 ####[facility] [address] [place], [address] Lymphocytes/100 WBC (Bld) 15.6 % Low 19-41 [facility] Comment on above: Performed By: #### L 3890.6300, L509.4005, L509.8000, L3890.6100, L3890.6005, BTS, L100.0100 ####[facility] [address] [place], [address] MCH (RBC) [Entitic mass] 28.8 pg Normal 27.0-32.0 [facility] Comment on above: Performed By: #### L 3890.6300, L509.4005, L509.8000, L3890.6100, L3890.6005, BTS, L100.0100 ####[facility] [address] [place], [address] MCHC (RBC) [Mass/Vol] 32.7 g/dL Normal 32-36 [facility] Comment on above: Performed By: #### L 3890.6300, L509.4005, L509.8000, L3890.6100, L3890.6005, BTS, L100.0100 ####[facility] [address] [place], [address] MCV (RBC) [Entitic vol] 88.1 fL Normal 81-99 [facility] Comment on above: Performed By: #### L 3890.6300, L509.4005, L509.8000, L3890.6100, L3890.6005, BTS, L100.0100 ####[facility] [address] [place], [address] Monocytes/100 WBC (Bld) 4.9 % Normal 0-10 [facility] Comment on above: Performed By: #### L 3890.6300, L509.4005, L509.8000, L3890.6100, L3890.6005, BTS, L100.0100 ####[facility] [address] [place], [address] Neutrophils/100 WBC (Bld) 77.5 % High 47-70 [facility] Comment on above: Performed By: #### L 3890.6300, L509.4005, L509.8000, L3890.6100, L3890.6005, BTS, L100.0100 ####[facility] [address] [place], [address] Nucleated RBC (Bld) [#/Vol] 0 10*3/uL Normal 0-5 [facility] Comment on above: Performed By: #### L 3890.6300, L509.4005, L509.8000, L3890.6100, L3890.6005, BTS, L100.0100 ####[facility] [address] [place], [address] Platelet mean volume (Bld) [Entitic vol] 12.9 fL High 6.2-12.0 [facility] Comment on above: Performed By: #### L 3890.6300, L509.4005, L509.8000, L3890.6100, L3890.6005, BTS, L100.0100 ####[facility] [address] [place], [address] Platelets (Bld) [#/Vol] 183 10*3/uL Normal 150-450 [facility] Comment on above: Performed By: #### L 3890.6300, L509.4005, L509.8000, L3890.6100, L3890.6005, BTS, L100.0100 ####[facility] [address] [place], [address] RBC (Bld) [#/Vol] 4.62 10*6/uL Normal 4.2-5.4 [facility] Comment on above: Performed By: #### L 3890.6300, L509.4005, L509.8000, L3890.6100, L3890.6005, BTS, L100.0100 ####[facility] [address] [place], [address] RDW SD 41.2 fl Normal 35.1-43.9 [facility] Comment on above: Performed By: #### L 3890.6300, L509.4005, L509.8000, L3890.6100, L3890.6005, BTS, L100.0100 ####[facility] [address] [place], [place], [phone] WBC (Bld) [#/Vol] 9.6 10*3/uL Normal 4.4-11.0 [facility] Comment on above: Performed By: #### L 3890.6300, L509.4005, L509.8000, L3890.6100, L3890.6005, BTS, L100.0100 ####[facility] [address] [place], [address] Hepatitis B Surface Antigeno n 09-09-2024 HEP B Surf Ag Non-Reactive Normal Nonreactive [facility] Comment on above: Order Comment: Reaso n for Exam: Performed By: #### L 3890.6300, L509.4005, L509.8000, L3890.6100, L3890.6005, BTS, L100.0100 ####[facility] [address] [place], [place], [phone] Hepatitis C Antibodyon 09-09 Hepatitis C AB Non-Reactive Normal Nonreactive [facility] Comment on above: Order Comment: Reaso n for Exam: Result Comment: Non Reactive: < 0.8 Equivocal: >/= 0.8 to < 1.0 Reactive: >/= 1.0 The CDC requires that a reactive/equivocal HCV antibody result be sent out for confirmation. HCV Quant by PCR testing. Performed By: #### L 3890.6300, L509.4005, L509.8000, L3890.6100, L3890.6005, BTS, L100.0100 ####[facility] [address] [place], [address] L509.8000on 09-09-2024 Syphilis Abs Non-Reactive Normal [facility] Comment on above: Order Comment: Reaso n for Exam: Performed By: #### L 3890.6300, L509.4005, L509.8000, L3890.6100, L3890.6005, BTS, L100.0100 ####[facility] [address] [place], [place], [address] Tire Specialist Office Visit Reporton 09-09-2024 Tire Specialist Office Visit Report [facility] [address], [address] [place] [address] OFFICE VISIT Date of Service: 09/09/24 MR#: [id number] Acct: [id number] Name: GINO BAE Rep #: [id number] : 2000 Provider: JOSE Santos ams Age/Sex: 24/F Location: [facility] Status: Signed Intake Vital Signs 08/27/24 19:48 09/09/24 09:00 09/09/24 09:07 Height 5 ft 5 in 5 ft 5 in 5 ft 5 in Weight: 143 lb BMI 23.8 BP 127/83 H Intake Visit Reasons: LMP:06/27 BLUE:04/03 Strategic Debriefing Officer Required: No Is patient in pain?: No [...] PFSH Medical History Migraine headache Surgical History [place] teeth extracted Family History Grandfather Diabetes Maternal Mother Cancer Basal cell skin cancer Father Cancer Basal cell Skin cancer Aunt Cancer Maternal- Skin Melanoma Social History adopted: No household members: spouse current occupational status: employed 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 Normal [facility] Rubella IgGon 09-09-2024 Rubella IgG Reactive Normal Nonreactive [facility] Comment on above: Order Comment: Reaso n for Exam: Result Comment: Anti body Results Interpretation of Immune Status Non Reactive Presumed Non-Immune Equivocal Equivocal Reactive Presumed Immune Performed By: #### L 3890.6300, L509.4005, L509.8000, L3890.6100, L3890.6005, BTS, L100.0100 ####[facility] [address] [place], [address] Type AND Screenon 09-09-2024 Ab SCREEN GEL Negative Normal [facility] Comment on above: Order Comment: PN Performed By: #### L 3890.6300, L509.4005, L509.8000, L3890.6100, L3890.6005, BTS, L100.0100 ####[facility] [address] [place], [address] Urine Cultureon 08-29-2024 URC Culture exhibits no growth. Normal [facility] Comment on above: Performed By: #### M 100.2200 #### [facility] [address] [place], [address] CBC-Complete Blood Cnt No Di ffon 08-27-2024 Erythrocyte distribution width (RBC) [Ratio] 12.4 % Normal 11.6-14.6 [facility] Comment on above: Performed By: #### L 500.4050, L100.0500, L501.2450 ####[facility] [address] [place], [address] Hematocrit (Bld) [Volume fraction] 35.8 % Low 37-47 [facility] Comment on above: Performed By: #### L 500.4050, L100.0500, L501.2450 ####[facility] [address] [place], [address] Hemoglobin (Bld) [Mass/Vol] 12.1 g/dL Normal 12.0-15.0 [facility] Comment on above: Performed By: #### L 500.4050, L100.0500, L501.2450 ####[facility] [address] [place], [address] MCH (RBC) [Entitic mass] 29.5 pg Normal 27.0-32.0 [facility] Comment on above: Performed By: #### L 500.4050, L100.0500, L501.2450 ####[facility] [address] [place], [address] MCHC (RBC) [Mass/Vol] 33.8 g/dL Normal 32-36 [facility] Comment on above: Performed By: #### L 500.4050, L100.0500, L501.2450 ####[facility] [address] [place], [address] MCV (RBC) [Entitic vol] 87.3 fL Normal 81-99 [facility] Comment on above: Performed By: #### L 500.4050, L100.0500, L501.2450 ####[facility] [address] [place], [address] Platelet mean volume (Bld) [Entitic vol] 13.1 fL High 6.2-12.0 [facility] Comment on above: Performed By: #### L 500.4050, L100.0500, L501.2450 ####[facility] [address] [place], [address] Platelets (Bld) [#/Vol] 153 10*3/uL Normal 150-450 [facility] Comment on above: Performed By: #### L 500.4050, L100.0500, L501.2450 ####[facility] [address] [place], [address] RBC (Bld) [#/Vol] 4.10 10*6/uL Low 4.2-5.4 [facility] Comment on above: Performed By: #### L 500.4050, L100.0500, L501.2450 ####[facility] [address] [place], [address] RDW SD 39.5 fl Normal 35.1-43.9 [facility] Comment on above: Performed By: #### L 500.4050, L100.0500, L501.2450 ####[facility] [address] [place], [address] WBC (Bld) [#/Vol] 9.6 10*3/uL Normal 4.4-11.0 [facility] Comment on above: Performed By: #### L 500.4050, L100.0500, L501.2450 ####[facility] [address] [place], [address] Comprehensive Metabolic Prof [facility] 08-27-2024 Albumin [Mass/Vol] 3.6 g/dL Normal 3.2-5.0 [facility] Comment on above: Performed By: #### L 500.4050, L100.0500, L501.2450 ####[facility] [address] [place], [address] Albumin/Globulin [Mass ratio] 1.1 {ratio} Normal 0.9-2.4 [facility] Comment on above: Performed By: #### L 500.4050, L100.0500, L501.2450 ####[facility] [address] [place], [address] ALK P 60 U/L Normal 45-117 [facility] Comment on above: Performed By: #### L 500.4050, L100.0500, L501.2450 ####[facility] [address] [place], [address] ALT [Catalytic activity/Vol] 16 U/L Normal 13-56 [facility] Comment on above: Performed By: #### L 500.4050, L100.0500, L501.2450 ####[facility] [address] [place], [address] AST [Catalytic activity/Vol] 11 U/L Low 15-37 [facility] Comment on above: Performed By: #### L 500.4050, L100.0500, L501.2450 ####[facility] [address] [place], [address] Bilirubin [Mass/Vol] 0.30 mg/dL Normal 0.20-1.00 [facility] Comment on above: Result Comment: For patients on eltrombopag therapy, use of Dimension [place] TBIL is not recommended. Performed By: #### L 500.4050, L100.0500, L501.2450 ####[facility] [address] [place], [address] BUN/CRE 17.2 RATIO Normal 10-20 [facility] Comment on above: Performed By: #### L 500.4050, L100.0500, L501.2450 ####[facility] [address] [place], [address] CA,Total 8.9 mg/dL Normal 8.5-10.1 [facility] Comment on above: Performed By: #### L 500.4050, L100.0500, L501.2450 ####[facility] [address] [place], [address] Chloride [Moles/Vol] 104 mmol/L Normal 98-107 [facility] Comment on above: Performed By: #### L 500.4050, L100.0500, L501.2450 ####[facility] [address] [place], [address] CO2 [Moles/Vol] 29.0 mmol/L Normal 21.0-32.0 [facility] Comment on above: Performed By: #### L 500.4050, L100.0500, L501.2450 ####[facility] [address] [place], [address] Creatinine [Mass/Vol] 0.52 mg/dL Low 0.55-1.02 [facility] Comment on above: Result Comment: The validity of the calculated GFR GFRAA in patients over 70 years has not been determined. Clinical correlation is essential. Performed By: #### L 500.4050, L100.0500, L501.2450 ####[facility] [address] [place], [address] EST GFR - AA 186 mL/min Normal >60 [facility] Comment on above: Result Comment: Afri can [place] GFR Calc Performed By: #### L 500.4050, L100.0500, L501.2450 ####[facility] [address] [place], [address] GAP 6 Normal 5-15 [facility] Comment on above: Performed By: #### L 500.4050, L100.0500, L501.2450 ####[facility] [address] [place], [address] GFR/1.73 sq M.predicted among non-blacks MDRD (S/P/Bld) [Vol rate/Area] 154 mL/min/{1.73_m2} Normal >60 [facility] Comment on above: Result Comment: Non- GFR Calc Performed By: #### L 500.4050, L100.0500, L501.2450 ####[facility] [address] [place], [address] Globulin (S) [Mass/Vol] 3.4 g/dL Normal 2.2-4.2 [facility] Comment on above: Performed By: #### L 500.4050, L100.0500, L501.2450 ####[facility] [address] [place], [address] Glucose [Mass/Vol] 91 mg/dL Normal 74-106 [facility] Comment on above: Performed By: #### L 500.4050, L100.0500, L501.2450 ####[facility] [address] [place], [address] Potassium [Moles/Vol] 3.6 mmol/L Normal 3.5-5.1 [facility] Comment on above: Performed By: #### L 500.4050, L100.0500, L501.2450 ####[facility] [address] [place], [address] Sodium [Moles/Vol] 139 mmol/L Normal 136-145 [facility] Comment on above: Performed By: #### L 500.4050, L100.0500, L501.2450 ####[facility] [address] [place], [address] T PROT 7.0 g/dL Normal 6.4-8.2 [facility] Comment on above: Performed By: #### L 500.4050, L100.0500, L501.2450 ####[facility] [address], [address] Urea nitrogen [Mass/Vol] 9 mg/dL Normal 7-18 [facility] Comment on above: Performed By: #### L 500.4050, L100.0500, L501.2450 ####[facility] [address] [place], [address] Emergency Department Summary on 08-27-2024 Emergency Department Summary [facility] Medical Records Department [address] [place] [address] Emergency Department Summary 08/27/24 MR#: [id number] Acct: [id number] Name: GINO BAE Rep #: [id number] : 2000 24 From: Ivan Abrams DO [...] they tawanda (more content not included)... Normal [facility] Lipaseon 08-27-2024 Lipase [Catalytic activity/Vol] 36 U/L Normal 13-75 [facility] Comment on above: Result Comment: Susan stock note: LIPASE revised reference range effective 22. New Lipase methodology. Expected to produce lower values than the previous assay method. NEW Reference Range: 13 - 75 U/L Performed By: #### L 500.4050, L100.0500, L501.2450 ####[facility] [address] [place], [address] Urinalysis, Completeon 08-27 AMORPHOUS 3+ Normal [facility] Comment on above: Order Comment: CLEAN CATCH Performed By: #### L 400.0001 #### [facility] [address] [place], [address] EPI,SQUAMOUS 0-5 SEEN Normal 5-10 [facility] Comment on above: Order Comment: CLEAN CATCH Performed By: #### L 400.0001 #### [facility] [address] [place], [address] WBC 0-5 SEEN Normal 0-5 [facility] Comment on above: Order Comment: CLEAN CATCH Performed By: #### L 400.0001 #### [facility] [address] [place], [address] BACTERIA 0 SEEN Normal None Seen [facility] Comment on above: Order Comment: CLEAN CATCH Performed By: #### L 400.0001 #### [facility] [address] [place], [address] Mucus Ql (Urine sed) 0 SEEN Normal [facility] Comment on above: Order Comment: CLEAN CATCH Performed By: #### L 400.0001 #### [facility] [address] [place], [address] RBC 0 SEEN Normal 0-5 [facility] Comment on above: Order Comment: CLEAN CATCH Performed By: #### L 400.0001 #### [facility] [address] [place], [address] POCT UA Automated manually r esultedon 07-13-2024 Appearance (U) Clear Clear [facility] Work Phone: Glucose Test strip (U) [Mass/Vol] Negative NEGATIVE mg/dl [facility] Work Phone: [phone] Hemoglobin Ql (U) Negative NEGATIVE [facility] Work Phone: [phone] Interpretation and review of laboratory results Normal [facility] Work Phone: [phone] Leukocyte esterase Test strip Ql (U) Negative NEGATIVE [facility] Work Phone: [phone] Nitrite Ql (U) Negative NEGATIVE [facility] Work Phone: [phone] pH (U) 7.0 [pH] No Reference Range Established [facility] Work Phone: [phone] POC Bilirubin, Urine Negative NEGATIVE [facility] Work Phone: [phone] POC Color, Urine Yellow Straw, [place] ow, Light-Yellow [facility] Work Phone: [phone] POC Ketones, Urine Negative NEGATIVE mg/dl [facility] Work Phone: [phone] POC Protein, Urine Negative NEGATIVE, 30 (1+) mg/dl [facility] Work Phone: POC Specific [place], Urine 1.020 1.005 - 1.035 [facility] Work Phone: POC Urobilinogen, Urine 0.2 0.2, 1.0 EU/ DL [facility] Work Phone: [facility] Work Phone: CULTURE URINEon 01-03-2024 Bacteria identified Cx Nom (U) NO PATHOGENS GROWN AFTER 1 DAY NO PATHOGENS GROWN AFTER 2 DAYS Normal [facility] Comment on above: Performed By: #### 6 30-4, UAR #### [facility] [address] [place] [address] [employer] Q[employer]ONESIA [id number] CBC W Auto Differential pane l (Bld)on 01-01-2024 Basophils (Bld) [#/Vol] 0.05 10*3/uL Normal <=0.70 [facility] Comment on above: Performed By: #### 5 7021-8 #### [address] [place] [address] [employer] [id number] Basophils/100 WBC (Bld) 0.6 % Normal <=2.0 [facility] Comment on above: Performed By: #### 5 7021-8 #### [address] [place] [address] [employer] [place] CLIA [id number] Eosinophils (Bld) [#/Vol] 0.51 10*3/uL Normal <=0.70 [facility] Comment on above: Performed By: #### 5 7021-8 #### [address] [place] [address] [employer] CLIA [id number] Eosinophils/100 WBC (Bld) 6.2 % Normal <=10.0 [facility] Comment on above: Performed By: #### 5 7021-8 #### [address] [place] [address] [employer] [id number] Erythrocyte distribution width (RBC) [Entitic vol] 38.9 fL Normal 36.4-46.3 [facility] Comment on above: Performed By: #### 5 7021-8 #### [address] [place] [address] [employer] [id number] Hematocrit (Bld) [Volume fraction] 39.2 % Normal 37.0-47.0 [facility] Comment on above: Performed By: #### 5 7021-8 #### [address] [place] [address] [employer] [id number] Hemoglobin (Bld) [Mass/Vol] 13.6 g/dL Normal 12.0-16.0 [facility] Comment on above: Performed By: #### 5 7021-8 #### [address] [place] [address] [employer] [id number] Immature granulocytes (Bld) [#/Vol] 0.03 10*3/uL Normal <=0.10 [facility] Comment on above: Performed By: #### 5 7021-8 #### [address] [place] [address] [employer] [id number] Immature granulocytes/100 WBC (Bld) 0.40 % Normal <=1.50 [facility] Comment on above: Performed By: #### 5 7021-8 #### [address] [place] [address] [employer] [id number] Lymphocytes (Bld) [#/Vol] 2.48 10*3/uL Normal 1.20-3.40 [facility] Comment on above: Performed By: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 when her right upper extremity had drastic [...] scapula: this began at symptom onset in [facility]. Gino feels it is getting better. [...] by pediatric cardiology (Dr. Emily Garcia) at [facility] on February 18, 2019 for an asymptomatic murmur; and had a normal examination (no murmur heard) and echocardiogram. 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 She does very well at school with a 4.0 GPA. She is active and involved with [employer], [employer] (no longer doing), [email or web address], and religious leadership team. 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 + Recent stress during trip to [facility]. Hematology/Lympholo gy: Negative for [...] There is no motor impersistence on hand manager social media or minimyoclonus of the fingers when arms [...] young women on her recent trip to [facility]) it is difficult to [...] clinic in June and Gino will need chcf ongoing care, her care will need to [...] Resident for LARRY Woodall Staff, Pediatric Neurology [facility] STAFF PHYSICIAN NOTE OF PERSONAL INVOLVEMENT IN [...] by [place] mail. C: Family, PCP Normal [facility] Vital Signs Date Time Vital Sign Value Performing Clinician Facility 03-27-2025 11:04040 Heart rate 87 /min Yuliana ESPINOZA Work Phone: [facility] 03-27-2025 11:04-0400 SaO2% (BldA) [Mass fraction] 92 % Yuliana Gonzalez LABOR ARBITRATOR-C Work Phone: 2(757)925-753096 [place] [address] 03-27-2025 09:54-0400 Respiratory rate 16 /min Yuliana Gonzalez LABOR ARBITRATOR-C Work Phone: 0(264)874-206975 [place] [address] 03-27-2025 09:11-0400 Body temperature 97.5 [degF] Yuliana oGnzalez LABOR ARBITRATOR-C Work Phone: 1(477)904-693375 [place] [address] 03-27-2025 09:11-0400 Diastolic blood pressure 68 mm[Hg] Yuliana Gonzalez LABOR ARBITRATOR-C Work Phone: 9(243)294-794075 [place] [address] 03-27-2025 09:11-0400 Systolic blood pressure 128 mm[Hg] Yuliana Gonzalez LABOR ARBITRATOR-C Work Phone: 2(807)698-637875 [place] [address] 03-27-2025 08:59-0400 Body height 165.1 cm Yuliana Gonzalez LABOR ARBITRATOR-C Work Phone: 0(549)360-386775 [place] [address] 03-27-2025 08:59-0400 Body mass index (BMI) [Ratio] 32.6 kg/m2 Yuliana Gonzalez LABOR ARBITRATOR-C Work Phone: 3(171)616-981575 [place] [address] 03-27-2025 08:59-0400 Body weight 88.99 kg Yuliana Gonzalez LABOR ARBITRATOR-C Work Phone: 6(256)842-301796 [place] [address] 03-25-2025 10:08-0400 Body height 165.1 cm Yuliana Gonzalez LABOR ARBITRATOR-C Work Phone: 1(931)586-446296 [place] [address] 03-25-2025 10:08-0400 Body mass index (BMI) [Ratio] 32.7 kg/m2 Yuliana Gonzalez LABOR ARBITRATOR-C Work Phone: 4(405)555-443696 [place] [address] 03-25-2025 10:08-0400 Body weight 89.13 kg Yuliana Gonzalez LABOR ARBITRATOR-C Work Phone: 4(296)390-211696 [place] [address] 03-25-2025 10:08-0400 Diastolic blood pressure 67 mm[Hg] Yuliana Gonzalez LABOR ARBITRATOR-C Work Phone: [facility] 03-25-2025 10:08-0400 Systolic blood pressure 123 mm[Hg] Yuliana Gonzalez LABOR ARBITRATOR-C Work Phone: 8(411)131-707296 [place] [address] 03-18-2025 09:31-0400 Body height 165.1 cm Yuliana Gonzalez LABOR ARBITRATOR-C Work Phone: 7(090)550-695875 [place] [address] 03-18-2025 09:31-0400 Body mass index (BMI) [Ratio] 32.4 kg/m2 Yuliana Gonzalez LABOR ARBITRATOR-C Work Phone: 3(543)936-577375 [place] [address] 03-18-2025 09:31-0400 Body weight 88.45 kg Yuliana Gonzalez LABOR ARBITRATOR-C Work Phone: 3(914)811-302475 [place] [address] 03-18-2025 09:31-0400 Diastolic blood pressure 83 mm[Hg] Yuliana Gonzalez LABOR ARBITRATOR-C Work Phone: 9(727)277-556475 [place] [address] 03-18-2025 09:31-0400 Systolic blood pressure 139 mm[Hg] Yuliana Gonzalez LABOR ARBITRATOR-C Work Phone: 3(313)182-517375 [place] [address] 03-10-2025 15:34-0400 Body height 165.1 cm Yuliana Gonzalez LABOR ARBITRATOR-C Work Phone: 0(955)740-358675 [place] [address] 03-10-2025 15:34-0400 Body mass index (BMI) [Ratio] 32.5 kg/m2 Yuliana Gonzalez LABOR ARBITRATOR-C Work Phone: 5(383)946-426175 [place] [address] 03-10-2025 15:34-0400 Body weight 88.56 kg Yuliana Gonzalez LABOR ARBITRATOR-C Work Phone: 6(127)028-944175 [place] [address] 03-10-2025 15:34-0400 Diastolic blood pressure 82 mm[Hg] Yuliana Gonzalez LABOR ARBITRATOR-C Work Phone: 2(234)178-333775 [place] [address] 03-10-2025 15:34-0400 Systolic blood pressure 138 mm[Hg] Yuliana Gonzalez LABOR ARBITRATOR-C Work Phone: 3(297)192-989575 [place] [address] 02-24-2025 08:59-0400 Body height 165.1 cm Yuliana Gonzalez LABOR ARBITRATOR-C Work Phone: [facility] 02-24-2025 08:59-0400 Body mass index (BMI) [Ratio] 31.4 kg/m2 Yuliana Gonzalez LABOR ARBITRATOR-C Work Phone: [facility] 02-24-2025 08:59-0400 Body weight 85.84 kg Yuliana Gonzalez LABOR ARBITRATOR-C Work Phone: 7(108)976-049096 [place] [address] 02-24-2025 08:59-0400 Diastolic blood pressure 69 mm[Hg] Yuliana Gonzalez LABOR ARBITRATOR-C Work Phone: 1(855)938-980575 [place] [address] 02-24-2025 08:59-0400 Systolic blood pressure 103 mm[Hg] Yuliana Gonzalez LABOR ARBITRATOR-C Work Phone: 7(599)805-482375 [place] [address] 02-10-2025 08:47-0400 Body height 165.1 cm Yuliana Gonzalez LABOR ARBITRATOR-C Work Phone: 2(009)763-162175 [place] [address] 02-10-2025 08:47-0400 Body mass index (BMI) [Ratio] 31.4 kg/m2 Yuliana Gonzalez LABOR ARBITRATOR-C Work Phone: 5(787)952-233475 [place] [address] 02-10-2025 08:47-0400 Body weight 85.78 kg Yuliana Gonzalez LABOR ARBITRATOR-C Work Phone: 9(763)728-534075 [place] [address] 02-10-2025 08:47-0400 Diastolic blood pressure 83 mm[Hg] Yuliana Gonzalez LABOR ARBITRATOR-C Work Phone: 0(392)114-279375 [place] [address] 02-10-2025 08:47-0400 Systolic blood pressure 115 mm[Hg] Yuliana Gonzalez LABOR ARBITRATOR-C Work Phone: 1(245)293-930875 [place] [address] 01-26-2025 08:35-0400 Body height 165.1 cm Yuliana Gonzalez LABOR ARBITRATOR-C Work Phone: 9(856)703-490575 [place] [address] 01-26-2025 08:35-0400 Body mass index (BMI) [Ratio] 31.3 kg/m2 Yuliana Gonzalez LABOR ARBITRATOR-C Work Phone: 2(863)463-521275 [place] [address] 01-26-2025 08:35-0400 Body weight 85.38 kg Yuliana Gonzalez LABOR ARBITRATOR-C Work Phone: [facility] 01-26-2025 08:35-0400 Diastolic blood pressure 72 mm[Hg] Yuliana Gonzalez LABOR ARBITRATOR-C Work Phone: [facility] 01-26-2025 08:35-0400 Systolic blood pressure 126 mm[Hg] Yuliana Gonzalez LABOR ARBITRATOR-C Work Phone: [facility] 01-07-2025 10:18-0400 Body height 165.1 cm Yuliana Gonzalez LABOR ARBITRATOR-C Work Phone: 8(737)222-548296 [place] [address] 01-07-2025 10:18-0400 Body mass index (BMI) [Ratio] 30.2 kg/m2 Yuliana Gonzalez LABOR ARBITRATOR-C Work Phone: 8(914)987-820296 [place] [address] 01-07-2025 10:18-0400 Body weight 82.55 kg Yuliana Gonzalez LABOR ARBITRATOR-C Work Phone: 4(321)829-298896 [place] [address] 01-07-2025 10:18-0400 Diastolic blood pressure 81 mm[Hg] Yuliana Gonzalez LABOR ARBITRATOR-C Work Phone: 0(475)369-368496 [place] [address] 01-07-2025 10:18-0400 Systolic blood pressure 127 mm[Hg] Yuliana Gonzalez LABOR ARBITRATOR-C Work Phone: 8(431)276-211496 [place] [address] 12-03-2024 10:15-0400 Body mass index (BMI) [Ratio] 28.5 kg/m2 Yuliana Gonzalez LABOR ARBITRATOR-C Work Phone: [facility] 12-03-2024 10:15-0400 Body weight 77.73 kg Yuliana Gonzalez LABOR ARBITRATOR-C Work Phone: 7(276)545-040596 [place] [address] 12-03-2024 10:15-0400 Diastolic blood pressure 77 mm[Hg] Yuliana Gonzalez LABOR ARBITRATOR-C Work Phone: 4(457)884-504796 [place] [address] 12-03-2024 10:15-0400 Systolic blood pressure 120 mm[Hg] Yuliana Gonzalez LABOR ARBITRATOR-C Work Phone: 7(227)599-214496 [place] [address] 11-05-2024 11:42-0500 Body mass index (BMI) [Ratio] 27.3 kg/m2 Yuliana Gonzalez LABOR ARBITRATOR-C Work Phone: 2(274)449-675796 [place] [address] 11-05-2024 11:42-0500 Body weight 74.38 kg Yuliana Gonzalez LABOR ARBITRATOR-C Work Phone: 9(947)027-270075 [place] [address] 11-05-2024 11:42-0500 Diastolic blood pressure 81 mm[Hg] Yuliana Gonzalez LABOR ARBITRATOR-C Work Phone: 5(085)627-383875 [place] [address] 11-05-2024 11:42-0500 Systolic blood pressure 134 mm[Hg] Yuliana Gonzalez LABOR ARBITRATOR-C Work Phone: 1(676)403-819375 [place] [address] 10-07-2024 11:33-0500 Body mass index (BMI) [Ratio] 25.4 kg/m2 Yuliana Gonzalez LABOR ARBITRATOR-C Work Phone: 1(954)093-701275 [place] [address] 10-07-2024 11:33-0500 Body weight 69.45 kg Yuliana Gonzalez LABOR ARBITRATOR-C Work Phone: 3(503)844-212975 [place] [address] 10-07-2024 11:33-0500 Diastolic blood pressure 73 mm[Hg] Yuliana Gonzalez LABOR ARBITRATOR-C Work Phone: 4(051)454-247575 [place] [address] 10-07-2024 11:33-0500 Systolic blood pressure 120 mm[Hg] Yuliana Gonzalez LABOR ARBITRATOR-C Work Phone: 3(409)333-739375 [place] [address] 09-28-2024 07:45-0500 Body height 166.4 cm Yuliana Gonzalez BOARDER MACHINE-THERMOCOUPLE TESTER Work Phone: 4(793)837-707226 [place] [address] 09-28-2024 07:45-0500 Body mass index (BMI) [Ratio] 24.91 kg/m2 Yuliana Gonzalez BOARDER MACHINE-THERMOCOUPLE TESTER Work Phone: 5(597)654-431426 [place] [address] 09-28-2024 07:45-0500 Body weight 68.95 kg Yuliana Gonzalez BOARDER MACHINE-THERMOCOUPLE TESTER Work Phone: 5(139)808-923026 [place] [address] 09-28-2024 07:45-0500 Diastolic blood pressure 80 mm[Hg] Yuliana Gonzalez BOARDER MACHINE-THERMOCOUPLE TESTER Work Phone: [facility] 09-28-2024 07:45-0500 Heart rate 72 /min Yuliana Gonzalez BOARDER MACHINE-THERMOCOUPLE TESTER Work Phone: [facility] 09-28-2024 07:45-0500 Systolic blood pressure 138 mm[Hg] Yuliana Gonzalez BOARDER MACHINE-THERMOCOUPLE TESTER Work Phone: [facility] 07-13-2024 07:18-0500 Body height 166.4 cm Yuliana Gonzalez BOARDER MACHINE-THERMOCOUPLE TESTER Work Phone: [facility] 07-13-2024 07:18-0500 Body mass index (BMI) [Ratio] 23.02 kg/m2 Yuliana Gonzalez BOARDER MACHINE-THERMOCOUPLE TESTER Work Phone: [facility] 07-13-2024 07:18-0500 Body weight 63.73 kg Yuliana Gonzalez BOARDER MACHINE-THERMOCOUPLE TESTER Work Phone: [facility] 07-13-2024 07:18-0500 Diastolic blood pressure 80 mm[Hg] Yuliana Gonzalez BOARDER MACHINE-THERMOCOUPLE TESTER Work Phone: [facility] 07-13-2024 07:18-0500 Heart rate 82 /min Yuliana Goznalez BOARDER MACHINE-THERMOCOUPLE TESTER Work Phone: [facility] 07-13-2024 07:18-0500 Systolic blood pressure 124 mm[Hg] Yuliana Gonzalez BOARDER MACHINE-THERMOCOUPLE TESTER Work Phone: [facility] Encounters Encounter Date Encounter Type Care Provider Facility Start: 03-27-2025 End: 03-27-2025 ambulatory Yuliana Gonzalez NP-C Work Phone: -[facility] Start: 03-27-2025 End: 03-27-2025 Patient encounter procedure Autumn Jacome CNM -[facility] Work Phone: Start: 03-25-2025 End: 03-25-2025 Patient encounter procedure Autumn Jacome CNM -[facility] Work Phone: Start: 03-25-2025 End: 03-25-2025 ambulatory Yuliana Gonzalez LABOR ARBITRATOR-C Work Phone: -[facility] Start: 03-22-[address] Marissa Aquino MD -[facility] Work Phone: Start: 03-22-2025 ambulatory Yuliana Gonzalez Facility:[facility] Start: 03-18-2025 End: 03-18-[address] Marissa Aquino MD -[facility] Work Phone: Start: 03-18-2025 End: 03-18-2025 ambulatory Yuliana Gonzalez LABOR ARBITRATOR-C Work Phone: [facility] Start: 03-10-2025 End: 03-10-2025 ambulatory Yuliana Gonzalez LABOR ARBITRATOR-C Work Phone: -Laboratory Specimen Start: 03-10-2025 End: 03-10-[address] Rufina Weiss DO -Laboratory Specimen Work Phone: Start: 03-10-2025 End: 03-10-[address] Rufina Weiss DO -[facility] Work Phone: Start: 03-10-2025 End: 03-10-2025 ambulatory Yuliana Gonzalez LABOR ARBITRATOR-C Work Phone: [facility] Start: 03-10-2025 End: 03-10-2025 ambulatory Rufina Weiss Facility:[facility] Start: 02-24-2025 End: 02-24-[address] Marissa Aquino MD -[facility] Work Phone: Start: 02-24-2025 End: 02-24-2025 ambulatory Yuliana Gonzalez LABOR ARBITRATOR-C Work Phone: [facility] Work Phone: Start: 02-15-2025 End: 02-15-2025 ambulatory Yuliana Gonzalez LABOR ARBITRATOR-C Work Phone: [facility] Work Phone: Start: 02-15-2025 End: 02-15-2025 Patient encounter procedure [facility]QUEZM [facility] Start: 02-15-2025 End: 02-15-2025 ambulatory Autumn Jacome Facility:[facility] Start: 02-11-2025 End: 02-11-2025 ambulatory Yuliana Gonzalez LABOR ARBITRATOR-C Work Phone: [facility] Work Phone: Start: 02-11-2025 End: 02-11-2025 Patient encounter procedure Autumn Jacome CNM -[facility] Work Phone: Start: 02-10-2025 End: 02-11-2025 ambulatory Yuliana Gonzalez LABOR ARBITRATOR-C Work Phone: [facility] Work Phone: Start: 02-10-2025 End: 02-10-2025 Patient encounter procedure Autumn Jacome CNM -[facility] Work Phone: Start: 01-26-2025 End: 01-26-2025 Patient encounter procedure Kritsen Parker LABOR ARBITRATOR-C -[facility] Work Phone: Start: 01-26-2025 End: 01-26-2025 ambulatory Yuliana Gonzalez LABOR ARBITRATOR-C Work Phone: [facility] Work Phone: Start: 01-07-2025 End: 01-07-2025 Patient encounter procedure Autumn MÁRQUEZM -[facility] Work Phone: Start: 01-07-2025 End: 01-07-2025 ambulatory Yuliana Gonzalez LABOR ARBITRATOR-C Work Phone: [facility] Work Phone: Start: 01-07-2025 End: 01-07-2025 ambulatory Marissa Aquino Facility:[facility] Start: 12-31-2024 ambulatory Lore Staley y:[facility] Start: 12-03-2024 End: 12-03-[address] Rufina Weiss DO -[facility] Work Phone: Start: 12-03-2024 End: 12-03-2024 ambulatory Rufina Weiss Facility:[facility] Start: 11-09-2024 End: 11-09-2024 ambulatory JOSSELIN PETRA [facility] Start: 11-05-2024 End: 11-05-2024 Patient encounter procedure Autumn MÁRQUEZ -[facility] Work Phone: Start: 11-05-2024 End: 11-05-2024 ambulatory Yuliana Gonzalez Facility:[facility] Start: 10-07-2024 End: 10-07-[address] Rufina Weiss DO -[facility] Work Phone: Start: 10-07-2024 End: 10-07-2024 ambulatory Rufina Weiss Facility:[facility] Start: 09-28-2024 End: 09-28-2024 Office outpatient visit 15 minutes Yuliana Gonzalez BOARDER MACHINE-THERMOCOUPLE TESTER Work Phone: [facility] Comment on above: Persistent depressiv e disorder; Anxiety Start: 09-28-2024 End: 09-28-2024 ambulatory [facility] Start: 09-09-2024 End: 09-09-2024 ambulatory Yuliana Volga Facility:[facility] Start: 09-09-2024 End: 09-09-2024 ambulatory Yuliana Volga Facility:[facility] Start: 08-27-2024 End: 08-27-2024 Emergency department patient visit Ivan Abrams Facility:[facility] Start: 07-13-2024 End: 07-13-2024 Initial preventive medicine new pt age 18-39yrs Yuliana Gonzalez BOARDER MACHINE-THERMOCOUPLE TESTER Work Phone: [facility] Comment on above: Wellness examination (Primary Dx); Dysuria; Persistent depressive disorder; Migraine without aura and without status migrainosus, not intractable; Screening for lipid disorders; BMI 23.0-23.9, adult Start: 07-13-2024 End: 07-13-2024 Patient encounter status Yuliana Gonzalez BOARDER MACHINE-THERMOCOUPLE TESTER Work Phone: [facility] Work Phone: Start: 07-13-2024 End: 07-13-2024 ambulatory YULIANA GONZALEZ [facility] Start: 07-13-2024 End: 07-13-2024 Encounter for general adult medical examination without abnormal findings YULIANA GONZALEZ [facility] Start: 01-01-2024 End: 01-01-2024 ambulatory BOAZ SCHULTZ Facility:[facility] Start: 02-13-2018 End: 02-14-2018 Ambulatory [facility] Procedures Date Procedure Procedure Detail Performing Clinician Start: 03-22-2025 Ultrasound scan for growth Yuliana Gonzalez LABOR ARBITRATOR-C Work Phone: Start: 03-10-2025 Beta-hemolytic Streptococcus culture Yuliana Vincenzo LABOR ARBITRATOR-C Work Phone: Start: 02-11-2025 Ultrasound scan for growth Yuliana Gonzalez LABOR ARBITRATOR-C Work Phone: Start: 01-07-2025 Serologic test for syphilis Yuliana Gonzalez LABOR ARBITRATOR-C Work Phone: Start: 09-09-2024 Microscopic observat ion [Identifier] in Cervix by Cyto stain Yuliana Gonzalez BOARDER MACHINE-THERMOCOUPLE TESTER Work Phone: Start: 07-13-2024 Urnls dip stick/tabl et rgnt auto w/o microscopy Yuliana Gonzalez BOARDER MACHINE-THERMOCOUPLE TESTER Work Phone: Plan of Treatment Date Care Activity Detail Author Start: 2076 RSV High Risk: (Elde rly (60+) or Population) (1 - 1-dose 75+ series) RSV High Risk: (Elderly (60+) or Population) (1 - 1-dose 75+ series) [facility] Start: 2051 Zoster Vaccines (1 of 2) Zoste r Vaccines (1 of 2) [facility] Start: 09-09-2027 Screening for malign ant neoplasm of cervix [facility] Start: 07-14-2025 Yearly Adult Physical Yearly Adult P hysical [facility] Start: 04-01-2025 ambulatory Ambulatory Facility:[facility] Start: 03-27-2025 Nonstress test [facility] Start: 03-27-2025 Obstetric monitoring [facility] Start: 03-27-2025 Vital signs measurements [facility] Start: 03-27-2025 [facility] Start: 03-27-2025 Patient discharge [facility] Start: 07-13-2024 End: 07-13-2025 CBC W Auto Differential panel - Blood CBC and Auto Differential Lab Routine Wellness examination Expected: 07/13/2024 (Approximate), Expires: 07/13/2025 [facility] Service Area Work Phone: Comment on above: Expected: 07/13/2024 (Approximate), Expires: 07/13/2025 Start: 07-13-2024 End: 07-13-2025 Comprehensive metabolic 2000 panel - Serum or Plasma Comprehensive Metabolic Panel Lab Routine Wellness examination Expected: 07/13/2024 (Approximate), Expires: 07/13/2025 [facility] Work Phone: Comment on above: Expected: 07/13/2024 (Approximate), Expires: 07/13/2025 Start: 07-13-2024 End: 07-13-2025 Lipid 1996 panel - Serum or Plasma Lipid Panel Lab Routine Screening for lipid disorders Wellness examination Expected: 07/13/2024 (Approximate), Expires: 07/13/2025 [facility] Work Phone: Comment on above: Expected: 07/13/2024 (Approximate), Expires: 07/13/2025 Start: 05-02-2024 COVID-19 Vaccine ( season) COVID-19 Vaccine ( season) [facility] Start: 05-02-2024 Influenza vaccination Influenza Vacc ine (#1) [facility] Start: 02-05-2024 DTaP/Tdap/Td Vaccine s (7 - Td or Tdap) DTaP/Tdap/Td Vaccines (7 - Td or Tdap) [facility] Start: 2022 Screening for malign ant neoplasm of cervix [facility] Start: 2019 Hepatitis C screening Hepatitis C Sc reening [facility] Start: 2016 HPV Vaccines (1 - 3- dose series) HPV Vaccines (1 - 3-dose series) [facility] Start: 2001 HIV screening HIV Screening [facility] Start: 2001 Lipid panel Lipid Panel [facility] Patient Education Kick Counts ED False Labor OB Triage: Return to Hospital or Notify Physician if you Experience: [facility] Work Phone: Streptococcus agalac tiae [Presence] in Unspecified specimen by Organism specific culture [facility] Ultrasound scan for growth [facility] Ultrasound scan for growth [facility] Immunizations Immunization Date Immunization Notes Care Provider Fa pankaj 02-10-2025 tetanus toxoid, redu gordon diphtheria toxoid, and acellular pertussis vaccine, adsorbed Yuliana Gonzalez LABOR ARBITRATOR-C Work Phone: [facility] 01-14-2022 tuberculin skin test ; purified protein derivative solution, intradermal Yuliana Gonzalez BOARDER MACHINE-THERMOCOUPLE TESTER Work Phone: [facility] Work Phone: 05-31-2019 meningococcal B vacc ine, recombinant, OMV, adjuvanted Yuliana Gonzalez BOARDER MACHINE-THERMOCOUPLE TESTER Work Phone: [facility] Work Phone: 02-12-2019 meningococcal B vacc ine, recombinant, OMV, adjuvanted Yuliana Gonzalez BOARDER MACHINE-THERMOCOUPLE TESTER Work Phone: [facility] Work Phone: 02-12-2019 meningococcal polysaccharide (groups A, C, Y and W-135) diphtheria toxoid conjugate vaccine (MCV4P) Yuliana Gonzalez BOARDER MACHINE-THERMOCOUPLE TESTER Work Phone: [facility] Work Phone: 02-07-2017 hepatitis A vaccine, pediatric/adolescent dosage, 2 dose schedule Yuliana Gonzalez BOARDER MACHINE-THERMOCOUPLE TESTER Work Phone: [facility] Work Phone: 02-07-2017 typhoid capsular polysaccharide vaccine Yulianaeber Gonzalez BOARDER MACHINE-THERMOCOUPLE TESTER Work Phone: [facility] Work Phone: 03-01-2016 hepatitis A vaccine, pediatric/adolescent dosage, 2 dose schedule Yulianaeber Gonzalez BOARDER MACHINE-THERMOCOUPLE TESTER Work Phone: [facility] Work Phone: 03-01-2016 typhoid capsular polysaccharide vaccine Yulianaeber Gonzalez BOARDER MACHINE-THERMOCOUPLE TESTER Work Phone: [facility] Work Phone: 04-27-2015 pneumococcal polysaccharide vaccine, 23 valent Yulianaeber Gonzalez BOARDER MACHINE-THERMOCOUPLE TESTER Work Phone: [facility] Work Phone: 02-04-2014 meningococcal polysaccharide (groups A, C, Y and W-135) diphtheria toxoid conjugate vaccine (MCV4P) Yuliana Gonzalez BOARDER MACHINE-[facility] Work Phone: [facility] Work Phone: 02-04-2014 tetanus toxoid, redu gordon diphtheria toxoid, and acellular pertussis vaccine, adsorbed Yuliana Gonzalez BOARDER MACHINE-[facility] Work Phone: [facility] Work Phone: 08-31-2008 varicella virus vaccine Jamar Gonzalez BOARDER MACHINE-[facility] Work Phone: [facility] Work Phone: 11-01-2005 diphtheria, tetanus toxoids and acellular pertussis vaccine Yuliana Gonzalez BOARDER MACHINE-[facility] Work Phone: [facility] Work Phone: 11-01-2005 measles, mumps and rubella virus vaccine Yuliana Gonzalez BOARDER MACHINE-[facility] Work Phone: [facility] Work Phone: 11-01-2005 poliovirus vaccine, inactivated Yuliana Gonzalez BOARDER MACHINE-THERMOCOUPLE TESTER Work Phone: [facility] Work Phone: 11-19-2002 diphtheria, tetanus toxoids and acellular pertussis vaccine Yuliana Gonzalez BOARDER MACHINE-THERMOCOUPLE TESTER Work Phone: [facility] Work Phone: 08-23-2002 measles, mumps and rubella virus vaccine Yuliana Gonzalez BOARDER MACHINE-THERMOCOUPLE TESTER Work Phone: [facility] Work Phone: 05-24-2002 haemophilus influenz ae type b vaccine, PRP-T conjugate Yuliana Gonzalez BOARDER MACHINE-THERMOCOUPLE TESTER Work Phone: [facility] Work Phone: 05-24-2002 hepatitis B vaccine, pediatric or pediatric/adolescent dosage Yuliana Gonzalez BOARDER MACHINE-THERMOCOUPLE TESTER Work Phone: [facility] Work Phone: 05-24-2002 varicella virus vaccine Jamar Gonzalez BOARDER MACHINE-THERMOCOUPLE TESTER Work Phone: [facility] Work Phone: 03-01-2002 haemophilus influenz ae type b vaccine, PRP-T conjugate Yuliana Gonzalez BOARDER MACHINE-THERMOCOUPLE TESTER Work Phone: [facility] Work Phone: 03-01-2002 poliovirus vaccine, inactivated Yuliana Gonzalez BOARDER MACHINE-THERMOCOUPLE TESTER Work Phone: [facility] Work Phone: 2001 diphtheria, tetanus toxoids and acellular pertussis vaccine Yuliana Gonzalez BOARDER MACHINE-THERMOCOUPLE TESTER Work Phone: [facility] Work Phone: 2001 pneumococcal conjuga te vaccine, 7 valent Yuliana Gonzalez BOARDER MACHINE-[facility] Work Phone: [facility] Work Phone: 2001 diphtheria, tetanus toxoids and acellular pertussis vaccine Yuliana Gonzalez BOARDER MACHINE-THERMOCOUPLE TESTER Work Phone: [facility] Work Phone: 2001 haemophilus influenz ae type b vaccine, PRP-T conjugate Yuliana Gonzalez BOARDER MACHINE-THERMOCOUPLE TESTER Work Phone: [facility] Work Phone: 2001 pneumococcal conjuga te vaccine, 7 valent Yuliana Gonzalez BOARDER MACHINE-THERMOCOUPLE TESTER Work Phone: [facility] Work Phone: 2001 poliovirus vaccine, inactivated Yuliana Gonzalez BOARDER MACHINE-THERMOCOUPLE TESTER Work Phone: [facility] Work Phone: 2001 diphtheria, tetanus toxoids and acellular pertussis vaccine Yuliana Gonzalez BOARDER MACHINE-THERMOCOUPLE TESTER Work Phone: [facility] Work Phone: 2001 haemophilus influenz ae type b vaccine, PRP-T conjugate Yuliana Gonzalez BOARDER MACHINE-THERMOCOUPLE TESTER Work Phone: [facility] Work Phone: 2001 hepatitis B vaccine, pediatric or pediatric/adolescent dosage Yuliana Gonzalez BOARDER MACHINE-THERMOCOUPLE TESTER Work Phone: [facility] Work Phone: 2001 pneumococcal conjuga te vaccine, 7 valent Yuliana Gonzalez BOARDER MACHINE-THERMOCOUPLE TESTER Work Phone: [facility] Work Phone: 2001 poliovirus vaccine, inactivated Yuliana Gonzalez BOARDER MACHINE-THERMOCOUPLE TESTER Work Phone: [facility] Work Phone: 2001 hepatitis B vaccine, pediatric or pediatric/adolescent dosage Yuliana Gonzalez BOARDER MACHINE-THERMOCOUPLE TESTER Work Phone: [facility] Work Phone: Payers Date Payer Category Payer Self-pay [address] [facility] [id number] 2001 Unknown [id number] 2001 Unknown [id number] 2001 Unknown [id number] 2001 Unknown [id number] [id number] 1959 Unknown [id number] 1959 Unknown [id number] Unknown [id number] Unknown [id number] [id number] Unknown [id number] [id number] Unknown [id number] 2.16.840.1.061292.3.579.2.462 Unknown [id number] [id number] Unknown [id number] 2.16840.1.410530.3.579.2.462 Unknown [id number] 2.16840.1.168077.3.579.2.462 Unknown [id number] 2.16.840.1.162386.3.579.2.462 Unknown [id number] 2.16.840.1.293474.3.579.2.462 Unknown [id number] 2.16.840.1.824545.3.579.2.462 Unknown [id number] [id number] Unknown [id number] 2.16.840.1.958853.3.579.2.462 Unknown [id number] 2.16.840.1.487624.3.579.2.462 Unknown [id number] 2.16.840.1.290299.3.579.2.462 Unknown [id number] 2.16.840.1.962400.3.579.2.462 Unknown [id number] 2.16.840.1.424968.3.579.2.462 Unknown [id number] 2.16.840.1.357110.3.579.2.462 Unknown [id number] 2.16.840.1.657452.3.579.2.462 Unknown [id number] 2.16.840.1.089435.3.579.2.462 Unknown [id number] [id number] Unknown [id number] [id number] Social History Date Type Detail Facility Start: 07-13-2024 End: 09-06-2024 Tobacco smoking status NHIS Never smoked tobacco [facility] Work Phone: Start: 07-13-2024 Tobacco use and exposure Smokeless tobacco non-user [facility] Work Phone: Start: 07-13-2024 End: 09-28-2024 Alcoholic beverage intake Current drinker of alcohol (finding) [facility] Work Phone: Start: 07-13-2024 End: 09-28-2024 History of Social function [facility] Work Phone: Start: 07-13-2024 End: 09-28-2024 Tobacco use panel [facility] Work Phone: Start: 07-13-2024 Alcohol Comment social [facility] Work Phone: Start: 2001 Sex assigned at Not on file [facility] Work Phone: Start: 07-03-2024 End: 09-28-2024 Exposure to SARS-CoV-2 (event) Not sure [facility] Start: 2001 Sex Assigned At Female [facility] Clinical Notes 07-13-2024 to 03-25-2025 Note Date & Type Note Facility 03-25-2025 Progress note [facility] 03-18-2025 Progress note [facility] 03-10-2025 Progress note [facility] 03-10-2025 Progress note Note Date/Time March 10, 2025 3:51pm [facility] [address], [address] [place] [address] OFFICE VISIT Date of Service: 03/10/25 MR#: [id number] Acct: [id number] Name: GINO MICHELE Rep #: [id number] : 2000 Provider: Dr. Rosalva Weiss DO Age/Sex: 24/F Location: [facility] Status: Signed Intake Vital Signs 01/07/25 10:18 02/24/25 08:59 03/10/25 15:34 Height 5 ft 5 in 5 ft 5 in 5 ft 5 in Weight: 195 lb 4 oz BMI 32.5 BP 138/82 H Intake Visit Reasons: 36 wk ob Strategic Debriefing Officer Required: No Is patient in pain?: No [...] PFSH Medical History Migraine headache Surgical History [place] teeth extracted Family History Grandfather Diabetes Maternal Mother Cancer Basal cell skin cancer Father Cancer Basal cell Skin cancer Aunt Cancer Maternal- Skin Melanoma Social History adopted: No household members: spouse current occupational status: employed 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 pets and animals: Yes (Avoid Litterbox) [...] physical activity do you participate in: none osiris/protestant: Orthodoxy seatbelt use: always do you feel safe [...] high risk , unspecified, third trimester 03/10/25 1171 <Electronically signed by Rufina Watkins DO> Date _ Rufina Weiss DO Cosigner Signature: Date (if applicable) CC: ~ [facility] Work Phone: 1(336) 841-393706-26-2025 Progress [facility] [address], [address] [place] [id number] OFFICE VISIT Date of Service: 02/24/25 MR#: [id number] Acct: [id number] Name: GINO MICHELE Rep #: [id number] : 2000 Provider: Dr. Arias Aquino MD Age/Sex: 24/F Location: [facility] Status: Signed Intake Vital Signs 09/09/24 09:07 02/10/25 08:47 02/24/25 08:59 02/24/25 08:59 Height 5 ft 5 in 5 ft 5 in 5 ft 5 in 5 ft 5 in Weight: 189 lb 4 oz BMI 31.4 BP 103/69 Intake Visit Reasons: 34 wk ob Strategic Debriefing Officer Required: No Is patient in pain?: No [...] PFSH Medical History Migraine headache Surgical History [place] teeth extracted Family History Grandfather Diabetes Maternal Mother Cancer Basal cell skin cancer Father Cancer Basal cell Skin cancer Aunt Cancer Maternal- Skin Melanoma Social History adopted: No household members: spouse current occupational status: employed 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 pets and animals: Yes (Avoid Litterbox) [...] physical activity do you participate in: none osiris/protestant: Orthodoxy seatbelt use: always do you feel safe [...] Cosign Signature: Date (if applicable) CC: ~ [facility]06-13-2025 Radiology Diagnostic study note [facility] Imaging Services [address] [place], [place] [address] OB Limited With Biometrics MR#: [id number] Acct: [id number] Name: MICHELE,GINOBERNY ESPITIA Rep #: [id number] : 2000 F 24 From: Joshua Astorga MD PCP: OLGA Montilla Status: REG CLI Study:OB Limited With Biometrics Date of Exam : 02/11/25 Exam# [id number] Ordering Dr: Autumn Jacome CNM PROCEDURE: OB [...] gestational age of 34 weeks. Reading Location: [id number] CC: JOSE Jacome; LABOR ARBITRATORCasey Gonzalez ~ Ethnic Origins Teacher: Signed [facility]06-12-2025 [facility] [address], [address] [place] [address] OFFICE VISIT Date of Service: 02/10/25 MR#: [id number] Acct: [id number] Name: GINO MICHELE Rep #: [id number] : 2000 Provider: JOSE Jacome Age/Sex: 24/F Location: [facility] Status: Signed Intake Vital Signs 09/09/24 09:07 01/26/25 08:35 02/10/25 08:47 Height 5 ft 5 in 5 ft 5 in 5 ft 5 in Weight: 189 lb 2 oz BMI 31.4 BP 115/83 H Intake Visit Reasons: 32 wk ob Strategic Debriefing Officer Required: No Is patient in pain?: No [...] PFSH Medical History Migraine headache Surgical History [place] teeth extracted Family History Grandfather Diabetes Maternal Mother Cancer Basal cell skin cancer Father Cancer Basal cell Skin cancer Aunt Cancer Maternal- Skin Melanoma Social History adopted: No household members: spouse current occupational status: employed 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 pets and animals: Yes (Avoid Litterbox) [...] physical activity do you participate in: none osiris/protestant: Orthodoxy seatbelt use: always do you feel safe [...] Performing Provider: Autumn Jacome CNM Performing Location: [facility] Administered by: Kristen Quiros on 02/10/25 08:57 Dose Route Admin Location Dispensed Lot Number Expiration Date NDC Gandy Dancer 0.5 mL IM Right Deltoid 0.5 mL [id number] 01/29/26 97057-971-29 [employer] VIS Given Date VIS Provided VIS [...] Cosigner Signature: Date (if applicable) CC: ~ [facility]04-04-2025 Evaluation note* Diagnosis Onset Date Resolution Status [...] of high-risk acute March 10, 2025 3:30pm [facility] Work Phone: 1(490) 564-984704-04-2025 Evaluation note* Diagnosis Onset Date Resolution Status [...] third trimester acute March 18, 2025 9:29am [facility] Work Phone: 1([phone] 883-982304-04-2025 Evaluation note* Diagnosis Onset Date Resolution Status [...] third trimester acute March 25, 2025 9:59am [facility] Work Phone: 1([phone]) 569-509203-07-2025 Evaluation note* Diagnosis Onset Date Resolution Status [...] high-risk acute January 07, 2025 10 :04am [facility] Work Phone: 1([phone]) 321-178403-07-2025 Evaluation note* Diagnosis Onset Date Resolution Status [...] high-risk acute January 26, 2025 8 :33am [facility] Work Phone: 1(854) 525-330903-07-2025 Evaluation note* Diagnosis Onset Date Resolution Status [...] of high-risk acute February 10, 2025 8:46am [facility] Work Phone: 1([phone]) 610-786303-07-2025 Evaluation note* Diagnosis Onset Date Resolution Status [...] February 24 8:56am Circumvallate placenta acute [place] 2024 8:56am Depression acute February 24 8:56am acute February 24 8:56am Supervision of high-risk acute February 24, 2025 8:56am [facility] Work Phone: 1(659) 319-714101-28-2025 Evaluation + Plan note* Assessment & Plan Note - KAREL Phillips - 09/28/2024 7:59 AM ESTAssociated Problem(s): Persistent depressive disorder Increase zoloft 150 mg daily [facility] Work Phone: [phone] 397-311901-28-2025 Evaluation + Plan note* Assessment & Plan Note - KAREL Phillips - 09/28/2024 7:59 AM ESTAssociated Problem(s): Anxiety Increase zoloft 150 mg daily [facility] Work Phone: 1([phone] 474-628701-28-2025 Miscellaneous Notes* Assessment & Plan Note - KAREL Phillips - 09/28/2024 7:59 AM ESTAssociated Problem(s): Persistent depressive disorder Increase zoloft 150 mg daily * Assessment & Plan Note - KAREL Phillips - 09/28/2024 7:59 AM EST Associated Problem(s): Anxiety Increase zoloft 150 mg daily [facility] Work Phone: 1(162) 491-601701-28-2025 History of Present illness Narrative* Jojo Vela CMA - 09/28/2024 7:40 AM EST 13 weeks * Yuliana Sophie Gonzalez, BOARDER MACHINE-THERMOCOUPLE TESTER - 09/28/2024 7:40 AM EST Subjective Patient ID: Gino Michele is a 24 y.o. female who presents for Medication Problem. HPI Gino returns to discuss increasing her zoloft. She is currently 13 weeks . Sees [facility] in [place]. Anxiety/depression: has been on zoloft and was [...] effects of the medication. documented in this [facility] Work Phone: 1(262) 325-558911-12-2024 Evaluation + Plan note* Assessment & Plan Note - KAREL Phillips - 07/13/2024 8:05 AM ESTAssociated Problem(s): Migraine without aura and without status migrainosus, not intractable Rizatriptan 10 mg as needed for migraine stable [facility] Work Phone: 1([phone]) 170-753411-12-2024 Miscellaneous Notes* Assessment & Plan Note - [...] blood in it thistime. [facility] Work Phone: 1([phone]) 988-860811-12-2024 Evaluation + Plan note* Assessment & Plan Note - KAREL Phillips - 07/13/2024 8:04 AM ESTAssociated Problem(s): Anxiety Doing well on sertraline 100 mg daily [facility] Work Phone: 1([phone]) 737-196111-12-2024 Evaluation + Plan note* Assessment & Plan Note - KAREL Phillips - 07/13/2024 8:04 AM ESTAssociated Problem(s): Persistent depressive disorder Currently on sertraline 100 mg daily stable [facility] Work Phone: 1([phone]) 202-899811-12-2024 History of Present illness Narrative* Jojo Vela [...] hard to urinate, back pain. Went to [facility] clinic. Was treated for LUTS (Macrobid). Has [...] effects of the medication. [facility] Work Phone: [phone]) [phone] Progress note* Result Encounter Note - KAREL Phillips - 07/13/2024 7:20 AM EST Let her know her urine did not show any signs of an infection and did not have any blood in it thistime. [facility] Work Phone: Evaluation note* Diagnosis Wellness examination- Primary Dysuria Persistent depressive disorder Migraine without aura and without status migrainosus, not intractable Screening for lipid disorders BMI 23.0-23.9, adult documented in this encounter [facility] Work Phone: Evaluation note* Diagnosis Wellness examination- Primary Dysuria Persistent depressive disorder Migraine without aura and without status migrainosus, not intractable Screening for lipid disorders BMI 23.0-23.9, adult Persistent depressive disorder Anxiety Anxiety state, unspecified documented in this encounter [facility] Work Phone: Progress note Author Autumn Jacome [facility] Note Date/Time February 10, 2025 9:11 am [facility] [address], [address] [place] [address] OFFICE VISIT Date of Service: 02/10/25 MR#: [id number] Acct: [id number] Name: GINO MICHELE Rep #: [id number] : 2000 Provider: JOSE Jacome Age/Sex: 24/F Location: [facility] Status: Signed Intake Vital Signs 09/09/24 09:07 01/26/25 08:35 02/10/25 08:47 Height 5 ft 5 in 5 ft 5 in 5 ft 5 in Weight: 189 lb 2 oz BMI 31.4 BP 115/83 H Intake Visit Reasons: 32 wk ob Strategic Debriefing Officer Required: No Is patient in pain?: No [...] PFSH Medical History Migraine headache Surgical History [place] teeth extracted Family History Grandfather Diabetes Maternal Mother Cancer Basal cell skin cancer Father Cancer Basal cell Skin cancer Aunt Cancer Maternal- Skin Melanoma Social History adopted: No household members: spouse current occupational status: employed 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 pets and animals: Yes (Avoid Litterbox) [...] physical activity do you participate in: none osiris/protestant: Orthodoxy seatbelt use: always do you feel safe [...] Symptoms of Preeclampsia, Infant Feeding No , [place] Education and Family Medical Leave or Disability [...] Performing Provider: Autumn Jacome CNM Performing Location: [facility] Administered by: Kristen Quiros on 02/10/25 08:57 Dose Route Admin Location Dispensed Lot Number Expiration Date NDC Gandy Dancer 0.5 mL IM Right Deltoid 0.5 mL [id number] 01/29/26 09483-337-29 [employer] VIS Given Date VIS Provided VIS Publication [...] Cosigner Signature: Date (if applicable) CC: ~ [facility] Work Phone: Progress note Author Marissa Aquino [facility] Note Date/Time February 24, 2025 9:22 am [facility] [address], [address] [place] [address] OFFICE VISIT Date of Service: 02/24/25 MR#: [id number] Acct: [id number] Name: GINO MICHELE Rep #: [id number] : 2000 Provider: Dr. Arias Aquino MD Age/Sex: 24/F Location: [facility] Status: Signed Intake Vital Signs 09/09/24 09:07 02/10/25 08:47 02/24/25 08:59 02/24/25 08:59 Height 5 ft 5 in 5 ft 5 in 5 ft 5 in 5 ft 5 in Weight: 189 lb 4 oz BMI 31.4 BP 103/69 Intake Visit Reasons: 34 wk ob Strategic Debriefing Officer Required: No Is patient in pain?: No [...] PFSH Medical History Migraine headache Surgical History [place] teeth extracted Family History Grandfather Diabetes Maternal Mother Cancer Basal cell skin cancer Father Cancer Basal cell Skin cancer Aunt Cancer Maternal- Skin Melanoma Social History adopted: No household members: spouse current occupational status: employed 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 pets and animals: Yes (Avoid Litterbox) [...] physical activity do you participate in: none osiris/protestant: Orthodoxy seatbelt use: always do you feel safe [...] and Symptoms of Preeclampsia, Feeding No , [place] Education and Family Medical Leave or Disability [...] Cosign Signature: Date (if applicable) CC: ~ [facility] Work Phone: Progress note Author Marissa Aquino [facility] Note Date/Time March 18, 2025 9:59 am [facility] [address] [place] [address], [address] [place] [address] OFFICE VISIT Date of Service: 03/18/25 MR#: [id number] Acct: [id number] Name: GINO MICHELE Rep #: [id number] : 2000 Provider: Dr. Arias Aquino MD Age/Sex: 24/F Location: [facility] Status: Signed Intake Vital Signs 02/10/25 08:47 03/10/25 15:34 03/18/25 09:31 Height 5 ft 5 in 5 ft 5 in 5 ft 5 in Weight: 195 lb BMI 32.4 BP 139/83 H Intake Visit Reasons: 37 wk ob Strategic Debriefing Officer Required: No Is patient in pain?: No [...] PFSH Medical History Migraine headache Surgical History [place] teeth extracted Family History Grandfather Diabetes Maternal Mother Cancer Basal cell skin cancer Father Cancer Basal cell Skin cancer Aunt Cancer Maternal- Skin Melanoma Social History adopted: No household members: spouse current occupational status: employed 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 pets and animals: Yes (Avoid Litterbox) [...] physical activity do you participate in: none osiris/protestant: Orthodoxy seatbelt use: always do you feel safe [...] Cosign Signature: Date (if applicable) CC: ~ [facility] Work Phone: Progress note Author Autumn Jacome [facility] Note Date/Time March 25, 2025 10:3 6am [facility] [address] [place] [address], [address] [place] [address] OFFICE VISIT Date of Service: 03/25/25 MR#: [id number] Acct: [id number] Name: GINO MICHELE Rep #: [id number] : 2000 Provider: JOSE Jacome Age/Sex: 24/F Location: [facility] Status: Signed Intake Vital Signs 02/10/25 08:47 03/18/25 09:31 03/25/25 10:08 Height 5 ft 5 in 5 ft 5 in 5 ft 5 in Weight: 196 lb 8 oz BMI 32.7 BP 123/67 H Intake Visit Reasons: 38 wk ob Chief Complaint: 38 Week OB Strategic Debriefing Officer Required: No Is patient in pain?: No [...] PFSH Medical History Migraine headache Surgical History [place] teeth extracted Family History Grandfather Diabetes Maternal Mother Cancer Basal cell skin cancer Father Cancer Basal cell Skin cancer Aunt Cancer Maternal- Skin Melanoma Social History adopted: No household members: spouse current occupational status: employed 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 pets and animals: Yes (Avoid Litterbox) [...] physical activity do you participate in: none osiris/protestant: Orthodoxy seatbelt use: always do you feel safe [...] and Symptoms of Preeclampsia, Feeding No , [place] Education and Family Medical Leave or Disability [...] Cosigner Signature: Date (if applicable) CC: ~ [facility] Work Phone: Reason for referral (narrative)No reason for referral information availableWMain Campus Medical Center Work Phone: Summary Purpose Family [...] section and content) DATE CREATED AUTHOR 03/09/2018 [facility] DATE CREATED AUTHOR AUTHOR'S ORGANIZ ATION 10/20/2019 [facility] DATE CREATED AUTHOR AUTHOR'S ORGANIZ ATION 09/01/2020 [facility] DATE CREATED AUTHOR AUTHOR'S ORGANIZ ATION 01/30/2024 [facility] DATE CREATED AUTHOR AUTHOR'S ORGANIZ ATION 11/12/2024 [facility] DATE CREATED AUTHOR AUTHOR'S ORGANIZ ATION 12/13/2024 [facility] DATE CREATED AUTHOR AUTHOR'S ORGANIZ ATION 03/27/2025 [facility] Reason for Visit (unrecogniz ed section and content) Reason Comments Establish Care Reason Comments Medication Problem Care Teams (unrecognized sec tion and content) Operating Room Specialist Relationship Specialty Start Date End Date Yuliana Gonzalez, BOARDER MACHINE-THERMOCOUPLE TESTER [address] [facility][1] [place] [address] PCP - General Family Medicine 07/13/24 Operating Room Specialist Relationship Specialty Start Date End Date Vincenzo Yuliana Barrios APRN-THERMOCOUPLE TESTER [address] [place] [address] PCP - General Family Medicine 07/13/24 Team [...] Inactive Member Role Status Dates Yuliana Gonzalez LABOR ARBITRATOR-C Primary Care Provider Active Start: January 26, 2025 End: January 26, 2025 Yuliana Gonzalez LABOR ARBITRATOR-C Referring Provider Active Sta rt: January 26, 2025 End: January 26, 2025 Kristen Parker NP, LABOR ARBITRATOR-C Attending Provider Active Start: January 26, 2025 End: January 26, 2025 Team Status: Inactive Member Role Status Dates Yuliana Gonzalez LABOR ARBITRATOR-C Primary Care Provider Active Start: February 10, [...] Status: Inactive Member Role Status Rodrigo Gonzalez LABOR ARBITRATOR-C Primary Care Provider Active Start: February 24, 2025 End: February 24, 2025 Yuliana Gonzalez , LABOR ARBITRATOR-C Referring Provider Active Sta rt: February 24, 2025 End: February 24, 2025 Dr. Marissa Aquino MD Attending Provider Active Start: February 24, 2025 End: February 24, 2025 Team Status: Active Member Role/Relationship Status Rodrigo Gonzalez LABOR ARBITRATOR-C Primary Care Provider Active Team Status: Inactive Member Role/Relationship Status Rodrigo Gonzalez LABOR ARBITRATOR-C Primary Care Provider Active Start: December 03, [...] End: January 26, 2025 Kristen Parker NP LABOR ARBITRATOR-C Attending Provider Active Start: January 26, 2025 [...] Inactive Member Role/Relationship Status Dates Yuliana Gonzalez LABOR ARBITRATOR-C Primary Care Provider Active Start: February 11, 2025 End: February 11, 2025 Autumn Jacome CNM Attending Provider Active S tart: February 11, 2025 End: February 11, 2025 Autumn Jacome CNM Referring Provider Active S tart: February 11, 2025 End: February 11, 2025 Team Status: Inactive Member Role/Relationship Status Dates Yuliana Gonzalez LABOR ARBITRATOR-C Primary Care Provider Active Start: February 15, 2025 End: February 15, 2025 Autumn Jacome CNM Attending Provider Active S tart: February 15, 2025 End: February 15, 2025 Autumn Jacome CNM Referring Provider Active S tart: February 15, 2025 End: February 15, 2025 Team Status: Inactive Member Role/Relationship Status Dates Yuliana Gonzalez LABOR ARBITRATOR-C Primary Care Provider Active Start: February 24, 2025 End: February 24, 2025 Yuliana Gonzalez LABOR ARBITRATOR-C Referring Provider Active Sta rt: February 24, 2025 End: February 24, 2025 Dr. Marissa Aquino MD Attending Provider Active Start: February 24, 2025 End: February 24, 2025 Team Status: Inactive Member Role/Relationship Status Rodrigo Gonzalez LABOR ARBITRATOR-C Primary Care Provider Active Start: March 10, 2025 End: March 10, 2025 Yuliana Gonzalez LABOR ARBITRATOR-C Referring Provider Active Sta rt: March 10, [...] Status: Inactive Member Role/Relationship Status Rodrigo Gonzalez LABOR ARBITRATOR-C Primary Care Provider Active Start: March 18, [...] BE BASED ON THE PRIMARY CLINICAL RECORDS. [facility] [employer] [facility] provides no warranty or guarantee of the accuracy or completeness of information in this document.
--- NOTE | 2025-03-28 09:36 | OB.TRI.PN ---
Progress Notes Date of Service: 03/27/25 Progress Note: Patient presents for triage evaluation secondary to uterine contractions at 39 weeks. FHT: 140 Moderate variability reactive no decelerations category I tracing [place]: regular mild/moderate Contractions Assessment and plan: no cervical change after 2-3 hours of monitoring, discussed options to stay for additional monitoring and recheck in 2 hours or d/c home and return when ctx become stronger. Patient decided on discharge. Reactive NST, reassuring maternal and status patient discharged to home to follow-up at next appt. See problem list details for additional plan information. Charges/Coding Multi Select Codes Urinary/Genital Urinary/Genital CPT Codes: 76708-30 non-stress test Interp Assessment & Plan (1) Uterine contractions at greater than 20 weeks of gestation: COMMENT: no cervical change. ok for d/c (2) Uterine size-date discrepancy, third trimester: (3) Anemia in preg-unspec: QUALIFIERS: Trimester: third trimester Qualified Code(s): O99.013 - Anemia complicating , third trimester COMMENT: FE (4) Circumvallate placenta: QUALIFIERS: Trimester: third trimester Qualified Code(s): O43.113 - Circumvallate placenta, third trimester COMMENT: growth at 32 weeks: 02/11: (5) Supervision of high-risk : QUALIFIERS: Trimester: third trimester Qualified Code(s): O09.93 - Supervision of high risk , unspecified, third trimester COMMENT: PRR, , BLUE 04/03/25 Boy Doris, Xavier (6) : QUALIFIERS: Weeks of gestation: 38 weeks Qualified Code(s): Z3A.38 - 38 weeks gestation of COMMENT: Neg GBS. undecided about NIPT, nl anatomy (7) Depression: QUALIFIERS: Depression Type: unspecified Qualified Code(s): F32.A - Depression, unspecified COMMENT: sertraline/stable (8) Anxiety: COMMENT: stable
== END | disposition home or self-care (01) ==
LOC: WPOUT 13:15
PROVIDERS: PCP Nurse Practitioner Family; Visit Provider Advanced Practice Midwife
DX: O47.1 False labor at or after 37 completed weeks of gestation (principal); O26.843 Uterine size-date discrepancy, third trimester; O99.013 Anemia complicating pregnancy, third trimester; O43.113 Circumvallate placenta, third trimester; O09.93 Supervision of high risk pregnancy, unspecified, third trimester; O99.343 Other mental disorders complicating pregnancy, third trimester; F32.A Depression, unspecified; F41.9 Anxiety disorder, unspecified; Z3A.39 39 weeks gestation of pregnancy